=== PATIENT | male | born 1970 | race Caucasian/White ===

== ENCOUNTER → 2017-01-02 | Outpatient (CLI) | payer MEDICAID ==
[~2017-01-02] MED LIST: ALB0.5V INH; ALBU1.25 IH; ALBU2.5V4 IH; ALBU2.5V4 NEB; AMOX500C2 PO; ASPI-983 PO; AZIT250T5 PO; BENZ100C23 PO; BUDE10.2 IH; BUDE10.22 IH; CARV3.12 PO; CARV3.122 PO; CEPH500C PO; CLON0.5T3 PO; CLON1TAB3 PO; CODE118S2 PO; CPR500T PO; DICL75TA2 PO; ENAL2.5T PO; ESCI10TA PO; EXEN2PEN SQ; EXEN5PEN2 SQ; FLUT16SP22 NS; FLUT9.9S NSEACH; FURO20TA4 PO; FURO40TA4 PO; GABA-488 PO; GLYB2.5T4 PO; GLYB5TAB6 PO; HCPR10FM RC; IBP200T PO; IBUP-30 PO; INSU100V16 SQ; LEVO500T80 PO; LEVO750T6 PO; LINA145C PO; LISI10TA2 PO; MELO15TA39 PO; METF-380 PO; METF1000 PO; METO10TA3 PO; METO5TAB79 PO; MTP25TSR PO; MUPI22OI2 TOP; OMEP20CA12 PO; OMEP20TA7 PO; OXYB10TA PO; PNT40TEC PO; POTA10CA43 PO; POTA10TA6 PO; PRD20T PO; QUET100T PO; QUET100T69 PO; QUET300T44 PO; RANI150T90 PO; RT-ALBUINH IH; RT-ALBUINH INH; RT-COMBINH IH; SACU1TAB PO; SERT100T PO; SERT100T8 PO; SERT50TA9 PO; SPIR25TA3 PO; SULF-222 PO; TRAM50TA2 PO; TRAZ150T42 PO
--- NOTE | 2017-01-03 10:29 | ECHOCARDIOGRAPHY REPORT ---
PROCEDURE PHYSICIAN: LATOYA MURO DATE OF PROCEDURE: 01/02/2017 TWO DIMENSIONAL ECHOCARDIOGRAM REPORT PRIMARY PHYSICIAN: OTHER PHYSICIAN: REFERRING PHYSICIAN: Dr. Winn, [facility] ORDERING PHYSICIAN: INDICATION FOR THE PROCEDURE: Coronary artery disease, chest pain MEASUREMENTS DERIVED VALUES LV DIAMETER (LAX) NORMALS NORMALS Diastolic 6.2 (3.6-5.2) Eject. Fract. 30% (60%+/-6%) Systolic (2.3-3.9) Diastolic Vol. % Shortening (0.22-0.42) Systolic Vol. Aortic Root IVS THICKNESS Diastolic 1.1 (0.6-1.1) LVPW THICKNESS Diastolic 1.1 (0.6-1.1) LA DIAMETER Systolic 3.2 (2.1-3.7) FINDINGS: 1. Technically difficult study. 2. The left ventricle is dilated with diffuse left ventricular hypokinesia. Endocardium was not well visualized in all segments. Overall systolic function appeared to be reduced. Estimated ejection fraction 30%. There is questionable severe hypokinesia of the anterior wall, anteroapical segment. MUGA scan will be of better help in evaluating the left ventricular function. 3. The left atrium is dilated. No clot or thrombus were seen. 4. The right atrium and right ventricle were not well visualized. 5. Mitral valve was not well visualized. Mild mitral regurgitation noted by color Doppler flow. 6. Aortic valve leaflets were not visualized. There is no significant aortic valve stenosis or regurgitation noted. 7. Tricuspid valve and pulmonic valve were not well visualized. Insufficient Doppler signal to evaluate pulmonary artery pressure. CONCLUSION: 1. Technically difficult study. 2. Prominent left ventricle, endocardium was not well visualized in all segments. Systolic function is reduced. Questionable severe hypokinesia to akinesia of the anterior wall, anterior apex. Estimated ejection fraction 30%, I recommended evaluating a MUGA scan for better calculation of the ejection fraction. 3. Left atrial enlargement. 4. Mild mitral regurgitation Job ID: [id number] Dictated Date: 01/02/2017 19:21:55 Qualified Craft Worker Electrician Date: 01/03/2017 10:24:24 / moshe
== END ==
LOC: CARD 11:44
PROVIDERS: ATTEND Internal Medicine Cardiovascular Disease
DX: I25.10 Atherosclerotic heart disease of native coronary artery without angina pectoris (principal); I10 Essential (primary) hypertension; E78.2 Mixed hyperlipidemia; R07.9 Chest pain, unspecified
CPT/HCPCS: 93306

== ENCOUNTER → 2017-01-13 | Outpatient (CLI) | payer MEDICAID | LOC: RT 12:34 | PROVIDERS: ATTEND Internal Medicine Critical Care Medicine | DX: R06.00 Dyspnea, unspecified (principal); E11.9 Type 2 diabetes mellitus without complications ==

== ENCOUNTER → 2017-01-13 | Outpatient (CLI) | payer MEDICAID ==
[~2017-01-13] MED LIST changes: +CATHETER FLUSH 10 ML SYR IV PRN; +HEParin (CENTRAL IV FLUSH) 500 UNIT/5 ML SYR ONE
--- NOTE | 2017-01-14 14:12 | Diagnostic Imaging Report ---
PROCEDURE PHYSICIAN: LATOYA BLAIR SCAN REPORT DATE OF PROCEDURE: 01/13/2017 REFERRING PHYSICIAN: Dr. Shannon Winn, [facility] SUMMARY: The patient was injected with 32.5 mCi of technetium 99m tagged RBCs. Images were acquired and reviewed in the left anterior oblique, right anterior oblique, anterior and left lateral views. Review of the images showed dilated left ventricle with diffuse left ventricular hypokinesia. Calculated ejection fraction 26%. CONCLUSION: Dilated left ventricle with diffuse left ventricular hypokinesia. Calculated ejection fraction 26% Job ID: [id number] Dictated Date: 01/14/2017 12:46:24 Attending Urologist Date: 01/14/2017 14:09:36 / moshe
== END ==
LOC: CARD 12:31
PROVIDERS: ATTEND Internal Medicine Cardiovascular Disease
DX: R93.1 Abnormal findings on diagnostic imaging of heart and coronary circulation (principal)
CPT/HCPCS: 78472

== ENCOUNTER 2017-01-24 06:44 | Day surgery (SDC) | payer MEDICAID ==
[2017-01-24] VITALS (12 sets, daily range): BP systolic 133–156; BP diastolic 84–119
[~2017-01-24] VITALS: Ht 167.6 cm; Wt 160.1 kg
[~2017-01-24 06:44] MED LIST changes: -ASPI-983 PO; -CARV3.12 PO; -CARV3.122 PO; -CATHETER FLUSH 10 ML SYR IV PRN; -ESCI10TA PO; -FURO20TA4 PO; -FURO40TA4 PO; -HCPR10FM RC; -HEParin (CENTRAL IV FLUSH) 500 UNIT/5 ML SYR ONE; -INSU100V16 SQ; -POTA10CA43 PO; -POTA10TA6 PO; -QUET300T44 PO; -SACU1TAB PO; -SERT100T8 PO; -SPIR25TA3 PO
[2017-01-24] MEDS ORDERED: LIDOCAINE 1% INJ 20 ML (XYLOCAINE) VIAL ONE (07:05)
[2017-01-24] MEDS ORDERED: NS IV 1000 ML 1,000 ML ONE (07:06)
[2017-01-24] MEDS ORDERED: NS IV 1000 ML 1,000 ML IV SCH ×2 (07:11→09:45)
[2017-01-24 07:30] LABS: MEAN PLATELET VOLUME 11.8 FL (7.4-10.4); RED BLOOD COUNT 5.42 10^6/uL (4.35-5.85); RED CELL DISTRIBUTION WIDTH 12.6 % (10.0-14.5); WHITE BLOOD COUNT 7.7 10^3/uL (4.3-11.0)
[2017-01-24 07:32] LABS: BILIRUBIN,URINE NEGATIVE (NEGATIVE); KETONES,URINE NEGATIVE (NEGATIVE); LEUKOCYTE ESTERASE ,URINE NEGATIVE (NEGATIVE); NITRITE,URINE NEGATIVE (NEGATIVE); PH,URINE 6 (5-9); PROTEIN,URINE 2+ (NEGATIVE); UROBILINOGEN,URINE NORMAL (NORMAL)
--- NOTE | 2017-01-24 07:41 | Diagnostic Imaging Report ---
INDICATION: Coronary artery disease. Frontal chest obtained at 7:28 a.m. and compared with 10/05/16. FINDINGS: The heart is top limits normal in size. There is mild central vascular prominence. There is no acute consolidation or pneumothorax or pleural fluid. IMPRESSION: Borderline heart size with mild central vascular prominence. No acute consolidation or pleural fluid. Dictated by: Dictated on workstation # [id number]
[2017-01-24 07:42] LABS: SQUAMOUS EPITHELIAL CELL,UR RARE /HPF
[2017-01-24 07:44] LABS: INR 1.1 (0.8-1.4); PROTHROMBIN TIME PATIENT 13.4 SEC (12.2-14.7)
[2017-01-24] MEDS ORDERED: FLU TRIvalent (5 YOA+) 2016-17 (AFLURIA) 0.5 ML IM ONE (07:45)
--- NOTE | 2017-01-24 07:51 | Cardiac Procedure Note-CS/ASA ---
Pre-Procedure Note Pre-Op Procedure Note H&P Reviewed The H&P was reviewed, patient examined and no changes noted. Date H&P Reviewed: Jan 24, 2017 Time H&P Reviewed: 07:51 Conscious Sedation Pre-Proced Time Reviewed: 07:51 ASA Class: 3 Airway Mallampati Classification: ([place] appropriate class) I. II. III, IV Lungs Heart ASA score ASA 1: a normal healthy patient ASA 2: a patient with a mild systemic disease (mid diabetes, controlled hypertension, obesity x ASA 3: a patient with a severe systemic disease that limits activity (angina , COPD, prior Myocardial infarction) ASA 4: a patient with an incapacitating disease that is a constant threat to life (CHF, renal failure) ASA 5: a moribund patient not expected to survive 24 hrs. (ruptured aneurysm) ASA 6: a declared brain patient whose organs are being harvested. For emergent operations, add the letter E after the classification Grade 3 Sedation Plan: Analgesia, Amnesia, Plan communicated to team members, Discussed options with patient/fam, Discussed risks with patient/fam Note The patient is an appropriate candidate to undergo the planned procedure, sedation, and anesthesia. The patient immediately re-assessed prior to indication. LATOYA MURO MD Jan 24, 2017 07:51
[2017-01-24 07:54] LABS: ALANINE AMINOTRANSFERASE 66 U/L (0-55); ANION GAP 14 MMOL/L (5-14); ASPARTATE AMINO TRANSFERASE 52 U/L (5-34); BILIRUBIN,TOTAL 0.5 MG/DL (0.1-1.0); BLOOD UREA NITROGEN 9 MG/DL (7-18); BUN/CREATININE RATIO 8; CALCIUM 8.8 MG/DL (8.5-10.1); CARBON DIOXIDE 17 MMOL/L (21-32); CHLORIDE 102 MMOL/L (98-107); CHOLESTEROL 168 MG/DL (< 200); CREATININE SERUM 1.09 MG/DL (0.60-1.30); DIRECT LDL 116 MG/DL (1-129); GFR ESTIMATED > 60; POTASSIUM 4.3 MMOL/L (3.6-5.0); SODIUM 133 MMOL/L (135-145); TOTAL PROTEIN 7.3 G/DL (6.4-8.2); TRIGLYCERIDES 100 MG/DL (<150); VLDL CHOLESTEROL 20 MG/DL (5-40)
[2017-01-24 08:02] LABS: GLUCOSE 508 MG/DL (70-105)
[2017-01-24] MEDS ORDERED: inSUlin (REGULAR) HUMAN 1 UNIT/0.01 ML (CHARGE PER UNIT) ONE (08:06)
[2017-01-24] MEDS ORDERED: SPIR25TA3 PO (08:19)
[2017-01-24] MEDS ORDERED: ASPI-983 PO (08:19)
[2017-01-24] MEDS ORDERED: OMEP20CA12 PO (08:19)
[2017-01-24] MEDS ORDERED: DICL75TA2 PO (08:19)
[2017-01-24] MEDS ORDERED: CARV3.12 PO (08:19)
[2017-01-24] MEDS ORDERED: POTA10TA6 PO (08:19)
[2017-01-24] MEDS ORDERED: ESCI10TA PO (08:19)
[2017-01-24] MEDS ORDERED: QUET300T44 PO (08:19)
[2017-01-24] MEDS ORDERED: SACU1TAB PO (08:19)
[2017-01-24] MEDS ORDERED: inSUlin (REGULAR) HUMAN 1 UNIT/0.01 ML (CHARGE PER UNIT) SC NR (08:19)
[2017-01-24] MEDS ORDERED: FURO20TA4 PO (08:19)
[2017-01-24] MEDS ORDERED: SERT100T8 PO (08:19)
[2017-01-24] MEDS ORDERED: INSU100V16 SQ (08:19)
[2017-01-24] MEDS ORDERED: MIDAZOLAM 5 MG/5 ML (VERSED) VIAL ONE (09:06)
[2017-01-24] MEDS ORDERED: fentaNYL INJECTION 100 MCG/2 ML AMP ONE (09:06)
[2017-01-24] MEDS ORDERED: HEParin (CATH LAB) 1,000 ML IV ONE (09:31)
[2017-01-24] MEDS ORDERED: FURO40TA4 PO (09:43)
[2017-01-24] MEDS ORDERED: PATIENT MAY USE OWN MEDS, ALL PO SCH (09:45)
--- NOTE | 2017-01-24 09:48 | Discharge Inst-Post CATH ---
Discharge Inst-CATH Post Cardiac Cath D/C Inst Follow Up/Plan Hold Metformin for [address] Thompson's office in 2-4 weeks CARDIAC CATH DISCHARGE INSTRUCTIONS *Hold Metformin for 48 hours post heart cath. ACTIVITY * Go Home directly and rest. * Limit activity of the leg (or wrist if it was used) for 7 days including aerobics, swimming, jogging, bicycling, etc. * Restrict stair-climbing for 7 days if possible, if not, climb up with your non -cath leg, then bring together on the same step. * Avoid lifting, pushing, pulling or excessive movement of the affected extremity for 7 days. * Customary sexual activity may be resumed after 2 days-use caution not to use a position that strains or causes pain to the affected extremity. * No driving for 24 hours. * NO SMOKING. * Avoid straining for bowel movements for 7 days. * Gentle walking on level ground is allowed. * Returning to work will depend on the type of procedure and the results. Your doctor will discuss this with you. CALL YOUR DOCTOR FOR ANY OF THE FOLLOWING: *If bleeding from the puncture site occurs- Apply gentle pressure to site with clean cloth and call your doctor or EMS. * If a knot or lump forms under the skin, increases in size, or causes pain. * If bruising appears to be worsening or moving further down your leg instead of disappearing. * Temperature above 101 F. CARE OF YOUR GROIN INCISION; * Bruising or purple discoloration of the skin near the puncture site is common. * You may shower only, no bathtub bathing for 5 days. Be careful to avoid slipping as your leg may feel stiff. * If a closure device was used on your femoral artery, please see the attached guide regarding care of the device and your leg. * REMOVE the dressing from your groin the next day after your procedure in the shower. CARE OF YOUR WRIST INCISION; * Bruising or purple discoloration of the skin near the puncture site is common. * You may shower. * DO NOT submerge wrist. * Remove dressing in 24 hours. LATOYA THOMPSON MD Jan 24, 2017 09:48
--- NOTE | 2017-01-24 11:01 | DISCHARGE SUMMARY ---
PROCEDURE PHYSICIAN: LATOYA MURO DATE OF PROCEDURE: 01/24/2017 REFERRING PHYSICIAN: Dr. Shannon Winn. BRIEF HISTORY: Mr. Carlos is a 46-year-old gentleman with severe cardiomyopathy noted during stress test and MUGA scan scans. Questionable ischemic. He was scheduled for right and left heart catheterization. PROCEDURE NOTE: After explaining the procedure to the patient, all pros and cons were explained. All questions were answered. The patient signed a consent, then he was placed on the cardiac catheterization laboratory. The right groin was prepped in a sterile fashion. Local anesthesia applied. Right 6-Malagasy sheath was placed in the right femoral artery. 7-Malagasy sheath was placed in the left femoral vein. [place] catheter was advanced to the right atrium, right ventricle, main pulmonary artery in wedge position. Cardiac output and oxygen saturation were evaluated. Pressure was measured. Then the [place]Gy[place] was removed. Combination of right and left Veronica catheter were used to access the right and left coronary system. Multiple views were obtained. Pigtail catheter advanced to the left ventricular cavity. Left ventriculogram was done. Pullback LV to aorta was done. At the end of the procedure, sheath was removed. Mynx device deployed in the arterial site and manual pressure to the venous site. No complication noted. FINDINGS: HEMODYNAMICS: PA pressure 36/18, mean of 24. Pulmonary capillary wedge pressure of 20. RV pressure 41/9, aortic pressure 130/93, mean of 108, LV pressure 126/23, end-diastolic pressure of 23. Right atrial pressure of 6. Oxygen saturation FA 93.7, PA 66.7, RV 68, RA 68.8. Cardiac output by Avis equation is 5.56. Cardiac index by Avis equation is 2.18. Cardiac output by thermodilution 6.4. Cardiac index by thermodilution is 2.5. ANATOMY: 1. LEFT MAIN CORONARY ARTERY: The left main coronary artery is bifurcating to left anterior descending and left circumflex artery with no obstructive disease. 2. LEFT ANTERIOR DESCENDING ARTERY: The left anterior descending artery is moderate in size with mild disease, nonobstructive disease. 3. LEFT CIRCUMFLEX ARTERY: The left circumflex artery is moderate in size with no obstructive disease. 4. RIGHT CORONARY ARTERY: The right coronary artery is moderate in size with no obstructive disease. 5. LEFT VENTRICULOGRAM: Left ventriculogram was done in the right anterior oblique position. Left ventricle is prominent with diffuse left ventricular hypokinesia. Estimated ejection fraction 30 to 35%. CONCLUSION: 1. Nonischemic cardiomyopathy with ejection fraction 30 to 35%. 2. Normal coronaries. 3. Hemodynamics described above. DISCUSSION AND RECOMMENDATION: The patient will be treated with Maria Luisa Barrett. Continue maximizing medical therapy. Arrange for life vest and follow-up as an outpatient. FINAL DIAGNOSES: 1. Congestive heart failure, chronic compensated left ventricular systolic dysfunction, nonischemic cardiomyopathy. 2. Diabetes mellitus. 3. Hypertension. 4. Hyperlipidemia. Job ID: [id number] Dictated Date: 01/24/2017 09:55:48 Soda Maker Date: 01/24/2017 11:00:02/nicole
== END 2017-01-24 14:45 | disposition home or self-care (01) ==
LOC: CATH 06:44 → SURG 10:13 → CATH 14:45
PROVIDERS: ATTEND Internal Medicine Cardiovascular Disease
DX: I50.22 Chronic systolic (congestive) heart failure (principal); I42.9 Cardiomyopathy, unspecified; E11.9 Type 2 diabetes mellitus without complications; E78.5 Hyperlipidemia, unspecified; I10 Essential (primary) hypertension; I34.1 Nonrheumatic mitral (valve) prolapse; Z79.899 Other long term (current) drug therapy; Z79.4 Long term (current) use of insulin; Z72.0 Tobacco use; Z68.43 Body mass index [BMI] 50.0-59.9, adult
CPT/HCPCS: 36415; 71010; 80053; 80061; 81000; 82962; 85027; 85610; 85730; 87081; 93005; 93460

== ENCOUNTER 2017-02-20 16:21 | Observation (INO) | payer MEDICAID ==
[~2017-02-20] VITALS: Ht 168.9 cm; Wt 157.4 kg
[~2017-02-20 16:21] MED LIST changes: +ASPI-983 PO; +CARV3.12 PO; +ESCI10TA PO; +FURO20TA4 PO; +FURO40TA4 PO; +INSU100V16 SQ; +POTA10TA6 PO; +QUET300T44 PO; +SACU1TAB PO; +SERT100T8 PO; +SPIR25TA3 PO
[2017-02-20] MEDS ORDERED: RX-NITROGLYCERIN 0.4 MG TAB BTL 25'S SL ONE (16:30)
--- NOTE | 2017-02-20 16:44 | Diagnostic Imaging Report ---
INDICATION: Chest pain. EXAMINATION: Portable chest at 4:38 p.m. FINDINGS: Heart size and pulmonary vascularity are normal. Lungs are clear. There are no effusions or pneumothoraces. IMPRESSION: Negative chest. Dictated by: Dictated on workstation # [id number]
[2017-02-20 17:06] LABS: BASOPHILS % (AUTO) 0 % (0-10); EOSINOPHILS # (AUTO) 0.2 10^3/uL (0.0-0.3); EOSINOPHILS % (AUTO) 3 % (0-10); LYMPHOCYTES # (AUTO) 2.2 X 10^3 (1.0-4.0); LYMPHOCYTES % (AUTO) 28 % (12-44); MEAN CORPUSCULAR HEMOGLOBIN 32 PG (25-34); MEAN CORPUSCULAR HGB CONC 37 G/DL (32-36); MEAN CORPUSCULAR VOLUME 85 FL (80-99); MEAN PLATELET VOLUME 10.9 FL (7.4-10.4); MONOCYTES # (AUTO) 0.6 X 10^3 (0.0-1.0); MONOCYTES % (AUTO) 8 % (0-12); NEUTROPHILS % (AUTO) 62 % (42-75); PLATELET COUNT 158 10^3/uL (130-400); RED BLOOD COUNT 4.79 10^6/uL (4.35-5.85); RED CELL DISTRIBUTION WIDTH 12.3 % (10.0-14.5)
[2017-02-20 17:21] LABS: INR 1.1 (0.8-1.4); PROTHROMBIN TIME PATIENT 13.5 SEC (12.2-14.7)
[2017-02-20 17:35] LABS: ALANINE AMINOTRANSFERASE 34 U/L (0-55); ALBUMIN 3.6 G/DL (3.2-4.5); ANION GAP 8 MMOL/L (5-14); ASPARTATE AMINO TRANSFERASE 23 U/L (5-34); BILIRUBIN,TOTAL 0.4 MG/DL (0.1-1.0); BLOOD UREA NITROGEN 15 MG/DL (7-18); BUN/CREATININE RATIO 18; CALCIUM 8.5 MG/DL (8.5-10.1); CARBON DIOXIDE 22 MMOL/L (21-32); CHLORIDE 106 MMOL/L (98-107); CREATININE SERUM 0.85 MG/DL (0.60-1.30); GFR ESTIMATED > 60; GLUCOSE 240 MG/DL (70-105); MAGNESIUM 1.5 MG/DL (1.8-2.4); POTASSIUM 4.2 MMOL/L (3.6-5.0); SODIUM 136 MMOL/L (135-145); TOTAL PROTEIN 6.2 G/DL (6.4-8.2)
[2017-02-20 17:41] LABS: MYOGLOBIN SERUM 26.3 NG/ML (10.0-92.0)
--- NOTE | 2017-02-20 18:48 | ED Chest Pain ---
General Chief Complaint: Chest Pain Stated Complaint: CP, SOA Nursing Triage Note: PT ARRIVED PER EMS PT CO OF C/P THAT STARTED THIS AM WAS 7/10 THIS AM, NOW 3/10 AT THIS X. ASA 324MG GIVEN BY EMS. PT CO OF NAUSEA AND LIGHT HEADEDNESS WHEN STANDS Nursing Sepsis Screen: No Definite Risk Source: patient, old records Exam Limitations: no limitations History of Present Illness Time seen by provider: 16:26 Initial Comments This 46 rolled gentleman with nonischemic cardiomyopathy presents to emergency room with chest pain that started around 10:00 this morning. He describes it as a heaviness in the central chest like somebody sitting on his chest and radiating to the back. He denies any abdominal pain or tenderness. Pain was initially rated as 7/10 but is now fairly mild at 3 or 4/10. He had accompanied cold sweats and nausea. Patient had a cardiac catheterization on January 24 which showed no evidence of coronary artery disease. Ejection fraction was 30-35 percent at that time. Patient reports external defibrillator was recommended by Dr. Thompson but he cannot afford it at this time. He may have an external defibrillator placed at a later date. He does not know the cause of his cardiomyopathy but reports a tick panel was obtained by Dr. Thompson. He does not know the results. He no longer smokes as he quit about 2 years ago. Workup was initiated with orders by Dr. Raygoza at shift change and d-dimer was negative. Chest x-ray and EKG were also negative. Patient denies any exacerbating or alleviating factors that he has noticed. Allergies and Home Medications Allergies Coded Allergies: Penicillins (Verified Allergy, Unknown, 04/18/12) Sulfa (Sulfonamide Antibiotics) (Verified Allergy, Unknown, 02/20/17) liraglutide (Verified Allergy, Unknown, 02/20/17) Home Medications Albuterol Sulfate 2.5 Mg/3 Ml Vial.neb, 2.5 MG NEB EVERY 3 HOURS PRN for SHORTNESS OF BREATH, (Reported) Albuterol Sulfate 8.5 Gm Hfa.aer.ad, 2 PUFF INH QID PRN for SHORTNESS OF BREATH, (Reported) Aspirin 81 Mg Tablet.dr, 81 MG PO DAILY, (Reported) Budesonide/Formoterol Fumarate 10.2 Gm Hfa.aer.ad, 2 PUFF IH BID, (Reported) Carvedilol 3.125 Mg Tablet, 3.125 MG PO BID, (Reported) Diclofenac Sodium 75 Mg Tablet.dr, 75 MG PO BID PRN for PAIN, (Reported) Escitalopram Oxalate 10 Mg Tablet, 10 MG PO DAILY, (Reported) LAST FILLED 11-26-16 #30 Exenatide Microspheres 2 Mg/0.65 Ml Pen.injctr, 2 MG SC Th, (Reported) LAST FILLED 11-25-16 #4 Fluticasone Propionate 16 Gm Winigan.susp, 1 SPRAY NS BID PRN for ALLERGIES, ( Reported) Furosemide 40 Mg Tablet, 40 MG PO DAILY, (Reported) LAST FILLED 12-09-16 #30 Gabapentin 300 Mg Capsule, 1,200 MG PO HS, (Reported) Glyburide 5 Mg Tablet, 5 MG PO DAILY, (Reported) LAST FILLED 12-07-16 #30 Insulin Aspart 100 Unit/1 Ml Susp, 20 UNIT SQ AC, (Reported) Linaclotide 145 Mcg Capsule, 145 MCG PO DAILY PRN for CONSTIPATION, (Reported) Meloxicam 15 Mg Tablet, 15 MG PO DAILY PRN for HEADACHE, (Reported) Omeprazole 20 Mg Capsule.dr, 20 MG PO DAILY, (Reported) LAST FILLED #30 12-09-16 Oxybutynin Chloride 10 Mg Tab.er.24, 10 MG PO DAILY, (Reported) Potassium Chloride 10 Meq Tablet.er, 10 MEQ PO DAILY, (Reported) Quetiapine Fumarate 300 Mg Tablet, 300 MG PO HS, (Reported) Sacubitril/Valsartan 1 Each Tablet, 1 TAB PO BID, (Reported) Sertraline HCl 100 Mg Tablet, 100 MG PO DAILY, (Reported) Spironolactone 25 Mg Tablet, 25 MG PO BID, (Reported) Review of Systems Constitutional: see HPI EENTM: No Symptoms Reported Respiratory: No Symptoms Reported Cardiovascular: See HPI Gastrointestinal: See HPI Genitourinary: No Symptoms Reported Musculoskeletal: no symptoms reported Skin: no symptoms reported Psychiatric/Neurological: No Symptoms Reported Endocrine: No Symptoms Reported Past Mqyrtyi-Ixoidg-Pksjky Hx Patient Social History Alcohol Use: Denies Use Recreational Drug Use: No Type Used: Smokeless Tobacco Former Smoker/When Quit: Nov 28, 2014 Recent Foreign Travel: No Contact w/Someone Who Travel: No Recent Infectious Disease Expo: No Recent Hopitalizations: No Immunizations Up To Date Tetanus Booster (TDap): Less than 5yrs Date of Pneumonia Vaccine: Apr 25, 2012 Seasonal Allergies Seasonal Allergies: No Surgeries HX Surgeries: Yes (testicular torsion, RT KNEE reconstruction, right neck hematoma evacuation) Surgeries: Adenoidectomy, Cardiac, Orthopedic, Pacemaker, Testicular, Tonsillectomy Respiratory Hx Respiratory Disorders: Yes (breathing treatments ) Respiratory Disorders: Asthma, Pneumonia, Chronic Bronchitis, COPD Cardiovascular Hx Cardiac Disorders: Yes (nonischemic cardiomyopathy, chronic left bundle branch block) Cardiac Disorders: Cardiomyopathy, Irregular Heartbeat Neurological Hx Neurological Disorders: No Reproductive System Hx Reproductive Disorders: No Genitourinary Hx Genitourinary Disorders: Yes (History of testicular torsion, stress inc) Gastrointestinal Hx Gastrointestinal Disorders: Yes (slow digestion) Gastrointestinal Disorders: Gastroesophageal Reflux, Chronic Constipation Musculoskeletal Hx Musculoskeletal Disorders: Yes Musculoskeletal Disorders: Arthritis Endocrine Hx Endocrine Disorders: Yes Endocrine Disorders: Diabetes, Non-Insulin dep HEENT HX ENT Disorders: Yes (HEMATOMA TAKEN OUT OF THROAT) Loss of Vision: Denies Hearing Impairment: Hard of Hearing Cancer Hx Cancer: No Psychosocial Hx Psychiatric Problems: Yes Behavioral Health Disorders: Sleep Difficulties, Anxiety, PTSD, Bipolar, Depression Integumentary HX Skin/Integumentary Disorder: No Blood Transfusions Hx Blood Disorders: No Adverse Reaction to a Blood Tr: No Family Medical History Significant Family History: No Pertinent Family Hx, Heart Disease Family Medial History: Cardiovascular disease 19 FATHER 19 MOTHER Diabetes mellitus G8 SISTER FH: heart failure Physical Exam Vital Signs Vital Sign - Last 12Hours 02/20/17 02/20/17 16:25 16:41 Temp 97.9 Pulse 92 Resp 18 B/P (MAP) 105/70 Pulse Ox 97 O2 Delivery Room Air Capillary Refill : Less Than 3 Seconds General Appearance: No Apparent Distress, WD/WN, Obese HEENT: PERRL/EOMI, Normal ENT Inspection Neck: Normal Inspection Respiratory: Chest Non Tender, Lungs Clear, Normal Breath Sounds, No Accessory Muscle Use, No Respiratory Distress Cardiovascular: Regular Rate, Rhythm, No Edema, No Murmur Gastrointestinal: Normal Bowel Sounds, Non Tender, Soft Extremity: Normal Inspection, Non Tender, No Calf Tenderness, No Pedal Edema, Other (negative Robby) Neurologic/Psychiatric: Alert, Oriented x3, No Motor/Sensory Deficits, Normal Mood/Affect, private security 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 II-XII Norm as Tested Skin: Normal Color, Warm/Dry Progress/Results/Core Measures Results/Orders Lab Results Laboratory Tests Test 02/20/17 16:58 Range/Units White Blood Count 8.0 4.3-11.0 10^3/uL Red Blood Count 4.79 4.35-5.85 10^6/uL Hemoglobin 15.1 13.3-17.7 G/DL Hematocrit 41 40-54 % Mean Corpuscular Volume 85 80-99 FL Mean Corpuscular Hemoglobin 32 25-34 PG Mean Corpuscular Hemoglobin Concent 37 H 32-36 G/DL Red Cell Distribution Width 12.3 10.0-14.5 % Platelet Count 158 130-400 10^3/uL Mean Platelet Volume 10.9 H 7.4-10.4 FL Neutrophils (%) (Auto) 62 42-75 % Lymphocytes (%) (Auto) 28 12-44 % Monocytes (%) (Auto) 8 0-12 % Eosinophils (%) (Auto) 3 0-10 % Basophils (%) (Auto) 0 0-10 % Neutrophils # (Auto) 5.0 1.8-7.8 X 10^3 Lymphocytes # (Auto) 2.2 1.0-4.0 X 10^3 Monocytes # (Auto) 0.6 0.0-1.0 X 10^3 Eosinophils # (Auto) 0.2 0.0-0.3 10^3/uL Basophils # (Auto) 0.0 0.0-0.1 10^3/uL Prothrombin Time 13.5 12.2-14.7 SEC INR Comment 1.1 0.8-1.4 Activated Partial Thromboplast Time 25 24-35 SEC D-Dimer 0.29 0.00-0.49 UG/ML Sodium Level 136 135-145 MMOL/L Potassium Level 4.2 3.6-5.0 MMOL/L Chloride Level 106 98-107 MMOL/L Carbon Dioxide Level 22 21-32 MMOL/L Anion Gap 8 5-14 MMOL/L Blood Urea Nitrogen 15 7-18 MG/DL Creatinine 0.85 0.60-1.30 MG/DL Estimat Glomerular Filtration Rate > 60 BUN/Creatinine Ratio 18 Glucose Level 240 H 70-105 MG/DL Calcium Level 8.5 8.5-10.1 MG/DL Magnesium Level 1.5 L 1.8-2.4 MG/DL Total Bilirubin 0.4 0.1-1.0 MG/DL Aspartate Amino Transf (AST/SGOT) 23 5-34 U/L Alanine Aminotransferase (ALT/SGPT) 34 0-55 U/L Alkaline Phosphatase 58 40-136 U/L Myoglobin 26.3 10.0-92.0 NG/ML Troponin I < 0.30 <0.30 NG/ML Total Protein 6.2 L 6.4-8.2 G/DL Albumin 3.6 3.2-4.5 G/DL My Orders Orders - YANET MCADAMS MD Magnesium 1 Gm/100 Ml Ivpb (Magnesium Hassan (02/20/17 19:00) Ns Iv 500 Ml (Sodium Chloride 0.9%) (02/20/17 20:21) Medications Given in ED Current Medications Medications Dose Ordered Sig/Juancarlos Route Start Time Stop Time Status Last Admin Dose Admin Magnesium Sulfate/ Dextrose 100 ml @ 100 mls/hr ONCE ONCE IV 02/20/17 19:00 02/20/17 19:59 DC 02/20/17 19:11 100 MLS/HR Sodium Chloride 500 ml @ 0 mls/hr Q0M ONCE IV 02/20/17 20:21 02/20/17 20:22 DC 02/20/17 20:27 500 MLS/HR Vital Signs/I&O Vital Sign - Last 12Hours 02/20/17 02/20/17 16:25 16:41 Temp 97.9 Pulse 92 Resp 18 B/P (MAP) 105/70 Pulse Ox 97 O2 Delivery Room Air Blood Pressure Mean: 82 Progress Note : Time: 19:40 Progress Note Workup was unremarkable. Patient had some intermittent low blood pressures which were felt to be positional. They are normal when he sits up. 500 mL of normal saline was ordered as patient does take diuretics and may have become fluid depleted. 1 g of magnesium was also ordered by IV route for treatment of his hypomagnesemia. Case was reviewed with Dr. Strong. He recommends admission for observation since patient does not have a defibrillator. Patient could not afford the external defibrillator and is waiting a few months to determine if an internal defibrillator should be placed. Patient has had minimal chest discomfort while in the emergency room. Cardiac catheterization from earlier this month showed clean coronary arteries. Nitroglycerin was not administered due to absence of coronary artery disease and borderline blood pressures. ECG Initial ECG Impression Date: Feb 20, 2017 Initial ECG Impression Time: 16:33 Initial ECG Rate: 97 Initial ECG Rhythm: Normal Sinus Comment sinus rhythm with no ST elevation or depression. Chronic left bundle branch block with no other acute abnormalities appreciated. Diagnostic Imaging Diagonstic Imaging: Xray Plain Films/CT/US/NM/MRI: chest Comments chest x-ray report reviewed: NAME: [facility] REC#: [id number] PT STATUS: REG ER : 1970 PHYSICIAN: WOLF RAYGOZA MD ADMIT DATE: 02/20/17/ER Signed Date of Exam: 02/20/17 CHEST 1 VIEW, AP/PA ONLY INDICATION: Chest pain. EXAMINATION: Portable chest at 4:38 p.m. FINDINGS: Heart size and pulmonary vascularity are normal. Lungs are clear. There are no effusions or pneumothoraces. IMPRESSION: Negative chest. Dictated by: Dictated on workstation # [id number] Dict: 02/20/17 1641 Trans: 02/20/17 1656 [id number] Interpreted by: WOLF LUDWIG Electronically signed by:WOLF LUDWIG 02/20/17 1656 Departure Communication Time/Spoke to Admitting Phy: 20:[address] Carney was contacted and agrees with admission. She was notified of the magnesium replacement and borderline blood pressures which are felt to be positional. She was notified of the hourly vitals for the first 4 hours and the 500 mL normal saline bolus ordered. Time/Spoke to Consulting Physi: 19:36 Communication/Consulting Dr. Strong was consulted and recommended admission since patient does not have a defibrillator. There is no suspicion for coronary artery disease as patient had a clean cardiac catheter earlier this month. Impression Impression: Primary Impression: Chest pain Qualified Codes: R07.9 - Chest pain, unspecified Additional Impressions: Nonischemic cardiomyopathy Hypomagnesemia Disposition: ADMITTED INPATIENT Condition: Improved Decision to Admit Reason: Admit from ER (General) Decision to Admit/Date: Feb 20, 2017 Time/Decision to Admit Time: 19:36 Departure-Patient Inst. Referrals: ISMA ADAME DO (PCP) Primary Care Physician ROB ROMEO (Family) Primary Care Physician YANET MCADAMS MD Feb 20, 2017 18:48
[2017-02-20] MEDS ORDERED: MAGNESIUM 1 GM/100 ML IVPB 100 ML IV ONE (19:00)
[2017-02-20] MEDS ORDERED: NS IV 500 ML 500 ML IV ONE (20:21)
[2017-02-20] MEDS ORDERED: ACETAMINOPHEN 500 MG TAB (TYLENOL) PO PRN (22:15)
[2017-02-20] MEDS ORDERED: CATHETER FLUSH 10 ML SYR IV PRN (22:15)
[2017-02-20] MEDS ORDERED: fentaNYL INJECTION 100 MCG/2 ML AMP IV PRN (22:15)
[2017-02-20 22:30] VITALS: BP 132/80
[2017-02-20 22:45] VITALS: BP 135/92
[2017-02-20 23:00] VITALS: BP 130/74
[2017-02-20 23:15] VITALS: BP 140/82
[2017-02-20 23:30] VITALS: BP 143/92
[2017-02-21] VITALS (9 sets, daily range): BP systolic 102–136; BP diastolic 56–93
[2017-02-21] MEDS ORDERED: PATIENT MAY USE OWN MEDS, ALL MC SCH (00:45)
[2017-02-21] MEDS: PANTOPRAZOLE 40 MG (PROTONIX) TAB PO SCH ×2 (00:45→06:16)
[2017-02-21 04:02] LABS: BASOPHILS % (AUTO) 0 % (0-10); EOSINOPHILS # (AUTO) 0.3 10^3/uL (0.0-0.3); EOSINOPHILS % (AUTO) 3 % (0-10); LYMPHOCYTES # (AUTO) 2.8 X 10^3 (1.0-4.0); LYMPHOCYTES % (AUTO) 38 % (12-44); MEAN CORPUSCULAR HEMOGLOBIN 31 PG (25-34); MEAN CORPUSCULAR HGB CONC 36 G/DL (32-36); MEAN CORPUSCULAR VOLUME 85 FL (80-99); MEAN PLATELET VOLUME 11.2 FL (7.4-10.4); MONOCYTES # (AUTO) 0.6 X 10^3 (0.0-1.0); MONOCYTES % (AUTO) 8 % (0-12); NEUTROPHILS # (AUTO) 3.7 X 10^3 (1.8-7.8); NEUTROPHILS % (AUTO) 51 % (42-75); PLATELET COUNT 141 10^3/uL (130-400); RED BLOOD COUNT 4.59 10^6/uL (4.35-5.85); RED CELL DISTRIBUTION WIDTH 12.2 % (10.0-14.5); WHITE BLOOD COUNT 7.3 10^3/uL (4.3-11.0)
[2017-02-21 05:03] LABS: ANION GAP 10 MMOL/L (5-14); BLOOD UREA NITROGEN 17 MG/DL (7-18); BUN/CREATININE RATIO 22; CALCIUM 8.3 MG/DL (8.5-10.1); CARBON DIOXIDE 20 MMOL/L (21-32); CHLORIDE 106 MMOL/L (98-107); CHOLESTEROL 161 MG/DL (< 200); CREATININE SERUM 0.78 MG/DL (0.60-1.30); DIRECT LDL 106 MG/DL (1-129); GFR ESTIMATED > 60; GLUCOSE 164 MG/DL (70-105); MAGNESIUM 1.6 MG/DL (1.8-2.4); POTASSIUM 3.9 MMOL/L (3.6-5.0); SODIUM 136 MMOL/L (135-145); TRIGLYCERIDES 190 MG/DL (<150); VLDL CHOLESTEROL 38 MG/DL (5-40)
[2017-02-21] MEDS ORDERED: CATHETER FLUSH 10 ML SYR IV SCH (06:00)
[2017-02-21] MEDS: MAGNESIUM OXIDE (MAG-OX)400 MG TAB PO SCH ×2 (06:17→09:00)
[2017-02-21] MEDS ORDERED: FLU TRIvalent (5 YOA+) 2016-17 (AFLURIA) 0.5 ML IM ONE (08:15)
[2017-02-21] MEDS ORDERED: METF1000 PO (08:38)
[2017-02-21] MEDS ORDERED: CARV3.122 PO (08:46)
[2017-02-21] MEDS ORDERED: HCPR10FM RC (08:46)
[2017-02-21] MEDS ORDERED: POTA10CA43 PO (08:46)
[2017-02-21] MEDS ORDERED: ASPIRIN E.C. 325 MG (ECOTRIN) TABLET PO SCH (09:00)
--- NOTE | 2017-02-21 09:00 | Consultation-Cardiology ---
HPI-Cardiology Cardiology Consultation: Date of Consultation 02/21/17 Date of Admission 02-20-17 Attending Physician Radha Carney MD Admitting Physician Shannon Winn DO Consulting Physician Nevin Strong MD HPI: Chief Complaint: Chest pain Mr. Oh is a 46 year old male admitted to ICU from the ED. His primary quartz orientator is Dr. Thompson. He states he woke up yesterday with mid-sternal chest pressure "like someone was sitting on my chest". The discomfort was constant. He states he did feel short of breath with the discomfort. No c/o n/ v/d. No c/o syncope or near syncope. No c/o palpitations. He reports no further discomfort since he has been in ICU. No c/o LE edema. He states he has been compliant with his medications. He is following with Dr. Seay and is to have a sleep study next week. Review of Systems-Cardiology Review of Systems Constitutional: As described under HPI Eyes: No blurred vision, No drainage, No pain, No vision change Ears/Nose/Throat: No ear discharge, No ear pain, No nasal drainage, No ulcerations Respiratory: As described under HPI Cardiovascular: As described under HPI Gastrointestinal: No constipation, No diarrhea, No nausea, No vomiting, No stool coloration changes Genitourinary: No dysuria, No discharge, No frequency, No hematuria, No urgency Skin: No rash, No skin related problems, No ulcerations Psychiatric/Neurological: No anxiety, No depression, No focal weakness, No seizure, No syncope Hematologic: No bleeding abnormalities [id number]-[id number]-[id number] Hx Patient Social History Alcohol Use: Denies Use Recreational Drug Use: No Smoking Status: Former Smoker Former smoker/When Quit: Nov 28, 2014 Type Used: Smokeless Tobacco Recent Foreign Travel: No Recent Infectious Disease Expo: No Hospitalization with Isolation: Denies Physical Abuse Screen: No Sexual Abuse: No Immunizations Up To Date Tetanus Booster (TDap): Less than 5yrs Date of Pneumonia Vaccine: Apr 25, 2012 Past Medical History PMH As described under Assessment. Family Medical History Family History: 19 FATHER Cardiovascular disease FH: heart failure 19 MOTHER Cardiovascular disease FH: heart failure G8 SISTER Diabetes mellitus Allergies and Home Medications Allergies Coded Allergies: Penicillins (Verified Allergy, Unknown, 04/18/12) Sulfa (Sulfonamide Antibiotics) (Verified Allergy, Unknown, 02/20/17) liraglutide (Verified Allergy, Unknown, 02/20/17) Home Medications Albuterol Sulfate 2.5 Mg/3 Ml Vial.neb, 2.5 MG NEB EVERY 3 HOURS PRN for SHORTNESS OF BREATH, (Reported) Aspirin 81 Mg Tablet.dr, 81 MG PO DAILY, (Reported) Budesonide/Formoterol Fumarate 10.2 Gm Hfa.aer.ad, 2 PUFF IH BID, (Reported) Carvedilol 3.125 Mg Tablet, 3.125 MG PO BID, (Reported) Exenatide Microspheres 2 Mg/0.65 Ml Pen.injctr, 2 MG SQ Th, (Reported) Fluticasone Propionate 16 Gm [place].susp, 1 SPRAY NS BID PRN for ALLERGIES, ( Reported) Furosemide 40 Mg Tablet, 40 MG PO DAILY, (Reported) Gabapentin 300 Mg Capsule, 1,200 MG PO HS, (Reported) Glyburide 5 Mg Tablet, 5 MG PO DAILY, (Reported) Hydrocortisone/Pramoxine 10 Gm Foam, 1 APPLIC RC QID PRN for HEMORRHOIDS, #10 ( Reported) Insulin Aspart 100 Unit/1 Ml Susp, 15 UNIT SQ AC, (Reported) Linaclotide 145 Mcg Capsule, 145 MCG PO DAILY, (Reported) Meloxicam 15 Mg Tablet, 15 MG PO DAILY PRN for HEADACHE, (Reported) Metformin HCl 1,000 Mg Tablet, 1,000 MG PO BID WITH MEALS, (Reported) Omeprazole 20 Mg Capsule.dr, 20 MG PO DAILY, (Reported) Oxybutynin Chloride 10 Mg Tab.er.24, 10 MG PO DAILY, (Reported) Potassium Chloride 10 Meq Capsule.er, 10 MEQ PO DAILY, (Reported) LAST FILLED 01/02/17 #30 Quetiapine Fumarate 300 Mg Tablet, 300 MG PO HS, (Reported) Sacubitril/Valsartan 1 Each Tablet, 1 TAB PO BID, (Reported) Sertraline HCl 100 Mg Tablet, 100 MG PO DAILY, (Reported) Spironolactone 25 Mg Tablet, 25 MG PO BID, (Reported) Physical Exam-Cardiology Physical Exam Vital Signs/I&O Vital Sign - Last 12Hours 02/20/17 02/20/17 02/20/17 02/20/17 21:35 22:29 22:30 22:45 Temp 97.9 97.9 Pulse 94 91 90 90 Resp 18 19 14 B/P (MAP) 132/80 135/92 Pulse Ox 97 99 100 O2 Delivery Nasal Cannula Nasal Cannula O2 Flow Rate 2.00 2.00 02/20/17 02/20/17 02/20/17 02/21/17 23:00 23:15 23:30 00:00 Temp 97.9 97.9 97.9 Pulse 94 94 82 Resp 18 19 21 B/P (MAP) 130/74 140/82 143/92 Pulse Ox 99 99 97 100 O2 Delivery Nasal Cannula Nasal Cannula Nasal Cannula O2 Flow Rate 2.00 2.00 2.00 2.00 02/21/17 02/21/17 02/21/17 02/21/17 00:00 00:30 01:00 01:00 Temp 97.9 97.9 97.9 Pulse 85 92 87 80 Resp 17 B/P (MAP) 110/85 126/73 107/59 Pulse Ox 99 97 99 O2 Delivery Nasal Cannula Nasal Cannula Nasal Cannula O2 Flow Rate 2.00 2.00 2.00 02/21/17 02/21/17 02/21/17 02/21/17 02:00 03:00 04:00 04:00 Temp 97.9 97.9 97.6 Pulse 81 84 76 Resp 21 14 14 B/P (MAP) 129/91 102/56 107/69 Pulse Ox 96 97 100 97 O2 Delivery Nasal Cannula Nasal Cannula Nasal Cannula O2 Flow Rate 2.00 2.00 2.00 2.00 02/21/17 02/21/17 02/21/17 07:00 07:22 08:20 Temp 96.2 Pulse 74 76 Resp 14 B/P (MAP) 115/77 Pulse Ox 97 O2 Delivery Nasal Cannula O2 Flow Rate 2.00 2.00 Intake and Output 02/21/17 00:00 Intake Total 100 ml Balance 100 ml Capillary Refill : Less Than 3 Seconds Constitutional: appears stated age, No apparent distress, well-developed, well- nourished HEENT: PERRL, No discharge, hearing is well preserved, oral hygience is good, No ulceration, No xanthelasmas are seen Neck: No carotid bruit, carotid pulses are 2 + bilaterally Respiratory: No accessory muscle use, No respiratory distress, chest expansion is symmetric, chest is bilaterally symmetric, lungs clear to auscultation, other (good air entry) Cardiovascular: regular rate-rhythm, No JVD, S1 and S2 Gastrointestinal: No tender, soft, round, audible bowel sounds Rectal: deferred Extremities: No clubbing, No cyanosis, No significant edema Neurologic/Psychiatric: alert, oriented x 3, power is 5/5 both on sides Skin: No rash, No ulcerations Data Review Labs Laboratory Tests 02/20/17 16:58: White Blood Count 8.0, Red Blood Count 4.79, Hemoglobin 15.1, Hematocrit 41, Mean Corpuscular Volume 85, Mean Corpuscular Hemoglobin 32, Mean Corpuscular Hemoglobin Concent 37H, Red Cell Distribution Width 12.3, Platelet Count 158, Mean Platelet Volume 10.9H, Neutrophils (%) (Auto) 62, Lymphocytes (%) (Auto) 28 , Monocytes (%) (Auto) 8, Eosinophils (%) (Auto) 3, Basophils (%) (Auto) 0, Neutrophils # (Auto) 5.0, Lymphocytes # (Auto) 2.2, Monocytes # (Auto) 0.6, Eosinophils # (Auto) 0.2, Basophils # (Auto) 0.0, Prothrombin Time 13.5, INR Comment 1.1, Activated Partial Thromboplast Time 25, D-Dimer 0.29, Sodium Level 136, Potassium Level 4.2, Chloride Level 106, Carbon Dioxide Level 22, Anion Gap 8, Blood Urea Nitrogen 15, Creatinine 0.85, Estimat Glomerular Filtration Rate > 60, BUN/Creatinine Ratio 18, Glucose Level 240H, Calcium Level 8.5, Magnesium Level 1.5L, Total Bilirubin 0.4, Aspartate Amino Transf (AST/SGOT) 23 , Alanine Aminotransferase (ALT/SGPT) 34, Alkaline Phosphatase 58, Myoglobin 26.3, Troponin I < 0.30, Total Protein 6.2L, Albumin 3.6 02/20/17 22:57: Troponin I < 0.30 02/21/17 03:15: Sodium Level 136, Potassium Level 3.9, Chloride Level 106, Carbon Dioxide Level 20L, Anion Gap 10, Blood Urea Nitrogen 17, Creatinine 0.78, Estimat Glomerular Filtration Rate > 60, BUN/Creatinine Ratio 22, Glucose Level 164H, Calcium Level 8.3L, Magnesium Level 1.6L, Triglycerides Level 190H, Cholesterol Level 161, LDL Cholesterol Direct 106, VLDL Cholesterol 38, HDL Cholesterol 31L 02/21/17 03:45: White Blood Count 7.3, Red Blood Count 4.59, Hemoglobin 14.1, Hematocrit 39L, Mean Corpuscular Volume 85, Mean Corpuscular Hemoglobin 31, Mean Corpuscular Hemoglobin Concent 36, Red Cell Distribution Width 12.2, Platelet Count 141, Mean Platelet Volume 11.2H, Neutrophils (%) (Auto) 51, Lymphocytes (%) (Auto) 38 , Monocytes (%) (Auto) 8, Eosinophils (%) (Auto) 3, Basophils (%) (Auto) 0, Neutrophils # (Auto) 3.7, Lymphocytes # (Auto) 2.8, Monocytes # (Auto) 0.6, Eosinophils # (Auto) 0.3, Basophils # (Auto) 0.0 Radiology NAME: [facility] REC#: [id number] PT STATUS: REG ER : 1970 PHYSICIAN: WOLF RAYGOZA MD ADMIT DATE: 02/20/17/ER Signed Date of Exam: 02/20/17 CHEST 1 VIEW, AP/PA ONLY INDICATION: Chest pain. EXAMINATION: Portable chest at 4:38 p.m. FINDINGS: Heart size and pulmonary vascularity are normal. Lungs are clear. There are no effusions or pneumothoraces. IMPRESSION: Negative chest. Dictated by: Dictated on workstation # [id number] Dict: 02/20/17 1641 Trans: 02/20/17 165 [id number] Interpreted by: WOLF LUDWIG Electronically signed by:WOLF LUDWIG 02/20/17 1656 A/P-Cardiology Assessment/Admission Diagnosis Chest discomfort with no evidence of ACS Normal coronary arteries. Dilated nonischemic cardiomyopathy with ejection fraction 30 to 35%. Per cardiac cath by Dr. Thompson on 01-24-17. Pt refuses external defib vest d/t cost. Chronic systolic CHF, compensated left ventricular systolic dysfunction - clinically compensated Diabetes mellitus. Hypertension. Hyperlipidemia - statin tx Suspected sleep apnea - out patient sleep study with Dr. Seay in the next two weeks Morbid obesity - BMI 55.2 Hypomagnesium - Replace magnesium Discussion and Recomendations Cardiac status clinically stable. Chest discomfort with no evidence of ACS. Dilated cardiomyopathy for which external defib vest has been advised per Dr. Thompson and again by us. However he has refused in the past d/t cost and once again refuses. We will continue his current medication regimen. We advise compliance with his medications and f/u. We advise he follow through with already scheduled sleep study. We advise out patient f/u with Dr. Thompson regarding possible permanent defib placement. He verbalizes understanding of instructions, recommendations and the the implications of his decision. Replace magnesium. We would like to thank Dr. Carney for this consult. OK to discharge home today from cardiac stand point. This consult is being scribed by Kiarra Goodman APRN on behalf of Dr. Strong after discussion regarding plan of care. Clinical Quality Measures AMI/AHF: ASA po Prior to arrival: Yes (EMS) DVT/VTE Risk/Contraindication: Risk Factor Score Per Nursin RFS Level Per Nursing on Admit: 4+=Very High Physician Assessment Physician Assessment Lungs: good bilat air entry Cor: reg Tele: no significant arrhythmia since admission A&R * As documented in our note above * I spoke with him and answered questions * He refuses ext defib vest due to cost issues * Already has f/u apptt within a few day with Dr Thompson for consideration of perm defib when he meets perm defib guidelines * Due to body habitus, sleep apnea as the cause of his cardiomyopathy is a strong consideration. This was discussed. He states he already has a sleep study apptt with the next few days and that Dr Thompson and pt's pcp are working on this issue DARRYL GOODMAN Feb 21, 2017 09:00 NEVIN STRONG MD [facility] Feb 21, 2017 09:28
[2017-02-21] MEDS ORDERED: KCL 10 MEQ TAB (MICRO K) PO SCH (09:47)
[2017-02-21] MEDS: MAGNESIUM 1 GM/100 ML IVPB 100 ML IV SCH ×2 (09:54→11:05)
--- NOTE | 2017-02-21 11:31 | Short Stay Summary ---
HPI History of Present Illness: 46 yo M with non non ischemic cardiomyopathy that follows with Dr Thompson that presented to ER with chest pain at rest. Patient has been recommended to get defibrillator but has declined due to cost. States that he was sitting down when the chest pain started. Improved in the ER with fluids and pain medication. Denies any chest pain at this time. Patient is currently undergoing testing for KATY and has sleep study in 2 weeks. Denies shortness of breath or LE swelling during episode. Had recent Cath at the beginning of the month with Dr Thompson that showed EF 30%. Source: patient, family, RN/MD, old records Exam Limitations: no limitations Date seen by provider: Feb 21, 2017 Time seen by provider: 11:45 Attending Physician Radha Carney MD PCP Shannon Winn DO Consult Date of Admission Feb 20, 2017 at 20:49 Home Medications Home Medications Reviewed patient Home Medication Reconciliation Form Allergies Coded Allergies: Penicillins (Verified Allergy, Unknown, 04/18/12) Sulfa (Sulfonamide Antibiotics) (Verified Allergy, Unknown, 02/20/17) liraglutide (Verified Allergy, Unknown, 02/20/17) OFQ-Ssgewk-Ydnunb Hx Patient Social History Living Status: Lives with Alcohol Use: Denies Use Recreational Drug Use: No Smoking Status: Former Smoker Former smoker/When Quit: Nov 28, 2014 Type Used: Smokeless Tobacco Recent Foreign Travel: No Contact w/other who traveled: No Recent Hopitalizations: No (Dec 10) Recent Infectious Disease Expo: No Physical Abuse Screen: No Sexual Abuse: No Immunizations Up To Date Tetanus Booster (TDap): Less than 5yrs Date of Pneumonia Vaccine: Apr 25, 2012 Past Medical History 1. Chest Pain with minimal CAD per cath. - 2. COPD/Asthma 3. DM- on metformin 4. Chronic LBBB 5. Obesity 6. Tobaccoism PAST SURGICAL HISTORY 1. Rt. Knee repair surgery 1986 2. Tonsillectomy as a child 3. Testicular tortion surgery 4. Hematoma removal from neck 5. Cardiac Catheterization -- angiographically mild 30-40% RCA. Family Medical History Significant Family History: No Pertinent Family Hx, Heart Disease Family History: Cardiovascular disease 19 FATHER 19 MOTHER Diabetes mellitus G8 SISTER FH: heart failure 19 FATHER 19 MOTHER Review of Systems (CHC) Constitutional: no symptoms reported, No chills, No fever, No weakness EENTM: no symptoms reported Respiratory: no symptoms reported, No cough, No dyspnea on exertion, No short of breath Cardiovascular: chest pain, No edema, No palpitations Gastrointestinal: No abdominal pain, No constipation, No diarrhea, No melena, No nausea, No vomiting Genitourinary: no symptoms reported, No dysuria, No frequency, No hematuria Musculoskeletal: no symptoms reported, No back pain, No joint pain, No joint swelling Skin: no symptoms reported, No pruritus, No rash Psychiatric/Neurological: No Symptoms Reported, Denies Anxiety, Denies Depressed Reviewed Test Results Reviewed Test Results Lab Laboratory Tests Test 02/20/17 16:58 02/20/17 22:57 02/21/17 03:15 02/21/17 03:45 Range/Units White Blood Count 8.0 7.3 4.3-11.0 10^3/uL Red Blood Count 4.79 4.59 4.35-5.85 10^6/uL Hemoglobin 15.1 14.1 13.3-17.7 G/DL Hematocrit 41 39 L 40-54 % Mean Corpuscular Volume 85 85 80-99 FL Mean Corpuscular Hemoglobin 32 31 25-34 PG Mean Corpuscular Hemoglobin Concent 37 H 36 32-36 G/DL Red Cell Distribution Width 12.3 12.2 10.0-14.5 % Platelet Count 158 141 130-400 10^3/uL Mean Platelet Volume 10.9 H 11.2 H 7.4-10.4 FL Neutrophils (%) (Auto) 62 51 42-75 % Lymphocytes (%) (Auto) 28 38 12-44 % Monocytes (%) (Auto) 8 8 0-12 % Eosinophils (%) (Auto) 3 3 0-10 % Basophils (%) (Auto) 0 0 0-10 % Neutrophils # (Auto) 5.0 3.7 1.8-7.8 X 10^3 Lymphocytes # (Auto) 2.2 2.8 1.0-4.0 X 10^3 Monocytes # (Auto) 0.6 0.6 0.0-1.0 X 10^3 Eosinophils # (Auto) 0.2 0.3 0.0-0.3 10^3/uL Basophils # (Auto) 0.0 0.0 0.0-0.1 10^3/uL Prothrombin Time 13.5 12.2-14.7 SEC INR Comment 1.1 0.8-1.4 Activated Partial Thromboplast Time 25 24-35 SEC D-Dimer 0.29 0.00-0.49 UG/ML Sodium Level 136 136 135-145 MMOL/L Potassium Level 4.2 3.9 3.6-5.0 MMOL/L Chloride Level 106 106 98-107 MMOL/L Carbon Dioxide Level 22 20 L 21-32 MMOL/L Anion Gap 8 10 5-14 MMOL/L Blood Urea Nitrogen 15 17 7-18 MG/DL Creatinine 0.85 0.78 0.60-1.30 MG/DL Estimat Glomerular Filtration Rate > 60 > 60 BUN/Creatinine Ratio 18 22 Glucose Level 240 H 164 H 70-105 MG/DL Calcium Level 8.5 8.3 L 8.5-10.1 MG/DL Magnesium Level 1.5 L 1.6 L 1.8-2.4 MG/DL Total Bilirubin 0.4 0.1-1.0 MG/DL Aspartate Amino Transf (AST/SGOT) 23 5-34 U/L Alanine Aminotransferase (ALT/SGPT) 34 0-55 U/L Alkaline Phosphatase 58 40-136 U/L Myoglobin 26.3 10.0-92.0 NG/ML Troponin I < 0.30 < 0.30 <0.30 NG/ML Total Protein 6.2 L 6.4-8.2 G/DL Albumin 3.6 3.2-4.5 G/DL Triglycerides Level 190 H <150 MG/DL Cholesterol Level 161 < 200 MG/DL LDL Cholesterol Direct 106 1-129 MG/DL VLDL Cholesterol 38 5-40 MG/DL HDL Cholesterol 31 L 40-60 MG/DL Radiology NAME: [facility] REC#: [id number] PT STATUS: REG ER : 1970 PHYSICIAN: WOLF RAYGOZA MD ADMIT DATE: 02/20/17/ER Signed Date of Exam: 02/20/17 CHEST 1 VIEW, AP/PA ONLY INDICATION: Chest pain. EXAMINATION: Portable chest at 4:38 p.m. FINDINGS: Heart size and pulmonary vascularity are normal. Lungs are clear. There are no effusions or pneumothoraces. IMPRESSION: Negative chest. Dictated by: Dictated on workstation # [id number] Dict: 02/20/17 1641 Trans: 02/20/17 1656 [id number] Interpreted by: WOLF LUDWIG Electronically signed by:WOLF LUDWIG 02/20/176 Physical Exam-(CHC) Physical Exam Vital Signs VS - Last 72 Hours, by Label 02/20/17 02/20/17 02/20/17 02/20/17 16:25 16:41 21:35 22:29 Temp 97.9 Pulse 92 94 91 Resp 18 18 B/P (MAP) 105/70 Pulse Ox 97 97 O2 Delivery Room Air 02/20/17 02/20/17 02/20/17 02/20/17 22:30 22:45 23:00 23:15 Temp 97.9 97.9 97.9 97.9 Pulse 90 90 94 94 Resp 19 14 18 19 B/P (MAP) 132/80 135/92 130/74 140/82 Pulse Ox 99 100 99 99 O2 Delivery Nasal Cannula Nasal Cannula Nasal Cannula Nasal Cannula O2 Flow Rate 2.00 2.00 2.00 2.00 02/20/17 02/21/17 02/21/17 02/21/17 23:30 00:00 00:00 00:30 Temp 97.9 97.9 97.9 Pulse 82 85 92 Resp 21 16 14 B/P (MAP) 143/92 110/85 126/73 Pulse Ox 97 100 99 97 O2 Delivery Nasal Cannula Nasal Cannula Nasal Cannula O2 Flow Rate 2.00 2.00 2.00 2.00 02/21/17 02/21/17 02/21/17 02/21/17 01:00 01:00 02:00 03:00 Temp 97.9 97.9 97.9 Pulse 87 80 81 84 Resp 17 21 14 B/P (MAP) 107/59 129/91 102/56 Pulse Ox 99 96 97 O2 Delivery Nasal Cannula Nasal Cannula Nasal Cannula O2 Flow Rate 2.00 2.00 2.00 02/21/17 02/21/17 02/21/17 02/21/17 04:00 04:00 07:00 07:22 Temp 97.6 Pulse 76 74 Resp 14 B/P (MAP) 107/69 Pulse Ox 100 97 O2 Delivery Nasal Cannula O2 Flow Rate 2.00 2.00 2.00 02/21/17 02/21/17 02/21/17 02/21/17 08:20 08:20 08:20 11:06 Temp 96.2 96.2 Pulse 76 85 Resp 14 20 B/P (MAP) 115/77 136/93 Pulse Ox 97 98 O2 Delivery Nasal Cannula Nasal Cannula Room Air O2 Flow Rate 2.00 2.00 2.00 Capillary Refill : Less Than 3 Seconds General Appearance: WD/WN, no apparent distress HEENT: PERRL/EOMI, normal ENT inspection Neck: non-tender, full range of motion, supple, normal inspection, other ( thick neck) Respiratory: chest non-tender, lungs clear, normal breath sounds, no respiratory distress, no accessory muscle use Cardiovascular: normal peripheral pulses, regular rate, rhythm, no edema, no gallop, no JVD, no murmur Gastrointestinal: normal bowel sounds, non tender, soft, no organomegaly, no pulsatile mass Extremities: normal range of motion, non-tender, normal inspection, no pedal edema, no calf tenderness, normal capillary refill Neurologic/Psychiatric: psychosocial rehabilitation counselor II-XII nml as tested, no motor/sensory deficits, alert, normal mood/affect, oriented x 3 Skin: normal color, warm/dry Lymphatic: no adenopathy Short Stay Diagnosis Discharge Diagnosis-Short Stay Admission Diagnosis Atypical Chest pain Non Ischemic Cardiomyopathy EF 30% Hypomagnesium Non Insulin DM Obesity Final Discharge Diagnosis See Above Conclusion Plan 46 yo M that was admitted for Chest pain Plan Atypical Chest pain - Seen by Dr Strong for cardiology and they discussed the need for device further - Expressed the importance of getting sleep study done - Close follow up with Dr Thompson on 03/03 - CE and ECG normal Non Ischemic Cardiomyopathy - Managed by Cardiology Hypomagnesium - Replaced IV during admission Obesity - Discussed the importance of weight loss with patient Non Insulin Diabetes - Continue Metformin, no medication changes made Follow up: Ensure that patient completes sleep study as he likely has KATY which has played a role in his cardiomyopathy Clinical Quality Measures AMI/AHF: ASA po Prior to arrival: Yes (EMS) DVT/VTE Risk/Contraindication: Risk Factor Score Per Nursin RFS Level Per Nursing on Admit: 4+=Very High Copy Copies To 1: Alexander LOUIS HOLLY R MD Feb 21, 2017 11:31
--- NOTE | 2017-02-21 11:34 | Discharge Instructions ---
Discharge [facility] Discharge Medications New, Converted or Re-Newed RX: Other (No new scripts, patient does not need refills) Continued Medications: Albuterol Sulfate (Albuterol Sulfate) 2.5 Mg/3 Ml Vial.neb 2.5 MG NEB EVERY 3 HOURS PRN for SHORTNESS OF BREATH, EA Aspirin (Aspirin EC) 81 Mg Tablet.dr 81 MG PO DAILY, TAB Budesonide/Formoterol Fumarate (Symbicort 160-4.5 Mcg Inhaler) 10.2 Gm Hfa.aer.ad 2 PUFF IH BID, INHALER Carvedilol (Carvedilol) 3.125 Mg Tablet 3.125 MG PO BID Exenatide Microspheres (Bydureon Pen) 2 Mg/0.65 Ml Pen.injctr 2 MG SQ Th, EA Fluticasone Propionate (Fluticasone Propionate) 16 Gm [place].susp 1 SPRAY NS BID PRN for ALLERGIES, SPRAY Furosemide (Furosemide) 40 Mg Tablet 40 MG PO DAILY, TAB Gabapentin (Gabapentin) 300 Mg Capsule 1200 MG PO HS, CAP Glyburide (Glyburide) 5 Mg Tablet 5 MG PO DAILY, TAB Hydrocortisone/Pramoxine (Proctofoam-Hc 1%-1% Foam) 10 Gm Foam 1 APPLIC RC QID PRN for HEMORRHOIDS, #10 Insulin Aspart (Novolog) 100 Unit/1 Ml Susp 15 UNIT SQ AC, ML Linaclotide (Linzess) 145 Mcg Capsule 145 MCG PO DAILY, CAP Metformin HCl (Metformin HCl) 1,000 Mg Tablet 1000 MG PO BID WITH MEALS Omeprazole (Omeprazole) 20 Mg Capsule.dr 20 MG PO DAILY, CAP Oxybutynin Chloride (Oxybutynin Chloride ER) 10 Mg Tab.er.24 10 MG PO DAILY, TAB Potassium Chloride (Potassium Chloride) 10 Meq Capsule.er 10 MEQ PO DAILY LAST FILLED 01/02/17 #30 Quetiapine Fumarate (Quetiapine Fumarate) 300 Mg Tablet 300 MG PO HS, TAB Sacubitril/Valsartan (Entresto 24 mg-26 mg Tablet) 1 Each Tablet 1 TAB PO BID, TAB Sertraline HCl (Sertraline HCl) 100 Mg Tablet 100 MG PO DAILY, TAB Spironolactone (Spironolactone) 25 Mg Tablet 25 MG PO BID, TAB Discontinued Medications: Meloxicam (Meloxicam) 15 Mg Tablet 15 MG PO DAILY PRN for HEADACHE, TAB Patient Instructions Goal/Follow Up Appt: - Make sure to keep your appointment with Dr Thompson on 03/03/2017 - You have a sleep study on 03/05/17 - You have a f/u appt with Alexander on 03/04/17 @ 1120 AM, You will be picked up at 11AM, If you don't need transportation please call the clinic Patient Instructions: It is very important that you keep your follow up appointments Return to The Hospital For: Worsening chest pain Shortness of breath Unable to tolerate medications Activity & Diet Discharge Diet: ADA Diet, Cardiac Diet Activity as Tolerated: Yes Copy Copies To 1: Alexander LOUIS HOLLY R MD Feb 21, 2017 11:29
[2017-02-21] MEDS ORDERED: SPIRONOLACTONE 25 MG (ALDACTONE) TAB PO SCH (21:00)
[2017-02-21] MEDS ORDERED: QUETIAPINE 300 MG PO SCH (21:00)
[2017-02-21] MEDS ORDERED: CARVEDILOL 3.125 MG (COREG) TABLET PO SCH (21:00)
[2017-02-21] MEDS ORDERED: NON-FORMULARY MEDICATION 1 EA EA (Quetiapine Fumarate 300 MG) PO SCH (21:00)
[2017-02-21] MEDS ORDERED: SACUBITRIL/VALSARTAN 24/26 MG (ENTRESTO) TABLET PO SCH (21:00)
[2017-02-22] MEDS ORDERED: FUROSEMIDE 40 MG (LASIX) TAB PO SCH (09:00)
[2017-02-22] MEDS ORDERED: ASPIRIN E.C. 81 MG (ECOTRIN) TAB PO SCH (09:00)
--- OUTSIDE RECORDS SUMMARY | 2017-03-16 06:53 | XMS REPORT ---
Author Author HUY VU [employer] Address Unknown Phone Unavailable Care Team Providers Care Pocket Setter Lockstitch Name Role Phone HUY VU CP Unavailable Allergies, Adverse Reactions, Alerts Substance Reaction Event Type Penicillin V Potassium Info Not Available Drug Allergy Problems Problem Type Condition Code Onset Dates Condition Status Problem Chronic obstructive pulmonary disease, unspecified COPD type 496 Active Problem Constipation by delayed colonic transit K59.01 Active Problem SOB (shortness of breath) 786.05 Active Problem Diabetes E11.9 Active Problem Wheezing R06.2 Active Problem Chronic obstructive pulmonary disease, unspecified COPD type J44.9 Active Problem Diverticulosis of intestine without bleeding, unspecified intestinal tract location K57.90 Active Problem Cough R05 Active Problem SOB (shortness of breath) R06.02 Active Problem Morbid obesity due to excess calories E66.01 Active Assessment Constipation by delayed colonic transit K59.01 Active Assessment Cough R05 Active Assessment SOB (shortness of breath) R06.02 Active Assessment Wheezing R06.2 Active Assessment Diverticulosis of intestine without bleeding, unspecified intestinal tract location K57.90 Active Assessment Diabetes E11.9 Active Assessment Morbid obesity due to excess calories E66.01 Active Assessment Chronic obstructive pulmonary disease, unspecified COPD type J44.9 Active Medications Medication Code System Code Instructions Start Date End Date Status Dosage Sandro Ansari [facility] [address]-85 100 MG Orally 2 times a day Nov 23, 2015 Dec 03, 2015 1 capsule as needed Symbicort [facility] [address]-53 160-4.5 mcg/actuation Twice a day Sep 11, 2012 March 22, 2016 2 puffs by Inhalation route 2 times per day for 30 day( s) metformin [facility] [address]-67 1,000 mg orally 2 times a day with meals February 17, 2015 1 tablet by Oral route 2 times per day with meals Albuterol Sulfate [facility] [address]-29 (5 MG/ML) 0.5% Inhalation every 4 hours as needed Sep 11, 2012 1 Each by Inhalation route every 4 hours for cough and wheeze PRNfor wheezing or cough Linzess [facility] [address]-44 145 MCG Orally Once a day Nov 23, 2015 Dec 07, 2015 1 capsule Lancets [facility] 0 one touch ultra Nov 23, 2015 as directed Test strips [facility] 0 one touch ultra Nov 23, 2015 as directed ProAir HFA [facility] [address]-44 90 mcg/actuation Inhalation every 4 hrs March 19, 2012 2 puffs by Inhalation route 4 times per day for 30 day(s) Procedures Procedure Coding System Code Date Office Visit, Est Pt., Level 4 CPT-4 72794 Nov 23, 2015 NEB/MDI RX INITIAL CPT-4 33033 Nov 23, 2015 GLYCATED HEMOGLOBIN TEST CPT-4 18192 Nov 23, 2015 Vital Signs Date/Time: Nov 23, 2015 Temperature 97.1 F Weight 343.1 lbs Height 67 in BMI 53.73 Index Blood Pressure Diastolic 72 mmHg Blood Pressure Systolic 130 mmHg Cardiac Monitoring Heart Rate 122 bpm Results Name Result Date Reference Range Unit Abnormality Flag NEBULIZER TREATMENT Summary Purpose eClinicalWorks Submission
--- OUTSIDE RECORDS SUMMARY | 2017-03-16 06:53 | XMS REPORT ---
Author Author ROB ROMEO [facility] eClinicalWorks Address Unknown Phone Unavailable Care Team Providers Care Thread Weaver Name Role Phone ROB ROMEO CP Unavailable Allergies No Known Allergies Problems Problem Type Condition Code Onset Dates Condition Status Problem Constipation by delayed colonic transit K59.01 Active Problem Cough R05 Active Problem Morbid obesity due to excess calories E66.01 Active Problem Arthritis M19.90 Active Problem SOB (shortness of breath) R06.02 Active Problem Open wound of left great toe, sequela S91.102S Active Problem Wheezing R06.2 Active Problem Urge incontinence of urine N39.41 Active Problem Hammer toe of left foot M20.42 Active Problem 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 Active Problem Generalized edema R60.1 Active Problem Essential hypertension I10 Active Problem Neck pain on right side M54.2 Active Problem 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 Problem Pharyngitis, unspecified etiology J02.9 Active Problem Chronic obstructive pulmonary disease, unspecified COPD type J44.9 Active Problem Frequent falls R29.6 Active Problem Dizziness of unknown cause R42 Active Problem Major depressive disorder, recurrent episode, severe, with psychotic behavior F33.3 Active Problem Diabetes E11.9 Active Problem Headache R51 Active Problem Mass of right side of neck R22.1 Active Problem Gastroesophageal reflux disease, esophagitis presence not specified K21.9 Active Problem Osteoarthritis of right knee, unspecified osteoarthritis type M17.9 Active Problem Heart palpitations R00.2 Active Problem Posttraumatic stress disorder F43.10 Active Problem Diabetes mellitus type 2, uncontrolled E11.65 Active Problem URI (upper respiratory infection) J06.9 Active Medications No Known Medications Results No Known Results Summary Purpose eClinicalWorks Submission
--- OUTSIDE RECORDS SUMMARY | 2017-03-16 06:53 | XMS REPORT ---
Author Author PÉREZ GAMBOA Organization [employer] Address Unknown Phone Unavailable Care Team Providers Care Air Defence Officer Name Role Phone PÉREZ GAMBOA CP Unavailable Allergies No Known Allergies Problems Problem Type Condition Code Onset Dates Condition Status Problem Constipation by delayed colonic transit K59.01 Active Problem Depressive disorder, not elsewhere classified F32.9 Active Problem Cough R05 Active Problem URI (upper respiratory infection) J06.9 Active Problem Morbid obesity due to excess calories E66.01 Active Problem Heart palpitations R00.2 Active Problem Arthritis M19.90 Active Problem Posttraumatic stress disorder F43.10 Active Problem Frequent falls R29.6 Active Problem Dizziness of unknown cause R42 Active Problem Chronic obstructive pulmonary disease, unspecified COPD type J44.9 Active Problem Wheezing R06.2 Active Problem Diabetes E11.9 Active Problem SOB (shortness of breath) R06.02 Active Problem Urge incontinence of urine N39.41 Active Problem Open wound of left great toe, sequela S91.102S Active Problem Hammer toe of left foot M20.42 Active Problem 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 Active Problem Gastroesophageal reflux disease, esophagitis presence not specified K21.9 Active Problem Osteoarthritis of right knee, unspecified osteoarthritis type M17.9 Active Problem 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 Problem Neck pain on right side M54.2 Active Problem Diabetes mellitus type 2, uncontrolled E11.65 Active Problem Psychosis, unspecified psychosis type F29 Active Problem Headache R51 Active Problem Mass of right side of neck R22.1 Active Medications Medication Code System Code Instructions Start Date End Date Status Dosage Sertraline HCl [facility] [address]-14 100 MG Orally Once a day Sep 26, 2016 1 tablet Results No Known Results Summary Purpose eClinicalWorks Submission
--- OUTSIDE RECORDS SUMMARY | 2017-03-16 06:53 | XMS REPORT ---
Author Author ROB ROMEO [facility] eClinicalWorks Address Unknown Phone Unavailable Care Team Providers Care Fast Food Services Manager Name Role Phone ROB ROMEO CP Unavailable Allergies, Adverse Reactions, Alerts Substance Reaction Event Type Victoza Info Not Available Drug Allergy Penicillin V Potassium Info Not Available Drug Allergy Lisinopril Info Not Available Drug Allergy Problems Problem Type Condition Code Onset Dates Condition Status Assessment Constipation by delayed colonic transit K59.01 Active Assessment Osteoarthritis of right knee, unspecified osteoarthritis type M17.9 Active Assessment Chronic obstructive pulmonary disease, unspecified COPD type J44.9 Active Assessment Morbid obesity due to excess calories E66.01 Active Assessment Closed displaced fracture of proximal phalanx of right thumb with routine healing, subsequent encounter S62.511D Active Assessment Bronchitis J40 Active Problem Constipation by delayed colonic transit [...] behavior F33.3 Active Problem Diabetes E11.9 Active Assessment SOB (shortness of breath) R06.02 Active Problem Headache R51 Active Assessment Essential hypertension I10 Active Problem Mass of right side of neck R22.1 Active Problem Gastroesophageal reflux disease, esophagitis presence not specified K21.9 Active Assessment Generalized edema R60.1 Active Problem Osteoarthritis of right knee, unspecified osteoarthritis type M17.9 Active Problem Heart palpitations R00.2 Active Problem Posttraumatic stress disorder F43.10 Active Problem Diabetes mellitus type 2, uncontrolled E11.65 Active Problem URI (upper respiratory infection) J06.9 Active Medications Medication Code System Code Instructions Start Date End Date Status Dosage Potassium Chloride ER [facility] [address]-85 10 MEQ Orally Once a day Oct 08, 2016 Nov 07, 2016 1 capsule with food Test strips [place] 0 ... twice a day March 08, 2016 test blood sugar Test strips [facility] 0 one touch ultra Nov 23, 2015 as directed Hydrocodone-Acetaminophen [facility] [address]-15 7.5-325 MG Orally every 6 hrs Jul 03, 2016 1 tablet as needed Enalapril Maleate [facility] [address]-34 5 mg Orally Once a day March 12, 2016 1 tablet Keflex [facility] [address]-40 1 Orally 3 times a day 1 capsule Oxybutynin Chloride ER [facility] [address]-67 10 mg Orally Once a day Jul 23, 2016 Oct 21, 2016 1 tablet Lancets [facility] 0 one touch ultra Nov 23, 2015 as directed Promethazine VC [place] [facility] [address]-69 6.25-5 MG/5ML Orally every 6 hrs Oct 08, 2016 5 ml as needed Zofran ODT [facility] [address]-11 8 MG Orally 3 times a day Sep 24, 2016 as directed Omeprazole [facility] 02317399705 20 MG TAKE ONE CAPSULE BY MOUTH ONCE DAILY Tramadol HCl [facility] [address]-05 50 mg Orally every 6 hrs Sep 24, 2016 1 tablet as needed Linzess [facility] [address]-82 145 MCG Orally Once a day TAKE ONE CAPSULE BY MOUTH ONCE DAILY ProAir HFA [facility] [address]-79 90 mcg/actuation Inhalation 4 times a day PRN SHORTNESS OF BREATH INHALER March 19, 2012 2 puffs Meloxicam [facility] 82391901051 15 MG Orally Once a day 1 tablet Gabapentin [facility] [address]-50 300 MG Orally daily Jul 23, 2016 4 capsule at HS Contour Blood Glucose System [place] 0 March 08, 2016 not defined Fluticasone Propionate [facility] [address]-86 50 MCG/ACT Nasally twice a day 1 spray in each nostril Lasix [facility] [address]-21 40 mg Orally Once a day Oct 08, 2016 1 tablet Proctofoam HC [facility] [address]-83 1-1 % Rectal Four times a day March 08, 2016 1 application as needed Quetiapine Fumarate [facility] [address]-51 300 MG Orally Once a day 1 tablet at bedtime Albuterol Sulfate [facility] 85210788951 (2.5 MG/3ML) 0.083% Inhalation 4 times a day prn 3 ml Symbicort [facility] [address]-20 160-4.5 mcg/actuation Twice a day Sep 11, 2012 2 puffs by Inhalation route 2 times per day for 30 day(s) GlyBURIDE [facility] [address]-86 5 mg Orally Once a day TAKE ONE TABLET BY MOUTH ONCE DAILY Pen [place] 0 ... Once a day Dec 13, 2015 for use with pen injector Bydureon [facility] 94605874066 2 MG Subcutaneous once weekly 1 injection Meclizine HCl [facility] [address]-47 25 MG Orally 3 times a day Sep 06, 2016 1 tablet as needed Metformin HCl [facility] [address]-08 1000 MG Orally 2 times a day TAKE ONE TABLET BY MOUTH TWICE DAILY WITH MEALS Diclofenac Sodium [facility] 09705149959 75 MG TAKE ONE TABLET BY MOUTH TWICE DAILY AFTER FOOD Procedures Procedure Coding System Code Date Office Visit, Est Pt., Level 4 CPT-4 35492 Oct 08, 2016 LAB NOT BILLED BY [facility] CPT-4 NOBLL Oct 08, 2016 Vital Signs Date/Time: Oct 08, 2016 Cardiac Monitoring Heart Rate 101 bpm Weight 368.5 lbs Height 67 in BMI 57.71 Index Blood Pressure Diastolic 94 mmHg Blood Pressure Systolic 150 mmHg Results No Known Results Summary Purpose eClinicalWorks Submission
--- OUTSIDE RECORDS SUMMARY | 2017-03-16 06:54 | XMS REPORT ---
Author Author ROB ROMEO [facility] eClinicalWorks Address Unknown Phone Unavailable Care Team Providers Care Roulette Dealer Name Role Phone ROB ROMEO CP Unavailable [...] right side of neck R22.1 Active Medications No Known Medications Results No Known Results Summary Purpose eClinicalWorks Submission
--- OUTSIDE RECORDS SUMMARY | 2017-03-16 06:54 | XMS REPORT ---
Author Author ROB ROMEO [facility] eClinicalWorks Address Unknown Phone Unavailable Care Team Providers Care Gaming Floor Supervisor Name Role Phone ROB ROMEO Unavailable Allergies No Known Allergies Problems Problem Type Condition Code Onset Dates Condition Status Problem Gastroesophageal reflux disease, esophagitis presence not specified K21.9 Active Problem Headache R51 Active Problem Osteoarthritis of right knee, unspecified osteoarthritis type M17.9 Active Problem Heart palpitations R00.2 Active Problem URI (upper respiratory infection) J06.9 Active Problem Posttraumatic stress disorder F43.10 Active Problem Diabetes mellitus type 2, uncontrolled E11.65 Active Problem Mass of right side of neck R22.1 Active Problem Depressive disorder, not elsewhere classified F32.9 Active Problem Psychosis, unspecified psychosis type F29 Active Problem Constipation by delayed colonic transit K59.01 Active Problem Cough R05 Active Problem Wheezing R06.2 Active Problem Chronic obstructive pulmonary disease, unspecified COPD type J44.9 Active Problem Morbid obesity due to excess calories E66.01 Active Problem 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 Problem SOB (shortness of breath) R06.02 Active Problem Neck pain on right side M54.2 Active Medications Medication Code System Code Instructions Start Date End Date Status Dosage Lisinopril [facility] [address]-89 10 mg Orally Once a day March 08, 2016 1 [address] [facility] [address]-49 50 mg Orally Once a day Jan 18, 2016 1 tablet Results No Known Results Summary Purpose eClinicalWorks Submission
--- OUTSIDE RECORDS SUMMARY | 2017-03-16 06:54 | XMS REPORT ---
Author Author ROB ROMEO [facility] eClinicalWorks Address Unknown Phone Unavailable Care Team Providers Care Family Services Worker Name Role Phone ROB ROMEO CP Unavailable [...]
--- OUTSIDE RECORDS SUMMARY | 2017-03-16 06:54 | XMS REPORT ---
Author Author PÉREZ GAMBOA [facility] eClinicalWorks Address Unknown Phone Unavailable Care Team Providers Care Graining Machine Operator Name Role Phone PÉREZ GAMBOA CP Unavailable Allergies, Adverse Reactions, Alerts Substance Reaction Event Type Victoza Info Not Available Drug Allergy Penicillin V Potassium Info Not Available Drug Allergy Lisinopril Info Not Available Drug Allergy Problems Problem Type Condition Code Onset Dates Condition Status Problem Mass of right side of neck R22.1 Active Assessment Mood altered F39 Active Problem Diabetes mellitus type 2, uncontrolled E11.65 Active Assessment Posttraumatic stress disorder F43.10 Active Problem Psychosis, unspecified psychosis type F29 Active Problem URI (upper respiratory infection) J06.9 Active Problem Depressive disorder, not elsewhere classified F32.9 Active Problem 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 Active Problem Urge incontinence of urine N39.41 Active Problem Morbid obesity due to excess calories E66.01 Active Problem Cough R05 Active Problem Hammer toe of left foot M20.42 Active Problem Constipation by delayed colonic transit K59.01 Active Problem Posttraumatic stress disorder F43.10 Active Problem Heart palpitations R00.2 Active Problem Open wound of left great toe, sequela S91.102S Active Problem Arthritis M19.90 Active Problem Chronic obstructive pulmonary disease, unspecified COPD type J44.9 Active Problem 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 Problem SOB (shortness of breath) R06.02 Active Problem Wheezing R06.2 Active Problem Osteoarthritis of right knee, unspecified osteoarthritis type M17.9 Active Problem Headache R51 Active Problem Neck pain on right side M54.2 Active Problem Gastroesophageal reflux disease, esophagitis presence not specified K21.9 Active Medications Medication Code System Code Instructions Start Date End Date Status Dosage ProAir HFA [facility] [address]-79 90 mcg/actuation Inhalation 4 times a day PRN SHORTNESS OF BREATH INHALER March 19, 2012 2 puffs Quetiapine Fumarate [facility] [address]-65 300 MG Orally Once a day 1 tablet at bedtime Test strips [place] 0 ... twice a day March 08, 2016 test blood sugar Proctofoam HC [facility] [address]-26 1-1 % Rectal Four times a day March 08, 2016 1 application as needed Pen [place] 0 ... Once a day Dec 13, 2015 for use with pen injector Albuterol Sulfate [facility] [address]-44 (2.5 MG/3ML) 0.083% Inhalation 4 times a day prn March 08, 2016 3 ml Test strips [facility] 0 one touch ultra Nov 23, 2015 as directed Meloxicam [facility] 64271194824 15 MG Orally Once a day 1 tablet Omeprazole [facility] [address]-68 20 MG TAKE ONE CAPSULE BY MOUTH ONCE DAILY Contour Blood Glucose System [facility] 0 March 08, 2016 not defined Oxybutynin Chloride ER [facility] [address]-40 10 mg Orally Once a day Jul 23, 2016 Oct 21, 2016 1 tablet GlyBURIDE [facility] 38463783335 5 MG TAKE ONE TABLET BY MOUTH ONCE DAILY Symbicort [facility] [address]-12 160-4.5 mcg/actuation Twice a day Sep 11, 2012 2 puffs by Inhalation route 2 times per day for 30 day(s) Linzess [facility] [address]-19 145 MCG TAKE ONE CAPSULE BY MOUTH ONCE DAILY Lisinopril [facility] [address]-65 10 mg Orally Once a day March 08, 2016 1 tablet Fluticasone Propionate [facility] [address]-26 50 MCG/ACT Nasally twice a day 1 spray in each nostril Gabapentin [facility] [address]-26 300 MG Orally daily Jul 23, 2016 4 capsule at HS Lancets [facility] 0 one touch ultra Nov 23, 2015 as directed Bydureon [facility] 42309874582 2 MG Subcutaneous once weekly 1 injection Metformin HCl [facility] 84471035669 1000 MG TAKE ONE TABLET BY MOUTH TWICE DAILY WITH MEALS Procedures Procedure Coding System Code Date Office Visit, Est Pt., Level 3 CPT-4 87467 Sep 05, 2016 Vital Signs Date/Time: Sep 05, 2016 Cardiac Monitoring Heart Rate 96 bpm Weight 354.5 lbs Height 67 in BMI 55.52 Index Blood Pressure Diastolic 78 mmHg Blood Pressure Systolic 130 mmHg Results No Known Results Summary Purpose eClinicalWorks Submission
--- OUTSIDE RECORDS SUMMARY | 2017-03-16 06:55 | XMS REPORT ---
Author ROB Tsai [facility] eClinicalWorks Address Unknown Phone Unavailable Care Team Providers Care Power Barker Name Role Phone ROB ROMEO CP Unavailable Allergies, Adverse Reactions, Alerts Substance Reaction Event Type Victoza Info Not Available Drug Allergy Penicillin V Potassium Info Not Available Drug Allergy Lisinopril Info Not Available Drug Allergy Problems Problem Type Condition Code Onset Dates Condition Status Assessment Urge incontinence of urine N39.41 Active Assessment Open wound of left great toe, sequela S91.102S Active Assessment Depressive disorder, not elsewhere classified F32.9 Active Assessment Osteoarthritis of right knee, unspecified osteoarthritis type M17.9 Active Assessment 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 Problem Osteoarthritis of right knee, unspecified osteoarthritis type M17.9 Active Assessment Gastroesophageal reflux disease, esophagitis presence not specified K21.9 Active Problem Headache R51 Active Assessment Constipation by delayed colonic transit K59.01 Active Problem Mass of right side of neck R22.1 Active Problem Psychosis, unspecified psychosis type F29 Active Problem Diabetes mellitus type 2, uncontrolled E11.65 Active Problem Open wound of left great toe, sequela S91.102S Active Problem Arthritis M19.90 Active Problem Constipation by delayed colonic transit K59.01 Active Assessment Morbid obesity due to excess calories E66.01 Active Problem Urge incontinence of urine N39.41 Active Assessment Chronic obstructive pulmonary disease, unspecified COPD type J44.9 Active Problem URI (upper respiratory infection) J06.9 Active Problem Depressive disorder, not elsewhere classified F32.9 Active Problem Posttraumatic stress disorder F43.10 Active Problem Heart palpitations R00.2 Active Problem SOB (shortness of breath) R06.02 Active Problem Wheezing R06.2 Active Problem Cough R05 Active Problem Morbid obesity due to excess calories E66.01 Active Problem Neck pain on right side M54.2 Active Problem Gastroesophageal reflux disease, esophagitis presence not specified K21.9 Active Problem Chronic obstructive pulmonary disease, unspecified COPD type J44.9 Active Problem 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 Medications Medication Code System Code Instructions Start Date End Date Status Dosage Zoloft [facility] [address]-77 100 MG Orally Once every am Jan 18, 2016 1.5 tablet Mupirocin [facility] [address]-27 2 % Externally Three times a day 1 application to affected area Proctofoam HC [facility] [address]-93 1-1 % Rectal Four times a day March 08, 2016 1 application as needed Gabapentin [facility] [address]-38 300 MG Orally daily Jul 23, 2016 1 capsule at HS X 5 days then 2 caps at HS X 5 days then 1 cap in am and 2 caps HS Sertraline HCl [facility] [address]-81 100 MG Orally Once a day TAKE 1.5 tab Test strips [facility] 0 Blood Glucose March 08, 2016 test 3 times per day Albuterol Sulfate [facility] [address]-16 (2.5 MG/3ML) 0.083% Inhalation 4 times a day prn March 08, 2016 3 ml Bydureon [facility] 80430158241 2 MG Subcutaneous once weekly 1 injection Hydrocodone-Acetaminophen [facility] [address]-46 7.5-325 MG Orally every 6 hrs Jul 03, 2016 1 tablet as needed Quetiapine Fumarate [facility] [address]-95 200 MG Orally Once a day 1 tablet at bedtime GlyBURIDE [facility] 57028432145 5 MG TAKE ONE TABLET BY MOUTH ONCE DAILY Omeprazole [facility] [address]-26 20 MG TAKE ONE CAPSULE BY MOUTH ONCE DAILY Symbicort [facility] [address]-16 160-4.5 mcg/actuation Twice a day Sep 11, 2012 2 puffs by Inhalation route 2 times per day for 30 day(s) Metformin HCl [facility] 44807015963 1000 MG TAKE ONE TABLET BY MOUTH TWICE DAILY WITH MEALS Pen [place] 0 ... Once a day Dec 13, 2015 for use with pen injector Fluticasone Propionate [facility] [address]-61 50 MCG/ACT Nasally twice a day 1 spray in each nostril Linzess [facility] [address]-06 145 MCG TAKE ONE CAPSULE BY MOUTH ONCE DAILY Lisinopril [facility] [address]-63 10 mg Orally Once a day March 08, 2016 1 tablet Lancets [place] 0 one touch ultra Nov 23, 2015 as directed Tramadol HCl [facility] [address]-73 50 mg Orally every 4 hrs PRN SEVERE PAIN (#15 ) Jun 28, 2016 1 tablet as needed Oxybutynin Chloride ER [facility] [address]-95 10 mg Orally Once a day Jul 23, 2016 Oct 21, 2016 1 tablet Contour Blood Glucose System [facility] 0 March 08, 2016 not defined Test strips [facility] 0 one touch ultra Nov 23, 2015 as directed Procedures Procedure Coding System Code Date Office Visit, Est Pt., Level 4 CPT-4 22690 Jul 23, 2016 [facility] CPT-4 NOBLL Jul 23, 2016 URINALYSIS, AUTO, W/O SCOPE CPT-4 12164 Jul 23, 2016 VENIPUNCT, ROUTINE* CPT-4 31032 Jul 23, 2016 Vital Signs Date/Time: Jul 23, 2016 Cardiac Monitoring Heart Rate 98 bpm Weight 351.5 lbs Height 67 in BMI 55.05 Index Blood Pressure Diastolic 86 mmHg Blood Pressure Systolic 142 mmHg Results No Known Results Summary Purpose eClinicalWorks Submission
--- OUTSIDE RECORDS SUMMARY | 2017-03-16 06:55 | XMS REPORT ---
Author Author ROB ROMEO [facility] eClinicalWorks Address Unknown Phone Unavailable Care Team Providers Care Model Builder Name Role Phone ROB ROMEO Unavailable Allergies [...] pain on right side M54.2 Active Medications No Known Medications Results No Known Results Summary Purpose eClinicalWorks Submission
--- OUTSIDE RECORDS SUMMARY | 2017-03-16 06:56 | XMS REPORT | Continuity of Care Document ---
Author Author [facility] Address Unknown Phone Unavailable Allergies Active Description Code Type Severity Reaction Onset Reported/Identified Relationship to Patient Clinical Status Yes penicillamine Drug Allergy 10/08/2011 Yes penicillamine Drug Allergy N/A N/A 10/08/2011 Yes Penicillins [id number] Drug Allergy Unknown N/A 04/18/2012 Yes liraglutide [id number] Drug Allergy Unknown N/A 02/20/2017 Yes Sulfa (Sulfonamide Antibiotics) [id number] Drug Allergy Unknown N/A 02/20/2017 Medications Problems Date Dx Coded Attending Type Code Diagnosis Diagnosed By 10/23/1599 MILA CREWS MD Ot E11.621 TYPE 2 DIABETES MELLITUS WITH FOOT ULCER 10/23/1599 MILA CREWS MD, Ot E66.01 MORBID (SEVERE) OBESITY DUE TO EXCESS CA 10/23/1599 MILA CREWS MD, Ot I89.0 LYMPHEDEMA, NOT ELSEWHERE CLASSIFIED 10/23/1599 MILA CREWS MD, Ot L02.416 CUTANEOUS ABSCESS OF LEFT LOWER LIMB 10/23/1599 MILA CREWS MD, Ot L97.522 NON-PRS CHRONIC ULCER OTH PRT LEFT FOOT 10/23/1599 MILA CREWS MD, Ot Z68.43 BODY MASS INDEX (BMI) 50-59.9 , ADULT 10/08/2011 250.00 DIABETES MELLITUS TYPE 2 10/08/2011 455.0 HEMORRHOIDS INTERNAL 10/08/2011 530.81 ESOPHAGEAL REFLUX 10/08/2011 564.00 CONSTIPATION 10/08/2011 JH CHICAS MD 250.00 DIABETES MELLITUS TYPE 2 10/08/2011 JH CHICAS MD 455.0 HEMORRHOIDS INTERNAL 10/08/2011 JH CHICAS MD 530.81 ESOPHAGEAL REFLUX 10/08/2011 JH CHICAS MD 564.00 CONSTIPATION 10/08/2011 ISMA ADAME DO 250.00 DIABETES MELLITUS TYPE 2 10/08/2011 ADAME DO, ISMA K 455.0 HEMORRHOIDS INTERNAL 10/08/2011 ADAME DO, ISMA K 530.81 ESOPHAGEAL REFLUX 10/08/2011 ADAME DO, ISMA K 564.00 CONSTIPATION 10/08/2011 ADAME DO, ISMA K 250.00 DIABETES MELLITUS TYPE 2 10/08/2011 ADAME DO, ISMA K 455.0 HEMORRHOIDS INTERNAL 10/08/2011 ADAME DO, ISMA K 530.81 ESOPHAGEAL REFLUX 10/08/2011 ADAME DO, ISMA K 564.00 CONSTIPATION 03/19/2012 786.05 Shortness Of Breath 03/19/2012 JH CHICAS MD 786.05 Shortness Of Breath 03/19/2012 ADAME DO, ISMA K 786.05 Shortness Of Breath 03/19/2012 ADAME DO, ISMA K 786.05 Shortness Of Breath 04/27/2012 401.1 HYPERTENSION, BENIGN ESSENTIAL 04/27/2012 786.50 Unspecified Chest Pain 04/27/2012 790.95 ELEVATED C-REACTIVE PROTEIN (CRP) 04/27/2012 JH CHICAS MD 401.1 HYPERTENSION, BENIGN ESSENTIAL 04/27/2012 JH CHICAS MD 786.50 Unspecified Chest Pain 04/27/2012 JUAN FRANCISCO HARRIS, JH Marley 790.95 ELEVATED C-REACTIVE PROTEIN (CRP) 04/27/2012 ADAME DO, ISMA K 401.1 HYPERTENSION, BENIGN ESSENTIAL 04/27/2012 ADAME DO, ISMA K 786.50 Unspecified Chest Pain 04/27/2012 ADAME DO, ISMA K 790.95 ELEVATED C-REACTIVE PROTEIN (CRP) 04/27/2012 ADAME DO, ISMA K 401.1 HYPERTENSION, BENIGN ESSENTIAL 04/27/2012 ADAME DO, ISMA K 786.50 Unspecified Chest Pain 04/27/2012 ADAME DO, ISMA K 790.95 ELEVATED C-REACTIVE PROTEIN (CRP) 06/16/2012 682.9 Cellulitis And Abscess Of Unspecified Sites 06/16/2012 JH CHICAS MD 682.9 Cellulitis And Abscess Of Unspecified Sites 06/16/2012 ADAME DO, ISMA K 682.9 Cellulitis And Abscess Of Unspecified Sites 06/16/2012 ADAME DO, ISMA K 682.9 Cellulitis And Abscess Of Unspecified Sites 07/16/2012 781.0 ABNORMAL INVOLUNTARY MOVEMENTS 07/16/2012 JH CHICAS MD 781.0 ABNORMAL INVOLUNTARY MOVEMENTS 07/16/2012 ISMA ADAME DO K 781.0 ABNORMAL INVOLUNTARY MOVEMENTS 07/16/2012 ISMA ADAME DO K 781.0 ABNORMAL INVOLUNTARY MOVEMENTS 09/11/2012 302.72 PSYCHOSEXUAL DYSFUNCTION WITH INHIBITED SEXUAL EXCITEMENT 09/11/2012 491.21 OBSTRUCTIVE CHRONIC BRONCHITIS WITH (ACUTE) EXACERBATION 09/11/2012 496 CHRONIC AIRWAY OBSTRUCTION NOT ELSEWHERE CLASSIFIED 09/11/2012 535.50 UNSPECIFIED GASTRITIS AND GASTRODUODENITIS (WITHOUT HEMORRHAGE) 09/11/2012 789.00 Abdominal Pain Unspecified Site 09/11/2012 V65.42 COUNSELING - SMOKING CESSATION 09/11/2012 JH CHICAS MD 302.72 PSYCHOSEXUAL DYSFUNCTION WITH INHIBITED SEXUAL EXCITEMENT 09/11/2012 JH CHICAS MD 491.21 OBSTRUCTIVE CHRONIC BRONCHITIS WITH ( ACUTE) EXACERBATION 09/11/2012 JH CHICAS MD 496 CHRONIC AIRWAY OBSTRUCTION NOT ELSEWHERE CLASSIFIED 09/11/2012 JH CHICAS MD 535.50 UNSPECIFIED GASTRITIS AND GASTRODUODENITIS (WITHOUT HEMORRHAGE) 09/11/2012 JH CHICAS MD 789.00 Abdominal Pain Unspecified Site 09/11/2012 JH CHICAS MD V65.42 COUNSELING - SMOKING CESSATION 09/11/2012 ISMA ADAME DO 302.72 PSYCHOSEXUAL DYSFUNCTION WITH INHIBITED SEXUAL EXCITEMENT 09/11/2012 ISMA ADAME DO 491.21 OBSTRUCTIVE CHRONIC BRONCHITIS WITH (ACUTE) EXACERBATION 09/11/2012 ISMA ADAME DO 496 CHRONIC AIRWAY OBSTRUCTION NOT ELSEWHERE CLASSIFIED 09/11/2012 ISMA ADAME DO 535.50 UNSPECIFIED GASTRITIS AND GASTRODUODENITIS ( WITHOUT HEMORRHAGE) 09/11/2012 ISMA ADAME DO 789.00 Abdominal Pain Unspecified Site 09/11/2012 ISMA ADAME DO V65.42 COUNSELING - SMOKING CESSATION 09/11/2012 ISMA ADAME DO 302.72 PSYCHOSEXUAL DYSFUNCTION WITH INHIBITED SEXUAL EXCITEMENT 09/11/2012 ISMA ADAME DO K 491.21 OBSTRUCTIVE CHRONIC BRONCHITIS WITH (ACUTE) EXACERBATION 09/11/2012 ISMA ADAME DO K 496 CHRONIC AIRWAY OBSTRUCTION NOT ELSEWHERE CLASSIFIED 09/11/2012 ISMA ADAME DO 535.50 UNSPECIFIED GASTRITIS AND GASTRODUODENITIS ( WITHOUT HEMORRHAGE) 09/11/2012 ISMA ADAME DO K 789.00 Abdominal Pain Unspecified Site 09/11/2012 ISMA ADAME DO V65.42 COUNSELING - SMOKING CESSATION 10/09/2012 780.79 OTHER MALAISE AND FATIGUE 10/09/2012 JUAN FRANCISCO HARRIS, JH Marley 780.79 OTHER MALAISE AND FATIGUE 10/09/2012 ISMA ADAME DO 780.79 OTHER MALAISE AND FATIGUE 10/09/2012 ISMA ADAME DO 780.79 OTHER MALAISE AND FATIGUE 11/02/2012 578.1 HEMATOCHEZIA 11/02/2012 JUAN FRANCISCO HARRIS, JH Marley 578.1 HEMATOCHEZIA 11/02/2012 ISMA ADAME DO 578.1 HEMATOCHEZIA 11/25/2012 Ot 455.0 02/01/2015 Ot 786.09 02/01/2015 Ot 786.52 05/06/2015 ABBE HARRIS, YANET Stokes Ot 305.1 05/06/2015 ABBE HARRIS, YANET Stokes Ot 491.21 05/06/2015 ABBE HARRIS, YANET Stokes Ot 786.05 05/06/2015 ABBE HARRIS, YANET Stokes Ot 789.09 09/08/2015 Ot J06.9 09/08/2015 Ot R05 12/03/2015 Ot V72.84 12/03/2015 Ot V72.84 12/04/2015 Ot V72.84 12/04/2015 AURELIANO CHAN MD Ot E11.9 12/04/2015 AURELIANO CHAN MD Ot E66.01 12/04/2015 AURELIANO CHAN MD Ot F17.210 12/04/2015 AURELIANO CHAN MD Ot I25.10 12/04/2015 AURELIANO CHAN MD Ot R06.00 12/04/2015 AURELIANO CHAN MD Ot R07.9 12/04/2015 AURELIANO CHAN MD Ot Z68.43 01/09/2016 Ot V72.84 01/11/2016 HUY VU APRN Ot R22.1 02/12/2016 HUY VU APRN Ot R22.1 02/12/2016 Ot V72.84 02/12/2016 HORACE, HUY Rivera APRN Ot R22.1 02/13/2016 Ot V72.84 02/13/2016 HORACE, HUY Rivera APRN Ot R22.1 02/14/2016 Ot V72.84 02/14/2016 HORACE, HUY Rivera APRN Ot R22.1 02/15/2016 HORACE, HUY Rivera APRN Ot J44.9 02/19/2016 [place] GURVINDER SANCHEZ Ot R22.1 02/29/2016 HORACE, HUY Rivera APRN Ot J44.9 02/29/2016 [place] GURVINDER SANCHEZ Ot R22.1 03/25/2016 HORACE, HUY Rivera CELSA Ot J44.9 CHRONIC OBSTRUCTIVE PULMONARY DISEASE, U 03/25/2016 [place] GURVINDER SANCHEZ Ot R22.1 LOCALIZED SWELLING, MASS AND LUMP, NECK 03/25/2016 ABBE HARRIS, YANET Stokes Ot F17.210 NICOTINE DEPENDENCE, CIGARETTES, UNCOMPL 03/25/2016 YANET MCADAMS MD Ot H10.33 UNSPECIFIED ACUTE CONJUNCTIVITIS, BILATE 03/25/2016 YANET MCADAMS MD Ot H11.33 CONJUNCTIVAL HEMORRHAGE, BILATERAL 04/24/2016 ABBE HARRIS, YANET Stokes Ot F17.210 NICOTINE DEPENDENCE, CIGARETTES, UNCOMPL 04/24/2016 YANET MCADAMS MD Ot H10.33 UNSPECIFIED ACUTE CONJUNCTIVITIS, BILATE 04/24/2016 YANET MCADAMS MD Ot H11.33 CONJUNCTIVAL HEMORRHAGE, BILATERAL 05/10/2016 MT GASTON MD ([facility]) Ot Z02.71 ENCOUNTER FOR DISABILITY DETERMINATION 05/10/2016 MT GASTON MD ([facility]) Ot Z02.71 ENCOUNTER FOR DISABILITY DETERMINATION 05/24/2016 MT GASTON MD ([facility]) Ot Z02.71 ENCOUNTER FOR DISABILITY DETERMINATION 06/24/2016 YANET MCADAMS MD Ot F17.210 NICOTINE DEPENDENCE, CIGARETTES, UNCOMPL 06/24/2016 YANET MCADAMS MD Ot H10.33 UNSPECIFIED ACUTE CONJUNCTIVITIS, BILATE 06/24/2016 YANET MCADAMS MD Ot H11.33 CONJUNCTIVAL HEMORRHAGE, BILATERAL 06/26/2016 HUY VU CELSA Ot J44.9 CHRONIC OBSTRUCTIVE PULMONARY DISEASE, U 06/26/2016 JOSE C SANCHEZGURVINDER Ranjan Ot R22.1 LOCALIZED SWELLING, MASS AND LUMP, NECK 06/26/2016 MT GASTON MD ([facility]) Ot Z02.71 ENCOUNTER FOR DISABILITY DETERMINATION 06/27/2016 LUIS ENRIQUE DO MD Ot A41.9 SEPSIS, UNSPECIFIED ORGANISM 06/27/2016 LUIS ENRIQUE DO MD Ot E11.9 TYPE 2 DIABETES MELLITUS WITHOUT COMPLIC 06/27/2016 LUIS ENRIQUE DO MD Ot I25.10 ATHSCL HEART DISEASE OF [place] CORONARY 06/27/2016 LUIS ENRIQUE DO MD, Ot J44.9 CHRONIC OBSTRUCTIVE PULMONARY DISEASE, U 06/27/2016 LUIS ENRIQUE DO MD, Ot K21.9 GASTRO-ESOPHAGEAL REFLUX DISEASE WITHOUT 06/27/2016 LUIS ENRIQUE DO MD Ot L03.031 CELLULITIS OF RIGHT TOE 06/27/2016 LUIS ENRIQUE DO MD Ot L03.115 CELLULITIS OF RIGHT LOWER LIMB 06/28/2016 LUIS ENRIQUE DO MD, Ot A41.9 SEPSIS, UNSPECIFIED ORGANISM 06/28/2016 LUIS ENRIQUE DO MD Ot E11.9 TYPE 2 DIABETES MELLITUS WITHOUT COMPLIC 06/28/2016 LUIS ENRIQUE DO MD Ot I25.10 ATHSCL HEART DISEASE OF [place] CORONARY 06/28/2016 LUIS ENRIQUE DO MD, Ot J44.9 CHRONIC OBSTRUCTIVE PULMONARY DISEASE, U 06/28/2016 LUIS ENRIQUE DO MD, Ot K21.9 GASTRO-ESOPHAGEAL REFLUX DISEASE WITHOUT 06/28/2016 LUIS ENRIQUE DO MD Ot L03.032 CELLULITIS OF LEFT TOE 06/28/2016 LUIS ENRIQUE DO MD Ot L03.116 CELLULITIS OF LEFT LOWER LIMB 06/28/2016 LUIS ENRIQUE DO MD, Ot S91.141A PNCTR W FB OF RIGHT GREAT TOE W/O DAMAGE 06/28/2016 LUIS ENRIQUE DO MD, Ot W45.8XXA OTH FOREIGN BODY OR OBJECT ENTERING THRO 06/28/2016 LUIS ENRIQUE DO MD Ot A41.9 SEPSIS, UNSPECIFIED ORGANISM 06/28/2016 HILUIS ENRIQUE PEREZ MD, Ot E11.9 TYPE 2 DIABETES MELLITUS WITHOUT COMPLIC 06/28/2016 LUIS ENRIQUE DO MD, Ot I25.10 ATHSCL HEART DISEASE OF [place] CORONARY 06/28/2016 LUIS ENRIQUE DO MD, Ot J44.9 CHRONIC OBSTRUCTIVE PULMONARY DISEASE, U 06/28/2016 LUIS ENRIQUE DO MD, Ot K21.9 GASTRO-ESOPHAGEAL REFLUX DISEASE WITHOUT 06/28/2016 LUIS ENRIQUE DO MD Ot L03.031 CELLULITIS OF RIGHT TOE 06/28/2016 LUIS ENRIQUE DO MD Ot L03.032 CELLULITIS OF LEFT TOE 06/28/2016 LUIS ENRIQUE DO MD, Ot L03.115 CELLULITIS OF RIGHT LOWER LIMB 06/28/2016 LUIS ENRIQUE DO MD, Ot L03.116 CELLULITIS OF LEFT LOWER LIMB 06/28/2016 LUIS ENRIQUE DO MD, Ot S91.141A PNCTR W FB OF RIGHT GREAT TOE W/O DAMAGE 06/28/2016 LUIS ENRIQUE DO MD, Ot W45.8XXA OTH FOREIGN BODY OR OBJECT ENTERING THRO 07/03/2016 HUY VU APRN Ot J44.9 CHRONIC OBSTRUCTIVE PULMONARY DISEASE, U 07/03/2016 GURVINDER WOODALL DO Ot R22.1 LOCALIZED SWELLING, MASS AND LUMP, NECK 07/03/2016 MT GASTON MD ([facility]) Ot Z02.71 ENCOUNTER FOR DISABILITY DETERMINATION 07/03/2016 HUY VU APRN, Ot J44.9 CHRONIC OBSTRUCTIVE PULMONARY DISEASE, U 07/03/2016 GURVINDER WOODALL DO Ot R22.1 LOCALIZED SWELLING, MASS AND LUMP, NECK 07/03/2016 MT GASTON MD ([facility]) Ot Z02.71 ENCOUNTER FOR DISABILITY DETERMINATION 07/05/2016 LUIS ENRIQUE DO MD Ot A41.9 SEPSIS, UNSPECIFIED ORGANISM 07/05/2016 LUIS ENRIQUE DO MD Ot E11.9 TYPE 2 DIABETES MELLITUS WITHOUT COMPLIC 07/05/2016 LUIS ENRIQUE DO MD Ot I25.10 ATHSCL HEART DISEASE OF [place] CORONARY 07/05/2016 LUIS ENRIQUE DO MD, Ot J44.9 CHRONIC OBSTRUCTIVE PULMONARY DISEASE, U 07/05/2016 LUIS ENRIQUE DO MD Ot K21.9 GASTRO-ESOPHAGEAL REFLUX DISEASE WITHOUT 07/05/2016 LUIS ENRIQUE DO MD Ot L03.032 CELLULITIS OF LEFT TOE 07/05/2016 LUIS ENRIQUE DO MD Ot L03.116 CELLULITIS OF LEFT LOWER LIMB 07/05/2016 LUIS ENRIQUE DO MD, Ot S91.141A PNCTR W FB OF RIGHT GREAT TOE W/O DAMAGE 07/05/2016 LUIS ENRIQUE DO MD, Ot W45.8XXA OTH FOREIGN BODY OR OBJECT ENTERING THRO 07/09/2016 Ot E11.621 TYPE 2 DIABETES MELLITUS WITH FOOT ULCER 07/09/2016 Ot E66.01 MORBID (SEVERE) OBESITY DUE TO EXCESS CA 07/09/2016 Ot I89.0 LYMPHEDEMA, NOT ELSEWHERE CLASSIFIED 07/09/2016 Ot L02.416 CUTANEOUS ABSCESS OF LEFT LOWER LIMB 07/09/2016 Ot L97.522 NON-PRS CHRONIC ULCER OTH PRT LEFT FOOT 07/15/2016 MILA CREWS MD Ot E11.621 TYPE 2 DIABETES MELLITUS WITH FOOT ULCER 07/15/2016 MILA CREWS MD Ot E66.01 MORBID (SEVERE) OBESITY DUE TO EXCESS CA 07/15/2016 MILA CREWS MD Ot I89.0 LYMPHEDEMA, NOT ELSEWHERE CLASSIFIED 07/15/2016 MILA CREWS MD Ot L02.416 CUTANEOUS ABSCESS OF LEFT LOWER LIMB 07/15/2016 MILA CREWS MD Ot L97.522 NON-PRS CHRONIC ULCER OTH PRT LEFT FOOT 07/15/2016 MILA CREWS MD Ot Z68.43 BODY MASS INDEX (BMI) 50-59.9 , ADULT 07/31/2016 Ot E11.621 TYPE 2 DIABETES MELLITUS WITH FOOT ULCER 07/31/2016 Ot E66.01 MORBID (SEVERE) OBESITY DUE TO EXCESS CA 07/31/2016 Ot I89.0 LYMPHEDEMA, NOT ELSEWHERE CLASSIFIED 07/31/2016 Ot L02.416 CUTANEOUS ABSCESS OF LEFT LOWER LIMB 07/31/2016 Ot L97.522 NON-PRS CHRONIC ULCER OTH PRT LEFT FOOT 10/05/2016 HUY VU APRN Ot J44.9 CHRONIC OBSTRUCTIVE PULMONARY DISEASE, U 10/05/2016 GURVINDER WOODALL DO Ot R22.1 LOCALIZED SWELLING, MASS AND LUMP, NECK 10/05/2016 MT GASTON MD ([facility]) Ot Z02.71 ENCOUNTER FOR DISABILITY DETERMINATION 10/05/2016 Ot E11.621 TYPE 2 DIABETES MELLITUS WITH FOOT ULCER 10/05/2016 Ot E66.01 MORBID (SEVERE) OBESITY DUE TO EXCESS CA 10/05/2016 Ot I89.0 LYMPHEDEMA, NOT ELSEWHERE CLASSIFIED 10/05/2016 Ot L02.416 CUTANEOUS ABSCESS OF LEFT LOWER LIMB 10/05/2016 Ot L97.522 NON-PRS CHRONIC ULCER OTH PRT LEFT FOOT 10/05/2016 MAMADOU LOVE Ot E11.9 TYPE 2 DIABETES MELLITUS WITHOUT COMPLIC 10/05/2016 MAMADOU LOVE Ot I10 ESSENTIAL (PRIMARY) HYPERTENSION 10/05/2016 MAMADOU LOVE Ot J20.9 ACUTE BRONCHITIS, UNSPECIFIED 10/05/2016 MAMADOU LOVE Ot S63.501A UNSPECIFIED SPRAIN OF RIGHT WRIST, INITI 10/05/2016 MAMADOU LOVE Ot S69.91XA UNSP INJURY OF RIGHT WRIST, HAND AND FIN 10/05/2016 MAMADOU LOVE Ot W01.0XXA FALL SAME LEV FROM SLIP/TRIP W/O STRIKE 10/05/2016 MAMADOU LOVE Ot Y92.[address] IN UNSP NON-INSTITUT ( PRIVATE 10/05/2016 MAMADOU LOVE Ot Y93.89 ACTIVITY, OTHER SPECIFIED 10/05/2016 MAMADOU LOVE Ot Y99.8 OTHER EXTERNAL CAUSE STATUS 10/05/2016 MAMADOU LOVE Ot Z79.84 DETECTIVE YOUTH BUREAU (CURRENT) USE OF ORAL HYPOGLYC 10/05/2016 MAMADOU LOVE Ot Z79.899 OTHER JAIL (CURRENT) DRUG THERAPY 10/05/2016 MAMADOU LOVE Ot Z95.0 PRESENCE OF CARDIAC PACEMAKER 10/07/2016 MAMADOU LOVE Ot E11.9 TYPE 2 DIABETES MELLITUS WITHOUT COMPLIC 10/07/2016 MAMADOU LOVE Ot I10 ESSENTIAL (PRIMARY) HYPERTENSION 10/07/2016 MAMADOU LOVE Ot J20.9 ACUTE BRONCHITIS, UNSPECIFIED 10/07/2016 MAMADOU LOVE Ot S63.501A UNSPECIFIED SPRAIN OF RIGHT WRIST, INITI 10/07/2016 MAMADOU LOVE Ot S69.91XA UNSP INJURY OF RIGHT WRIST, HAND AND FIN 10/07/2016 MAMADOU LOVE Ot W01.0XXA FALL SAME LEV FROM SLIP/TRIP W/O STRIKE 10/07/2016 MAMADOU LOVE Ot Y92.[address] IN UNSP NON-INSTITUT ( PRIVATE 10/07/2016 MAMADOU LOVE Ot Y93.89 ACTIVITY, OTHER SPECIFIED 10/07/2016 MAMADOU LOVE Ot Y99.8 OTHER EXTERNAL CAUSE STATUS 10/07/2016 MAMADOU LOVE Ot Z79.84 JAIL (CURRENT) USE OF ORAL HYPOGLYC 10/07/2016 MAMADOU LOVE Ot Z79.899 OTHER JAIL (CURRENT) DRUG THERAPY 10/07/2016 MAMADOU LOVE Ot Z95.0 PRESENCE OF CARDIAC PACEMAKER 10/09/2016 HUY VU APRN Ot J44.9 CHRONIC OBSTRUCTIVE PULMONARY DISEASE, U 10/09/2016 GURVINDER WOODALL DO Ot R22.1 LOCALIZED SWELLING, MASS AND LUMP, NECK 10/09/2016 MT GASTON MD ([facility]) Ot Z02.71 ENCOUNTER FOR DISABILITY DETERMINATION 10/09/2016 Ot E11.621 TYPE 2 DIABETES MELLITUS WITH FOOT ULCER 10/09/2016 Ot E66.01 MORBID (SEVERE) OBESITY DUE TO EXCESS CA 10/09/2016 Ot I89.0 LYMPHEDEMA, NOT ELSEWHERE CLASSIFIED 10/09/2016 Ot L02.416 CUTANEOUS ABSCESS OF LEFT LOWER LIMB 10/09/2016 Ot L97.522 NON-PRS CHRONIC ULCER OTH PRT LEFT FOOT 12/31/2016 HUY VU APRN Ot J44.9 CHRONIC OBSTRUCTIVE PULMONARY DISEASE, U 12/31/2016 GURVINDER WOODALL DO Ot R22.1 LOCALIZED SWELLING, MASS AND LUMP, NECK 12/31/2016 MT GASTON MD ([facility]) Ot Z02.71 ENCOUNTER FOR DISABILITY DETERMINATION 12/31/2016 Ot E11.621 TYPE 2 DIABETES MELLITUS WITH FOOT ULCER 12/31/2016 Ot E66.01 MORBID (SEVERE) OBESITY DUE TO EXCESS CA 12/31/2016 Ot I89.0 LYMPHEDEMA, NOT ELSEWHERE CLASSIFIED 12/31/2016 Ot L02.416 CUTANEOUS ABSCESS OF LEFT LOWER LIMB 12/31/2016 Ot L97.522 NON-PRS CHRONIC ULCER OTH PRT LEFT FOOT 12/31/2016 HUY VU Miguel DISTRIBUTION OPERATION SUPERVISOR Ot J44.9 CHRONIC OBSTRUCTIVE PULMONARY DISEASE, U 12/31/2016 GURVINDER WOODALL DO Ot R22.1 LOCALIZED SWELLING, MASS AND LUMP, NECK 12/31/2016 ALEK HARRIS, MT Galaviz ([facility]) Ot Z02.71 ENCOUNTER FOR DISABILITY DETERMINATION 12/31/2016 Ot E11.621 TYPE 2 DIABETES MELLITUS WITH FOOT ULCER 12/31/2016 Ot E66.01 MORBID (SEVERE) OBESITY DUE TO EXCESS CA 12/31/2016 Ot I89.0 LYMPHEDEMA, NOT ELSEWHERE CLASSIFIED 12/31/2016 Ot L02.416 CUTANEOUS ABSCESS OF LEFT LOWER LIMB 12/31/2016 Ot L97.522 NON-PRS CHRONIC ULCER OTH PRT LEFT FOOT 01/03/2017 LATOYA MURO MD Ot E78.2 MIXED HYPERLIPIDEMIA 01/03/2017 LATOYA MURO MD Ot I10 ESSENTIAL (PRIMARY) HYPERTENSION 01/03/2017 LATOYA MURO MD Ot I25.10 ATHSCL HEART DISEASE OF [place] CORONARY 01/03/2017 LATOYA MURO MD Ot R07.9 CHEST PAIN, UNSPECIFIED 01/04/2017 LATOYA MURO MD Ot E78.2 MIXED HYPERLIPIDEMIA 01/04/2017 LATOYA MURO MD Ot I10 ESSENTIAL (PRIMARY) HYPERTENSION 01/04/2017 LATOYA MURO MD Ot I25.10 ATHSCL HEART DISEASE OF [place] CORONARY 01/04/2017 LATOYA MURO MD Ot R07.9 CHEST PAIN, UNSPECIFIED 01/15/2017 PITER VAZQUEZ DO Ot E11.9 TYPE 2 DIABETES MELLITUS WITHOUT COMPLIC 01/15/2017 PITER VAZQUEZ DO Ot R06.00 DYSPNEA, UNSPECIFIED 01/16/2017 LATOYA MURO MD Ot E78.2 MIXED HYPERLIPIDEMIA 01/16/2017 LATOYA MURO MD Ot I10 ESSENTIAL (PRIMARY) HYPERTENSION 01/16/2017 LATOYA MURO MD Ot I25.10 ATHSCL HEART DISEASE OF [place] CORONARY 01/16/2017 LATOYA MURO MD Ot R07.9 CHEST PAIN, UNSPECIFIED 01/24/2017 LATOYA MURO MD Ot E11.9 TYPE 2 DIABETES MELLITUS WITHOUT COMPLIC 01/24/2017 LATOYA MURO MD Ot E78.5 HYPERLIPIDEMIA, UNSPECIFIED 01/24/2017 LATOYA MURO MD Ot I10 ESSENTIAL (PRIMARY) HYPERTENSION 01/24/2017 LATOYA MURO MD Ot I34.1 NONRHEUMATIC MITRAL (VALVE) PROLAPSE 01/24/2017 LATOYA MURO MD Ot I42.9 CARDIOMYOPATHY, UNSPECIFIED 01/24/2017 LATOYA MURO MD Ot I50.22 CHRONIC SYSTOLIC (CONGESTIVE) HEART FAIL 01/24/2017 LATOYA MURO MD Ot Z68.43 BODY MASS INDEX (BMI) 50-59.9 , ADULT 01/24/2017 LATOYA MURO MD Ot Z72.0 TOBACCO USE 01/24/2017 LATOYA MURO MD Ot Z79.4 DETECTIVE YOUTH BUREAU (CURRENT) USE OF INSULIN 01/24/2017 LATOYA MURO MD Ot Z79.899 OTHER DETECTIVE YOUTH BUREAU (CURRENT) DRUG THERAPY 02/14/2017 LATOYA MURO MD Ot E11.9 TYPE 2 DIABETES MELLITUS WITHOUT COMPLIC 02/14/2017 LATOYA MURO MD Ot E78.5 HYPERLIPIDEMIA, UNSPECIFIED 02/14/2017 LATOYA MURO MD Ot I10 ESSENTIAL (PRIMARY) HYPERTENSION 02/14/2017 LATOYA MURO MD Ot I34.1 NONRHEUMATIC MITRAL (VALVE) PROLAPSE 02/14/2017 LATOYA MURO MD Ot I42.9 CARDIOMYOPATHY, UNSPECIFIED 02/14/2017 LATOYA MURO MD Ot I50.22 CHRONIC SYSTOLIC (CONGESTIVE) HEART FAIL 02/14/2017 LATOYA MURO MD Ot Z68.43 BODY MASS INDEX (BMI) 50-59.9 , ADULT 02/14/2017 LATOYA MURO MD Ot Z72.0 TOBACCO USE 02/14/2017 LATOYA MURO MD Ot Z79.4 JAIL (CURRENT) USE OF INSULIN 02/14/2017 LATOYA MURO MD Ot Z79.899 OTHER JAIL (CURRENT) DRUG THERAPY 02/17/2017 LATOYA MURO MD Ot R93.1 ABNORMAL FINDINGS ON DX IMAGING OF HEART 02/20/2017 HUY VU APRN Ot J44.9 CHRONIC OBSTRUCTIVE PULMONARY DISEASE, U 02/20/2017 GURVINDER WOODALL DO Ot R22.1 LOCALIZED SWELLING, MASS AND LUMP, NECK 02/20/2017 ALEK HARRIS, [place] Galaviz ([facility]) Ot Z02.71 ENCOUNTER FOR DISABILITY DETERMINATION 02/20/2017 Ot E11.621 TYPE 2 DIABETES MELLITUS WITH FOOT ULCER 02/20/2017 Ot E66.01 MORBID (SEVERE) OBESITY DUE TO EXCESS CA 02/20/2017 Ot I89.0 LYMPHEDEMA, NOT ELSEWHERE CLASSIFIED 02/20/2017 Ot L02.416 CUTANEOUS ABSCESS OF LEFT LOWER LIMB 02/20/2017 Ot L97.522 NON-PRS CHRONIC ULCER OTH PRT LEFT FOOT 02/20/2017 LATOYA MURO MD Ot E78.2 MIXED HYPERLIPIDEMIA 02/20/2017 LATOYA MURO MD, Ot I10 ESSENTIAL (PRIMARY) HYPERTENSION 02/20/2017 LATOYA MURO MD Ot I25.10 ATHSCL HEART DISEASE OF [place] CORONARY 02/20/2017 LATOYA MURO MD Ot R07.9 CHEST PAIN, UNSPECIFIED 02/20/2017 PITER VAZQUEZ DO Ot E11.9 TYPE 2 DIABETES MELLITUS WITHOUT COMPLIC 02/20/2017 PITER VAZQUEZ DO Ot R06.00 DYSPNEA, UNSPECIFIED 02/20/2017 LATOYA MURO MD Ot R93.1 ABNORMAL FINDINGS ON DX IMAGING OF HEART 02/21/2017 DANIEL HARPER MD Ot E11.9 TYPE 2 DIABETES MELLITUS WITHOUT COMPLIC 02/21/2017 DANIEL HARPER MD Ot E66.01 MORBID (SEVERE) OBESITY DUE TO EXCESS CA 02/21/2017 DANIEL HARPER MD Ot E78.5 HYPERLIPIDEMIA, UNSPECIFIED 02/21/2017 DANIEL HARPER MD, Ot E83.42 HYPOMAGNESEMIA 02/21/2017 DANIEL HARPER MD, Ot I10 ESSENTIAL (PRIMARY) HYPERTENSION 02/21/2017 DANIEL HARPER MD, Ot I42.9 CARDIOMYOPATHY, UNSPECIFIED 02/21/2017 DANIEL HARPER MD, Ot I50.22 CHRONIC SYSTOLIC (CONGESTIVE) HEART FAIL 02/21/2017 DANIEL HARPER MD, Ot J44.9 CHRONIC OBSTRUCTIVE PULMONARY DISEASE, U 02/21/2017 DANIEL HARPER MD Ot K21.9 GASTRO-ESOPHAGEAL REFLUX DISEASE WITHOUT 02/21/2017 DANIEL HARPER MD, Ot R07.89 OTHER CHEST PAIN 02/21/2017 DANIEL HARPER MD, Ot Z23 ENCOUNTER FOR IMMUNIZATION 02/21/2017 DANIEL HARPER MD, Ot Z68.43 BODY MASS INDEX (BMI) 50-59.9 , ADULT Procedures Code Description [place] [address] ROUTINE VENIPUNCTURE 10/09/2012 95728 CBC 10/09/2012 11417 TSH 10/10/2012 48082 CRP 10/10/2012 JH ESCOBAR 10/11/2012 [id number] DRAINAGE OF L FOOT SUBCU/FASCIA, OPEN AP 06/28/2016 Results Test Result Range Complete blood count (CBC) with automated white blood cell (WBC) differential - 06/26/16 18:25 Blood leukocytes automated count (number/volume) 8.9 10*3/ uL 4.3-11.0 Blood erythrocytes automated count (number/volume) 4.49 10*6 /uL 4.35-5.85 Venous blood hemoglobin measurement (mass/volume) 14.1 g/dL 13.3-17.7 Blood hematocrit (volume fraction) 39 % 40-54 Automated erythrocyte mean corpuscular volume 87 [foz_us] 80-99 Automated erythrocyte mean corpuscular hemoglobin (mass per erythrocyte) 31 pg 25-34 Automated erythrocyte mean corpuscular hemoglobin concentration measurement ( mass/volume) 36 g/dL 32-36 Automated erythrocyte distribution width ratio 12.4 % 10.0-14.5 Automated blood platelet count (count/volume) 181 10*3/uL 130-400 Automated blood platelet mean volume measurement 11.3 [foz_ us] 7.4-10.4 Automated blood neutrophils/100 leukocytes 69 % 42-75 Automated blood lymphocytes/100 leukocytes 18 % 12-44 Blood monocytes/100 leukocytes 10 % 0-12 Automated blood eosinophils/100 leukocytes 3 % 0-10 Automated blood basophils/100 leukocytes 0 % 0-10 Blood neutrophils automated count (number/volume) 6.2 10*3 1.8-7.8 Blood lymphocytes automated count (number/volume) 1.6 10*3 1.0-4.0 Blood monocytes automated count (number/volume) 0.9 10*3 0.0-1.0 Automated eosinophil count 0.2 10*3/uL 0.0-0.3 Automated blood basophil count (count/volume) 0.0 10*3/uL 0.0-0.1 Comprehensive metabolic panel - 06/26/16 18:25 Serum or plasma sodium measurement (moles/volume) 137 mmol/ L 135-145 Serum or plasma potassium measurement (moles/volume) 4.2 mmol/L 3.6-5.0 Serum or plasma chloride measurement (moles/volume) 108 mmol /L 98-107 Carbon dioxide 21 mmol/L 21-32 Serum or plasma anion gap determination (moles/volume) 8 mmol/L 5-14 Serum or plasma urea nitrogen measurement (mass/volume) 13 mg/dL 7-18 Serum or plasma creatinine measurement (mass/volume) 0.89 mg /dL 0.60-1.30 Serum or plasma urea nitrogen/creatinine mass ratio 15 NRG Serum or plasma creatinine measurement with calculation of estimated glomerular filtration rate > NRG Serum or plasma glucose measurement (mass/volume) 194 mg/dL 70-105 Serum or plasma calcium measurement (mass/volume) 8.7 mg/dL 8.5-10.1 Serum or plasma total bilirubin measurement (mass/volume) 0.3 mg/dL 0.1-1.0 Serum or plasma alkaline phosphatase measurement (enzymatic activity/volume) 60 U/L 40-136 Serum or plasma aspartate aminotransferase measurement (enzymatic activity/ volume) 30 U/L 5-34 Serum or plasma alanine aminotransferase measurement (enzymatic activity/volume ) 31 U/L 0-55 Serum or plasma protein measurement (mass/volume) 6.6 g/dL 6.4-8.2 Serum or plasma albumin measurement (mass/volume) 3.9 g/dL 3.2-4.5 Serum or plasma C reactive protein measurement (mass/volume) - 06/26/16 18:25 Serum or plasma C reactive protein measurement (mass/volume) 1.53 mg/dL 0.00-0.50 Erythrocyte sedimentation rate by westergren method - 06/26/16 18:25 Erythrocyte sedimentation rate by westergren method 25 mm 0-15 Complete urinalysis with reflex to culture - 06/26/16 18:55 Urine color determination YELLOW NRG Urine clarity determination CLEAR NRG Urine pH measurement by test strip 6 5- 9 Specific gravity of urine by test strip 1.015 1.016-1.022 Urine protein assay by test strip, semi-quantitative 1+ NEGATIVE Urine glucose detection by automated test strip 3+ NEGATIVE Erythrocytes detection in urine sediment by light microscopy NEGATIVE NEGATIVE Urine ketones detection by automated test strip NEGATIVE NEGATIVE Urine nitrite detection by test strip NEGATIVE NEGATIVE Urine total bilirubin detection by test strip NEGATIVE NEGATIVE Urine urobilinogen measurement by automated test strip (mass/volume) 1 mg/dL NORMAL Urine leukocyte esterase detection by dipstick NEGATIVE NEGATIVE Automated urine sediment erythrocyte count by microscopy (number/high power field) RARE NRG Automated urine sediment leukocyte count by microscopy (number/high power field ) NONE NRG Bacteria detection in urine sediment by light microscopy NONE NRG Squamous epithelial cells detection in urine sediment by light microscopy RARE NRG Crystals detection in urine sediment by light microscopy NONE NRG Casts detection in urine sediment by light microscopy NONE NRG Mucus detection in urine sediment by light microscopy NEGATIVE NRG Complete urinalysis with reflex to culture NO NRG Bacterial blood culture - 06/26/16 19:19 Bacterial blood culture NG NRG Blood lactic acid measurement (moles/volume) - 06/26/16 19:48 Blood lactic acid measurement (moles/volume) 2.1 mmol/L 0.5-2.0 Bacterial blood culture - 06/26/16 19:49 Bacterial blood culture NG NRG Serum or plasma lactate measurement (moles/volume) - 06/26/16 22:00 Serum or plasma lactate measurement (moles/volume) 1.2 mmol/ L 0.5-2.0 Complete blood count (CBC) with automated white blood cell (WBC) differential - 06/27/16 05:44 Blood leukocytes automated count (number/volume) 7.3 10*3/ uL 4.3-11.0 Blood erythrocytes automated count (number/volume) 4.27 10*6 /uL 4.35-5.85 Venous blood hemoglobin measurement (mass/volume) 13.4 g/dL 13.3-17.7 Blood hematocrit (volume fraction) 38 % 40-54 Automated erythrocyte mean corpuscular volume 88 [foz_us] 80-99 Automated erythrocyte mean corpuscular hemoglobin (mass per erythrocyte) 31 pg 25-34 Automated erythrocyte mean corpuscular hemoglobin concentration measurement ( mass/volume) 36 g/dL 32-36 Automated erythrocyte distribution width ratio 12.3 % 10.0-14.5 Automated blood platelet count (count/volume) 160 10*3/uL 130-400 Automated blood platelet mean volume measurement 11.0 [foz_ us] 7.4-10.4 Automated blood neutrophils/100 leukocytes 60 % 42-75 Automated blood lymphocytes/100 leukocytes 28 % 12-44 Blood monocytes/100 leukocytes 8 % 0-12 Automated blood eosinophils/100 leukocytes 4 % 0-10 Automated blood basophils/100 leukocytes 0 % 0-10 Blood neutrophils automated count (number/volume) 4.4 10*3 1.8-7.8 Blood lymphocytes automated count (number/volume) 2.0 10*3 1.0-4.0 Blood monocytes automated count (number/volume) 0.6 10*3 0.0-1.0 Automated eosinophil count 0.3 10*3/uL 0.0-0.3 Automated blood basophil count (count/volume) 0.0 10*3/uL 0.0-0.1 Comprehensive metabolic panel - 06/27/16 05:44 Serum or plasma sodium measurement (moles/volume) 138 mmol/ L 135-145 Serum or plasma potassium measurement (moles/volume) 4.1 mmol/L 3.6-5.0 Serum or plasma chloride measurement (moles/volume) 109 mmol /L 98-107 Carbon dioxide 22 mmol/L 21-32 Serum or plasma anion gap determination (moles/volume) 7 mmol/L 5-14 Serum or plasma urea nitrogen measurement (mass/volume) 12 mg/dL 7-18 Serum or plasma creatinine measurement (mass/volume) 0.82 mg /dL 0.60-1.30 Serum or plasma urea nitrogen/creatinine mass ratio 15 NRG Serum or plasma creatinine measurement with calculation of estimated glomerular filtration rate > NRG Serum or plasma glucose measurement (mass/volume) 140 mg/dL 70-105 Serum or plasma calcium measurement (mass/volume) 8.1 mg/dL 8.5-10.1 Serum or plasma total bilirubin measurement (mass/volume) 0.5 mg/dL 0.1-1.0 Serum or plasma alkaline phosphatase measurement (enzymatic activity/volume) 57 U/L 40-136 Serum or plasma aspartate aminotransferase measurement (enzymatic activity/ volume) 22 U/L 5-34 Serum or plasma alanine aminotransferase measurement (enzymatic activity/volume ) 27 U/L 0-55 Serum or plasma protein measurement (mass/volume) 5.7 g/dL 6.4-8.2 Serum or plasma albumin measurement (mass/volume) 3.4 g/dL 3.2-4.5 Capillary blood glucose measurement by glucometer (mass/volume) - 06/27/16 05: 53 Capillary blood glucose measurement by glucometer (mass/volume) 135 mg/dL 70-110 Capillary blood glucose measurement by glucometer (mass/volume) - 06/27/16 11: 02 Capillary blood glucose measurement by glucometer (mass/volume) 157 mg/dL 70-110 Capillary blood glucose measurement by glucometer (mass/volume) - 06/27/16 15: 56 Capillary blood glucose measurement by glucometer (mass/volume) 214 mg/dL 70-110 Capillary blood glucose measurement by glucometer (mass/volume) - 06/27/16 21: 51 Capillary blood glucose measurement by glucometer (mass/volume) 163 mg/dL 70-110 Capillary blood glucose measurement by glucometer (mass/volume) - 06/28/16 05: 30 Capillary blood glucose measurement by glucometer (mass/volume) 169 mg/dL 70-110 Automated blood complete blood count (hemogram) panel - 06/28/16 05:52 Blood leukocytes automated count (number/volume) 5.9 10*3/ uL 4.3-11.0 Blood erythrocytes automated count (number/volume) 4.03 10*6 /uL 4.35-5.85 Venous blood hemoglobin measurement (mass/volume) 12.6 g/dL 13.3-17.7 Blood hematocrit (volume fraction) 36 % 40-54 Automated erythrocyte mean corpuscular volume 89 [foz_us] 80-99 Automated erythrocyte mean corpuscular hemoglobin (mass per erythrocyte) 31 pg 25-34 Automated erythrocyte mean corpuscular hemoglobin concentration measurement ( mass/volume) 35 g/dL 32-36 Automated erythrocyte distribution width ratio 12.4 % 10.0-14.5 Automated blood platelet count (count/volume) 127 10*3/uL 130-400 Automated blood platelet mean volume measurement 11.2 [foz_ us] 7.4-10.4 Vancomycin trough - 06/28/16 05:52 Vancomycin trough 12.4 ug/mL 10.0-20.0 Gram stain microscopy - 06/28/16 09:40 GRAM STAIN RESULT MODERATE # GRAM POSITIVE COCCI RESEMBLING STAPH NRG Bacteria identification in wound by culture - 06/28/16 09:40 Bacteria identification in wound by culture [id number] NRG FREE TEXT EXTERNAL SENSITIVITY REPORTED 06/30/16 12:00 NRG QUANTITY OF GROWTH Abundant Growth NRG MRSA AGAR MRSA isolated (Screening test for MRSA is positive) NRG CALL POSITIVES (F1 HELP) CALLED TO MEHDI/OFFICE NURSE AT [id number],[id number]/KD NRG Bacterial susceptibility panel - 06/28/16 09:40 Oxacillin susceptibility test by minimum inhibitory concentration >= NRG Gentamicin susceptibility test by minimum inhibitory concentration <= NRG Clindamycin susceptibility test by minimum inhibitory concentration <= NRG Erythromycin susceptibility test by minimum inhibitory concentration >= NRG Trimethoprim/sulfamethoxazole susceptibility test by minimum inhibitoryconcentration <= NRG Vancomycin susceptibility test by minimum inhibitory concentration <= NRG Levofloxacin susceptibility test by minimum inhibitory concentration 4 NRG Rifampin susceptibility test by minimum inhibitory concentration <= NRG Tetracycline susceptibility test by minimum inhibitory concentration <= NRG Ciprofloxacin susceptibility test by minimum inhibitory concentration R NRG Bacteria identification in isolate by anaerobe culture - 06/28/16 09:40 Bacteria identification in isolate by anaerobe culture [facility] NRG Capillary blood glucose measurement by glucometer (mass/volume) - 06/28/16 11: 05 Capillary blood glucose measurement by glucometer (mass/volume) 105 mg/dL 70-110 Gram stain microscopy - 07/03/16 13:30 GRAM STAIN RESULT FEW GRAM POSITIVE COCCI RESEMBLING STAPH NRG Bacteria identification in wound by culture - 07/03/16 13:30 Bacteria identification in wound by culture [id number] NRG FREE TEXT EXTERNAL SENSITIVITY REPORTED 07/04 16:00 NRG QUANTITY OF GROWTH Abundant Growth NRG MRSA AGAR MRSA isolated (Screening test for MRSA is positive) NRG CALL POSITIVES (F1 HELP) CALLED TO [facility]O IN WOUND CARE 07/04 11 :25 NRG Bacterial susceptibility panel - 07/03/16 13:30 Oxacillin susceptibility test by minimum inhibitory concentration >= NRG Gentamicin susceptibility test by minimum inhibitory concentration <= NRG Clindamycin susceptibility test by minimum inhibitory concentration <= NRG Erythromycin susceptibility test by minimum inhibitory concentration >= NRG Trimethoprim/sulfamethoxazole susceptibility test by minimum inhibitoryconcentration <= NRG Vancomycin susceptibility test by minimum inhibitory concentration 1 NRG Levofloxacin susceptibility test by minimum inhibitory concentration 4 NRG Rifampin susceptibility test by minimum inhibitory concentration <= NRG Tetracycline susceptibility test by minimum inhibitory concentration <= NRG Ciprofloxacin susceptibility test by minimum inhibitory concentration R [facility] Bacteria identification in isolate by anaerobe culture - 07/03/16 13:30 Bacteria identification in isolate by anaerobe culture [facility] Comprehensive metabolic panel - 07/08/16 13:50 Serum or plasma sodium measurement (moles/volume) 136 mmol/ L 135-145 Serum or plasma potassium measurement (moles/volume) 4.2 mmol/L 3.6-5.0 Serum or plasma chloride measurement (moles/volume) 106 mmol /L 98-107 Carbon dioxide 22 mmol/L 21-32 Serum or plasma anion gap determination (moles/volume) 8 mmol/L 5-14 Serum or plasma urea nitrogen measurement (mass/volume) 10 mg/dL 7-18 Serum or plasma creatinine measurement (mass/volume) 0.80 mg /dL 0.60-1.30 Serum or plasma urea nitrogen/creatinine mass ratio 13 NRG Serum or plasma creatinine measurement with calculation of estimated glomerular filtration rate > NR Serum or plasma glucose measurement (mass/volume) 175 mg/dL 70-105 Serum or plasma calcium measurement (mass/volume) 9.0 mg/dL 8.5-10.1 Serum or plasma total bilirubin measurement (mass/volume) 0.3 mg/dL 0.1-1.0 Serum or plasma alkaline phosphatase measurement (enzymatic activity/volume) 61 U/L 40-136 Serum or plasma aspartate aminotransferase measurement (enzymatic activity/ volume) 27 U/L 5-34 Serum or plasma alanine aminotransferase measurement (enzymatic activity/volume ) 31 U/L 0-55 Serum or plasma protein measurement (mass/volume) 6.7 g/dL 6.4-8.2 Serum or plasma albumin measurement (mass/volume) 3.9 g/dL 3.2-4.5 Complete urinalysis with reflex to culture - 01/24/17 07:14 Urine color determination YELLOW NRG Urine clarity determination CLEAR NRG Urine pH measurement by test strip 6 5- 9 Specific gravity of urine by test strip 1.010 1.016-1.022 Urine protein assay by test strip, semi-quantitative 2+ NEGATIVE Urine glucose detection by automated test strip 4+ NEGATIVE Erythrocytes detection in urine sediment by light microscopy 1+ NEGATIVE Urine ketones detection by automated test strip NEGATIVE NEGATIVE Urine nitrite detection by test strip NEGATIVE NEGATIVE Urine total bilirubin detection by test strip NEGATIVE NEGATIVE Urine urobilinogen measurement by automated test strip (mass/volume) NORMAL NORMAL Urine leukocyte esterase detection by dipstick NEGATIVE NEGATIVE Automated urine sediment erythrocyte count by microscopy (number/high power field) RARE NRG Automated urine sediment leukocyte count by microscopy (number/high power field ) NONE NRG Bacteria detection in urine sediment by light microscopy NEGATIVE NRG Squamous epithelial cells detection in urine sediment by light microscopy RARE NRG Crystals detection in urine sediment by light microscopy NONE NRG Casts detection in urine sediment by light microscopy NONE NRG Mucus detection in urine sediment by light microscopy NEGATIVE NRG Complete urinalysis with reflex to culture NO NRG Automated blood complete blood count (hemogram) panel - 01/24/17 07:22 Blood leukocytes automated count (number/volume) 7.7 10*3/ uL 4.3-11.0 Blood erythrocytes automated count (number/volume) 5.42 10*6 /uL 4.35-5.85 Venous blood hemoglobin measurement (mass/volume) 16.6 g/dL 13.3-17.7 Blood hematocrit (volume fraction) 46 % 40-54 Automated erythrocyte mean corpuscular volume 84 [foz_us] 80-99 Automated erythrocyte mean corpuscular hemoglobin (mass per erythrocyte) 31 pg 25-34 Automated erythrocyte mean corpuscular hemoglobin concentration measurement ( mass/volume) 36 g/dL 32-36 Automated erythrocyte distribution width ratio 12.6 % 10.0-14.5 Automated blood platelet count (count/volume) 211 10*3/uL 130-400 Automated blood platelet mean volume measurement 11.8 [foz_ us] 7.4-10.4 PT panel in platelet poor plasma by coagulation assay - 01/24/17 07:22 Prothrombin time (PT) in platelet poor plasma by coagulation assay 13.4 s 12.2-14.7 INR in platelet poor plasma or blood by coagulation assay 1.1 0.8-1.4 Activated partial thromboplastin time (aPTT) in platelet poor plasma bycoagulation assay - 01/24/17 07:22 Activated partial thromboplastin time (aPTT) in platelet poor plasma bycoagulation assay 24 s 24-35 Comprehensive metabolic panel - 01/24/17 07:22 Serum or plasma sodium measurement (moles/volume) 133 mmol/ L 135-145 Serum or plasma potassium measurement (moles/volume) 4.3 mmol/L 3.6-5.0 Serum or plasma chloride measurement (moles/volume) 102 mmol /L 98-107 Carbon dioxide 17 mmol/L 21-32 Serum or plasma anion gap determination (moles/volume) 14 mmol/L 5-14 Serum or plasma urea nitrogen measurement (mass/volume) 9 mg /dL 7-18 Serum or plasma creatinine measurement (mass/volume) 1.09 mg /dL 0.60-1.30 Serum or plasma urea nitrogen/creatinine mass ratio 8 NRG Serum or plasma creatinine measurement with calculation of estimated glomerular filtration rate > NRG Serum or plasma glucose measurement (mass/volume) 508 mg/dL 70-105 Serum or plasma calcium measurement (mass/volume) 8.8 mg/dL 8.5-10.1 Serum or plasma total bilirubin measurement (mass/volume) 0.5 mg/dL 0.1-1.0 Serum or plasma alkaline phosphatase measurement (enzymatic activity/volume) 77 U/L 40-136 Serum or plasma aspartate aminotransferase measurement (enzymatic activity/ volume) 52 U/L 5-34 Serum or plasma alanine aminotransferase measurement (enzymatic activity/volume ) 66 U/L 0-55 Serum or plasma protein measurement (mass/volume) 7.3 g/dL 6.4-8.2 Serum or plasma albumin measurement (mass/volume) 4.0 g/dL 3.2-4.5 Lipid 1996 panel - 01/24/17 07:22 Serum or plasma triglyceride measurement (mass/volume) 100 mg/dL <150 Serum or plasma cholesterol measurement (mass/volume) 168 mg /dL < 200 Serum or plasma cholesterol in HDL measurement (mass/volume) 38 mg/dL 40-60 Cholesterol in LDL [mass/volume] in serum or plasma by direct assay 116 mg/dL 1-129 Serum or plasma cholesterol in VLDL measurement (mass/volume) 20 mg/dL 5-40 Methicillin resistant Staphylococcus aureus (MRSA) screening culture - 07:22 Methicillin resistant Staphylococcus aureus (MRSA) screening culture NEG NRG Capillary blood glucose measurement by glucometer (mass/volume) - 01/24/17 10: 13 Capillary blood glucose measurement by glucometer (mass/volume) 321 mg/dL 70-110 Complete blood count (CBC) with automated white blood cell (WBC) differential - 02/20/17 16:58 Blood leukocytes automated count (number/volume) 8.0 10*3/ uL 4.3-11.0 Blood erythrocytes automated count (number/volume) 4.79 10*6 /uL 4.35-5.85 Venous blood hemoglobin measurement (mass/volume) 15.1 g/dL 13.3-17.7 Blood hematocrit (volume fraction) 41 % 40-54 Automated erythrocyte mean corpuscular volume 85 [foz_us] 80-99 Automated erythrocyte mean corpuscular hemoglobin (mass per erythrocyte) 32 pg 25-34 Automated erythrocyte mean corpuscular hemoglobin concentration measurement ( mass/volume) 37 g/dL 32-36 Automated erythrocyte distribution width ratio 12.3 % 10.0-14.5 Automated blood platelet count (count/volume) 158 10*3/uL 130-400 Automated blood platelet mean volume measurement 10.9 [foz_ us] 7.4-10.4 Automated blood neutrophils/100 leukocytes 62 % 42-75 Automated blood lymphocytes/100 leukocytes 28 % 12-44 Blood monocytes/100 leukocytes 8 % 0-12 Automated blood eosinophils/100 leukocytes 3 % 0-10 Automated blood basophils/100 leukocytes 0 % 0-10 Blood neutrophils automated count (number/volume) 5.0 10*3 1.8-7.8 Blood lymphocytes automated count (number/volume) 2.2 10*3 1.0-4.0 Blood monocytes automated count (number/volume) 0.6 10*3 0.0-1.0 Automated eosinophil count 0.2 10*3/uL 0.0-0.3 Automated blood basophil count (count/volume) 0.0 10*3/uL 0.0-0.1 PT panel in platelet poor plasma by coagulation assay - 02/20/17 16:58 Prothrombin time (PT) in platelet poor plasma by coagulation assay 13.5 s 12.2-14.7 INR in platelet poor plasma or blood by coagulation assay 1.1 0.8-1.4 Activated partial thromboplastin time (aPTT) in platelet poor plasma bycoagulation assay - 02/20/17 16:58 Activated partial thromboplastin time (aPTT) in platelet poor plasma bycoagulation assay 25 s 24-35 Fibrin D-dimer FEU measurement in platelet poor plasma (mass/volume) - 16:58 Fibrin D-dimer FEU measurement in platelet poor plasma (mass/volume) 0.29 ug/mL 0.00-0.49 Comprehensive metabolic panel - 02/20/17 16:58 Serum or plasma sodium measurement (moles/volume) 136 mmol/ L 135-145 Serum or plasma potassium measurement (moles/volume) 4.2 mmol/L 3.6-5.0 Serum or plasma chloride measurement (moles/volume) 106 mmol /L 98-107 Carbon dioxide 22 mmol/L 21-32 Serum or plasma anion gap determination (moles/volume) 8 mmol/L 5-14 Serum or plasma urea nitrogen measurement (mass/volume) 15 mg/dL 7-18 Serum or plasma creatinine measurement (mass/volume) 0.85 mg /dL 0.60-1.30 Serum or plasma urea nitrogen/creatinine mass ratio 18 NRG Serum or plasma creatinine measurement with calculation of estimated glomerular filtration rate > NRG Serum or plasma glucose measurement (mass/volume) 240 mg/dL 70-105 Serum or plasma calcium measurement (mass/volume) 8.5 mg/dL 8.5-10.1 Serum or plasma total bilirubin measurement (mass/volume) 0.4 mg/dL 0.1-1.0 Serum or plasma alkaline phosphatase measurement (enzymatic activity/volume) 58 U/L 40-136 Serum or plasma aspartate aminotransferase measurement (enzymatic activity/ volume) 23 U/L 5-34 Serum or plasma alanine aminotransferase measurement (enzymatic activity/volume ) 34 U/L 0-55 Serum or plasma protein measurement (mass/volume) 6.2 g/dL 6.4-8.2 Serum or plasma albumin measurement (mass/volume) 3.6 g/dL 3.2-4.5 Magnesium - 02/20/17 16:58 Magnesium 1.5 mg/dL 1.8-2.4 Serum or plasma troponin i.cardiac measurement (mass/volume) - 02/20/17 16:58 Serum or plasma troponin i.cardiac measurement (mass/volume) < ng/mL <0.30 Myoglobin, serum - 02/20/17 16:58 Myoglobin, serum 26.3 ng/mL 10.0-92.0 Serum or plasma troponin i.cardiac measurement (mass/volume) - 02/20/17 22:57 Serum or plasma troponin i.cardiac measurement (mass/volume) < ng/mL <0.30 Whole blood basic metabolic panel - 02/21/17 03:15 Serum or plasma sodium measurement (moles/volume) 136 mmol/ L 135-145 Serum or plasma potassium measurement (moles/volume) 3.9 mmol/L 3.6-5.0 Serum or plasma chloride measurement (moles/volume) 106 mmol /L 98-107 Carbon dioxide 20 mmol/L 21-32 Serum or plasma anion gap determination (moles/volume) 10 mmol/L 5-14 Serum or plasma urea nitrogen measurement (mass/volume) 17 mg/dL 7-18 Serum or plasma creatinine measurement (mass/volume) 0.78 mg /dL 0.60-1.30 Serum or plasma urea nitrogen/creatinine mass ratio 22 NRG Serum or plasma creatinine measurement with calculation of estimated glomerular filtration rate > NRG Serum or plasma glucose measurement (mass/volume) 164 mg/dL 70-105 Serum or plasma calcium measurement (mass/volume) 8.3 mg/dL 8.5-10.1 Magnesium - 02/21/17 03:15 Magnesium 1.6 mg/dL 1.8-2.4 Lipid 1996 panel - 02/21/17 03:15 Serum or plasma triglyceride measurement (mass/volume) 190 mg/dL <150 Serum or plasma cholesterol measurement (mass/volume) 161 mg /dL < 200 Serum or plasma cholesterol in HDL measurement (mass/volume) 31 mg/dL 40-60 Cholesterol in LDL [mass/volume] in serum or plasma by direct assay 106 mg/dL 1-129 Serum or plasma cholesterol in VLDL measurement (mass/volume) 38 mg/dL 5-40 Complete blood count (CBC) with automated white blood cell (WBC) differential - 02/21/17 03:45 Blood leukocytes automated count (number/volume) 7.3 10*3/ uL 4.3-11.0 Blood erythrocytes automated count (number/volume) 4.59 10*6 /uL 4.35-5.85 Venous blood hemoglobin measurement (mass/volume) 14.1 g/dL 13.3-17.7 Blood hematocrit (volume fraction) 39 % 40-54 Automated erythrocyte mean corpuscular volume 85 [foz_us] 80-99 Automated erythrocyte mean corpuscular hemoglobin (mass per erythrocyte) 31 pg 25-34 Automated erythrocyte mean corpuscular hemoglobin concentration measurement ( mass/volume) 36 g/dL 32-36 Automated erythrocyte distribution width ratio 12.2 % 10.0-14.5 Automated blood platelet count (count/volume) 141 10*3/uL 130-400 Automated blood platelet mean volume measurement 11.2 [foz_ us] 7.4-10.4 Automated blood neutrophils/100 leukocytes 51 % 42-75 Automated blood lymphocytes/100 leukocytes 38 % 12-44 Blood monocytes/100 leukocytes 8 % 0-12 Automated blood eosinophils/100 leukocytes 3 % 0-10 Automated blood basophils/100 leukocytes 0 % 0-10 Blood neutrophils automated count (number/volume) 3.7 10*3 1.8-7.8 Blood lymphocytes automated count (number/volume) 2.8 10*3 1.0-4.0 Blood monocytes automated count (number/volume) 0.6 10*3 0.0-1.0 Automated eosinophil count 0.3 10*3/uL 0.0-0.3 Automated blood basophil count (count/volume) 0.0 10*3/uL 0.0-0.1 Encounters ACCT No. Visit Date/Time Discharge Status Pt. Type Provider Facility Loc./Unit Complaint [id number] 02/17/2015 15:20:00 02/17/2015 23: 59:59 CLS Outpatient ISMA ADAME DO [id number] 12/07/2012 10:24:00 12/07/2012 23: 59:59 CLS Outpatient JH CHICAS MD [id number] 11/02/2012 09:54:00 11/02/2012 23: 59:59 CLS Outpatient [id number] 09/11/2012 00:00:00 09/11/2012 23: 59:59 CLS Outpatient ISMA ADAME DO
--- OUTSIDE RECORDS SUMMARY | 2017-03-16 06:56 | XMS REPORT ---
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 Name Role Phone ROB ROMEO CP Unavailable Allergies No Known Allergies Problems Problem Type Condition Code Onset Dates Condition Status Problem Osteoarthritis of right knee, unspecified osteoarthritis type M17.9 Active Problem Mass of right side of neck R22.1 Active Problem Headache R51 Active Problem Posttraumatic stress disorder F43.10 Active Problem Heart palpitations R00.2 Active Problem Arthritis M19.90 Active Problem Psychosis, unspecified psychosis type F29 Active Problem Diabetes mellitus type 2, uncontrolled E11.65 Active Problem URI (upper respiratory infection) J06.9 Active Problem Depressive disorder, not elsewhere classified F32.9 Active Problem Cough R05 Active Problem Morbid obesity due to excess calories E66.01 Active Problem Constipation by delayed colonic transit K59.01 Active Problem Chronic obstructive pulmonary disease, unspecified COPD type J44.9 Active Problem 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 Problem SOB (shortness of breath) R06.02 Active Problem Neck pain on right side M54.2 Active Problem Wheezing R06.2 Active Problem Gastroesophageal reflux disease, esophagitis presence not specified K21.9 Active Medications No Known Medications Results No Known Results Summary Purpose eClinicalWorks Submission
--- OUTSIDE RECORDS SUMMARY | 2017-03-16 06:56 | XMS REPORT ---
Author Author ROB ROMEO [facility] eClinicalWorks Address Unknown Phone Unavailable Care Team Providers Care Electrical Assembly Technician Name Role Phone ROB ROMEO Unavailable Allergies [...]
--- OUTSIDE RECORDS SUMMARY | 2017-03-16 06:56 | XMS REPORT ---
Author Author HUY VU eClinicalWorks Address Unknown Phone Unavailable Care Team Providers Care Ballpoint Pen Cartridge Tester Name Role Phone HUY VU CP Unavailable Allergies No Known Allergies Problems Problem Type Condition Code Onset Dates Condition Status Problem Chronic obstructive pulmonary disease, unspecified COPD type 496 Active Problem Constipation by delayed colonic transit K59.01 Active Problem SOB (shortness of breath) 786.05 Active Assessment Constipation by delayed colonic transit K59.01 Active Problem Diabetes E11.9 Active Problem Wheezing R06.2 Active Problem Chronic obstructive pulmonary disease, unspecified COPD type J44.9 Active Problem Diverticulosis of intestine without bleeding, unspecified intestinal tract location K57.90 Active Problem Cough R05 Active Problem SOB (shortness of breath) R06.02 Active Problem Morbid obesity due to excess calories E66.01 Active Medications Medication Code System Code Instructions Start Date End Date Status Dosage Linzess [facility] [address]-69 145 MCG Orally Once a day Nov 29, 2015 Nov 23, 2016 1 capsule Results No Known Results Summary Purpose eClinicalWorks Submission
--- OUTSIDE RECORDS SUMMARY | 2017-03-16 06:56 | XMS REPORT ---
Author Author ROB ROMEO [facility] eClinicalWorks Address Unknown Phone Unavailable Care Team Providers Care Studio Operation Engineer Name Role Phone ROB ROMEO CP Unavailable [...] Instructions Start Date End Date Status Dosage Bactrim DS [facility] [address]-29 800-160 MG Orally Twice a day Jul 01, 2016 Jul 11, 2016 1 tablet Results No Known Results Summary Purpose eClinicalWorks Submission
--- OUTSIDE RECORDS SUMMARY | 2017-03-16 06:56 | XMS REPORT ---
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 Problem Gastroesophageal reflux disease, esophagitis presence not specified K21.9 Active Problem SOB (shortness of breath) R06.02 Active Problem Morbid obesity due to excess calories E66.01 Active Problem Chronic obstructive pulmonary disease, unspecified COPD type J44.9 Active Problem Wheezing R06.2 Active Assessment Neck pain on right side M54.2 Active Assessment Gastroesophageal reflux disease, esophagitis presence not specified K21.9 Active Assessment SOB (shortness of breath) R06.02 Active Assessment Diabetes E11.9 Active Assessment Constipation by delayed colonic transit K59.01 Active Assessment Chronic obstructive pulmonary disease, unspecified COPD type J44.9 Active Assessment Morbid obesity due to excess calories E66.01 Active Problem Chronic obstructive pulmonary disease, unspecified COPD type 496 Active Medications Medication Code System Code Instructions Start Date End Date Status Dosage Omeprazole [facility] [address]-50 20 MG Orally Once a day Dec 12, 2015 1 capsule Test strips [facility] 0 one touch ultra Nov 23, 2015 as directed ProAir HFA [facility] [address]-17 90 mcg/actuation Inhalation every 4 hrs March 19, 2012 2 puffs by Inhalation route 4 times per day for 30 day(s) Linzess [facility] [address]-81 145 MCG Orally Once a day Nov 29, 2015 Nov 23, 2016 1 capsule GlyBURIDE [facility] [address]-23 5 MG Orally Once a day Dec 12, 2015 1 tablet Symbicort [facility] [address]-37 160-4.5 mcg/actuation Twice a day Sep 11, 2012 March 22, 2016 2 puffs by Inhalation route 2 times per day for 30 day( s) Albuterol Sulfate [facility] [address]-41 (5 MG/ML) 0.5% Inhalation every 4 hours as needed Sep 11, 2012 1 Each by Inhalation route every 4 hours for cough and wheeze PRNfor wheezing or cough Lancets [facility] 0 one touch ultra Nov 23, 2015 as directed metformin [facility] [address]-23 1,000 mg orally 2 times a day with meals February 17, 2015 1 tablet by Oral route 2 times per day with meals Procedures Procedure Coding System Code Date Office Visit, Est Pt., Level 3 CPT-4 92715 Dec 12, 2015 Vital Signs Date/Time: Dec 12, 2015 Temperature 98.3 F Weight 342.9 lbs Height 67 in BMI 53.70 Index Blood Pressure Diastolic 98 mmHg Blood Pressure Systolic 140 mmHg Cardiac Monitoring Heart Rate 108 bpm Results No Known Results Summary Purpose eClinicalWorks Submission
--- OUTSIDE RECORDS SUMMARY | 2017-03-16 06:56 | XMS REPORT ---
Author Author JEANNE FERNANDEZ Organization eClinicalWorks Address Unknown Phone Unavailable Care Team Providers Care Book Cutter Name Role Phone JEANNE FERNANDEZ CP Unavailable Allergies, Adverse Reactions, Alerts Substance [...] due to excess calories E66.01 Active Assessment Pain of left great toe M79.675 Active Problem Constipation by delayed colonic transit [...] Instructions Start Date End Date Status Dosage Bactroban [facility] [address]-98 2 % Externally Three times a day Jun 25, 2016 Jul 05, 2016 1 application to affected area Omeprazole [facility] [address]-11 20 MG Orally Once a day Dec 12, 2015 1 capsule Contour Blood Glucose System [place] 0 March 08, 2016 not defined Symbicort [facility] [address]-69 160-4.5 mcg/actuation Twice a day Sep 11, 2012 2 puffs by Inhalation route 2 times per day for 30 day(s) Test strips [place] 0 one touch ultra Nov 23, 2015 as directed Albuterol Sulfate [facility] [address]-52 (2.5 MG/3ML) 0.083% Inhalation 4 times a day prn March 08, 2016 3 ml Enalapril Maleate [facility] [address]-21 5 MG Orally Once a day March 12, 2016 1 tablet Promethazine-Codeine [facility] [address]-41 6.25-10 MG/5ML Orally every 4 hrs, prn cough June 17, 2016 10 ml Metformin HCl [facility] 69224390842 1000 MG TAKE ONE TABLET BY MOUTH TWICE DAILY WITH MEALS Proctofoam HC [facility] [address]-87 1-1 % Rectal Four times a day March 08, 2016 1 application as needed Test strips [facility] 0 Blood Glucose March 08, 2016 test 3 times per day Bydureon [facility] 13153749621 2 MG Subcutaneous once weekly 1 injection Lisinopril [facility] [address]-83 10 mg Orally Once a day March 08, 2016 1 tablet Bactrim DS [facility] [address]-61 800-160 MG Orally Twice a day Jun 24, 2016 Jul 04, 2016 1 tablet Diclofenac [facility] [address]-35 75 mg Orally bid pc June 17, 2016 1 capsule GlyBURIDE [facility] 39634509308 5 MG TAKE ONE TABLET BY MOUTH ONCE DAILY Zolpidem Tartrate [facility] [address]-85 10 MG Orally Once a day April 09, 2016 1/2 tab - 1 tablet at bedtime as needed Pen [place] 0 ... Once a day Dec 13, 2015 for use with pen injector Lancets [place] 0 one touch ultra Nov 23, 2015 as directed Zoloft [facility] [address]-51 100 MG Orally Once every am Jan 18, 2016 1 tablet ProAir HFA [facility] [address]-99 90 mcg/actuation Inhalation every 4 hrs March 19, 2012 2 puffs by Inhalation route 4 times per day for 30 day(s) Linzess [facility] [address]-75 145 MCG Orally Once a day Nov 29, 2015 1 capsule PredniSONE [facility] [address]-10 20 mg Orally Once a day pc April 05, 2016 3 qd 3days, 2 qd 3days, 1 qd 3 days Losartan Potassium [facility] 78234579826 25 MG Orally Once a day 1 tablet Procedures Procedure Coding System Code Date X-RAY EXAM OF TOE(S) CPT-4 27479 Jun 25, 2016 Office Visit, Est Pt., Level 3 CPT-4 10704 Jun 25, 2016 Vital Signs Date/Time: Jun 25, 2016 Cardiac Monitoring Heart Rate 112 bpm Weight 349.8 lbs Height 67 in BMI 54.78 Index Blood Pressure Diastolic 84 mmHg Blood Pressure Systolic 140 mmHg Results No Known Results Summary Purpose eClinicalWorks Submission
--- OUTSIDE RECORDS SUMMARY | 2017-03-16 06:56 | XMS REPORT ---
Author Author AUREA GAMBOA Organization eClinicalWorks Address Unknown Phone Unavailable Care Team Providers Care Chemical Maker Name Role Phone AUREA GAMBOA CP Unavailable Allergies No Known Allergies Problems Problem Type Condition Code Onset Dates Condition Status Problem Gastroesophageal reflux disease, esophagitis presence not specified K21.9 Active Problem Headache R51 Active Problem Osteoarthritis of right knee, unspecified osteoarthritis type M17.9 Active Problem Heart palpitations R00.2 Active Assessment Psychosis, unspecified psychosis type F29 Active Problem URI (upper respiratory infection) J06.9 Active Problem Posttraumatic stress disorder F43.10 Active Problem Diabetes mellitus type 2, uncontrolled E11.65 Active Problem Mass of right side of neck R22.1 Active Problem Depressive disorder, not elsewhere classified F32.9 Active Problem Psychosis, unspecified psychosis type F29 Active Problem Constipation by delayed colonic transit K59.01 Active Problem Cough R05 Active Assessment Depressive disorder, not elsewhere classified F32.9 Active Assessment Posttraumatic stress disorder F43.10 Active Problem Wheezing R06.2 Active Problem Chronic obstructive pulmonary disease, unspecified COPD type J44.9 Active Problem Morbid obesity due to excess calories E66.01 Active Problem 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 Problem SOB (shortness of breath) R06.02 Active Problem Neck pain on right side M54.2 Active Medications No Known Medications Procedures Procedure Coding System Code Date Psychotherapy, patient &/family, 30 minutes, established patient CPT-4 39342 April 18, 2016 Results No Known Results Summary Purpose eClinicalWorks Submission
--- OUTSIDE RECORDS SUMMARY | 2017-03-16 06:56 | XMS REPORT ---
Author Author AUREA GAMBOA Organization eClinicalWorks Address Unknown Phone Unavailable Care Team Providers Care Food Service Worker Name Role Phone AUERA GAMBOA CP Unavailable Allergies No Known Allergies Problems Problem Type Condition Code Onset Dates Condition Status Assessment Psychosis, unspecified psychosis type F29 Active Assessment Posttraumatic stress disorder F43.10 Active Assessment Depressive disorder, not elsewhere classified F32.9 Active Problem Constipation by delayed colonic transit [...] neck R22.1 Active Medications No Known Medications Procedures Procedure Coding System Code Date Psychotherapy, patient &/family, 30 minutes, established patient CPT-4 71197 Sep 10, 2016 Results No Known Results Summary Purpose eClinicalWorks Submission
--- OUTSIDE RECORDS SUMMARY | 2017-03-16 06:57 | XMS REPORT ---
Author Author ROB ROMEO [facility] eClinicalWorks Address Unknown Phone Unavailable Care Team Providers Care Manager Market Research Name Role Phone ROB ROMEO CP Unavailable [...]
--- OUTSIDE RECORDS SUMMARY | 2017-03-16 06:57 | XMS REPORT ---
Author Author HUY VU eClinicalWorks Address Unknown Phone Unavailable Care Team Providers Care Family Court Registrar Name Role Phone HUY VU CP Unavailable [...] due to excess calories E66.01 Active Medications No Known Medications Results No Known Results Summary Purpose eClinicalWorks Submission
--- OUTSIDE RECORDS SUMMARY | 2017-03-16 06:57 | XMS REPORT ---
Author Author AUREA GAMBOA Organization eClinicalWorks Address Unknown Phone Unavailable Care Team Providers Care Site Coordinator Name Role Phone AUREA GAMBOA CP Unavailable Allergies No Known Allergies Problems Problem Type Condition Code Onset Dates Condition Status Assessment Posttraumatic stress disorder F43.10 Active Assessment Major depressive disorder, recurrent episode, severe, with psychotic behavior F33.3 Active Problem Constipation by delayed colonic transit K59.01 Active Problem Heart palpitations R00.2 Active Problem Cough R05 Active Problem Posttraumatic stress disorder F43.10 Active Problem Morbid obesity due to excess calories E66.01 Active Problem Arthritis M19.90 Active Problem Urge incontinence of urine N39.41 Active Problem Open wound of left great toe, sequela S91.102S Active Problem Major depressive disorder, recurrent episode, severe, with psychotic behavior F33.3 Active Problem Diabetes E11.9 Active Problem Chronic obstructive pulmonary disease, unspecified COPD type J44.9 Active Problem Wheezing R06.2 Active Problem Pharyngitis, unspecified etiology J02.9 Active Problem SOB (shortness of breath) R06.02 Active Problem Hammer toe of left foot M20.42 Active Problem 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 Active Problem Frequent falls R29.6 Active Problem Dizziness of unknown cause R42 Active Problem Gastroesophageal reflux disease, esophagitis presence not specified K21.9 Active Problem Osteoarthritis of right knee, unspecified osteoarthritis type M17.9 Active Problem 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
--- OUTSIDE RECORDS SUMMARY | 2017-03-16 06:57 | XMS REPORT ---
Author Author ROB ROMEO [facility] eClinicalWorks Address Unknown Phone Unavailable Care Team Providers Care Logistics Research Engineer Name Role Phone ROB ROMEO Unavailable Allergies [...]
--- OUTSIDE RECORDS SUMMARY | 2017-03-16 06:57 | XMS REPORT ---
Author Author JAK SALAMANCA [facility] eClinicalWorks Address Unknown Phone Unavailable Care Team Providers Care Adjudication Specialist Name Role Phone JAK SALAMANCA CP Unavailable Allergies, Adverse Reactions, Alerts Substance Reaction Event Type Victoza Info Not Available Drug Allergy Penicillin V Potassium Info Not Available Drug Allergy Lisinopril Info Not Available Drug Allergy Problems Problem Type Condition Code Onset Dates Condition Status Assessment Constipation by delayed colonic transit K59.01 Active Assessment Pharyngitis, unspecified etiology J02.9 Active Problem Constipation by delayed colonic transit [...] Instructions Start Date End Date Status Dosage Gabapentin [facility] [address]-45 300 MG Orally daily Jul 23, 2016 4 capsule at HS Quetiapine Fumarate [facility] [address]-17 300 MG Orally Once a day 1 tablet at bedtime Test strips [facility] 0 one touch ultra Nov 23, 2015 as directed Symbicort [facility] [address]-23 160-4.5 mcg/actuation Twice a day Sep 11, 2012 2 puffs by Inhalation route 2 times per day for 30 day(s) ProAir HFA [facility] [address]-43 90 mcg/actuation Inhalation 4 times a day PRN SHORTNESS OF BREATH INHALER March 19, 2012 2 puffs Lisinopril [facility] [address]-59 10 mg Orally Once a day March 08, 2016 1 tablet Test strips [place] 0 ... twice a day March 08, 2016 test blood sugar Metformin HCl [facility] [address]-79 1000 MG Orally 2 times a day TAKE ONE TABLET BY MOUTH TWICE DAILY WITH MEALS Albuterol Sulfate [facility] 64392095322 (2.5 MG/3ML) 0.083% Inhalation 4 times a day prn 3 ml Diclofenac Sodium [facility] 63306028924 75 MG TAKE ONE TABLET BY MOUTH TWICE DAILY AFTER FOOD Contour Blood Glucose System [facility] 0 March 08, 2016 not defined Meclizine HCl [facility] [address]-40 25 MG Orally 3 times a day Sep 06, 2016 1 tablet as needed Azithromycin [facility] [address]-12 250 MG Orally Once a day Oct 01, 2016 Oct 06, 2016 2 tablets on the first day, then 1 tablet daily for 4 days Lancets [facility] 0 one touch ultra Nov 23, 2015 as directed Linzess [facility] [address]-62 145 MCG Orally Once a day TAKE ONE CAPSULE BY MOUTH ONCE DAILY Meloxicam [facility] 14224025967 15 MG Orally Once a day 1 tablet Oxybutynin Chloride ER [facility] [address]-59 10 mg Orally Once a day Jul 23, 2016 Oct 21, 2016 1 tablet Omeprazole [facility] 50625409277 20 MG TAKE ONE CAPSULE BY MOUTH ONCE DAILY Fluticasone Propionate [facility] [address]-51 50 MCG/ACT Nasally twice a day 1 spray in each nostril Bydureon [facility] 02166902651 2 MG Subcutaneous once weekly 1 injection Proctofoam HC [facility] [address]-37 1-1 % Rectal Four times a day March 08, 2016 1 application as needed Pen [place] 0 ... Once a day Dec 13, 2015 for use with pen injector Tramadol HCl [facility] [address]-11 50 mg Orally every 6 hrs Sep 24, 2016 1 tablet as needed Enalapril Maleate [facility] [address]-88 5 mg Orally Once a day March 12, 2016 1 tablet GlyBURIDE [facility] [address]-48 5 mg Orally Once a day TAKE ONE TABLET BY MOUTH ONCE DAILY Zofran ODT [facility] [address]-42 8 MG Orally 3 times a day Sep 24, 2016 as directed Procedures Procedure Coding System Code Date Office Visit, Est Pt., Level 3 CPT-4 94066 Oct 01, 2016 Vital Signs Date/Time: Oct 01, 2016 Cardiac Monitoring Heart Rate 96 bpm Weight 362.8 lbs Height 67 in BMI 56.82 Index Blood Pressure Diastolic 84 mmHg Blood Pressure Systolic 146 mmHg Results No Known Results Summary Purpose eClinicalWorks Submission
--- OUTSIDE RECORDS SUMMARY | 2017-03-16 06:57 | XMS REPORT ---
Author Author ROB ROMEO [facility] eClinicalWorks Address Unknown Phone Unavailable Care Team Providers Care Heat Treat Puller Name Role Phone ROB ROMEO CP Unavailable Allergies, Adverse Reactions, Alerts Substance Reaction Event Type Victoza Info Not Available Drug Allergy Penicillin V Potassium Info Not Available Drug Allergy Lisinopril Info Not Available Drug Allergy Problems Problem Type Condition Code Onset Dates Condition Status Assessment Osteoarthritis of right knee, unspecified osteoarthritis type M17.9 Active Assessment Depressive disorder, not elsewhere classified F32.9 Active Assessment Essential hypertension I10 Active Assessment Open wound of left great toe, sequela S91.102S Active Problem Gastroesophageal reflux disease, esophagitis presence not specified K21.9 Active Assessment Constipation by delayed colonic transit K59.01 Active Problem Osteoarthritis of right knee, unspecified osteoarthritis type M17.9 Active Assessment Gastroesophageal reflux disease, esophagitis presence not specified K21.9 Active Problem Headache R51 Active Problem Diabetes mellitus type 2, uncontrolled E11.65 Active Problem Mass of right side of neck R22.1 Active Problem Arthritis M19.90 Active Problem Posttraumatic stress disorder F43.10 Active Assessment 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 Assessment Chronic obstructive pulmonary disease, unspecified COPD type J44.9 Active Problem Open wound of left great toe, sequela S91.102S Active Assessment Morbid obesity due to excess calories E66.01 Active Problem Depressive disorder, not elsewhere classified F32.9 Active Problem Psychosis, unspecified psychosis type F29 Active Problem Heart palpitations R00.2 Active Problem URI (upper respiratory infection) J06.9 Active Problem Morbid obesity due to excess calories E66.01 Active Problem SOB (shortness of breath) R06.02 Active Problem Constipation by delayed colonic transit K59.01 Active Problem Cough R05 Active Problem 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 Problem Neck pain on right side M54.2 Active Problem Wheezing R06.2 Active Problem Chronic obstructive pulmonary disease, unspecified COPD type J44.9 Active Medications Medication Code System Code Instructions Start Date End Date Status Dosage Meloxicam [facility] [address]-27 15 MG Orally Once a day 1 tablet Bydureon [facility] 35114229458 2 MG Subcutaneous once weekly 1 injection Mupirocin [facility] [address]-25 2 % Externally Three times a day 1 application to affected area Omeprazole [facility] [address]-41 20 MG Orally Once a day Dec 12, 2015 1 capsule Linzess [facility] [address]-31 145 MCG Orally Once a day [place] [facility] Nov 29, 2015 1 capsule Lisinopril [facility] [address]-69 10 mg Orally Once a day March 08, 2016 1 tablet Pen [place] [facility] 0 ... Once a day Dec 13, 2015 for use with pen injector Zoloft [facility] [address]-04 100 MG Orally Once every am Jan 18, 2016 1 tablet Fluticasone Propionate [facility] [address]-68 50 MCG/ACT Nasally twice a day 1 spray in each nostril Symbicort [facility] [address]-48 160-4.5 mcg/actuation Twice a day Sep 11, 2012 2 puffs by Inhalation route 2 times per day for 30 day(s) Hydrocodone-Acetaminophen [facility] [address]-35 7.5-325 MG Orally every 6 hrs Jul 03, 2016 1 tablet as needed Albuterol Sulfate [facility] [address]-59 (2.5 MG/3ML) 0.083% Inhalation 4 times a day prn March 08, 2016 3 ml Metformin HCl [facility] 78999277172 1000 MG TAKE ONE TABLET BY MOUTH TWICE DAILY WITH MEALS Test strips [facility] 0 one touch ultra Nov 23, 2015 as directed Contour Blood Glucose System [facility] 0 March 08, 2016 not defined GlyBURIDE [facility] 18840418062 5 MG TAKE ONE TABLET BY MOUTH ONCE DAILY Bactrim DS [facility] [address]-92 800-160 MG Orally Twice a day Jul 01, 2016 Jul 11, 2016 1 tablet Proctofoam HC [facility] [address]-69 1-1 % Rectal Four times a day March 08, 2016 1 application as needed Lancets [facility] 0 one touch ultra Nov 23, 2015 as directed ProAir HFA [facility] [address]-27 90 mcg/actuation Inhalation 4 times a day PRN SHORTNESS OF BREATH INHALER March 19, 2012 2 puffs Test strips [facility] 0 Blood Glucose March 08, 2016 test 3 times per day Procedures Procedure Coding System Code Date GLYCATED HEMOGLOBIN TEST CPT-4 15891 Jul 03, 2016 Office Visit, Est Pt., Level 5 CPT-4 34549 Jul 03, 2016 Vital Signs Date/Time: Jul 03, 2016 Cardiac Monitoring Heart Rate 116 bpm Weight 349.1 lbs Height 67 in BMI 54.67 Index Blood Pressure Diastolic 82 mmHg Blood Pressure Systolic 136 mmHg Results No Known Results Summary Purpose eClinicalWorks Submission
--- OUTSIDE RECORDS SUMMARY | 2017-03-16 06:57 | XMS REPORT ---
Author Author ROB ROMEO [facility] eClinicalWorks Address Unknown Phone Unavailable Care Team Providers Care Forensic Technician Name Role Phone ROB ROMEO Unavailable [...]
--- OUTSIDE RECORDS SUMMARY | 2017-03-16 06:58 | XMS REPORT ---
Author Author ROB ROMEO [facility] eClinicalWorks Address Unknown Phone Unavailable Care Team Providers Care Construction Flagger Name Role Phone ROB ROMEO Unavailable Allergies [...] K59.01 Active Problem Cough R05 Active Assessment Diabetes E11.9 Active Problem Wheezing R06.2 Active [...] Instructions Start Date End Date Status Dosage Bydureon [facility] [address]-93 2 MG Subcutaneous once weekly March 26, 2016 1 injection Lisinopril [facility] [address]-56 10 mg Orally Once a day March 08, 2016 1 tablet Results No Known Results Summary Purpose eClinicalWorks Submission
--- OUTSIDE RECORDS SUMMARY | 2017-03-16 06:58 | XMS REPORT ---
Author Author ROB ROMEO Organization [facility] Address [address] [place] [address] Care Team Providers Care Interactive Designer Name Role Phone TYLOR ROMEOE Unavailable PROBLEMS Type Condition ICD9-CM Code NMP37-RC Code Onset Dates Condition Status SNOMED Code Problem Diabetes mellitus type 2, uncontrolled E11.65 Active 792421302 Problem Heart palpitations R00.2 Active 95348356 Problem URI (upper respiratory infection) J06.9 Active 67623812 Problem Hammer toe of left foot M20.42 Active 175174288 Problem Cough R05 Active 34657373 Problem 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 Active 98728300 Problem Constipation by delayed colonic transit K59.01 Active 72962270 Problem Arthritis M19.90 Active 0827693 Problem Posttraumatic stress disorder F43.10 Active 27401308 Problem Urge incontinence of urine N39.41 Active 42519224 Problem Open wound of left great toe, sequela S91.102S Active 363627747 Problem Wheezing R06.2 Active 60924958 Problem Chronic obstructive pulmonary disease, unspecified COPD type J44.9 Active 88617009 Problem Morbid obesity due to excess calories E66.01 Active 807921645 Problem SOB (shortness of breath) R06.02 Active 718811773 Problem Gastroesophageal reflux disease, esophagitis presence not specified K21.9 Active 222681359 Problem Osteoarthritis of right knee, unspecified osteoarthritis type M17.9 Active 100799188 Problem 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 844388786 Problem Headache R51 Active 01022345 Problem Neck pain on right side M54.2 Active 23978171 Problem Mass of right side of neck R22.1 Active 775353698 ALLERGIES Unknown Allergies SOCIAL HISTORY No smoking Hx information available PLAN OF CARE VITAL SIGNS MEDICATIONS Unknown Medications RESULTS No Results PROCEDURES No Known procedures IMMUNIZATIONS No Known Immunizations
--- OUTSIDE RECORDS SUMMARY | 2017-03-16 06:58 | XMS REPORT ---
Author Author PÉREZ GAMBOA [facility] eClinicalWorks Address Unknown Phone Unavailable Care Team Providers Care Shipping Point Inspector Name Role Phone PÉREZ GAMBOA CP Unavailable Allergies No Known Allergies Problems Problem Type Condition Code Onset Dates Condition Status Problem Mass of right side of neck R22.1 Active Problem Psychosis, unspecified psychosis type F29 Active Problem Diabetes mellitus type 2, uncontrolled E11.65 Active Problem Open wound of left great toe, sequela S91.102S Active Problem Constipation by delayed colonic transit K59.01 Active Problem Arthritis M19.90 Active Assessment PTSD (post-traumatic stress disorder) F43.10 Active Assessment Other half-way (current) drug therapy Z79.899 Active Problem Urge incontinence of urine N39.41 Active Problem URI (upper respiratory infection) J06.9 [...] disease, unspecified COPD type J44.9 Active Problem Osteoarthritis of right knee, unspecified osteoarthritis type M17.9 Active Problem 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 Problem Headache R51 Active Medications Medication Code System Code Instructions Start Date End Date Status Dosage Zoloft [facility] [address]-53 100 MG Orally Once every am Jan 18, 2016 1.[address] [facility] [address]-33 10 mg Orally Once a day March 08, 2016 1 tablet Fluticasone Propionate [facility] [address]-17 50 MCG/ACT Nasally twice a day 1 spray in each nostril Test strips NDC 0 one touch ultra Nov 23, 2015 as directed Lancets ND 0 one touch ultra Nov 23, 2015 as directed GlyBURIDE [facility] 67928311657 5 MG TAKE ONE TABLET BY MOUTH ONCE DAILY Mupirocin [facility] [address]-04 2 % Externally Three times a day 1 application to affected area Sertraline HCl [facility] [address]-26 100 MG Orally Once a day TAKE 1.5 tab Contour Blood Glucose System NDC 0 March 08, 2016 not defined Omeprazole [facility] [address]-59 20 MG TAKE ONE CAPSULE BY MOUTH ONCE DAILY Test strips [facility] 0 Blood Glucose March 08, 2016 test 3 times per day Bydureon [facility] 66403738045 2 MG Subcutaneous once weekly 1 injection Metformin HCl [facility] 40061372209 1000 MG TAKE ONE TABLET BY MOUTH TWICE DAILY WITH MEALS Albuterol Sulfate [facility] [address]-49 (2.5 MG/3ML) 0.083% Inhalation 4 times a day prn March 08, [address] [facility] [address]-06 300 MG Orally daily Jul 23, 2016 1 capsule at HS X 5 days then 2 caps at HS X 5 days then 1 cap in am and 2 caps HS Proctofoam HC [facility] [address]-25 1-1 % Rectal Four times a day March 08, 2016 1 application as needed Linzess [facility] [address]-11 145 MCG TAKE ONE CAPSULE BY MOUTH ONCE DAILY Symbicort [facility] [address]-14 160-4.5 mcg/actuation Twice a day Sep 11, 2012 2 puffs by Inhalation route 2 times per day for 30 day(s) Quetiapine Fumarate [facility] [address]-47 200 MG Orally Once a day 1 tablet at bedtime Pen [place] 0 ... Once a day Dec 13, 2015 for use with pen injector Hydrocodone-Acetaminophen [facility] [address]-10 7.5-325 MG Orally every 6 hrs Jul 03, 2016 1 tablet as needed Procedures Procedure Coding System Code Date Office Visit, Est Pt., Level 4 CPT-4 23502 Jul 23, 2016 Vital Signs Date/Time: Jul 23, 2016 Cardiac Monitoring Heart Rate 98 bpm Weight 351.5 lbs Height 67 in BMI 55.05 Index Blood Pressure Diastolic 86 mmHg Blood Pressure Systolic 142 mmHg Results No Known Results Summary Purpose eClinicalWorks Submission
--- OUTSIDE RECORDS SUMMARY | 2017-03-16 06:58 | XMS REPORT ---
Author Author ROB ROMEO [facility] eClinicalWorks Address Unknown Phone Unavailable Care Team Providers Care Studio Set Up Worker Name Role Phone ROB ROMEO Unavailable Allergies [...]
--- OUTSIDE RECORDS SUMMARY | 2017-03-16 06:58 | XMS REPORT ---
Author Author AUREA GAMBOA Organization eClinicalWorks Address Unknown Phone Unavailable Care Team Providers Care Beam Doffer Name Role Phone AUREA GAMBOA CP Unavailable Allergies No Known Allergies Problems Problem Type Condition Code Onset Dates Condition Status Problem Gastroesophageal reflux disease, esophagitis presence not specified K21.9 Active Problem Headache R51 Active Problem Osteoarthritis of right knee, unspecified osteoarthritis type M17.9 Active Problem Heart palpitations R00.2 Active Assessment Posttraumatic stress disorder F43.10 Active Problem URI (upper respiratory infection) J06.9 Active Assessment Depressive disorder, not elsewhere classified F32.9 Active Assessment Psychosis, unspecified psychosis type F29 Active Problem Posttraumatic stress disorder F43.10 Active Problem Diabetes mellitus type 2, uncontrolled E11.65 Active Problem Mass of right side of neck R22.1 Active Problem Depressive disorder, not elsewhere classified F32.9 Active Problem Psychosis, unspecified psychosis type F29 Active Problem Constipation by delayed colonic transit K59.01 Active Problem Cough R05 Active Problem Chronic obstructive pulmonary disease, unspecified COPD type 496 Active Problem SOB (shortness of breath) 786.05 Active Problem Wheezing R06.2 Active Problem Chronic [...] patient &/family, 30 minutes, established patient CPT-4 37570 March 05, 2016 Results No Known Results Summary Purpose eClinicalWorks Submission
--- OUTSIDE RECORDS SUMMARY | 2017-03-16 06:58 | XMS REPORT ---
Author Author ROB ROMEO [facility] eClinicalWorks Address Unknown Phone Unavailable Care Team Providers Care Pc Tech Name Role Phone ROB ROMEO Unavailable Allergies [...] Instructions Start Date End Date Status Dosage GlyBURIDE [facility] [address]-27 5 mg Orally Once a day TAKE ONE TABLET BY MOUTH ONCE DAILY Metformin HCl [facility] [address]-10 1000 MG Orally 2 times a day TAKE ONE TABLET BY MOUTH TWICE DAILY WITH MEALS Bydureon [facility] 43980097235 2 MG Subcutaneous once weekly 1 injection Enalapril Maleate [facility] [address]-14 5 mg Orally Once a day March 12, 2016 1 tablet Lisinopril [facility] [address]-40 10 mg Orally Once a day March 08, 2016 1 tablet Results No Known Results Summary Purpose eClinicalWorks Submission
--- OUTSIDE RECORDS SUMMARY | 2017-03-16 06:58 | XMS REPORT ---
Author Author ROB ROMEO [facility] eClinicalWorks Address Unknown Phone Unavailable Care Team Providers Care Importer Exporter Name Role Phone ROB ROMEO CP Unavailable [...]
--- OUTSIDE RECORDS SUMMARY | 2017-03-16 06:58 | XMS REPORT ---
Author Author HUY VU Organization eClinicalWorks Address Unknown Phone Unavailable Care Team Providers Care Cdl Driver Name Role Phone HUY VU CP Unavailable Allergies No Known Allergies Problems Problem Type Condition Code Onset Dates Condition Status Problem SOB (shortness of breath) 786.05 Active Problem Cough R05 Active Problem Constipation by delayed colonic transit K59.01 Active Assessment 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 Problem Chronic obstructive pulmonary disease, unspecified COPD type 496 Active Problem Neck pain on right side M54.2 Active Problem 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 Problem Gastroesophageal reflux disease, esophagitis presence not specified K21.9 Active Problem SOB (shortness of breath) R06.02 Active Problem Morbid obesity due to excess calories E66.01 Active Problem Chronic obstructive pulmonary disease, unspecified COPD type J44.9 Active Problem Wheezing R06.2 Active Medications Medication Code System Code Instructions Start Date End Date Status Dosage Pen [place] NDC 0 ... Once a day Dec 13, 2015 for use with pen injector Victoza NDC [address]-58 18 MG/3ML Subcutaneous Once a day Dec 13, 2015 0.6mg daily x 1 week, then increase to 1.2mg daily x 1 week, then 1.8 mg Results No Known Results Summary Purpose eClinicalWorks Submission
--- OUTSIDE RECORDS SUMMARY | 2017-03-16 06:59 | XMS REPORT ---
Author Author KEYANA HANSEN [facility] eClinicalWorks Address Unknown Phone Unavailable Care Team Providers Care Instructor Weaving Name Role Phone KEYANA HANSEN CP Unavailable Allergies, Adverse Reactions, Alerts Substance [...] Problem Posttraumatic stress disorder F43.10 Active Assessment Arthritis M19.90 Active Problem Heart palpitations R00.2 Active Problem Arthritis M19.90 Active Problem Psychosis, unspecified psychosis type F29 Active Problem Diabetes mellitus type 2, uncontrolled E11.65 Active Problem URI (upper respiratory infection) J06.9 Active Problem Depressive disorder, not elsewhere classified F32.9 Active Problem Cough R05 Active Problem Morbid obesity due to excess calories E66.01 Active Assessment Bronchitis J40 Active Problem Constipation [...] Instructions Start Date End Date Status Dosage Losartan Potassium [facility] 72320488380 25 MG Orally Once a day 1 tablet Zoloft [facility] [address]-42 100 MG Orally Once every am Jan 18, 2016 1 tablet Promethazine-Codeine [facility] [address]-59 6.25-10 MG/5ML Orally every 4 hrs, prn cough June 17, 2016 10 ml Bydureon [facility] 46366460168 2 MG Subcutaneous once weekly 1 injection Proctofoam HC [facility] [address]-33 1-1 % Rectal Four times a day March 08, 2016 1 application as needed Enalapril Maleate [facility] [address]-64 5 MG Orally Once a day March 12, 2016 1 tablet Lancets [place] 0 one touch ultra Nov 23, 2015 as directed PredniSONE [facility] [address]-88 20 mg Orally Once a day April 05, 2016 3 qd 3days, 2 qd 3days, 1 qd 3 days Albuterol Sulfate [facility] [address]-63 (2.5 MG/3ML) 0.083% Inhalation 4 times a day prn March 08, 2016 3 ml Diclofenac [facility] [address]-21 75 mg Orally bid pc June 17, 2016 1 capsule ProAir HFA [facility] [address]-69 90 mcg/actuation Inhalation every 4 hrs March 19, 2012 2 puffs by Inhalation route 4 times per day for 30 day(s) Symbicort [facility] [address]-11 160-4.5 mcg/actuation Twice a day Sep 11, 2012 2 puffs by Inhalation route 2 times per day for 30 day(s) Test strips ND 0 Blood Glucose March 08, 2016 test 3 times per day Contour Blood Glucose System [place] 0 March 08, 2016 not defined Zolpidem Tartrate [facility] [address]-36 10 MG Orally Once a day April 09, 2016 1/2 tab - 1 tablet at bedtime as needed GlyBURIDE [facility] 34856996017 5 MG TAKE ONE TABLET BY MOUTH ONCE DAILY Pen [place] ND 0 ... Once a day Dec 13, 2015 for use with pen injector Lisinopril [facility] [address]-82 10 mg Orally Once a day March 08, 2016 1 tablet Omeprazole [facility] [address]-89 20 MG Orally Once a day Dec 12, 2015 1 capsule Metformin HCl [facility] 54428026369 1000 MG TAKE ONE TABLET BY MOUTH TWICE DAILY WITH MEALS Linzess [facility] [address]-15 145 MCG Orally Once a day Nov 29, 2015 1 capsule Test strips [facility] 0 one touch ultra Nov 23, 2015 as directed Procedures Procedure Coding System Code Date Office Visit, Est Pt., Level 2 CPT-4 44507 June 17, 2016 Vital Signs Date/Time: June 17, 2016 Cardiac Monitoring Heart Rate 102 bpm Weight 352.0 lbs Height 67 in BMI 55.12 Index Blood Pressure Diastolic 92 mmHg Blood Pressure Systolic 154 mmHg Results No Known Results Summary Purpose eClinicalWorks Submission
--- OUTSIDE RECORDS SUMMARY | 2017-03-16 06:59 | XMS REPORT ---
Author Author ROB ROMEO [facility] eClinicalWorks Address Unknown Phone Unavailable Care Team Providers Care Loader Engineer Name Role Phone ROB ROMEO CP [...] Instructions Start Date End Date Status Dosage Enalapril Maleate [facility] [address]-96 5 MG Orally Once a day March 12, 2016 1 tablet Results No Known Results Summary Purpose eClinicalWorks Submission
--- OUTSIDE RECORDS SUMMARY | 2017-03-16 06:59 | XMS REPORT ---
Author Author ROB ROMEO [facility] eClinicalWorks Address Unknown Phone Unavailable Care Team Providers Care Bleach Tester Name Role Phone ROB ROMEO CP Unavailable Allergies, Adverse Reactions, Alerts Substance Reaction Event Type Victoza Info Not Available Drug Allergy Penicillin V Potassium Info Not Available Drug Allergy Lisinopril Info Not Available Drug Allergy Problems Problem Type Condition Code Onset Dates Condition Status Assessment Gastroesophageal reflux disease, esophagitis presence not specified K21.9 Active Assessment Osteoarthritis of right knee, unspecified osteoarthritis type M17.9 Active Assessment Morbid obesity due to excess calories E66.01 Active Assessment Constipation by delayed colonic transit K59.01 Active Assessment Chronic obstructive pulmonary disease, unspecified COPD type J44.9 Active Assessment Frequent falls R29.6 Active Assessment Dizziness of unknown cause R42 Active Assessment Diabetes E11.9 Active Problem Constipation by delayed colonic transit [...] 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 Active Assessment Urge incontinence of urine N39.41 Active Problem Gastroesophageal reflux disease, esophagitis presence not specified K21.9 Active Assessment Depressive disorder, not elsewhere classified F32.9 Active Problem Osteoarthritis of right knee, unspecified [...] Start Date End Date Status Dosage Lisinopril [facility] [address]-31 10 mg Orally Once a day March 08, 2016 1 tablet Fluticasone Propionate [facility] [address]-06 50 MCG/ACT Nasally twice a day 1 spray in each nostril GlyBURIDE [facility] 42485020692 5 MG TAKE ONE TABLET BY MOUTH ONCE DAILY Metformin HCl [facility] 77246049742 1000 MG TAKE ONE TABLET BY MOUTH TWICE DAILY WITH MEALS Test strips [facility] 0 ... twice a day March 08, 2016 test blood sugar Oxybutynin Chloride ER [facility] [address]-35 10 mg Orally Once a day Jul 23, 2016 Oct 21, 2016 1 tablet Pen [place] [facility] 0 ... Once a day Dec 13, 2015 for use with pen injector ProAir HFA [facility] [address]-64 90 mcg/actuation Inhalation 4 times a day PRN SHORTNESS OF BREATH INHALER March 19, 2012 2 puffs Test strips [facility] 0 one touch ultra Nov 23, 2015 as directed Quetiapine Fumarate [facility] [address]-95 300 MG Orally Once a day 1 tablet at bedtime Meloxicam [facility] 51165741694 15 MG Orally Once a day 1 tablet Linzess [facility] [address]-34 145 MCG TAKE ONE CAPSULE BY MOUTH ONCE DAILY Omeprazole [facility] [address]-65 20 MG TAKE ONE CAPSULE BY MOUTH ONCE DAILY Contour Blood Glucose System [place] 0 March 08, 2016 not defined Proctofoam HC [facility] [address]-12 1-1 % Rectal Four times a day March 08, 2016 1 application as needed Bydureon [facility] 83415834928 2 MG Subcutaneous once weekly 1 injection Gabapentin [facility] [address]-30 300 MG Orally daily Jul 23, 2016 4 capsule at HS Symbicort [facility] [address]-91 160-4.5 mcg/actuation Twice a day Sep 11, 2012 2 puffs by Inhalation route 2 times per day for 30 day(s) Meclizine HCl [facility] [address]-00 25 MG Orally 3 times a day Sep 06, 2016 1 tablet as needed Lancets [facility] 0 one touch ultra Nov 23, 2015 as directed Albuterol Sulfate [facility] [address]-74 (2.5 MG/3ML) 0.083% Inhalation 4 times a day prn March 08, 2016 3 ml Procedures Procedure Coding System Code Date [facility] CPT-4 NOBLL Sep 06, 2016 VENIPUNCT, ROUTINE* CPT-4 72742 Sep 06, 2016 GLYCATED HEMOGLOBIN TEST CPT-4 80607 Sep 06, 2016 Office Visit, Est Pt., Level 4 CPT-4 67489 Sep 06, 2016 Vital Signs Date/Time: Sep 06, 2016 Cardiac Monitoring Heart Rate 94 bpm Weight 355 lbs Height 67 in BMI 55.59 Index Blood Pressure Diastolic 76 mmHg Blood Pressure Systolic 117 mmHg Results Name Result Date Reference Range Unit Abnormality Flag A1C (IN HOUSE) ----Previous A1c 6.8 [id number] ----Lot [id number] ----Exp date [id number] ROUTINE VENIPUNCTURE Summary Purpose eClinicalWorks Submission
--- OUTSIDE RECORDS SUMMARY | 2017-03-16 06:59 | XMS REPORT ---
Author Author ROB ROMEO [facility] eClinicalWorks Address Unknown Phone Unavailable Care Team Providers Care Louver Mortiser Operator Name Role Phone ROB ROMEO Unavailable Allergies [...] Instructions Start Date End Date Status Dosage Lizzie [facility]UN[facility]EN [facility] [address]-01 145 MCG Orally Once a day TAKE ONE CAPSULE BY MOUTH ONCE DAILY Results No Known Results Summary Purpose eClinicalWorks Submission
--- OUTSIDE RECORDS SUMMARY | 2017-03-16 06:59 | XMS REPORT ---
Author Author ROB ROMEO [facility] eClinicalWorks Address Unknown Phone Unavailable Care Team Providers Care Washing Machine Assembler Name Role Phone ROB ROMEO Unavailable Allergies, Adverse Reactions, Alerts Substance Reaction Event Type Penicillin V Potassium Info Not Available Drug Allergy Problems Problem Type Condition Code Onset Dates Condition Status Assessment Hemorrhoids K64.9 Active Assessment Posttraumatic stress disorder F43.10 Active Assessment Psychosis, unspecified psychosis type F29 Active Assessment Depressive disorder, not elsewhere classified F32.9 Active Problem 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 Assessment Osteoarthritis of right knee, unspecified osteoarthritis type M17.9 Active Problem Neck pain on right side M54.2 Active Assessment Headache R51 Active Problem Gastroesophageal reflux disease, esophagitis presence not specified K21.9 Active Problem Headache R51 Active Problem Osteoarthritis of right knee, unspecified osteoarthritis type M17.9 Active Problem Heart palpitations R00.2 Active Problem URI (upper respiratory infection) J06.9 Active Assessment Morbid obesity due to excess calories E66.01 Active Assessment Constipation by delayed colonic transit K59.01 Active Problem Posttraumatic stress disorder F43.10 Active Assessment Gastroesophageal reflux disease, esophagitis presence not specified K21.9 Active Problem Diabetes mellitus type 2, uncontrolled E11.65 Active Problem Mass of right side of neck R22.1 Active Problem Depressive disorder, not elsewhere classified F32.9 Active Problem Psychosis, unspecified psychosis type F29 Active Problem Constipation by delayed colonic transit K59.01 Active Problem Cough R05 Active Assessment Chronic obstructive pulmonary disease, unspecified COPD type J44.9 Active Assessment 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 Problem Wheezing R06.2 Active Problem Chronic obstructive pulmonary disease, unspecified COPD type J44.9 Active Problem Morbid obesity due to excess calories E66.01 Active Problem SOB (shortness of breath) R06.02 Active Medications Medication Code System Code Instructions Start Date End Date Status Dosage Lisinopril [facility] [address]-60 10 mg Orally Once a day March 08, 2016 1 tablet Victoza NDC [address]-92 18 MG/3ML Subcutaneous Once a day Dec 13, 2015 1.8mg Meloxicam [facility] [address]-23 15 MG Orally Once a day 1 tablet Lancets ND 0 one touch ultra Nov 23, 2015 as directed Contour Blood Glucose System NDC 0 March 08, 2016 not defined Linzess [facility] [address]-45 145 MCG Orally Once a day Nov 29, 2015 1 capsule Pen [place] [facility] 0 ... Once a day Dec 13, 2015 for use with pen injector GlyBURIDE [facility] [address]-33 5 MG Orally Once a day Dec 12, 2015 1 tablet Albuterol Sulfate [facility] [address]-43 (2.5 MG/3ML) 0.083% Inhalation 4 times a day prn March 08, 2016 3 ml ProAir HFA [facility] [address]-22 90 mcg/actuation Inhalation every 4 hrs March 19, 2012 2 puffs by Inhalation route 4 times per day for 30 day(s) Symbicort [facility] [address]-24 160-4.5 mcg/actuation Twice a day Sep 11, 2012 2 puffs by Inhalation route 2 times per day for 30 day(s) Test strips [facility] 0 Blood Glucose March 08, 2016 test 3 times per day Omeprazole [facility] [address]-65 20 MG Orally Once a day Dec 12, 2015 1 capsule Zoloft [facility] [address]-97 50 mg Orally Once a day Jan 18, 2016 1 tablet Test strips ND 0 one touch ultra Nov 23, 2015 as directed Metformin HCl [facility] [address]-81 1000 MG Orally Twice a day February 12, 2016 1 tablet with meals Proctofoam HC [facility] [address]-02 1-1 % Rectal Four times a day March 08, 2016 1 application as needed Seroquel [facility] [address]-29 100 MG Orally hs 1-2 Procedures Procedure Coding System Code Date MICROALBUMIN, SEMIQUANT CPT-4 13087 March 08, [address] [facility] NOBLL March 08, 2016 GLYCATED HEMOGLOBIN TEST CPT-4 00225 March 08, 2016 Office Visit, Est Pt., Level 4 CPT-4 27662 March 08, 2016 Vital Signs Date/Time: March 08, 2016 Temperature 96.0 F Weight 350.9 lbs Height 67 in BMI 54.95 Index Blood Pressure Diastolic 70 mmHg Blood Pressure Systolic 122 mmHg Cardiac Monitoring Heart Rate 84 bpm Results Name Result Date Reference Range Unit Abnormality Flag MICROALBUMIN/CREATININE RATIO, URINE ----Microalb/Creat Ratio 6.8 20160308 0.0-30.0 mg/g creat ----Creatinine, Urine 343.3 20160308 22.0-328.0 mg/dL H ----Microalbumin, Urine 23.5 [id number] 0.0-17.0 ug/mL H A1C (IN HOUSE) ----A1C IN HOUSE 6.4 20160308 4.3 - 5.6 % ----Previous A1c 7.8 [id number] ----Lot [id number] ----Exp date [id number] MICROALBUMIN, URINE (IN HOUSE) ----CRE 300 [id number] ----ALB 150 [id number] ----Control normal 20160308 ----A:C (IN HOUSE) 30-300 [id number] ----Clarity yellow 20160308 ----Color cloudy 20160308 ----Lot # [id number] ----Exp date 20160308 ----MICROALBUMIN abnormal [id number] Summary Purpose eClinicalWorks Submission
--- OUTSIDE RECORDS SUMMARY | 2017-03-16 06:59 | XMS REPORT ---
Author Author ROB ROMEO Organization eClinicalWorks Address Unknown Phone Unavailable Care Team Providers Care Clinical Research Manager Name Role Phone ROB ROMEO CP [...] Date End Date Status Dosage ProAir HFA [facility] [address]-52 90 mcg/actuation Inhalation 4 times a day PRN SHORTNESS OF BREATH INHALER March 19, 2012 2 puffs Linzess [facility] [address]-63 145 MCG Orally Once a day TAKE ONE CAPSULE BY MOUTH ONCE DAILY Results No Known Results Summary Purpose eClinicalWorks Submission
--- OUTSIDE RECORDS SUMMARY | 2017-03-16 07:00 | XMS REPORT ---
Author Author AUREA GAMBOA Organization eClinicalWorks Address Unknown Phone Unavailable Care Team Providers Care Billing Control Clerk Name Role Phone AUREA GAMBOA CP Unavailable [...] patient &/family, 30 minutes, established patient CPT-4 08852 March 15, 2016 Results No Known Results Summary Purpose eClinicalWorks Submission
--- OUTSIDE RECORDS SUMMARY | 2017-03-16 07:00 | XMS REPORT ---
Author Author ROB ROMEO [facility] eClinicalWorks Address Unknown Phone Unavailable Care Team Providers Care Framing Inspector Name Role Phone ROB ROMEO CP Unavailable [...]
--- OUTSIDE RECORDS SUMMARY | 2017-03-16 07:00 | XMS REPORT ---
Author Author ROB ROMEO [facility] eClinicalWorks Address Unknown Phone Unavailable Care Team Providers Care Hardware Test Engineer Name Role Phone ROB ROMEO CP [...] K59.01 Active Problem Cough R05 Active Assessment Heart palpitations R00.2 Active Problem Wheezing R06.2 Active Problem Chronic [...] Date End Date Status Dosage Losartan Potassium [facility] [address]-79 25 MG Orally Once a day March 15, 2016 1 tablet Results No Known Results Summary Purpose eClinicalWorks Submission
--- OUTSIDE RECORDS SUMMARY | 2017-03-16 07:00 | XMS REPORT ---
Author Author ROB ROMEO Organization [facility] Address [address] [place] [address] Care Team Providers Care Boarder Machine Name Role Phone DIOGENES ROMEONETTE Unavailable PROBLEMS Type Condition ICD9-CM Code [id number] Code Onset Dates Condition Status SNOMED Code Problem Constipation by delayed colonic transit K59.01 Active 90195748 Problem Cough R05 Active 69913654 Problem Morbid obesity due to excess calories E66.01 Active 593370330 Problem SOB (shortness of breath) R06.02 Active 706963025 Problem Open wound of left great toe, sequela S91.102S Active 491924662 Problem Wheezing R06.2 Active 81334825 Problem Urge incontinence of urine N39.41 Active 81716991 Problem Chronic obstructive pulmonary disease, unspecified COPD type J44.9 Active 69688129 Problem 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 Active 91244694 Problem Dizziness of unknown cause R42 Active 368862100 Problem Hammer toe of left foot M20.42 Active 157928985 Problem Pharyngitis, unspecified etiology J02.9 Active 512455448 Problem Generalized edema R60.1 Active 654123909 Problem Gastroesophageal reflux disease, esophagitis presence not specified K21.9 Active 929151962 Problem Neck pain on right side M54.2 Active 78561374 Problem 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 312168905 Problem Diabetes E11.9 Active 586576470 Problem Frequent falls R29.6 Active 940131393 Problem Essential hypertension I10 Active 45641589 Problem Major depressive disorder, recurrent episode, severe, with psychotic behavior F33.3 Active 37206189 Problem Mass of right side of neck R22.1 Active 025335653 Problem Diabetes mellitus type 2, uncontrolled E11.65 Active 748569465 Problem Osteoarthritis of right knee, unspecified osteoarthritis type M17.9 Active 077374194 Problem Headache R51 Active 29327239 Problem Posttraumatic stress disorder F43.10 Active 05813862 Problem Arthritis M19.90 Active 6147915 Problem URI (upper respiratory infection) J06.9 Active 17835262 Problem Heart palpitations R00.2 Active 66557232 ALLERGIES Unknown Allergies SOCIAL HISTORY No smoking Hx information available PLAN OF CARE VITAL SIGNS MEDICATIONS Unknown Medications RESULTS No Results PROCEDURES No Known procedures IMMUNIZATIONS No Known Immunizations
--- OUTSIDE RECORDS SUMMARY | 2017-03-16 07:00 | XMS REPORT ---
Author Author PÉREZ GAMBOA Organization eClinicalWorks Address Unknown Phone Unavailable Care Team Providers Care Spinning Lathe Operator Name Role Phone PÉREZ GAMBOA CP [...]
--- OUTSIDE RECORDS SUMMARY | 2017-03-16 07:00 | XMS REPORT ---
Author Author ROB ROMEO Organization eClinicalWorks Address Unknown Phone Unavailable Care Team Providers Care Enroute Controller Name Role Phone ROB ROMEO CP Unavailable [...] Date End Date Status Dosage ProAir HFA [facility] [address]-37 90 mcg/actuation Inhalation 4 times a day PRN SHORTNESS OF BREATH INHALER March 19, 2012 2 puffs Results No Known Results Summary Purpose eClinicalWorks Submission
--- OUTSIDE RECORDS SUMMARY | 2017-03-16 07:00 | XMS REPORT ---
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 Active Problem Mass of right side of neck R22.1 Active Assessment Hammer toe of left foot M20.42 Active Problem Diabetes mellitus type 2, uncontrolled E11.65 Active Assessment Onychomycosis B35.1 Active Problem Psychosis, unspecified psychosis type F29 [...] specified K21.9 Active Medications No Known Medications Procedures Procedure Coding System Code Date Office Visit, Est Pt., Level 3 CPT-4 22131 Aug 30, 2016 DEBRIDE NAIL, 1-5 CPT-4 29517 Aug 30, 2016 Vital Signs Date/Time: Aug 30, 2016 Blood Pressure Diastolic 88 mmHg Blood Pressure Systolic 138 mmHg Height 67 in Results No Known Results Summary Purpose eClinicalWorks Submission
--- OUTSIDE RECORDS SUMMARY | 2017-03-16 07:01 | XMS REPORT ---
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 Active 79974909 Problem Constipation by delayed colonic transit K59.01 Active 88398660 Problem Arthritis M19.90 Active 9068150 Problem Posttraumatic stress disorder F43.10 Active 02828480 Problem Urge incontinence of urine N39.41 Active 11664362 Problem Open wound of left great toe, sequela S91.102S Active 771163907 Problem Wheezing R06.2 Active 60222796 Problem Chronic obstructive pulmonary disease, unspecified COPD type J44.9 Active 45533821 Problem Morbid obesity due to excess calories E66.01 Active 435455043 Problem SOB (shortness of breath) R06.02 Active 481927000 Problem Gastroesophageal reflux disease, esophagitis presence not specified K21.9 Active 340950624 Problem Osteoarthritis of right knee, unspecified osteoarthritis type M17.9 Active 394679206 Problem 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 986381917 Problem Headache R51 Active 60184703 Problem Neck pain on right side M54.2 Active 12935439 Problem Mass of right side of neck R22.1 Active 703188775 ALLERGIES Unknown Allergies SOCIAL HISTORY No smoking Hx information available PLAN OF CARE VITAL SIGNS MEDICATIONS Medication Instructions Dosage Frequency Start Date End Date Duration Status Bydureon 2 MG Subcutaneous once weekly 1 injection Active RESULTS No Results PROCEDURES No Known procedures IMMUNIZATIONS No Known Immunizations
--- OUTSIDE RECORDS SUMMARY | 2017-03-16 07:15 | XMS REPORT | Continuity of Care Document ---
Author Author [facility] Address Unknown Phone Unavailable Allergies Active Description Code Type Severity Reaction Onset Reported/Identified Relationship to Patient Clinical Status Yes penicillamine Drug Allergy 10/08/2011 Yes penicillamine Drug Allergy N/A N/A 10/08/2011 Yes Penicillins [id number] Drug Allergy Unknown N/A 04/18/2012 Yes liraglutide [id number] Drug Allergy Unknown N/A 02/20/2017 Yes Sulfa (Sulfonamide Antibiotics) [id number] Drug Allergy Unknown N/A 02/20/2017 Medications Problems [...] HORACE, HUY Rivera APRN Ot J44.9 02/19/2016 DESTREHAN GURVINDER SANCHEZ Ot R22.1 02/29/2016 HORACE, HUY Rivera APRN Ot J44.9 02/29/2016 DESTREHAN GURVINDER SANCHEZ Ot R22.1 03/25/2016 HORACE, HUY Rivera CELSA Ot J44.9 CHRONIC OBSTRUCTIVE PULMONARY DISEASE, U 03/25/2016 DESTREHAN GURVINDER SANCHEZ Ot R22.1 LOCALIZED SWELLING, MASS [...] AND LUMP, NECK 06/26/2016 MT GASTON MD ([facility]) Ot Z02.71 ENCOUNTER FOR DISABILITY DETERMINATION 06/27/2016 LUIS ENRIQUE DO MD Ot A41.9 SEPSIS, UNSPECIFIED ORGANISM 06/27/2016 LUIS ENRIQUE DO MD Ot E11.9 TYPE 2 DIABETES MELLITUS WITHOUT COMPLIC 06/27/2016 LUIS ENRIQUE DO MD Ot I25.10 ATHSCL HEART DISEASE OF [place] CORONARY 06/27/2016 LUIS ENRIQUE DO MD, Ot [...] MD Ot I25.10 ATHSCL HEART DISEASE OF [place] CORONARY 06/28/2016 LUIS ENRIQUE DO MD, Ot [...] MD, Ot I25.10 ATHSCL HEART DISEASE OF [place] CORONARY 06/28/2016 LUIS ENRIQUE DO MD, Ot [...] MD Ot I25.10 ATHSCL HEART DISEASE OF [place] CORONARY 07/05/2016 LUIS ENRIQUE DO MD, Ot [...] AND LUMP, NECK 10/05/2016 MT GASTON MD ([facility]) Ot Z02.71 ENCOUNTER FOR DISABILITY DETERMINATION [...] CAUSE STATUS 10/05/2016 MAMADOU LOVE Ot Z79.84 DIGITAL PRINT OPERATOR (CURRENT) USE OF ORAL HYPOGLYC 10/05/2016 MAMADOU LOVE Ot Z79.899 OTHER [facility] (CURRENT) DRUG THERAPY 10/05/2016 MAMADOU LOVE Ot [...] Y99.8 OTHER EXTERNAL CAUSE STATUS 10/07/2016 MAMADOU OLVE Ot Z79.84 [facility] (CURRENT) USE OF ORAL HYPOGLYC 10/07/2016 MAMADOU LOVE Ot Z79.899 OTHER [facility] (CURRENT) DRUG THERAPY 10/07/2016 MAMADOU LOVE Ot [...] PRT LEFT FOOT 12/31/2016 HUY VU Miguel KING MAKER Ot J44.9 CHRONIC OBSTRUCTIVE PULMONARY DISEASE, U 12/31/2016 GURVINDER WOODALL DO Ot R22.1 LOCALIZED SWELLING, MASS AND LUMP, NECK 12/31/2016 ALEK HARRIS, MT Galaviz ([facility]) Ot Z02.71 ENCOUNTER FOR DISABILITY DETERMINATION [...] MD Ot I25.10 ATHSCL HEART DISEASE OF [place] CORONARY 01/03/2017 LATOYA MURO MD Ot R07.9 CHEST PAIN, UNSPECIFIED 01/04/2017 LATOYA MURO MD Ot E78.2 MIXED HYPERLIPIDEMIA 01/04/2017 LATOYA MURO MD Ot I10 ESSENTIAL (PRIMARY) HYPERTENSION 01/04/2017 LATOYA MURO MD Ot I25.10 ATHSCL HEART DISEASE OF [place] CORONARY 01/04/2017 LATOYA MURO MD Ot R07.9 CHEST PAIN, UNSPECIFIED 01/15/2017 PITER VAZQUEZ DO Ot E11.9 TYPE 2 DIABETES MELLITUS WITHOUT COMPLIC 01/15/2017 PITER VAZQUEZ DO Ot R06.00 DYSPNEA, UNSPECIFIED 01/16/2017 LATOYA MURO MD Ot E78.2 MIXED HYPERLIPIDEMIA 01/16/2017 LATOYA MURO MD Ot I10 ESSENTIAL (PRIMARY) HYPERTENSION 01/16/2017 LATOYA MURO MD Ot I25.10 ATHSCL HEART DISEASE OF [place] CORONARY 01/16/2017 LATOYA MURO MD Ot R07.9 [...] USE 01/24/2017 LATOYA MURO MD Ot Z79.4 DIGITAL PRINT OPERATOR (CURRENT) USE OF INSULIN 01/24/2017 LATOYA MURO MD Ot Z79.899 OTHER DIGITAL PRINT OPERATOR (CURRENT) DRUG THERAPY 02/14/2017 LATOYA MURO MD [...] USE 02/14/2017 LATOYA MURO MD Ot Z79.4 [facility] (CURRENT) USE OF INSULIN 02/14/2017 LATOYA MURO MD Ot Z79.899 OTHER [facility] (CURRENT) DRUG THERAPY 02/17/2017 LATOYA MURO MD Ot R93.1 ABNORMAL FINDINGS ON DX IMAGING OF HEART 02/20/2017 HUY VU APRN Ot J44.9 CHRONIC OBSTRUCTIVE PULMONARY DISEASE, U 02/20/2017 GURVINDER WOODALL DO Ot R22.1 LOCALIZED SWELLING, MASS AND LUMP, NECK 02/20/2017 ALEK HARRIS, [place] Galaviz ([facility]) Ot Z02.71 ENCOUNTER FOR DISABILITY DETERMINATION [...] MD Ot I25.10 ATHSCL HEART DISEASE OF [place] CORONARY 02/20/2017 LATOYA MURO MD Ot R07.9 [...] Procedures Code [place] [address] ROUTINE VENIPUNCTURE 10/09/2012 16545 CBC 10/09/2012 07568 TSH 10/10/2012 56834 CRP 10/10/2012 JH ESCOBAR 10/11/2012 [id number] DRAINAGE OF L FOOT SUBCU/FASCIA, OPEN AP [...] 09:40 Bacteria identification in wound by culture [id number] NRG FREE TEXT EXTERNAL SENSITIVITY REPORTED 06/30/16 [...] Bacteria identification in isolate by anaerobe culture [facility] NRG Capillary blood glucose measurement by glucometer (mass/volume) - 06/28/16 11: 05 Capillary blood glucose measurement by glucometer (mass/volume) 105 mg/dL 70-110 Gram stain microscopy - 07/03/16 13:30 GRAM STAIN RESULT FEW GRAM POSITIVE COCCI RESEMBLING STAPH NRG Bacteria identification in wound by culture - 07/03/16 13:30 Bacteria identification in wound by culture [id number] NRG FREE TEXT EXTERNAL SENSITIVITY REPORTED 07/04 [...] susceptibility test by minimum inhibitory concentration R [facility] Bacteria identification in isolate by anaerobe culture - 07/03/16 13:30 Bacteria identification in isolate by anaerobe culture [facility] Comprehensive metabolic panel - 07/08/16 13:50 Serum [...] Status Pt. Type Provider Facility Loc./Unit Complaint [id number] 02/17/2015 15:20:00 02/17/2015 23: 59:59 CLS Outpatient ISMA ADAME DO [id number] 12/07/2012 10:24:00 12/07/2012 23: 59:59 CLS Outpatient JH CHICAS MD [id number] 11/02/2012 09:54:00 11/02/2012 23: 59:59 CLS Outpatient [id number] 09/11/2012 00:00:00 09/11/2012 23: 59:59 CLS Outpatient ISMA ADAME DO
== END 2017-02-21 11:14 | disposition home or self-care (01) ==
LOC: DELPENDDIS → EDUNIT# 16:21 → ER 16:24 → ICU 20:49
PROVIDERS: ADMIT Family Medicine; ATTEND Family Medicine
DX: R07.89 Other chest pain (principal); I42.9 Cardiomyopathy, unspecified; E83.42 Hypomagnesemia; E66.01 Morbid (severe) obesity due to excess calories; E11.9 Type 2 diabetes mellitus without complications; Z68.43 Body mass index [BMI] 50.0-59.9, adult; J44.9 Chronic obstructive pulmonary disease, unspecified; I50.22 Chronic systolic (congestive) heart failure; I10 Essential (primary) hypertension; K21.9 Gastro-esophageal reflux disease without esophagitis; E78.5 Hyperlipidemia, unspecified; Z23 Encounter for immunization
CPT/HCPCS: 36415; 71010; 80048; 80053; 80061; 83735; 83874; 84484; 85025; 85379; 85610; 85730; 93005; 93041; 96361; 96365; G0378

== ENCOUNTER 2017-03-05 19:45 | Outpatient (CLI) | payer MEDICAID ==
[~2017-03-05 19:45] MED LIST changes: +CARV3.122 PO; +HCPR10FM RC; +POTA10CA43 PO
== END 2017-03-06 06:50 | disposition home or self-care (01) ==
LOC: SLEEP 19:45
PROVIDERS: ATTEND Internal Medicine Critical Care Medicine
DX: R06.00 Dyspnea, unspecified (principal); E11.9 Type 2 diabetes mellitus without complications
CPT/HCPCS: 95810

== ENCOUNTER → 2017-04-29 | Outpatient (CLI) | payer MEDICAID ==
--- NOTE | 2017-05-01 10:13 | ECHOCARDIOGRAPHY REPORT ---
DATE OF SERVICE: 04/29/2017 TWO DIMENSIONAL ECHOCARDIOGRAM REFERRING PHYSICIAN: Shannon Winn DO FINDINGS: 1. Technically difficulty study. 2. The left ventricle is dilated, endocardium was not well visualized. Definity was used for better visualization of the endocardium. There is diffuse left ventricular hypokinesia with estimated ejection fraction of 20% to 25%, akinesia of the anterior septum, anterior wall, anterolateral wall. 3. The left atrium, right atrium and right ventricle were not well visualized. 4. Mitral valve appeared to be normal in morphology and no color Doppler flow as done. Aortic valve, tricuspid valve and pulmonic valve were not well visualized. 5. No pericardial effusion was noted. CONCLUSION: 1. Technically difficulty study, Definity was used for better visualization of the endocardium. 2. Dilated left ventricle with severe diffuse left ventricle hypokinesia, akinesia of the anterior wall, anterior septum, true septum and anterolateral wall with estimated ejection fraction 20% to 25%. 3. No other visualization of the heart chambers was made. Job ID: [id number] DocumentID: [id number] Dictated Date: 04/30/2017 16:10:04 Tentering Machine Off Bearer Date: 04/30/2017 19:40:33 Dictated By: LATOYA MURO MD
== END ==
LOC: CARD 12:38
PROVIDERS: ATTEND Physician Assistant
DX: I11.0 Hypertensive heart disease with heart failure (principal); I50.9 Heart failure, unspecified; R06.00 Dyspnea, unspecified; E78.2 Mixed hyperlipidemia

== ENCOUNTER 2017-05-12 10:49 | Day surgery (SDC) | payer MEDICAID ==
[2017-05-12] MEDS ORDERED: NS IV 1000 ML 1,000 ML ONE (10:54)
[2017-05-12] MEDS ORDERED: HEParin (CATH LAB) 1,000 ML IV ONE (10:55)
[2017-05-12] MEDS ORDERED: SACU1TAB7 PO ×2 (12:00)
[2017-05-12] MEDS ORDERED: FURO20TA4 PO (12:00)
[2017-05-12] MEDS ORDERED: LINA145C PO ×2 (12:00)
[2017-05-12] MEDS ORDERED: MONT10TA21 PO ×2 (12:00)
[2017-05-12] MEDS ORDERED: TIOT4MIS2 IH ×2 (12:00)
[2017-05-12] MEDS ORDERED: DICL75TA2 PO ×2 (12:00)
[2017-05-12] MEDS ORDERED: VANCOMYCIN 1000 MG/VIAL ONE (12:04)
[2017-05-12] MEDS ORDERED: NS (IVPB) 250 ML ONE (12:04)
[2017-05-12] MEDS ORDERED: NS IV 1000 ML 1,000 ML IV SCH ×2 (12:15→17:08)
[2017-05-12] MEDS ORDERED: BACITRACIN INJECTION 50,000 UNIT, SODIUM CHLORIDE 0.9% IRRIGATIO 500 ML IR STA ×2 (12:20)
[2017-05-12] MEDS ORDERED: MIDAZOLAM 5 MG/5 ML (VERSED) VIAL ONE ×2 (12:22→13:55)
[2017-05-12] MEDS ORDERED: fentaNYL INJECTION 100 MCG/2 ML AMP ONE ×2 (12:23→13:55)
[2017-05-12] MEDS ORDERED: diphenhydrAMINE 50 MG/ML INJ (BENADRYL) ONE (12:23)
[2017-05-12] MEDS ORDERED: VANCOMYCIN INJECTION 1,000 MG in NS (IVPB) 250 ML IV ONE (12:30)
[2017-05-12] MEDS ORDERED: ESCI10TA55 PO ×2 (12:48)
[2017-05-12] MEDS ORDERED: RT-ALBUINH IH ×2 (12:48)
[2017-05-12] MEDS ORDERED: FURO40TA4 PO ×2 (12:48)
[2017-05-12] MEDS ORDERED: NEO/POLY/BAC (NEOSPORIN) OINT 15 GM TUBE ONE (16:30)
[2017-05-12] MEDS ORDERED: PATIENT MAY USE OWN MEDS, ALL PO SCH (17:15)
[2017-05-12] MEDS: VANCOMYCIN 2000 MG/NS 500 ML IVPB IV SCH ×2 (21:58)
[2017-05-13] MEDS ORDERED: VANCOMYCIN INJECTION 1,000 MG in NS (IVPB) 250 ML IV SCH (09:00)
[2017-05-13] MEDS: VANCOMYCIN 2000 MG/NS 500 ML IVPB IV SCH ×2 (09:25)
[2017-05-13] MEDS ORDERED: CLIN300C11 PO ×2 (12:43)
[2017-05-14] MEDS ORDERED: TROUGH ORDER-PHARMACY XX NR (07:00)
== END 2017-05-13 13:40 | disposition home or self-care (01) ==
DX: I42.9 Cardiomyopathy, unspecified (principal); I50.9 Heart failure, unspecified; I44.7 Left bundle-branch block, unspecified; E11.9 Type 2 diabetes mellitus without complications; Z79.899 Other long term (current) drug therapy; Z79.4 Long term (current) use of insulin; Z72.0 Tobacco use

== ENCOUNTER 2017-05-14 22:12 | Observation (INO) | payer MEDICAID ==
[~2017-05-14 22:12] MED LIST changes: +CLIN300C11 PO; +ESCI10TA55 PO; +MONT10TA21 PO; +SACU1TAB7 PO; +TIOT4MIS2 IH
[2017-05-14] MEDS: RX-NITROGLYCERIN 0.4 MG TAB BTL 25'S SL PRN ×3 (22:27→23:07)
[2017-05-14] MEDS ORDERED: ASPIRIN 81 MG CHEW (CHILDREN'S ASA) PO ONE (22:30)
[2017-05-14] MEDS ORDERED: NS 100 ML (IVPB) BAG IV ONE (22:45)
[2017-05-14] MEDS ORDERED: IOHEXOL 350 MG/ML 150 ML (OMNIPAQUE 350) VIAL IV ONE (22:45)
[2017-05-14] MEDS ORDERED: morphine INJ 10 MG/ML 1ML (SYR OR VIAL) IVP ONE ×2 (22:45→23:00)
[2017-05-14] MEDS ORDERED: NITROGLYCERIN 2% OINT 1 GM UNIT DOSE PACKET TOP ONE (23:15)
[2017-05-15] MEDS ORDERED: morphine INJ 10 MG/ML 1ML (SYR OR VIAL) ONE (02:25)
[2017-05-15] MEDS ORDERED: morphine INJ 10 MG/ML 1ML (SYR OR VIAL) IVP ONE (02:30)
[2017-05-15] MEDS ORDERED: HYDROcodone/APAP 5 MG/325 MG (LORTAB) TAB PO PRN (03:15)
[2017-05-15] MEDS: morphine INJ 10 MG/ML 1ML (SYR OR VIAL) IVP PRN ×3 (04:16→16:00)
[2017-05-15] MEDS: NITROGLYCERIN 2% OINT 1 GM UNIT DOSE PACKET TOP SCH ×2 (07:25→14:08)
[2017-05-15] MEDS ORDERED: ASPIRIN E.C. 325 MG (ECOTRIN) TABLET PO SCH (09:00)
[2017-05-15] MEDS ORDERED: CLIN300C11 PO ×2 (09:22→09:23)
[2017-05-15] MEDS ORDERED: PATIENT MAY USE OWN MED,SINGLE MED PO SCH (09:30)
[2017-05-15] MEDS ORDERED: VANCOMYCIN INJECTION 1,000 MG in NS (IVPB) 250 ML IV NR (09:30)
[2017-05-15] MEDS: CLINDAMYCIN HCL 300 MG PO SCH ×2 (09:53→14:04)
[2017-05-15] MEDS ORDERED: meTOprolol 5 MG/5 ML (LOPRESSOR) VIAL IV NR (12:15)
[2017-05-15] MEDS ORDERED: meTOprolol 5 MG/5 ML (LOPRESSOR) VIAL IV ONE ×2 (13:00→13:45)
== END 2017-05-15 16:00 | disposition designated cancer center or children's hospital (05) ==
DX: R07.9 Chest pain, unspecified (principal); I16.0 Hypertensive urgency; E11.9 Type 2 diabetes mellitus without complications; I42.9 Cardiomyopathy, unspecified; Z79.82 Long term (current) use of aspirin; Z79.84 Long term (current) use of oral hypoglycemic drugs; Z79.899 Other long term (current) drug therapy; Z95.810 Presence of automatic (implantable) cardiac defibrillator; Z87.891 Personal history of nicotine dependence

== ENCOUNTER 2017-05-29 01:51 | Emergency (ER) | payer MEDICAID ==
[~2017-05-29] VITALS: Ht 167.6 cm; Wt 155.6 kg
--- OUTSIDE RECORDS SUMMARY | 2017-05-29 02:01 | XMS REPORT | Continuity of Care Document ---
Author Author [facility] Organization [facility] Address Unknown Phone Unavailable Care Team Providers Care Insurance Loss Control Surveyor Name Role Phone Stephani Munoz PCP [phone] Source Comments Some departments are not documenting in the electronic medical record. If you do not see the information that you expected, contact Release of Information in the Health Information Management department at [phone] for further assistance in locating additional records.[facility] Active Allergies and Adverse Reactions Allergen Noted Date Severity Reactions Comments Penicillins 05/15/2017 High ANGIOEDEMA Sulfa (Sulfonamide 05/15/2017 Medium HIVES Antibiotics) Victoza 05/15/2017 Low VOMITING Current Medications Prescription Sig. Disp. Refills Start End Date Status Date albuterol (PROAIR HFA) 90 Inhale 2 Puffs by mouth Active mcg/actuation inhaler into the lungs every 6 hours as needed for Wheezing or Shortness of Breath. Shake well before use. albuterol 0.083% Inhale 1 Vial solution by Active (PROVENTIL; VENTOLIN) 2.5 nebulizer as directed mg /3 mL (0.083 %) four times daily as nebulizer solution needed for Wheezing or Shortness of Breath. aspirin EC 81 mg tablet Take 81 mg by mouth every Active morning. Take with food. budesonide/formoterol Inhale 2 Puffs by mouth Active (SYMBICORT HFA) 160/4.5 into the lungs twice mcg inhalation daily. carvedilol (COREG) 3.125 Take 3.125 mg by mouth Active mg tablet twice daily. Take with food. sertraline (ZOLOFT) 100 Take 100 mg by mouth Active mg tablet daily. fluticasone (FLONASE) 50 Apply 2 Sprays to each Active mcg/actuation nasal spray nostril as directed daily. Shake bottle gently before using. furosemide (LASIX) 40 mg Take 40 mg by mouth every Active tablet morning. glyBURIDE (DIABETA) 5 mg Take 5 mg by mouth every Active tablet morning. Take with food. INSULIN ASPART (NOVOLOG Inject 20 Units under the Active SC) skin three times daily with meals. linaclotide(+) (LINZESS) Take 145 mcg by mouth Active 145 mcg cap capsule daily 30 minutes before breakfast. metFORMIN (GLUCOPHAGE) Take 1,000 mg by mouth Active 1,000 mg tablet twice daily. montelukast (SINGULAIR) Take 10 mg by mouth at Active 10 mg tablet bedtime daily. omeprazole DR(+) Take 20 mg by mouth daily Active (PRILOSEC) 20 mg capsule before breakfast. oxybutynin XL (DITROPAN Take 10 mg by mouth Active XL) 10 mg tablet daily. potassium chloride(+) Take 10 mEq by mouth Active (MICRO-K) 10 mEq capsule daily. Take with a meal and a full glass of water. QUEtiapine (SEROQUEL) 300 Take 300 mg by mouth at Active mg tablet bedtime daily. sacubitril/valsartan Take 1 Tab by mouth twice Active (ENTRESTO) 49/51 mg daily. tablet TIOTROPIUM BROMIDE Inhale 2 Puffs by mouth Active (SPIRIVA RESPIMAT IN) into the lungs daily. spironolactone Take 2 Tabs by mouth 90 Tab 0 05/22/20 Active (ALDACTONE) 25 mg tablet daily. Take with food. 17 escitalopram oxalate Take 10 mg by mouth 05/19/20 Discontin (LEXAPRO) 10 mg tablet daily. 17 ued gabapentin (NEURONTIN) Take 1,200 mg by mouth at 05/19/20 Discontin 300 mg capsule bedtime daily. 17 ued spironolactone Take 25 mg by mouth twice 05/22/20 Discontin (ALDACTONE) 25 mg tablet daily. Take with food. 17 ued Active Problems Problem Noted Date Acute on chronic systolic heart failure ([facility]) 05/20/2017 Septic shock ([facility]) 05/17/2017 TERESSA (acute kidney injury) ([facility]) 05/17/2017 Acute respiratory failure with hypoxia ([facility]) 05/17/2017 Complication associated with cardiac pacemaker lead 05/15/2017 Morbid obesity due to excess calories ([facility]) 05/15/2017 COPD (chronic obstructive pulmonary disease) (HCC) 05/15/2017 Type 2 diabetes mellitus without complication (HCC) 05/15/2017 Depression 05/15/2017 Insomnia 05/15/2017 NICM (nonischemic cardiomyopathy) (HCC) 05/15/2017 Chronic systolic heart failure (HCC) 05/15/2017 Biventricular ICD (implantable cardioverter-defibrillator) in place 2016 Overview: Iperia 7 HF-T [employer], reference #[id number], serial #[id number] Most Recent Encounters Date Type Specialty Providers Description 05/27/2017 Telephone Cardiology Francisca Puga RN Patient Questions 05/16/2017 Anesthesia Garrison Best, [employer] Event 05/16/2017 Surgery Courtney Rivera MD Reposition PM Lead (RA or RV) 05/15/2017 Hospital Cardiology Conrad Corrales MD Complication associated - Encounter Jorge Ramires MBBS with cardiac pacemaker 05/22/2017 Pro James MD lead Social History Tobacco Use Types Packs/Day Years Used Date Former Smoker Cigarettes 1 25 Quit: 11/24/2014 Smokeless Tobacco: Never Used Alcohol Use Drinks/Week oz/Week Comments No 0 Standard 0.0 drinks or equivalent Last Filed Vital Signs Vital Sign Reading Time Taken Blood Pressure 128/71 05/22/2017 8:00 AM CDT Pulse 96 05/22/2017 8:39 AM CDT Temperature 36.8 C (98.2 F) 05/22/2017 8:00 AM CDT Respiratory Rate - - Height 1.676 m (5' 6") 05/19/2017 12:00 PM CDT Weight 157.398 kg (347 lb) 05/22/2017 5:00 AM CDT Body Mass Index 56.03 05/22/2017 5:00 AM CDT Oxygen Saturation 95% 05/22/2017 8:39 AM CDT Plan of Care Health Maintenance Due Date Last Done Comments Physical (Comprehensive) 1977 Exam Pertussis Vaccine 1981 Tetanus Vaccine 1987 Influenza Vaccine 07/25/2017 Procedures from Last 3 Months Procedure Name Priority Date/Time Associated Diagnosis Comments TELEMETRY STRIPS-SCAN 05/26/2017 Results for this 5:27 PM CDT procedure are in the results section. ECG-SCAN 05/23/2017 Results for this 9:41 AM CDT procedure are in the results section. ECG-SCAN 05/23/2017 Results for this 9:41 AM CDT procedure are in the results section. ECG-SCAN 05/23/2017 Results for this 9:41 AM CDT procedure are in the results section. ECG-SCAN 05/22/2017 Results for this 10:21 AM CDT procedure are in the results section. CONSULT IV THERAPY TEAM STAT 05/17/2017 Results for this 11:52 AM CDT procedure are in the results section. ANESTHESIA ARTERIAL LINE Routine 05/16/2017 Results for this INSERTION 11:15 AM CDT procedure are in the results section. CONSULT IV THERAPY TEAM Routine 05/16/2017 9:28 AM CDT CONSULT IV THERAPY TEAM Routine 05/15/2017 11:01 PM CDT Results from Last 3 Months * TELEMETRY STRIPS-SCAN (05/26/2017 5:27 PM) Narrative Ordered by an unspecified provider. * ECG-SCAN (05/23/2017 9:41 AM) Narrative Ordered by an unspecified provider. * ECG-SCAN (05/23/2017 9:41 AM) Narrative Ordered by an unspecified provider. * ECG-SCAN (05/23/2017 9:41 AM) Narrative Ordered by an unspecified provider. * POC GLUCOSE (05/22/2017 11:24 AM) Only the most recent of 38 results within the time period is included. Component Value Range Glucose, POC 185 (H) 70-100 MG/DL * ECG-SCAN (05/22/2017 10:21 AM) Narrative Ordered by an unspecified provider. * BASIC METABOLIC PANEL (05/22/2017 5:00 AM) Only the most recent of 5 results within the time period is included. Component Value Range Sodium 134 (L) 137-147 MMOL/L Potassium 4.0 3.5-5.1 MMOL/L Chloride 101 98-110 MMOL/L CO2 26 21-30 MMOL/L Anion Gap 7 3-12 Glucose 147 (H) 70-100 MG/DL Blood Urea Nitrogen 21 7-25 MG/DL Creatinine 0.77 0.4-1.24 MG/DL Calcium 9.2 8.5-10.6 MG/DL eGFR Non >60Comment: >60 mL/min The eGFR is not validated for use in drug dosing adjustments. Continue to use estimated creatinine clearance per dosing reference text. Please contact the Clinical Pharmacist for questions. eGFR >60Comment: >60 mL/min The eGFR is not validated for use in drug dosing adjustments. Continue to use estimated creatinine clearance per dosing reference text. Please contact the Clinical Pharmacist for questions. Specimen Blood * MAGNESIUM (05/22/2017 5:00 AM) Only the most recent of 8 results within the time period is included. Component Value Range Magnesium 1.9 1.6-2.6 mg/dL Specimen Blood * CBC (05/22/2017 5:00 AM) Only the most recent of 9 results within the time period is included. Component Value Range White Blood Cells 10.0 4.5-11.0 K/UL RBC 3.79 (L) 4.4-5.5 M/UL Hemoglobin 11.9 (L) 13.5-16.5 GM/DL Hematocrit 34.5 (L) 40-50 % MCV 91.2 80-100 FL MCH 31.5 26-34 PG MCHC 34.5 32.0-36.0 G/DL RDW 13.0 11-15 % Platelet Count 222 150-400 K/UL MPV 8.8 7-11 FL Specimen Blood * COMPREHENSIVE METABOLIC PANEL (05/20/2017 4:10 AM) Only the most recent of 6 results within the time period is included. Component Value Range Sodium 137 137-147 MMOL/L Potassium 3.8 3.5-5.1 MMOL/L Chloride 103 98-110 MMOL/L Glucose 188 (H) 70-100 MG/DL Blood Urea Nitrogen 24 7-25 MG/DL Creatinine 0.85 0.4-1.24 MG/DL Calcium 9.1 8.5-10.6 MG/DL Total Protein 6.6 6.0-8.0 G/DL Total Bilirubin 0.6 0.3-1.2 MG/DL Albumin 3.1 (L) 3.5-5.0 G/DL Alk Phosphatase 54 25-110 U/L AST (SGOT) 17 7-40 U/L CO2 25 21-30 MMOL/L ALT (SGPT) 12 7-56 U/L Anion Gap 9 3-12 eGFR Non >60Comment: >60 mL/min The eGFR is not validated for use in drug dosing adjustments. Continue to use estimated creatinine clearance per dosing reference text. Please contact the Clinical Pharmacist for questions. eGFR >60Comment: >60 mL/min The eGFR is not validated for use in drug dosing adjustments. Continue to use estimated creatinine clearance per dosing reference text. Please contact the Clinical Pharmacist for questions. Specimen Blood * 2-D + DOPPLER ECHOCARDIOGRAM (05/19/2017 12:00 PM) Only the most recent of 2 results within the time period is included. Component Value Range BSA 2.73 m2 ECHO EF 30 % CV ECHO PV FRAME NAILER JOJO Leroy LVIDD 5.7 4.2-5.9 cm LVIDS 4.5 cm IVS 1.0 0.6-1.0 cm PW 1.1 0.6-1.0 cm FS 21.05 28-44 % EF 35.79 % LA size 4.3 3.0-4.0 cm Sinus 3.3 2.1-3.5 cm AV peak velocity 1.5 m/s TV rest pulmonary artery n/a mmHg pressure E/A ratio 0.91 TDI e' 0.090 m/s E/E' ratio 11.11 MV Peak E Carlos Alberto PW 1.000 m/s MV Peak A Carlos Alberto 1.100 m/s Narrative Limited endocardial definition, but based on echo contrast-aided views, there appears to be Moderate LV Systolic Dysfunction with LVEF ~=30% The septal, inferior, and apical segments are severely hypokinetic, with the lateral and anterior rossi appearing less hypokinetic Although the RV is not ideally visualized, there is probably normal RV size but reduced systolic function Trivial posterior pericardial effusion The valves are not well seen Prior studies dated 05.16 and 17 reviewed for comparison. * DEVICE EVALUATION - ICD (05/19/2017 9:19 AM) Only the most recent of 2 results within the time period is included. Component Value Range Generator Model # IPERIA 7 HF-T Generator Serial # [id number] Generator Implnat Date 05/12/2017 Generator Facialist [employer] Generator Investigational No Wireless Generator Yes Device Type RN FORENSIC-D Device [place] None Transmitter Compatible Atrial Lead Model # SOLIA S 53 Atrial Lead Serial # [id number] Atrial Lead Implant Date 05/12/2017 Atrial Lead Diaph. 10 Stimulation Atrial Lead Facialist [employer] Atrial Lead No Investigational Atrial Lead Fixation active fixation Atrial Lead Location right atrial appendage Atrial Lead Pin Connector IS1 Atrial Lead Polarity Bipolar RV Lead Model # PROTEGO S 65 RV Lead Serial # [id number] RV Lead Implant Date 05/12/2017 RV Lead Diaph. 10 Stimulation RV Lead Facialist [employer] RV Lead Investigational No RV Lead Fixation active fixation RV Lead Location RV mid septum RV Lead Coil Single LV Lead Model # COROX OTW BP LV Lead Serial # [id number] LV Lead Implant Date 05/12/2017 LV Lead Configuration LV Tip to LV Ring Other LV Lead Facialist [employer] LV Lead Investigational No LV Lead Fixation passive fixation LV Lead Polarity Bipolar Device Mode DDD/CLS Lower Rate Limit 60 Upper Rate Limit 130 Sensor Rate Limit 120 Pace AV Delay 140 Sense AV Delay 120 VT Monitor N/A VT Detect Rate (bpm) 188 VT Detect Rate Tx SHOCK VF Detect Rate (bpm) 214 VF Detect Rate Tx SHOCK Mode Switch (bpm) 160 High A Rate Detect 160 High V Rate Detect 188 Mode Switch Status On Device Implanted By / Leads revisied by Courtney Rivera MD 05/16/17 Pacemaker Dependant No Narrative [facility] post lead revision, device evaluation by [employer] rep See attached data file for > details. Stable lead trends. Reposition RV ICD and RA leads Device implanted 05-12-17 at outside facility, pt lives in [facility]. Underlying rhythm is sinus tach. Routed to Dr Hendrix for co sign, review. * VANCOMYCIN TROUGH (05/19/2017 7:20 AM) Component Value Range Vancomycin Trough 12.7 10.0-20.0 MCG/ML Specimen Blood, venous - Blood * BLOOD GASES, ARTERIAL (05/19/2017 4:20 AM) Only the most recent of 6 results within the time period is included. Component Value Range pH-Arterial 7.40 7.35-7.45 pCO2-Arterial 42 35-45 MMHG pO2-Arterial 192 (H) 80-100 MMHG Base Excess-Arterial 0.5 MMOL/L O2 Sat-Arterial 99.8 (H) 95-99 % Cetnnolcknz-PRG-Dha 24.9 21-28 MMOL/L Specimen Blood, arterial - Blood * CT CHEST WO CONTRAST (05/18/2017 2:50 PM) Impressions 1. Mild cardiomegaly with development of a small to moderate sized pericardial effusion. 2. Bibasilar atelectasis with a more focal area of consolidation left lung base , correlation for signs of pneumonia needed. 3. Development of small to moderate dependent left pleural effusion. 4. Small focal areas of groundglass opacities in the inferior right middle lobe which may represent additional areas of atelectasis versus pneumonitis. By my electronic signature, I attest that I have personally reviewed the images for this examination and formulated the interpretations and opinions expressed in this report Finalized by Rigo Can M.D. on 05/18/2017 3:55 PM. Dictated by Brian Graves M.D. on 05/18/2017 2:[address] CHEST Clinical Indication:Male, 47 years old. Concern for pneumonia Technique: Multiple contiguous axial CT images were obtained through the chest without IV contrast. Post-processing coronal and sagittal reconstruction images were made from the axial images. IV contrast: None. Comparison: CT chest May 14, 2017 FINDINGS: Evaluation of the mediastinum and sharon, including the vasculature and for lymphadenopathy, is limited without the use of IV contrast. Lower Neck: Unremarkable Axilla, Mediastinum and Sharon: No axillary or obvious mediastinal/hilar lymphadenopathy. No mediastinal hematoma or mass. Heart and Great Vessels: The heart is mildly enlarged. Partial visualization of a left chest wall cardiac connection device. There has been development of a the ascending thoracic aorta is normal in caliber. There is mild dilation of the main pulmonary artery measuring up to 3.7 cm in diameter. Interval development of small to moderate pericardial effusion. Airway, Lungs and Pleura: Development of trace dependent right pleural effusion , small moderate dependent left pleural effusion. Bibasilar atelectasis with a more focal area of consolidation in the inferior right middle lobe containing air bronchograms. There focal areas of groundglass opacities in the lower right upper lobe (series 2 images 29 and 34). Upper Abdomen: Unremarkable. Chest Wall and Osseous Structures: No aggressive osseous lesions. Procedure Note Interface, Radiant Results - Sun May 18, 2017 3:[address] CHEST Clinical Indication: Male, 47 years old. Concern for pneumonia Technique: Multiple contiguous axial CT images were obtained through the chest without IV contrast. Post-processing coronal and sagittal reconstruction images were made from the axial images. IV contrast: None. Comparison: CT chest May 14, 2017 FINDINGS: Evaluation of the mediastinum and sharon, including the vasculature and for lymphadenopathy, is limited without the use of IV contrast. Lower Neck: Unremarkable Axilla, Mediastinum and Sharon: No axillary or obvious mediastinal/hilar lymphadenopathy. No mediastinal hematoma or mass. Heart and Great Vessels: The heart is mildly enlarged. Partial visualization of a left chest wall cardiac connection device. There has been development of a the ascending thoracic aorta is normal in caliber. There is mild dilation of the main pulmonary artery measuring up to 3.7 cm in diameter. Interval development of small to moderate pericardial effusion. Airway, Lungs and Pleura: Development of trace dependent right pleural effusion , small moderate dependent left pleural effusion. Bibasilar atelectasis with a more focal area of consolidation in the inferior right middle lobe containing air bronchograms. There focal areas of groundglass opacities in the lower right upper lobe (series 2 images 29 and 34). Upper Abdomen: Unremarkable. Chest Wall and Osseous Structures: No aggressive osseous lesions. IMPRESSION 1. Mild cardiomegaly with development of a small to moderate sized pericardial effusion. 2. Bibasilar atelectasis with a more focal area of consolidation left lung base , correlation for signs of pneumonia needed. 3. Development of small to moderate dependent left pleural effusion. 4. Small focal areas of groundglass opacities in the inferior right middle lobe which may represent additional areas of atelectasis versus pneumonitis. By my electronic signature, I attest that I have personally reviewed the images for this examination and formulated the interpretations and opinions expressed in this report Finalized by Rigo Can M.D. on 05/18/2017 3:55 PM. Dictated by Brian Graves M.D. on 05/18/2017 2:59 PM. * VANCOMYCIN RANDOM (05/18/2017 3:05 AM) Component Value Range Vancomycin Random 7.0 MCG/ML Specimen Blood * LINE PLCMT 1V CXR (05/17/2017 6:17 PM) Impressions 1. Right IJ central venous catheter placement as above. 2. Unchanged left lung base opacities which may represent increasing atelectasis or consolidation. Approved by Brian Graves M.D. on 05/18/2017 9:23 AM By my electronic signature, I attest that I have personally reviewed the images for this examination and formulated the interpretations and opinions expressed in this report Finalized by Alex Arora M.D. on 05/18/2017 10:56 AM. Dictated by Brian Graves M.D. on 05/18/2017 8:03 AM. Narrative LINE PLCMT 1V CXR Clinical history: Central line placement Comparison: Chest x-ray May 17, 2017 Findings: A left chest wall cardiac conduction device remains in place. Interval placement of a right IJ central venous catheter with tip overlying the low SVC. The cardiac silhouette is unchanged in size and shape. Pulmonary vasculature is within normal limits. Unchanged left lung base opacification. Procedure Note Interface, Radiant Results - Sun May 18, 2017 10:59 AM CDT LINE PLCMT 1V CXR Clinical history: Central line placement Comparison: Chest x-ray May 17, 2017 Findings: A left chest wall cardiac conduction device remains in place. Interval placement of a right IJ central venous catheter with tip overlying the low SVC. The cardiac silhouette is unchanged in size and shape. Pulmonary vasculature is within normal limits. Unchanged left lung base opacification. IMPRESSION 1. Right IJ central venous catheter placement as above. 2. Unchanged left lung base opacities which may represent increasing atelectasis or consolidation. Approved by Brian Graves M.D. on 05/18/2017 9:23 AM By my electronic signature, I attest that I have personally reviewed the images for this examination and formulated the interpretations and opinions expressed in this report Finalized by Alex Arora M.D. on 05/18/2017 10:56 AM. Dictated by Brian Graves M.D. on 05/18/2017 8:03 AM. * GRAM STAIN (05/17/2017 2:30 PM) Component Value Range Battery Name GRAM STAIN Specimen Description SPUTUM Special Requests NONE Gram Stain SPECIMEN CONTAINS >25 SQUAMOUS EPITHELIAL CELLS INDICATING CONTAMINATION WITH SALIVA. GROWTH WILL REPRESENT NORMAL MOUTH MARIAMA. SPECIMEN DOES NOT MEET CRITERIA FOR CULTURE. Notified [email or web address]/[id number] Report Status FINAL 05/17/2017 Specimen Sputum * CONSULT IV THERAPY TEAM (05/17/2017 11:52 AM) Asif Franco RN 05/17/2017 11:52 AM PICC Line Insertion: Under sterile conditions the skin at the insertion site was prepped with chlorhexadine and covered with a sterile drape. Local anesthesia was applied to the skin and subcutaneous tissues.A 4 FR PICC was inserted in the Right Cephalic vein per hospital protocol.Catheter was advanced to 30 cm, with 14 cm exposed.Catheter was removed and procedure was abandoned. R Brachial vein size 7mm, depth 3.5cm. R Basilic vein size 4mm. Patient has left pacemaker, with lead replacement performed on 05/16/2017. * LEGIONELLA ANTIGEN URINE,RAN (05/17/2017 10:00 AM) Component Value Range Battery Name LEGIONELLA URINE ANTIGEN Specimen Description URINE Special Requests NONE Antigen NEGATIVE Report Status FINAL 05/17/2017 Specimen Urine * STREPTOCOCCUS PNEUMO AG, URINE (05/17/2017 10:00 AM) Component Value Range Battery Name STREP PNEUMO AG, UR Specimen Description URINE Special Requests NONE Antigen NEGATIVE Report Status FINAL 05/17/2017 Specimen Urine * CULTURE-URINE W/SENSITIVITY (05/17/2017 10:00 AM) Only the most recent of 2 results within the time period is included. Component Value Range Battery Name URINE CULTURE Specimen Description URINE,INDWELLING CATH Special Requests NONE Culture NO GROWTH Report Status FINAL 05/19/2017 Specimen Urine - Leiva Catheter * LIMITED ECHOCARDIOGRAM (05/17/2017 9:27 AM) Component Value Range BSA 2.74 m2 Narrative Technically limited abbreviated portable study. LV function is not well-visualized and cannot be assessed . There may be a device lead in the right ventricle. Aortic valve is not well visualized but may be sclerotic with adequate leaflet excursion in systole Mitral valve is seen in limited fashion.There may be calcified mitral chordae and papillary muscle heads that was present on the prior study on May 16, 2017 at 16:32. A small anterior echo-free space is seen that was also present on the prior study on May 16, 2017. There may be a trivial posterior echo-free space present. The inferior vena cava is not well-visualized but seems to have normal diameter and respiratory variation. There is approximately 50% variation in mitral diastolic flow that was also present on the prior study. The absence of a major pericardial effusion this may be due to respiratory fluctuations * PROCALCITONIN (05/17/2017 9:15 AM) Component Value Range Procalcitonin 7.00 (H) <0.10 NG/ML Specimen Blood * TROPONIN-I (05/17/2017 5:45 AM) Only the most recent of 5 results within the time period is included. Component Value Range Troponin-I 11.65 (H) 0.0-0.05 NG/ML Specimen Blood * CHEST SINGLE VIEW (05/17/2017 4:35 AM) Only the most recent of 3 results within the time period is included. Impressions Poor depth of inspiration with bibasilar atelectasis and small left pleural effusion. Approved by Keshav Scott M.D. on 05/17/2017 9:35 AM By my electronic signature, I attest that I have personally reviewed the images for this examination and formulated the interpretations and opinions expressed in this report Finalized by Alex Arora M.D. on 05/17/2017 1:01 PM. Dictated by Keshav Scott M.D. on 05/17/2017 8:15 AM. Narrative CHEST SINGLE VIEW Clinical Indication: Male, 47 years old. Pacemaker placement check. Comparison: Chest x-ray from prior day Findings: Cardiac conduction device remains in stable position with battery pack overlying the left chest wall. Right atrial, right ventricular and coronary sinus leads appear to be in stable position. The patient has been extubated. Central venous catheter has been removed. Persistent low lung volumes with bibasilar atelectasis and small left pleural effusion. The cardiac silhouette is within normal limits of size. There is no pulmonary vascular congestion. No pneumothorax. Procedure Note Interface, Radiant Results - Sat May 17, 2017 1:04 PM CDT CHEST SINGLE VIEW Clinical Indication: Male, 47 years old. Pacemaker placement check. Comparison: Chest x-ray from prior day Findings: Cardiac conduction device remains in stable position with battery pack overlying the left chest wall. Right atrial, right ventricular and coronary sinus leads appear to be in stable position. The patient has been extubated. Central venous catheter has been removed. Persistent low lung volumes with bibasilar atelectasis and small left pleural effusion. The cardiac silhouette is within normal limits of size. There is no pulmonary vascular congestion. No pneumothorax. IMPRESSION Poor depth of inspiration with bibasilar atelectasis and small left pleural effusion. Approved by Keshav Scott M.D. on 05/17/2017 9:35 AM By my electronic signature, I attest that I have personally reviewed the images for this examination and formulated the interpretations and opinions expressed in this report Finalized by Alex Arora M.D. on 05/17/2017 1:01 PM. Dictated by Keshav Scott M.D. on 05/17/2017 8:15 AM. * CULTURE-BLOOD W/SENSITIVITY (05/17/2017 2:30 AM) Only the most recent of 3 results within the time period is included. Component Value Range Battery Name BLOOD CULTURE Specimen Description BLOOD R HAND Special Requests NONE Culture NO GROWTH 5 DAYS Report Status FINAL 05/23/2017 Specimen Blood * URINALYSIS, MICROSCOPIC (05/16/2017 11:30 PM) Component Value Range WBCs,UA 20-50 0-2 /HPF RBCs,UA 2-10 0-3 /HPF MucousUA 4+ Bacteria,UA PACKED (A) NEG-NEG WBC Clumps PRESENT Squamous Epithelial Cells 2-5 0-5 Cellullar Cast 0-2 Hyaline Cast PACKED Granular Casr 0-2 Specimen Urine * URINALYSIS DIPSTICK (05/16/2017 11:30 PM) Component Value Range Color,UA ROD Turbidity,UA 2+ (A) CLEAR-CLEAR Specific [place]-Urine 1.024 1.003-1.035 pH,UA 5.0 5.0-8.0 Protein,UA NEG NEG-NEG Glucose,UA 1+ (A) NEG-NEG Ketones,UA NEG NEG-NEG Bilirubin,UA NEG NEG-NEG Blood,UA 1+ (A) NEG-NEG Urobilinogen,UA NORMAL NORM-NORMAL Nitrite,UA NEG NEG-NEG Leukocytes,UA 1+ (A) NEG-NEG Urine Ascorbic Acid, UA NEG NEG-NEG Specimen Urine * RVP VIRAL PANEL PCR (05/16/2017 11:30 PM) Component Value Range Specimen Source NASOPHARYNGEAL SWAB Adenovirus NOT DETECTED Coronavirus 229E NOT DETECTED Coronavirus HKU1 NOT DETECTED Coronavirus NL63 NOT DETECTED Coronavirus OC43 NOT DETECTED Human Metapneumovirus NOT DETECTED Human NOT DETECTED Rhinovirus/ENTEROVIRUS Influenza A H1N1 2009 NOT DETECTED Influenza A H1 NOT DETECTED Influenza A H3 NOT DETECTED Influenza B NOT DETECTED Parainfluenza 1 NOT DETECTED Parainfluenza 2 NOT DETECTED Parainfluenza 3 NOT DETECTED Parainfluenza 4 NOT DETECTED RSV NOT DETECTED Bordetella Pertussis NOT DETECTED Chlamydophila Pneumoniae NOT DETECTED Mycoplasma Pneumoniae NOT DETECTED Specimen Nasopharyngeal Swab * CREATINE KINASE-CPK (05/16/2017 9:50 PM) Component Value Range Creatine Kinase 500 (H) 35-232 U/L * POC BLOOD GAS ARTERIAL (05/16/2017 3:01 PM) Only the most recent of 4 results within the time period is included. Component Value Range PH-ART-POC 7.28 (L) 7.35-7.45 QNW2-CYD-TZT 47 (H) 35-45 MMHG PO2-ART-POC 74 (L) 80-100 MMHG Base Def-ART-POC 4.0 MMOL/L O2 Sat-ART-POC 93.0 (L) 95-99 % Qhpyimmekwg-AQW-TMU 22.3 21-28 MMOL/L * POC ACTIVATED CLOTTING TIME (05/16/2017 1:40 PM) Component Value Range Activated Clotting Time 129 s * LACTIC ACID (BG - RAPID LACTATE) (05/16/2017 1:15 PM) Component Value Range Lactic Acid,BG 1.6 0.5-2.0 MMOL/L Specimen Blood * EP DEVICE (05/16/2017 12:23 PM) Component Value Range Generator Model # IPERIA 7 HF-T Generator Serial # [id number] Generator Implnat Date 05/12/2017 Generator Facialist DestinationRX Generator Location Left Device Type RN FORENSIC-D Atrial Lead Model # SOLIA S 53 Atrial Lead Serial # [id number] Atrial Lead Implant Date 05/12/2017 A Sense mv 3 A Capture V 0.6 A Capture ms 0.4 Atrial Lead Current 0.12 mA A Lead ohms 462 Ao Voltage 2.5 AO Pulse Width 0.4 Atrial Lead Diaph. 10 Stimulation Atrial Lead Facialist [employer] Atrial Lead Fixation active fixation Atrial Lead Location right atrial appendage Atrial Lead Pin Connector IS1 Atrial Lead Polarity Bipolar RV Lead Model # PROTEGO S 65 RV Lead Serial # [id number] RV Lead Implant Date 05/12/2017 RV Sense mv 12.8 RV Capture V 0.4 RV Capture ms 0.4 RV Lead Current 0.66 mA RV Lead ohms 606 RV Voltage 2.5 RV Pulse Width 0.4 RV Lead Diaph. 10 Stimulation RV Lead Facialist Mendel Biotechnologyronik RV Lead Fixation active fixation RV Lead Location RV mid septum RV Lead Pin Connector PPM DF4 RV Lead Coil Single LV Lead Model # COROX OTW BP LV Lead Serial # [id number] LV Lead Implant Date 05/12/2017 LV Lead Configuration LV Tip to LV Ring Other LV Sense mv 3.8 EP LV Capture V 0.9 LV Capture ms 0.4 LV Lead Current 0.20 mA LV Lead ohms 433 LV Voltage 3.5 LV Pulse Width 0.4 LV Lead Diaph. 10 Stimulation LV Lead Facialist [employer] LV Lead Fixation passive fixation LV Lead Polarity Bipolar Device Mode DDD/CLS Lower Rate Limit 60 Upper Rate Limit 130 Sensor Rate Limit 120 Pace AV Delay 140 Sense AV Delay 120 VT Monitor N/A VT Detect Rate (bpm) 188 VT Detect Rate Tx SHOCK VF Detect Rate (bpm) 214 VF Detect Rate Tx SHOCK Mode Switch (bpm) 160 High A Rate Detect 160 High V Rate Detect 188 Mode Switch Status On Rate Response On Impressions : 1. Successful repositioning of the RV ICD and RA pacing leads. 2. Difficult/complex PLAN: The patient will remain intubated overnight. Further plans per primary team ICD REGISTRY Primary or Secondary Indication for ICD Primary Patient has been on maximum dose guideline directed medical therapy for at least 3 months. If not, document reason why. Yes History of Cardiac arrest no Coronary angiogram performed post cardiac arrest No NYHA Functional Class III Family history of Non-Ischemic Cardiomyopathy no Family history of SCD no History of Ventricular Tachycardia no Type of VT NA VT occurred post cardiac surgery w/in 48 hours Not applicable Bradycardia dependent Not applicable Reversible cause Not applicable Hemodynamically unstable during VT Not applicable Indication for Pacingsinus node dysfunction If yes to the question above, anticipate need for >40% RV pacing? Yes Principal indication for atrial lead Conduction system abnormalities Narrative PROCEDURE: 1. Reposition RV ICD and RA leads 2. Temporary pacemaker placement and removal. 3. General anesthesia. INDICATIONS:47 year old morbidly obese male with a past medical history of nonischemic cardiomyopathy and systolic heart failure presents to hospital on transfer after recent Biventricular ICD implantation.Post procedure, he returned to the hospital with severe chest pain and was noted to have malfunctioning atrial and ventricular leads.There was concern for lead perforation so the patient was transferred to [facility] for further management. CONSENT: Upon meeting patient to obtain consent, he was found to be in respiratory distress.He was tachypneic and somnolent with a blood pressure of 80/40 mm Hg.He was unable to consent for his procedure.As it was felt to be urgent given the patient's respiratory status, I obtained consent over the phone through his Ida.The risks and benefits of the procedure were discussed with Ida. She was given ample opportunity to ask questions. All questions were answered to her satisfaction. She verbalized understanding of the risks, benefits and alternatives to the procedure and she agreed to procedure. SEDATION: The patient had procedure under general anesthesia which was induced and monitored throughout the procedure by anesthesia team.An arterial line was placed by anesthesia services via the right radial artery. ACCESS: The patient was brought to the hybrid room in a sedated state. Sedation was obtained. Both groins were prepped and draped in a sterile fashion. Local anesthesia was obtained on the right groin. Access to the right femoral vein was obtained using modified Seldinger technique and fluoroscopic guidance with placement of sheaths as below. 1. A quadripolar catheter was advanced via a 6-Norwegian sheath in the right femoral vein and was placed inside the right ventricle. The temporary pacemaker had a pacing threshold of 0.5 mA. It was set at an output of 10 mA with a rate of 40 beats per minute. 2. A 6-Norwegian sheath was placed in the right femoral vein in case of need for extraction from below. REPOSITION OF RV ICD AND RA LEADS: After placement of the sheaths and temporary pacemaker, all operators rescrubbed. A DAVY was done which showed no pericardial effusion present.LV EF was moderately decreased at 35%. The RV size and function were normal. The whole chest was prepped and draped in sterile fashion. Local anesthesia was obtained in the left upper chest, and an incision was made over the previous incision. The incision dissected down to the old pocket. The device was freed from the pocket easily. The RV ICD lead and RA leads were freed from fibrous tissue of the pocket, and the suture on the sleeves of the ICD lead and RA lead were removed. The existing LV lead was left in place.Leads were from the generator and generator was removed from the pocket. A stylet was placed in the LV for support.Then a stylet was advanced to the RV ICD lead and RA pacing lead after the leads were detached from the generator. The screws from both leads were retracted easily. A gentle tug on the RV ICD lead resulted in freeing of the lead from the myocardium.It was repositioned in the low septum.Sensing and pacing at this site was excellent.There was no diaphragmatic stimulation at 10 volts.We turned our attention to the atrial and again were able to reposition the lead to a more septal location.Sensing and pacing thresholds were good.No diaphragmatic stimulation was noted at 10 volts. The patient s blood pressure was monitored throughout the procedure and remained stable.Repeat DAVY showed no pericardial effusion.RV function remained normal.There was no change in his TR. Hemostasis was obtained using manual pressure. Then the pocket irrigated with antibiotic solution.All 3 leads were reconnected to the chronic generator and the generator placed in the pocket with excess leads coiled beneath.A tyrex pouch was used around the generator.The incision was closed in 3 layers using 2-0 and 4-0 vicryl.The patient tolerated the procedure well.The temporary pacing catheter was removed under fluoroscopy. * POC IONIZED CALCIUM (05/16/2017 12:19 PM) Only the most recent of 3 results within the time period is included. Component Value Range Ionized Calcium-POC 1.14 1.0-1.3 MMOL/L * POC SODIUM (05/16/2017 12:19 PM) Only the most recent of 3 results within the time period is included. Component Value Range Sodium-POC 135 (L) 137-147 MMOL/L * POC POTASSIUM (05/16/2017 12:19 PM) Only the most recent of 3 results within the time period is included. Component Value Range Potassium-POC 4.2 3.5-5.1 MMOL/L * POC HEMATOCRIT (05/16/2017 12:19 PM) Only the most recent of 3 results within the time period is included. Component Value Range Hemoglobin POC 11.9 (L) 13.5-16.5 GM/DL Hematocrit POC 35.0 (L) 40-50 % * ANESTHESIA ARTERIAL LINE INSERTION (05/16/2017 11:15 AM) Asif Best CRNA 05/16/2017 11:15 AM Anesthesia Procedure: Arterial Line Placement A-LINE INSERTION Date/Time: 05/16/2017 10:20 AM Patient location: OR Indications: frequent labs and hemodynamic monitoring Staff Anesthesiologist: ALEX WHITEHEAD Performed by: Anesthesia Faculty Preprocedure checklist performed: 2 patient identifiers, risks & benefits discussed, patient evaluated, timeout performed, consent obtained, patient being monitored and sterile drape Sterile technique: - Proper hand washing - Cap, mask - Sterile gloves - Skin prep for antisepsis Arterial Line Procedure Sedation type: general; Artery prepped with chlorhexidine; skin prep agent completely dried prior to procedure. Location: radial artery Laterality: right Technique: palpation Needle gauge: 20 G Number of attempts: 1 Procedure Outcome Catheter secured with adhesive dressing applied Events: no complications noted during insertion Observation: pt tolerated well * BLOOD BANK SAMPLE HOLD (05/16/2017 10:42 AM) Component Value Range BB Sample hold IN LAB * BNP (B-TYPE NATRIURETIC PEPTI) (05/16/2017 4:57 AM) Component Value Range B Type Natriuretic 92.0 0-100 PG/ML Peptide Specimen Blood * PTT (APTT) (05/16/2017 12:45 AM) Component Value Range APTT 27.3 24.0-40.0 SEC Specimen Blood * PROTIME INR (PT) (05/16/2017 12:45 AM) Component Value Range INR 1.2 0.8-1.2 Specimen Blood * CBC AND DIFF (05/15/2017 9:16 PM) Component Value Range White Blood Cells 11.5 (H) 4.5-11.0 K/UL RBC 4.20 (L) 4.4-5.5 M/UL Hemoglobin 12.9 (L) 13.5-16.5 GM/DL Hematocrit 38.3 (L) 40-50 % MCV 91.1 80-100 FL MCH 30.8 26-34 PG MCHC 33.8 32.0-36.0 G/DL RDW 13.2 11-15 % Platelet Count 157 150-400 K/UL MPV 9.5 7-11 FL Neutrophils 79 (H) 41-77 % Lymphocytes 13 (L) 24-44 % Monocytes 7 4-12 % Eosinophils 1 0-5 % Basophils 0 0-2 % Absolute Neutrophil Count 9.00 (H) 1.8-7.0 K/UL Absolute Lymph Count 1.50 1.0-4.8 K/UL Absolute Monocyte Count 0.80 0-0.80 K/UL Absolute Eosinophil Count 0.10 0-0.45 K/UL Absolute Basophil Count 0.00 0-0.20 K/UL * TYPE & CROSSMATCH (05/15/2017 7:52 PM) Component Value Range Units Ordered 2 Crossmatch Expires 05/18/2017 Record Check 2ND TYPE REQUIRED ABO/RH(D) A NEG Antibody Screen NEG Electronic Crossmatch YES Unit Number [id number] Blood Component Type RBC,ADSOL,LEUKO REDUCED Unit Division 0 Status OF Unit REL FROM ALLOC Transfusion Status OK TO TRANSFUSE Crossmatch Result COMPATIBLE,ELECTRONIC Unit Number [id number] Blood Component Type RBC,ADSOL,LEUKO REDUCED Unit Division 0 Status OF Unit REL FROM ALLOC Transfusion Status OK TO TRANSFUSE Crossmatch Result COMPATIBLE,ELECTRONIC Specimen Blood * CHEST 2 VIEWS (05/15/2017 7:03 PM) Impressions No acute cardiopulmonary abnormality. Approved by Brandin Garcia M.D. on 05/16/2017 8:34 AM By my electronic signature, I attest that I have personally reviewed the images for this examination and formulated the interpretations and opinions expressed in this report Finalized by GRICEL CHOUDHARY M.D. on 05/16/2017 4:50 PM. Dictated by Brandin Garcia M.D. on 05/16/2017 7:31 AM. Narrative CHEST 2 VIEWS Indication: Pre-device Implantation. Chronic systolic heart failure Comparison: None. Findings: 3-lead left subclavian pacemaker/defibrillator is in place with appropriate position of right atrial, right ventricular, and coronary sinus leads. The cardiac silhouette and pulmonary vasculature are within normal limits. The lungs are clear. No pleural effusion or pneumothorax. Lateral radiograph is limited by overlying soft tissue and arm position. Procedure Note Interface, Radiant Results - FriMay 16, 2017 4:53 PM CDT CHEST 2 VIEWS Indication: Pre-device Implantation. Chronic systolic heart failure Comparison: None. Findings: 3-lead left subclavian pacemaker/defibrillator is in place with appropriate position of right atrial, right ventricular, and coronary sinus leads. The cardiac silhouette and pulmonary vasculature are within normal limits. The lungs are clear. No pleural effusion or pneumothorax. Lateral radiograph is limited by overlying soft tissue and arm position. IMPRESSION No acute cardiopulmonary abnormality. Approved by Brandin Garcia M.D. on 05/16/2017 8:34 AM By my electronic signature, I attest that I have personally reviewed the images for this examination and formulated the interpretations and opinions expressed in this report Finalized by GRICEL CHOUDHARY M.D. on 05/16/2017 4:50 PM. Dictated by Brandin Garcia M.D. on 05/16/2017 7:31 AM. * BLOOD TYPE CONFIRMATION - ORDER ONLY IF REQUESTED BY LAB (05/15/2017 12:46 AM) Component Value Range ABO/RH(D) A NEG Specimen Blood * CT CHEST EXTERNAL IMAGING (05/14/2017) Narrative This order has been auto finalized and does not contain a result. * GENERAL RAD CHEST EXTERNAL IMAGING (05/12/2017) Narrative This order has been auto finalized and does not contain a result.
--- OUTSIDE RECORDS SUMMARY | 2017-05-29 02:11 | XMS REPORT | Continuity of Care Document ---
Author Author [facility] Address Unknown Phone Unavailable Allergies Active Description Code Type Severity Reaction Onset Reported/Identified Relationship to Patient Clinical Status Yes penicillamine Drug Allergy 10/08/2011 Yes penicillamine Drug Allergy N/A N/A 10/08/2011 Yes Penicillins [id number] Drug Allergy Unknown N/A 04/18/2012 Yes liraglutide [id number] Drug Allergy Unknown N/A 02/20/2017 Yes Sulfa (Sulfonamide Antibiotics) [id number] Drug Allergy Unknown N/A 02/20/2017 Medications Problems [...] 789.00 Abdominal Pain Unspecified Site 09/11/2012 ISMA ADMAE DO V65.42 COUNSELING - SMOKING CESSATION 10/09/2012 [...] HORACE, HUY Rivera APRN Ot J44.9 02/19/2016 MARLIN GURVINDER SANCHEZ Ot R22.1 02/29/2016 HORACE, HUY Rivera APRN Ot J44.9 02/29/2016 MARLIN GURVINDER SANCHEZ Ot R22.1 03/25/2016 HORACE, HUY Rivera CELSA Ot J44.9 CHRONIC OBSTRUCTIVE PULMONARY DISEASE, U 03/25/2016 MARLIN GURVINDER SANCHEZ Ot R22.1 LOCALIZED SWELLING, MASS AND LUMP, NECK 03/25/2016 ABBE HARRIS, YANET Stokes Ot F17.210 NICOTINE DEPENDENCE, CIGARETTES, UNCOMPL 03/25/2016 YANET MCADAMS MD Ot H10.33 UNSPECIFIED ACUTE CONJUNCTIVITIS, BILATE 03/25/2016 YANET MCADAMS MD Ot H11.33 CONJUNCTIVAL HEMORRHAGE, BILATERAL 04/24/2016 BABE HARRIS, YANET Stokes Ot F17.210 NICOTINE DEPENDENCE, CIGARETTES, UNCOMPL 04/24/2016 YANET MCADAMS MD Ot H10.33 UNSPECIFIED ACUTE CONJUNCTIVITIS, BILATE 04/24/2016 YANET MCADASM MD Ot H11.33 CONJUNCTIVAL HEMORRHAGE, BILATERAL 05/10/2016 [...] AND LUMP, NECK 06/26/2016 MT GASTON MD ([facility]) Ot Z02.71 ENCOUNTER FOR DISABILITY DETERMINATION 06/27/2016 LUIS ENRIQUE DO MD Ot A41.9 SEPSIS, UNSPECIFIED ORGANISM 06/27/2016 LUIS ENRIQUE DO MD Ot E11.9 TYPE 2 DIABETES MELLITUS WITHOUT COMPLIC 06/27/2016 LUIS ENRIQUE DO MD Ot I25.10 ATHSCL HEART DISEASE OF [place] CORONARY 06/27/2016 LUIS ENRIQUE DO MD, Ot [...] MD Ot I25.10 ATHSCL HEART DISEASE OF [place] CORONARY 06/28/2016 LUIS ENRIQUE DO MD, Ot [...] MD, Ot I25.10 ATHSCL HEART DISEASE [place] CORONARY 06/28/2016 LUIS ENRIQUE DO MD, Ot [...] OF LEFT LOWER LIMB 06/28/2016 LUIS ENRIQUE OD MD, Ot S91.141A PNCTR W FB OF [...] MD Ot I25.10 ATHSCL HEART DISEASE OF [place] CORONARY 07/05/2016 LUIS ENRIQUE DO MD, Ot [...] AND LUMP, NECK 10/05/2016 MT GASTON MD ([facility]) Ot Z02.71 ENCOUNTER FOR DISABILITY DETERMINATION 10/05/2016 [...] CAUSE STATUS 10/05/2016 MAMADOU LOVE Ot Z79.84 FACILITIES ADMINISTRATOR (CURRENT) USE OF ORAL HYPOGLYC 10/05/2016 MAMADOU LOVE Ot Z79.899 OTHER PRISON (CURRENT) DRUG THERAPY 10/05/2016 MAMADOU LOVE Ot [...] CAUSE STATUS 10/07/2016 MAMADOU LOVE Ot Z79.84 PRISON (CURRENT) USE OF ORAL HYPOGLYC 10/07/2016 MAMADOU LOVE Ot Z79.899 OTHER PRISON (CURRENT) DRUG THERAPY 10/07/2016 MAMADOU LOVE Ot [...] PRT LEFT FOOT 12/31/2016 HUY VU Miguel ROBOT OPERATOR Ot J44.9 CHRONIC OBSTRUCTIVE PULMONARY DISEASE, U 12/31/2016 GURVINDER WOODALL DO Ot R22.1 LOCALIZED SWELLING, MASS AND LUMP, NECK 12/31/2016 ALEK HARRIS, MT Galaviz ([facility]) Ot Z02.71 ENCOUNTER FOR DISABILITY DETERMINATION 12/31/2016 [...] MD Ot I25.10 ATHSCL HEART DISEASE OF [place] CORONARY 01/03/2017 LATOYA MURO MD Ot R07.9 CHEST PAIN, UNSPECIFIED 01/04/2017 LATOYA MURO MD Ot E78.2 MIXED HYPERLIPIDEMIA 01/04/2017 LATOYA MURO MD Ot I10 ESSENTIAL (PRIMARY) HYPERTENSION 01/04/2017 LATOYA MURO MD Ot I25.10 ATHSCL HEART DISEASE OF [place] CORONARY 01/04/2017 LATOYA MURO MD Ot R07.9 CHEST PAIN, UNSPECIFIED 01/15/2017 PITER VAZQUEZ DO Ot E11.9 TYPE 2 DIABETES MELLITUS WITHOUT COMPLIC 01/15/2017 PITER VAZQUEZ DO Ot R06.00 DYSPNEA, UNSPECIFIED 01/16/2017 LATOYA MURO MD Ot E78.2 MIXED HYPERLIPIDEMIA 01/16/2017 LATOYA MURO MD Ot I10 ESSENTIAL (PRIMARY) HYPERTENSION 01/16/2017 LATOYA MURO MD Ot I25.10 ATHSCL HEART DISEASE OF [place] CORONARY 01/16/2017 LATOYA MURO MD Ot R07.9 [...] USE 01/24/2017 LATOYA MURO MD Ot Z79.4 FACILITIES ADMINISTRATOR (CURRENT) USE OF INSULIN 01/24/2017 LATOYA MURO MD Ot Z79.899 OTHER FACILITIES ADMINISTRATOR (CURRENT) DRUG THERAPY 02/14/2017 LATOYA MURO MD [...] MD Ot Z72.0 TOBACCO USE 02/14/2017 LATOYA MUOR MD Ot Z79.4 PRISON (CURRENT) USE OF INSULIN 02/14/2017 LATOYA MURO MD Ot Z79.899 OTHER PRISON (CURRENT) DRUG THERAPY 02/17/2017 LATOYA MURO MD Ot R93.1 ABNORMAL FINDINGS ON DX IMAGING OF HEART 02/20/2017 HUY VU APRN Ot J44.9 CHRONIC OBSTRUCTIVE PULMONARY DISEASE, U 02/20/2017 GURVINDER WOODALL DO Ot R22.1 LOCALIZED SWELLING, MASS AND LUMP, NECK 02/20/2017 ALEK HARRIS, MT Galaviz ([facility]) Ot Z02.71 ENCOUNTER FOR DISABILITY DETERMINATION 02/20/2017 [...] MD Ot I25.10 ATHSCL HEART DISEASE OF [place] CORONARY 02/20/2017 LATOYA MURO MD Ot R07.9 [...] GASTRO-ESOPHAGEAL REFLUX DISEASE WITHOUT 02/21/2017 DANIEL HARPER MD Ot R07.89 OTHER CHEST PAIN 02/21/2017 DANIEL HARPER MD Ot Z23 ENCOUNTER FOR IMMUNIZATION 02/21/2017 DANIEL HARPER MD Ot Z68.43 BODY MASS INDEX (BMI) 50-59.9 , ADULT 03/06/2017 PITER VAZQUEZ DO Ot E11.9 TYPE 2 DIABETES MELLITUS WITHOUT COMPLIC 03/06/2017 PITER VAZQUEZ DO Ot R06.00 DYSPNEA, UNSPECIFIED 03/07/2017 PITER VAZQUEZ DO Ot E11.9 TYPE 2 DIABETES MELLITUS WITHOUT COMPLIC 03/07/2017 PITER VAZQUEZ DO Ot R06.00 DYSPNEA, UNSPECIFIED 04/29/2017 HUY VU APRN Ot J44.9 CHRONIC OBSTRUCTIVE PULMONARY DISEASE, U 04/29/2017 GURVINDER WOODALL DO Ot R22.1 LOCALIZED SWELLING, MASS AND LUMP, NECK 04/29/2017 ALEK HARRIS, MT Galaviz ([facility]) Ot Z02.71 ENCOUNTER FOR DISABILITY DETERMINATION 04/29/2017 Ot E11.621 TYPE 2 DIABETES MELLITUS WITH FOOT ULCER 04/29/2017 Ot E66.01 MORBID (SEVERE) OBESITY DUE TO EXCESS CA 04/29/2017 Ot I89.0 LYMPHEDEMA, NOT ELSEWHERE CLASSIFIED 04/29/2017 Ot L02.416 CUTANEOUS ABSCESS OF LEFT LOWER LIMB 04/29/2017 Ot L97.522 NON-PRS CHRONIC ULCER OTH PRT LEFT FOOT 04/29/2017 LATOYA MURO MD Ot E78.2 MIXED HYPERLIPIDEMIA 04/29/2017 LATOYA MURO MD Ot I10 ESSENTIAL (PRIMARY) HYPERTENSION 04/29/2017 LATOYA MURO MD Ot I25.10 ATHSCL HEART DISEASE OF [place] CORONARY 04/29/2017 LATOYA MURO MD Ot R07.9 CHEST PAIN, UNSPECIFIED 04/29/2017 PITER VAZQUEZ DO Ot E11.9 TYPE 2 DIABETES MELLITUS WITHOUT COMPLIC 04/29/2017 PITER VAZQUEZ DO Ot R06.00 DYSPNEA, UNSPECIFIED 04/29/2017 LATOYA MURO MD Ot R93.1 ABNORMAL FINDINGS ON DX IMAGING OF HEART 05/12/2017 HUY VU APRN Ot J44.9 CHRONIC OBSTRUCTIVE PULMONARY DISEASE, U 05/12/2017 GURVINDER WOODALL DO Ot R22.1 LOCALIZED SWELLING, MASS AND LUMP, NECK 05/12/2017 ALEK HARRIS, MT Galaviz ([facility]) Ot Z02.71 ENCOUNTER FOR DISABILITY DETERMINATION 05/12/2017 Ot E11.621 TYPE 2 DIABETES MELLITUS WITH FOOT ULCER 05/12/2017 Ot E66.01 MORBID (SEVERE) OBESITY DUE TO EXCESS CA 05/12/2017 Ot I89.0 LYMPHEDEMA, NOT ELSEWHERE CLASSIFIED 05/12/2017 Ot L02.416 CUTANEOUS ABSCESS OF LEFT LOWER LIMB 05/12/2017 Ot L97.522 NON-PRS CHRONIC ULCER OTH PRT LEFT FOOT 05/12/2017 LATOYA MURO MD Ot E78.2 MIXED HYPERLIPIDEMIA 05/12/2017 LATOYA MURO MD Ot I10 ESSENTIAL (PRIMARY) HYPERTENSION 05/12/2017 LATOYA MURO MD Ot I25.10 ATHSCL HEART DISEASE OF [place] CORONARY 05/12/2017 LATOYA MURO MD Ot R07.9 CHEST PAIN, UNSPECIFIED 05/12/2017 PITER VAZQUEZ DO Ot E11.9 TYPE 2 DIABETES MELLITUS WITHOUT COMPLIC 05/12/2017 PITER VAZQUEZ DO Ot R06.00 DYSPNEA, UNSPECIFIED 05/12/2017 LATOYA MURO MD Ot R93.1 ABNORMAL FINDINGS ON DX IMAGING OF HEART 05/12/2017 TUSHAR MONK Ot E78.2 MIXED HYPERLIPIDEMIA 05/12/2017 TUSHAR MONK Ot I11.0 HYPERTENSIVE HEART DISEASE WITH HEART FA 05/12/2017 TUSHAR MONK Ot I50.9 HEART FAILURE, UNSPECIFIED 05/12/2017 TUSHAR MONK Ot R06.00 DYSPNEA, UNSPECIFIED 05/13/2017 Donell FUNEZ MD Ot E11.9 TYPE 2 DIABETES MELLITUS WITHOUT COMPLIC 05/13/2017 Donell FUNEZ MD Ot I42.9 CARDIOMYOPATHY, UNSPECIFIED 05/13/2017 Donell FUNEZ MD Ot I44.7 LEFT BUNDLE-BRANCH BLOCK, UNSPECIFIED 05/13/2017 Donell FUNEZ MD Ot I50.9 HEART FAILURE, UNSPECIFIED 05/13/2017 Donell FUNEZ MD Ot Z72.0 TOBACCO USE 05/13/2017 Donell FUNEZ MD Ot Z79.4 FACILITIES ADMINISTRATOR (CURRENT) USE OF INSULIN 05/13/2017 Donell FUNEZ MD Ot Z79.899 OTHER FACILITIES ADMINISTRATOR (CURRENT) DRUG THERAPY 05/15/2017 DANIEL HARPER MD Ot E11.9 TYPE 2 DIABETES MELLITUS WITHOUT COMPLIC 05/15/2017 DANIEL HARPER MD R Ot I16.0 HYPERTENSIVE URGENCY 05/15/2017 DANIEL HARPER MD R Ot I42.9 CARDIOMYOPATHY, UNSPECIFIED 05/15/2017 DANIEL HARPER MD R Ot R07.9 CHEST PAIN, UNSPECIFIED 05/15/2017 DANIEL HARPER MD R Ot Z79.82 FACILITIES ADMINISTRATOR (CURRENT) USE OF ASPIRIN 05/15/2017 DANIEL HARPER MD R Ot Z79.84 PRISON (CURRENT) USE OF ORAL HYPOGLYC 05/15/2017 DANIEL HARPER MD R Ot Z79.899 OTHER PRISON (CURRENT) DRUG THERAPY 05/15/2017 DANIEL HARPER MD R Ot Z87.891 PERSONAL HISTORY OF NICOTINE DEPENDENCE 05/15/2017 DANIEL HARPER MD R Ot Z95.810 PRESENCE OF AUTOMATIC (IMPLANTABLE) CARD 05/15/2017 DANIEL HARPER MD Ot E11.9 TYPE 2 DIABETES MELLITUS WITHOUT COMPLIC 05/15/2017 DANIEL HARPER MD R Ot I16.0 HYPERTENSIVE URGENCY 05/15/2017 DANIEL HARPER MD R Ot I42.9 CARDIOMYOPATHY, UNSPECIFIED 05/15/2017 DANIEL HARPER MD R Ot R07.9 CHEST PAIN, UNSPECIFIED 05/15/2017 DANIEL HARPER MD R Ot Z79.82 PRISON (CURRENT) USE OF ASPIRIN 05/15/2017 DANIEL HARPER MD R Ot Z79.84 FACILITIES ADMINISTRATOR (CURRENT) USE OF ORAL HYPOGLYC 05/15/2017 DANIEL HARPER MD R Ot Z79.899 OTHER PRISON (CURRENT) DRUG THERAPY 05/15/2017 DANIEL HARPER MD R Ot Z87.891 PERSONAL HISTORY OF NICOTINE DEPENDENCE 05/15/2017 DANIEL HARPER MD R Ot Z95.810 PRESENCE OF AUTOMATIC (IMPLANTABLE) CARD 05/21/2017 TUSHAR MONK Ot E78.2 MIXED HYPERLIPIDEMIA 05/21/2017 TUSHAR MONK Ot I11.0 HYPERTENSIVE HEART DISEASE WITH HEART FA 05/21/2017 TUSHAR MONK Ot I50.9 HEART FAILURE, UNSPECIFIED 05/21/2017 TUSHAR MONK Ot R06.00 DYSPNEA, UNSPECIFIED Procedures Code Description [place] [id number] ROUTINE VENIPUNCTURE 10/09/2012 81302 CBC 10/09/2012 16483 TSH 10/10/2012 34638 CRP 10/10/2012 JH ESCOBAR 10/11/2012 [id number] DRAINAGE OF L FOOT SUBCU/FASCIA, OPEN AP [...] 09:40 Bacteria identification in wound by culture [id number] NRG FREE TEXT EXTERNAL SENSITIVITY REPORTED 06/30/16 12:00 NRG QUANTITY OF GROWTH Abundant Growth NRG MRSA AGAR MRSA isolated (Screening test for MRSA is positive) NRG CALL POSITIVES (F1 HELP) CALLED TO MEHDI/OFFICE NURSE AT [phone],[id number] NRG Bacterial susceptibility panel - 06/28/16 09:40 [...] identification in isolate by anaerobe culture NOANA NRG Capillary blood glucose measurement by glucometer (mass/volume) - 06/28/16 11: 05 Capillary blood glucose measurement by glucometer (mass/volume) 105 mg/dL 70-110 Gram stain microscopy - 07/03/16 13:30 GRAM STAIN RESULT FEW GRAM POSITIVE COCCI RESEMBLING STAPH NRG Bacteria identification in wound by culture - 07/03/16 13:30 Bacteria identification in wound by culture [id number] NRG FREE TEXT EXTERNAL SENSITIVITY REPORTED 07/04 [...] susceptibility test by minimum inhibitory concentration R NR Bacteria identification in isolate by anaerobe culture - 07/03/16 13:30 Bacteria identification in isolate by anaerobe culture NOANA [facility] Comprehensive metabolic panel - 07/08/16 13:50 Serum [...] NRG Serum or plasma glucose measurement (mass/volume) 175 [...] blood basophil count (count/volume) 0.0 10*3/uL 0.0-0.1 Automated blood complete blood count (hemogram) panel - 05/12/17 11:20 Blood leukocytes automated count (number/volume) 10.7 10*3/ uL 4.3-11.0 Blood erythrocytes automated count (number/volume) 5.07 10*6 /uL 4.35-5.85 Venous blood hemoglobin measurement (mass/volume) 15.8 g/dL 13.3-17.7 Blood hematocrit (volume fraction) 44 % 40-54 Automated erythrocyte mean corpuscular volume 86 [foz_us] 80-99 Automated erythrocyte mean corpuscular hemoglobin (mass per erythrocyte) 31 pg 25-34 Automated erythrocyte mean corpuscular hemoglobin concentration measurement ( mass/volume) 36 g/dL 32-36 Automated erythrocyte distribution width ratio 13.2 % 10.0-14.5 Automated blood platelet count (count/volume) 250 10*3/uL 130-400 Automated blood platelet mean volume measurement 11.0 [foz_ us] 7.4-10.4 PT panel in platelet poor plasma by coagulation assay - 05/12/17 11:20 Prothrombin time (PT) in platelet poor plasma by coagulation assay 13.0 s 12.2-14.7 INR in platelet poor plasma or blood by coagulation assay 1.0 0.8-1.4 Activated partial thromboplastin time (aPTT) in platelet poor plasma bycoagulation assay - 05/12/17 11:20 Activated partial thromboplastin time (aPTT) in platelet poor plasma bycoagulation assay 28 s 24-35 Comprehensive metabolic panel - 05/12/17 11:20 Serum or plasma sodium measurement (moles/volume) 136 mmol/ L 135-145 Serum or plasma potassium measurement (moles/volume) 4.1 mmol/L 3.6-5.0 Serum or plasma chloride measurement (moles/volume) 104 mmol /L 98-107 Carbon dioxide 21 mmol/L 21-32 Serum or plasma anion gap determination (moles/volume) 11 mmol/L 5-14 Serum or plasma urea nitrogen measurement (mass/volume) 16 mg/dL 7-18 Serum or plasma creatinine measurement (mass/volume) 0.90 mg /dL 0.60-1.30 Serum or plasma urea nitrogen/creatinine mass ratio 18 0-20 Serum or plasma creatinine measurement with calculation of estimated glomerular filtration rate > NRG Serum or plasma glucose measurement (mass/volume) 124 mg/dL 70-105 Serum or plasma calcium measurement (mass/volume) 9.1 mg/dL 8.5-10.1 Serum or plasma total bilirubin measurement (mass/volume) 0.8 mg/dL 0.1-1.0 Serum or plasma alkaline phosphatase measurement (enzymatic activity/volume) 72 U/L 40-136 Serum or plasma aspartate aminotransferase measurement (enzymatic activity/ volume) 19 U/L 5-34 Serum or plasma alanine aminotransferase measurement (enzymatic activity/volume ) 24 U/L 0-55 Serum or plasma protein measurement (mass/volume) 7.5 g/dL 6.4-8.2 Serum or plasma albumin measurement (mass/volume) 4.3 g/dL 3.2-4.5 Methicillin resistant Staphylococcus aureus (MRSA) screening culture - 11:20 Methicillin resistant Staphylococcus aureus (MRSA) screening culture NEG NRG Complete blood count (CBC) with automated white blood cell (WBC) differential - 05/14/17 22:20 Blood leukocytes automated count (number/volume) 12.1 10*3/ uL 4.3-11.0 Blood erythrocytes automated count (number/volume) 4.65 10*6 /uL 4.35-5.85 Venous blood hemoglobin measurement (mass/volume) 14.3 g/dL 13.3-17.7 Blood hematocrit (volume fraction) 41 % 40-54 Automated erythrocyte mean corpuscular volume 88 [foz_us] 80-99 Automated erythrocyte mean corpuscular hemoglobin (mass per erythrocyte) 31 pg 25-34 Automated erythrocyte mean corpuscular hemoglobin concentration measurement ( mass/volume) 35 g/dL 32-36 Automated erythrocyte distribution width ratio 13.0 % 10.0-14.5 Automated blood platelet count (count/volume) 189 10*3/uL 130-400 Automated blood platelet mean volume measurement 11.1 [foz_ us] 7.4-10.4 Automated blood neutrophils/100 leukocytes 62 % 42-75 Automated blood lymphocytes/100 leukocytes 25 % 12-44 Blood monocytes/100 leukocytes 11 % 0-12 Automated blood eosinophils/100 leukocytes 2 % 0-10 Automated blood basophils/100 leukocytes 0 % 0-10 Blood neutrophils automated count (number/volume) 7.5 10*3 1.8-7.8 Blood lymphocytes automated count (number/volume) 3.0 10*3 1.0-4.0 Blood monocytes automated count (number/volume) 1.3 10*3 0.0-1.0 Automated eosinophil count 0.2 10*3/uL 0.0-0.3 Automated blood basophil count (count/volume) 0.0 10*3/uL 0.0-0.1 PT panel in platelet poor plasma by coagulation assay - 05/14/17 22:20 Prothrombin time (PT) in platelet poor plasma by coagulation assay 12.9 s 12.2-14.7 INR in platelet poor plasma or blood by coagulation assay 1.0 0.8-1.4 Activated partial thromboplastin time (aPTT) in platelet poor plasma bycoagulation assay - 05/14/17 22:20 Activated partial thromboplastin time (aPTT) in platelet poor plasma bycoagulation assay 28 s 24-35 Comprehensive metabolic panel - 05/14/17 22:20 Serum or plasma sodium measurement (moles/volume) 137 mmol/ L 135-145 Serum or plasma potassium measurement (moles/volume) 4.2 mmol/L 3.6-5.0 Serum or plasma chloride measurement (moles/volume) 105 mmol /L 98-107 Carbon dioxide 21 mmol/L 21-32 Serum or plasma anion gap determination (moles/volume) 11 mmol/L 5-14 Serum or plasma urea nitrogen measurement (mass/volume) 13 mg/dL 7-18 Serum or plasma creatinine measurement (mass/volume) 0.84 mg /dL 0.60-1.30 Serum or plasma urea nitrogen/creatinine mass ratio 15 0-20 Serum or plasma creatinine measurement with calculation of estimated glomerular filtration rate > NRG Serum or plasma glucose measurement (mass/volume) 176 mg/dL 70-105 Serum or plasma calcium measurement (mass/volume) 9.5 mg/dL 8.5-10.1 Serum or plasma total bilirubin measurement (mass/volume) 0.5 mg/dL 0.1-1.0 Serum or plasma alkaline phosphatase measurement (enzymatic activity/volume) 71 U/L 40-136 Serum or plasma aspartate aminotransferase measurement (enzymatic activity/ volume) 19 U/L 5-34 Serum or plasma alanine aminotransferase measurement (enzymatic activity/volume ) 19 U/L 0-55 Serum or plasma protein measurement (mass/volume) 7.8 g/dL 6.4-8.2 Serum or plasma albumin measurement (mass/volume) 4.1 g/dL 3.2-4.5 Magnesium - 05/14/17 22:20 Magnesium 2.0 mg/dL 1.8-2.4 Serum or plasma troponin i.cardiac measurement (mass/volume) - 05/14/17 22:20 Serum or plasma troponin i.cardiac measurement (mass/volume) < ng/mL <0.30 Myoglobin, serum - 05/14/17 22:20 Myoglobin, serum 34.9 ng/mL 10.0-92.0 Complete blood count (CBC) with automated white blood cell (WBC) differential - 05/15/17 03:45 Blood leukocytes automated count (number/volume) 9.7 10*3/ uL 4.3-11.0 Blood erythrocytes automated count (number/volume) 4.02 10*6 /uL 4.35-5.85 Venous blood hemoglobin measurement (mass/volume) 12.5 g/dL 13.3-17.7 Blood hematocrit (volume fraction) 36 % 40-54 Automated erythrocyte mean corpuscular volume 89 [foz_us] 80-99 Automated erythrocyte mean corpuscular hemoglobin (mass per erythrocyte) 31 pg 25-34 Automated erythrocyte mean corpuscular hemoglobin concentration measurement ( mass/volume) 35 g/dL 32-36 Automated erythrocyte distribution width ratio 12.9 % 10.0-14.5 Automated blood platelet count (count/volume) 157 10*3/uL 130-400 Automated blood platelet mean volume measurement 11.2 [foz_ us] 7.4-10.4 Automated blood neutrophils/100 leukocytes 64 % 42-75 Automated blood lymphocytes/100 leukocytes 24 % 12-44 Blood monocytes/100 leukocytes 10 % 0-12 Automated blood eosinophils/100 leukocytes 2 % 0-10 Automated blood basophils/100 leukocytes 0 % 0-10 Blood neutrophils automated count (number/volume) 6.2 10*3 1.8-7.8 Blood lymphocytes automated count (number/volume) 2.3 10*3 1.0-4.0 Blood monocytes automated count (number/volume) 1.0 10*3 0.0-1.0 Automated eosinophil count 0.2 10*3/uL 0.0-0.3 Automated blood basophil count (count/volume) 0.0 10*3/uL 0.0-0.1 Whole blood basic metabolic panel - 05/15/17 03:45 Serum or plasma sodium measurement (moles/volume) 137 mmol/ L 135-145 Serum or plasma potassium measurement (moles/volume) 4.1 mmol/L 3.6-5.0 Serum or plasma chloride measurement (moles/volume) 105 mmol /L 98-107 Carbon dioxide 22 mmol/L 21-32 Serum or plasma anion gap determination (moles/volume) 10 mmol/L 5-14 Serum or plasma urea nitrogen measurement (mass/volume) 14 mg/dL 7-18 Serum or plasma creatinine measurement (mass/volume) 0.79 mg /dL 0.60-1.30 Serum or plasma urea nitrogen/creatinine mass ratio 18 0-20 Serum or plasma creatinine measurement with calculation of estimated glomerular filtration rate > NRG Serum or plasma glucose measurement (mass/volume) 198 mg/dL 70-105 Serum or plasma calcium measurement (mass/volume) 8.7 mg/dL 8.5-10.1 Serum or plasma creatine kinase measurement (enzymatic activity/volume) - 05/15 03:45 Serum or plasma creatine kinase measurement (enzymatic activity/volume) 135 U/L 30-200 Lipid 1996 panel - 05/15/17 03:45 Serum or plasma triglyceride measurement (mass/volume) 72 mg /dL <150 Serum or plasma cholesterol measurement (mass/volume) 139 mg /dL < 200 Serum or plasma cholesterol in HDL measurement (mass/volume) 36 mg/dL 40-60 Cholesterol in LDL [mass/volume] in serum or plasma by direct assay 91 mg/dL 1-129 Serum or plasma cholesterol in VLDL measurement (mass/volume) 14 mg/dL 5-40 Serum or plasma troponin i.cardiac measurement (mass/volume) - 05/15/17 03:45 Serum or plasma troponin i.cardiac measurement (mass/volume) < ng/mL <0.30 Serum or plasma creatine kinase MB measurement (enzymatic activity/volume) - 03:45 Serum or plasma creatine kinase MB measurement (enzymatic activity/volume) 1.4 ng/mL <6.6 Capillary blood glucose measurement by glucometer (mass/volume) - 05/15/17 10: 51 Capillary blood glucose measurement by glucometer (mass/volume) 202 mg/dL 70-110 Complete urinalysis with reflex to culture - 05/15/17 13:55 Urine color determination YELLOW NRG Urine clarity determination CLEAR NRG Urine pH measurement by test strip 6 5- 9 Specific gravity of urine by test strip 1.025 1.016-1.022 Urine protein assay by test strip, semi-quantitative 2+ NEGATIVE Urine glucose detection by automated test strip 3+ NEGATIVE Erythrocytes detection in urine sediment by light microscopy NEGATIVE NEGATIVE Urine ketones detection by automated test strip NEGATIVE NEGATIVE Urine nitrite detection by test strip NEGATIVE NEGATIVE Urine total bilirubin detection by test strip NEGATIVE NEGATIVE Urine urobilinogen measurement by automated test strip (mass/volume) 4 mg/dL NORMAL Urine leukocyte esterase detection by dipstick NEGATIVE NEGATIVE Automated urine sediment erythrocyte count by microscopy (number/high power field) NONE NRG Automated urine sediment leukocyte count by microscopy (number/high power field ) NONE NRG Bacteria detection in urine sediment by light microscopy NEGATIVE NRG Crystals detection in urine sediment by light microscopy NONE NRG Casts detection in urine sediment by light microscopy NONE NRG Mucus detection in urine sediment by light microscopy SMALL NRG Complete urinalysis with reflex to culture NO NRG Encounters ACCT No. Visit Date/Time Discharge Status Pt. Type Provider Facility Loc./Unit Complaint [id number] 02/17/2015 15:20:00 02/17/2015 23: 59:59 CLS Outpatient ADAME DO, ISMA K [id number] 12/07/2012 10:24:00 12/07/2012 23: 59:59 CLS Outpatient JUAN FRACNISCO HARRIS, [facility] [id number] 11/02/2012 09:54:00 11/02/2012 23: 59:59 CLS Outpatient [id number] 09/11/2012 00:00:00 09/11/2012 23: 59:59 CLS Outpatient ISMA ADAME DO
--- NOTE | 2017-05-29 02:28 | ED Dyspnea ---
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 This electrical feeling is constant and is unaccompanied by shortness of breath and not getting better. He does not wear oxygen at home. He has a pacemaker because he has EF of 25-30%. He had a pacemaker placed initially and came in a few weeks back and was found to be in poor position so he was sent back to to have it replaced. While he was up there he had a pneumonia and ended up intubated in the ICU and just got back home on 22 May. Since that time has been doing well. No fevers, cough, rash, nausea, vomiting, diaphoresis, constipation, diarrhea. Patient states he does daily weights and his weight has been stable for the past week. He also has been taking his water pills as prescribed. Allergies and Home Medications Allergies Coded Allergies: Penicillins (Verified Allergy, Unknown, 04/18/12) Sulfa (Sulfonamide Antibiotics) (Verified Allergy, Unknown, 02/20/17) liraglutide (Verified Allergy, Unknown, 02/20/17) Home Medications Albuterol Sulfate 2.5 Mg/3 Ml Vial.neb, 2.5 MG NEB QID PRN for SHORTNESS OF BREATH, (Reported) Albuterol Sulfate 1 Puff Puff, 2 PUFF IH QID PRN for SHORTNESS OF BREATH, ( Reported) 1 PUFF = 90 MCG Aspirin 81 Mg Tablet.dr, 81 MG PO DAILY, (Reported) Budesonide/Formoterol Fumarate 10.2 Gm Hfa.aer.ad, 2 PUFF IH BID, (Reported) Carvedilol 3.125 Mg Tablet, 3.125 MG PO BID, (Reported) Fluticasone Propionate 16 Gm [place].susp, 1 SPRAY NS BID PRN for ALLERGIES, ( Reported) Furosemide 40 Mg Tablet, 40 MG PO DAILY, (Reported) Glyburide 5 Mg Tablet, 5 MG PO DAILY, (Reported) Insulin Aspart 100 Unit/1 Ml Susp, 20 UNIT SQ AC, (Reported) Linaclotide 145 Mcg Capsule, 145 MCG PO DAILY, (Reported) HOLD FOR LOOSE STOOLS Metformin HCl 1,000 Mg Tablet, 1,000 MG PO BID WITH MEALS, (Reported) Montelukast Sodium 10 Mg Tablet, 10 MG PO DAILY, (Reported) Omeprazole 20 Mg Capsule.dr, 20 MG PO DAILY, (Reported) Oxybutynin Chloride 10 Mg Tab.er.24, 10 MG PO DAILY, (Reported) Potassium Chloride 10 Meq Capsule.er, 10 MEQ PO DAILY, (Reported) Quetiapine Fumarate 300 Mg Tablet, 300 MG PO HS, (Reported) Sacubitril/Valsartan 1 Each Tablet, 1 TAB PO BID, (Reported) Sertraline HCl 100 Mg Tablet, 100 MG PO DAILY, (Reported) Spironolactone 25 Mg Tablet, 50 MG PO BID, (Reported) Tiotropium [place] 4 Gm Mist.inhal, 2 PUFF IH DAILY, (Reported) Constitutional: No chills, No diaphoresis, No fever, No malaise EENTM: no symptoms reported Respiratory: No cough, No short of breath, No wheezing Cardiovascular: No chest pain, No edema, Hx of Intervention, No syncope, vascular heart diseas Gastrointestinal: No abdominal pain, No constipation, No diarrhea, No nausea Genitourinary: No dysuria, No pain Musculoskeletal: see HPI, back pain, No joint swelling Skin: No pruritus, No rash Past Iaxdxvg-Vpbiry-Xnirkv Hx Patient Social History Alcohol Use: Denies Use Recreational Drug Use: No Type Used: Cigars Former Smoker/When Quit: Nov 28, 2014 Recent Foreign Travel: No Contact w/Someone Who Travel: No Recent Hopitalizations: Yes (PACEMAKER/DEFIB PLACEMENT 05/12/17) Immunizations Up To Date Tetanus Booster (TDap): Less than 5yrs PED Vaccines UTD: No Date of Pneumonia Vaccine: Apr 25, 2012 Seasonal Allergies Seasonal Allergies: Yes (Hayfever) Surgeries HX Surgeries: Yes (testicular torsion, RT KNEE reconstruction, right neck hematoma evacuation) Surgeries: Adenoidectomy, Cardiac, Orthopedic, Pacemaker, Testicular, Tonsillectomy Respiratory Hx Respiratory Disorders: Yes (breathing treatments ) Respiratory Disorders: Asthma, Pneumonia, Chronic Bronchitis, COPD Cardiovascular Hx Cardiac Disorders: Yes (nonischemic cardiomyopathy, chronic left bundle branch block) Cardiac Disorders: Cardiomyopathy, Irregular Heartbeat Neurological Hx Neurological Disorders: No Reproductive System Hx Reproductive Disorders: No Sexually Transmitted Disease: No HIV/AIDS: No Genitourinary Hx Genitourinary Disorders: Yes (History of testicular torsion, stress inc) Gastrointestinal Hx Gastrointestinal Disorders: Yes (slow digestion) Gastrointestinal Disorders: Gastroesophageal Reflux, Chronic Constipation Musculoskeletal Hx Musculoskeletal Disorders: Yes Musculoskeletal Disorders: Arthritis Endocrine Hx Endocrine Disorders: Yes Endocrine Disorders: Diabetes, Non-Insulin dep HEENT HX ENT Disorders: Yes (HEMATOMA TAKEN OUT OF THROAT) Loss of Vision: Denies Hearing Impairment: Hard of Hearing Cancer Hx Cancer: No Psychosocial Hx Psychiatric Problems: Yes Behavioral Health Disorders: Sleep Difficulties, Anxiety, PTSD, Bipolar, Depression Integumentary HX Skin/Integumentary Disorder: No Blood Transfusions Hx Blood Disorders: No Adverse Reaction to a Blood Tr: No Family Medical History Significant Family History: No Pertinent Family Hx, Heart Disease Family Medial History: Cardiovascular disease 19 FATHER 19 MOTHER Diabetes mellitus G8 SISTER FH: heart failure 19 FATHER 19 MOTHER Physical Exam Vital Signs Vital Sign - Last 12Hours 05/29/17 05/29/17 02:10 02:20 Temp 98.2 Pulse 106 Resp 18 B/P (MAP) 142/98 O2 Delivery Nasal Cannula O2 Flow Rate 2.00 Capillary Refill : General Appearance: WD/WN, Mild Distress, Obese HEENT: PERRL/EOMI, Pharynx Normal Neck: Full Range of Motion, Normal Inspection Respiratory: Chest Non Tender, Lungs Clear, Normal Breath Sounds, No Accessory Muscle Use, No Respiratory Distress Cardiovascular: Regular Rate, Rhythm, No Edema Peripheral Pulses: 3+ Radial Pulses (R), 3+ Radial Pulses (L) Gastrointestinal: Normal Bowel Sounds, No Organomegaly Extremity: Normal Capillary Refill, No Calf Tenderness, No Pedal Edema Neurologic/Psychiatric: Alert, Oriented x3 Skin: Normal Color, Warm/Dry, Other (Steri-Strips over a well approximated wound on the left upper chest) Progress/Results/Core Measures Results/Orders Lab Results Laboratory Tests Test 05/29/17 02:25 Range/Units White Blood Count 14.1 H 4.3-11.0 10^3/uL Red Blood Count 3.53 L 4.35-5.85 10^6/uL Hemoglobin 10.9 L 13.3-17.7 G/DL Hematocrit 31 L 40-54 % Mean Corpuscular Volume 89 80-99 FL Mean Corpuscular Hemoglobin 31 25-34 PG Mean Corpuscular Hemoglobin Concent 35 32-36 G/DL Red Cell Distribution Width 12.1 10.0-14.5 % Platelet Count 422 H 130-400 10^3/uL Mean Platelet Volume 10.1 7.4-10.4 FL Neutrophils (%) (Auto) 77 H 42-75 % Lymphocytes (%) (Auto) 13 12-44 % Monocytes (%) (Auto) 9 0-12 % Eosinophils (%) (Auto) 1 0-10 % Basophils (%) (Auto) 0 0-10 % Neutrophils # (Auto) 10.9 H 1.8-7.8 X 10^3 Lymphocytes # (Auto) 1.9 1.0-4.0 X 10^3 Monocytes # (Auto) 1.2 H 0.0-1.0 X 10^3 Eosinophils # (Auto) 0.1 0.0-0.3 10^3/uL Basophils # (Auto) 0.0 0.0-0.1 10^3/uL Neutrophils % (Manual) 82 % Lymphocytes % (Manual) 10 % Monocytes % (Manual) 8 % Band Neutrophils 0 % Blood Morphology Comment NORMAL Sodium Level 138 135-145 MMOL/L Potassium Level 3.8 3.6-5.0 MMOL/L Chloride Level 105 98-107 MMOL/L Carbon Dioxide Level 23 21-32 MMOL/L Anion Gap 10 5-14 MMOL/L Blood Urea Nitrogen 15 7-18 MG/DL Creatinine 0.92 0.60-1.30 MG/DL Estimat Glomerular Filtration Rate > 60 BUN/Creatinine Ratio 16 Glucose Level 259 H 70-105 MG/DL Calcium Level 9.0 8.5-10.1 MG/DL Magnesium Level 1.6 L 1.8-2.4 MG/DL Total Bilirubin 0.4 0.1-1.0 MG/DL Aspartate Amino Transf (AST/SGOT) 13 5-34 U/L Alanine Aminotransferase (ALT/SGPT) 17 0-55 U/L Alkaline Phosphatase 77 40-136 U/L Troponin I < 0.30 <0.30 NG/ML C-Reactive Protein High Sensitivity 9.60 H 0.00-0.50 MG/DL B-Type Natriuretic Peptide 155.6 H <100.0 PG/ML Total Protein 7.0 6.4-8.2 GM/DL Albumin 3.3 3.2-4.5 GM/DL My Orders Orders - JERMAINE CASTLE Cbc With Automated Diff (05/29/17 02:28) Comprehensive Metabolic Panel (05/29/17 02:28) BNP (05/29/17 02:28) Hs C Reactive Protein (05/29/17 02:28) Magnesium (05/29/17 02:28) Chest Pa/Lat (2 View) (05/29/17 02:28) Ekg Tracing (05/29/17 02:28) O2 (05/29/17 02:28) Saline Lock/Iv-Start (05/29/17 02:28) Monitor-Rhythm Ecg Trace Only (05/29/17 02:28) Troponin I (05/29/17 02:28) Manual Differential (05/29/17 02:25) Fentanyl Injection (Sublimaze Injection (05/29/17 02:39) Vital Signs/I&O Vital Sign - Last 12Hours 05/29/17 05/29/17 02:10 02:20 Temp 98.2 Pulse 106 Resp 18 B/P (MAP) 142/98 O2 Delivery Nasal Cannula O2 Flow Rate 2.00 Progress Note : Time: 04:12 Progress Note Patient's back pain and radiculopathic symptoms do not appear to be cardiac in origin. They did come on right after a physical strain of catching his daughter. These are probably an exacerbation of his nerve roots from his already known osteoarthritis. Will start with conservative therapy and have him follow-up with his primary care physician for further management and workup. ECG Initial ECG Impression Date: May 29, 2017 Initial ECG Impression Time: 02:13 Initial ECG Rate: 107 Initial ECG Intervals: Normal Initial ECG Impression: Atrial Fibrillation Initial ECG Comparisson: Unchanged Comment Ventricularly paced rhythm Diagnostic Imaging Diagonstic Imaging: Xray Plain Films/CT/US/NM/MRI: chest Comments No acute cardiopulmonary processes noted. May be some new wedging of thoracic vertebra as compared to April chest x-ray imaging. Reviewed: Reviewed by Me Departure Impression Impression: Primary Impression: Thoracic back pain Qualified Codes: M54.6 - Pain in thoracic spine Additional Impression: Thoracic radiculopathy Disposition: HOME, SELF-CARE Condition: Improved Departure-Patient Inst. Decision time for Depature: 04:21 Referrals: ISMA ADAME DO (PCP/Family) Primary Care Physician Patient Instructions: Radiculopathy (DC) Add. Discharge Instructions: Your back pain does not seem to be associated with your heart. It does seem to be a radiculopathy which is a pain from the nerves being compressed in your back. This was causing an electrical sensation. I would recommend wearing a back brace and taking 2 Naprosyn twice a day for the next 2 weeks and follow up with your PCP. You can also use Tylenol for breakthrough pain as needed 1000 mg every 8 hours. You should also use heat on your back or you may use creams such as icy hot or capcasin oil. If you're having new symptoms such as worsening pain despite therapy or nausea or sweats or chest pain then you should return to the ER immediately. Scripts Cyclobenzaprine HCl (Cyclobenzaprine HCl) 10 Mg Tablet 10 MG PO Q8H Y for MUSCLE SPASMS, #20 TAB 0 Refills Prov: JERMAINE CASTLE 05/29/17 Copy Copies To 1: ISMA ADAME TITUS J May 29, 2017 02:28
[2017-05-29 02:34] LABS: BASOPHILS % (AUTO) 0 % (0-10); EOSINOPHILS # (AUTO) 0.1 10^3/uL (0.0-0.3); EOSINOPHILS % (AUTO) 1 % (0-10); LYMPHOCYTES # (AUTO) 1.9 X 10^3 (1.0-4.0); LYMPHOCYTES % (AUTO) 13 % (12-44); MEAN CORPUSCULAR HEMOGLOBIN 31 PG (25-34); MEAN CORPUSCULAR HGB CONC 35 G/DL (32-36); MEAN CORPUSCULAR VOLUME 89 FL (80-99); MEAN PLATELET VOLUME 10.1 FL (7.4-10.4); MONOCYTES # (AUTO) 1.2 X 10^3 (0.0-1.0); MONOCYTES % (AUTO) 9 % (0-12); NEUTROPHILS # (AUTO) 10.9 X 10^3 (1.8-7.8); NEUTROPHILS % (AUTO) 77 % (42-75); PLATELET COUNT 422 10^3/uL (130-400); RED BLOOD COUNT 3.53 10^6/uL (4.35-5.85); RED CELL DISTRIBUTION WIDTH 12.1 % (10.0-14.5); WHITE BLOOD COUNT 14.1 10^3/uL (4.3-11.0)
[2017-05-29] MEDS ORDERED: fentaNYL INJECTION 100 MCG/2 ML AMP IVP STA (02:39)
[2017-05-29 02:53] LABS: ALANINE AMINOTRANSFERASE 17 U/L (0-55); ALBUMIN 3.3 GM/DL (3.2-4.5); ANION GAP 10 MMOL/L (5-14); ASPARTATE AMINO TRANSFERASE 13 U/L (5-34); BILIRUBIN,TOTAL 0.4 MG/DL (0.1-1.0); BLOOD UREA NITROGEN 15 MG/DL (7-18); BUN/CREATININE RATIO 16; CARBON DIOXIDE 23 MMOL/L (21-32); CHLORIDE 105 MMOL/L (98-107); CREATININE SERUM 0.92 MG/DL (0.60-1.30); GFR ESTIMATED > 60; GLUCOSE 259 MG/DL (70-105); MAGNESIUM 1.6 MG/DL (1.8-2.4); POTASSIUM 3.8 MMOL/L (3.6-5.0); SODIUM 138 MMOL/L (135-145)
[2017-05-29 02:54] LABS: BAND NEUTROPHILS 0 %; LYMPHOCYTES % (MANUAL) 10 %; NEUTROPHILS % (MANUAL) 82 %
[2017-05-29] MEDS ORDERED: CYCL10TA9 PO (04:26)
[2017-05-29 04:40] VITALS: BP 119/87
--- NOTE | 2017-05-29 06:53 | Diagnostic Imaging Report ---
INDICATION: Chest pain and shortness of breath PA and lateral chest Patient has a dual-chamber pacemaker. Heart size is normal. Pulmonary vascularity is normal. Lungs are clear. IMPRESSION: No acute abnormalities in the chest. Dictated by: Dictated on workstation # [id number]
== END 2017-05-29 04:40 | disposition home or self-care (01) ==
LOC: EDUNIT# 01:51 → ER 01:53
DX: M54.14 Radiculopathy, thoracic region (principal); I42.9 Cardiomyopathy, unspecified; I44.7 Left bundle-branch block, unspecified; K21.9 Gastro-esophageal reflux disease without esophagitis; M19.90 Unspecified osteoarthritis, unspecified site; E11.9 Type 2 diabetes mellitus without complications; F41.9 Anxiety disorder, unspecified; F43.10 Post-traumatic stress disorder, unspecified; F31.9 Bipolar disorder, unspecified; J44.9 Chronic obstructive pulmonary disease, unspecified; F17.290 Nicotine dependence, other tobacco product, uncomplicated; Z82.49 Family history of ischemic heart disease and other diseases of the circulatory system; Z95.810 Presence of automatic (implantable) cardiac defibrillator; Z87.01 Personal history of pneumonia (recurrent); Z79.82 Long term (current) use of aspirin; Z79.4 Long term (current) use of insulin; Z79.84 Long term (current) use of oral hypoglycemic drugs
CPT/HCPCS: 36415; 71020; 80053; 83735; 83880; 84484; 85007; 85027; 86141; 93005; 93041; 96374

== ENCOUNTER 2017-06-30 20:46 | Observation (INO) | payer MEDICAID, OTHER ==
[~2017-06-30] VITALS: Ht 168.9 cm; Wt 157.5 kg
[~2017-06-30 20:46] MED LIST changes: +CYCL10TA9 PO
[2017-06-30] MEDS ORDERED: RX-NITROGLYCERIN 0.4 MG TAB BTL 25'S SL PRN (21:00)
[2017-06-30] MEDS ORDERED: ASPIRIN 81 MG CHEW (CHILDREN'S ASA) PO ONE (21:00)
--- NOTE | 2017-06-30 21:02 | ED Chest Pain ---
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 MURO, PACER/DEFIBRILLATOR PLACED BY DR. FUNEZ Allergies and Home Medications Allergies Coded Allergies: Penicillins (Verified Allergy, Unknown, 04/18/12) Sulfa (Sulfonamide Antibiotics) (Verified Allergy, Unknown, 02/20/17) liraglutide (Verified Allergy, Unknown, 02/20/17) Home Medications Albuterol Sulfate 2.5 Mg/3 Ml Vial.neb, 2.5 MG NEB QID PRN for SHORTNESS OF BREATH, (Reported) Albuterol Sulfate 1 Puff Puff, 2 PUFF IH QID PRN for SHORTNESS OF BREATH, ( Reported) 1 PUFF = 90 MCG Aspirin 81 Mg Tablet.dr, 81 MG PO DAILY, (Reported) Budesonide/Formoterol Fumarate 10.2 Gm Hfa.aer.ad, 2 PUFF IH BID, (Reported) Carvedilol 3.125 Mg Tablet, 3.125 MG PO BID, (Reported) Cyclobenzaprine HCl 10 Mg Tablet, 10 MG PO Q8H PRN for MUSCLE SPASMS, #20 Ref 0 Prescribed by: JERMAINE CASTLE on 05/29/17 0426 Fluticasone Propionate 16 Gm [place].susp, 1 SPRAY NS BID PRN for ALLERGIES, ( Reported) Furosemide 40 Mg Tablet, 40 MG PO DAILY, (Reported) Glyburide 5 Mg Tablet, 5 MG PO DAILY, (Reported) Insulin Aspart 100 Unit/1 Ml Susp, 20 UNIT SQ AC, (Reported) Linaclotide 145 Mcg Capsule, 145 MCG PO DAILY, (Reported) HOLD FOR LOOSE STOOLS Metformin HCl 1,000 Mg Tablet, 1,000 MG PO BID WITH MEALS, (Reported) Montelukast Sodium 10 Mg Tablet, 10 MG PO DAILY, (Reported) Omeprazole 20 Mg Capsule.dr, 20 MG PO DAILY, (Reported) Oxybutynin Chloride 10 Mg Tab.er.24, 10 MG PO DAILY, (Reported) Potassium Chloride 10 Meq Capsule.er, 10 MEQ PO DAILY, (Reported) Quetiapine Fumarate 300 Mg Tablet, 300 MG PO HS, (Reported) Sacubitril/Valsartan 1 Each Tablet, 1 TAB PO BID, (Reported) Sertraline HCl 100 Mg Tablet, 100 MG PO DAILY, (Reported) Spironolactone 25 Mg Tablet, 50 MG PO BID, (Reported) Tiotropium [place] 4 Gm Mist.inhal, 2 PUFF IH DAILY, (Reported) Review of Systems Constitutional: see HPI, diaphoresis Respiratory: See HPI, Orthopnea, Shortness of Air, SOA With Exertion Cardiovascular: See HPI, Chest Pain, Denies Edema, Denies Lightheadedness, Denies Palpitations, Denies Syncope Gastrointestinal: See HPI, Denies Abdominal Pain, Nausea, Denies Vomiting Genitourinary: No Symptoms Reported Musculoskeletal: see HPI, back pain Skin: no symptoms reported Psychiatric/Neurological: No Symptoms Reported Endocrine: No Symptoms Reported Hematologic/Lymphatic: No Symptoms Reported Past Hgacvel-Anpqua-Hcukkv Hx Patient Social History Alcohol Use: Denies Use Recreational Drug Use: No Smoking Status: Former Smoker (1 PPD) Type Used: Cigars, Cigarettes Former Smoker/When Quit: Nov 28, 2014 Recent Foreign Travel: No Contact w/Someone Who Travel: No Recent Hopitalizations: Yes (PACEMAKER/DEFIB PLACEMENT 05/12/17) Immunizations Up To Date Tetanus Booster (TDap): Less than 5yrs PED Vaccines UTD: No Date of Pneumonia Vaccine: Apr 25, 2012 Seasonal Allergies Seasonal Allergies: Yes (Hayfever) Surgeries HX Surgeries: Yes (testicular torsion, RT KNEE reconstruction, right neck hematoma evacuation; COLONOSCOPY; PACER/DEFIBRILLATOR 05/12/17; CARDIAC CATHS- MOST RECENTLY 01/2017, NO INTERVENTION-) Surgeries: Adenoidectomy, Cardiac, Defibrillator, Orthopedic, Pacemaker, Testicular, Tonsillectomy Respiratory Hx Respiratory Disorders: Yes (breathing treatments ) Respiratory Disorders: Asthma, Pneumonia, Chronic Bronchitis, COPD Cardiovascular Hx Cardiac Disorders: Yes (nonischemic cardiomyopathy, chronic left bundle branch block; PACER/DEFIBRILLATOR 05/12/17) Cardiac Disorders: Cardiomyopathy, Chronic Edema/Swelling, Hypertension, Irregular Heartbeat Neurological Hx Neurological Disorders: No Reproductive System Hx Reproductive Disorders: No Sexually Transmitted Disease: No HIV/AIDS: No Genitourinary Hx Genitourinary Disorders: Yes (History of testicular torsion, stress inc) Gastrointestinal Hx Gastrointestinal Disorders: Yes (slow digestion) Gastrointestinal Disorders: Gastroesophageal Reflux, Chronic Constipation Musculoskeletal Hx Musculoskeletal Disorders: Yes Musculoskeletal Disorders: Arthritis Endocrine Hx Endocrine Disorders: Yes (MORBID OBESITY; TAKES INSULIN + PILLS) Endocrine Disorders: Diabetes, Insulin dep, Diabetes, Non-Insulin dep HEENT HX ENT Disorders: Yes (HEMATOMA TAKEN OUT OF THROAT) Loss of Vision: Denies Hearing Impairment: Hard of Hearing Cancer Hx Cancer: No Psychosocial Hx Psychiatric Problems: Yes Behavioral Health Disorders: Sleep Difficulties, Anxiety, PTSD, Bipolar, Depression Integumentary HX Skin/Integumentary Disorder: No Blood Transfusions Hx Blood Disorders: No Adverse Reaction to a Blood Tr: No Family Medical History Significant Family History: Heart Disease Family Medial History: Cardiovascular disease 19 FATHER 19 MOTHER Diabetes mellitus G8 SISTER FH: heart failure 19 FATHER 19 MOTHER Physical Exam Vital Signs Vital Sign - Last 12Hours 06/30/17 20:52 Temp 97.6 Pulse 113 Resp 29 B/P (MAP) 127/94 Pulse Ox 100 O2 Delivery Nasal Cannula O2 Flow Rate 2.0 Capillary Refill : Less Than 3 Seconds General Appearance: Anxious, Mild Distress (DYSPNEIC, ANXIOUS), Obese HEENT: PERRL/EOMI Neck: Full Range of Motion, Normal Inspection, Non Tender, Supple, No Carotid Bruit, No JVD Respiratory: Normal Breath Sounds, Accessory Muscle Use (MILDLY DYSPNEIC ON ARRIVAL) Cardiovascular: Regular Rate, Rhythm, No Edema, No JVD, No Murmur, Normal Peripheral Pulses Gastrointestinal: Non Tender, Soft Extremity: Normal Capillary Refill, Normal Inspection, Normal Range of Motion, Non Tender, No Calf Tenderness, No Pedal Edema Neurologic/Psychiatric: Alert, Oriented x3, No Motor/Sensory Deficits, 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 as Tested, Other (ANXIOUS) Skin: Normal Color, Warm/Dry Progress/Results/Core Measures Results/Orders Lab Results Laboratory Tests Test 06/30/17 20:57 Range/Units White Blood Count 14.3 H 4.3-11.0 10^3/uL Red Blood Count 4.36 4.35-5.85 10^6/uL Hemoglobin 13.1 L 13.3-17.7 G/DL Hematocrit 38 L 40-54 % Mean Corpuscular Volume 86 80-99 FL Mean Corpuscular Hemoglobin 30 25-34 PG Mean Corpuscular Hemoglobin Concent 35 32-36 G/DL Red Cell Distribution Width 13.9 10.0-14.5 % Platelet Count 218 130-400 10^3/uL Mean Platelet Volume 10.9 H 7.4-10.4 FL Neutrophils (%) (Auto) 80 H 42-75 % Lymphocytes (%) (Auto) 12 12-44 % Monocytes (%) (Auto) 6 0-12 % Eosinophils (%) (Auto) 2 0-10 % Basophils (%) (Auto) 0 0-10 % Neutrophils # (Auto) 11.5 H 1.8-7.8 X 10^3 Lymphocytes # (Auto) 1.7 1.0-4.0 X 10^3 Monocytes # (Auto) 0.9 0.0-1.0 X 10^3 Eosinophils # (Auto) 0.2 0.0-0.3 10^3/uL Basophils # (Auto) 0.0 0.0-0.1 10^3/uL Neutrophils % (Manual) 84 % Lymphocytes % (Manual) 9 % Monocytes % (Manual) 1 % Eosinophils % (Manual) 2 % Basophils % (Manual) 1 % Band Neutrophils 3 % Blood Morphology Comment NORMAL Prothrombin Time 13.0 12.2-14.7 SEC INR Comment 1.0 0.8-1.4 Activated Partial Thromboplast Time 26 24-35 SEC Sodium Level 136 135-145 MMOL/L Potassium Level 4.1 3.6-5.0 MMOL/L Chloride Level 103 98-107 MMOL/L Carbon Dioxide Level 22 21-32 MMOL/L Anion Gap 11 5-14 MMOL/L Blood Urea Nitrogen 15 7-18 MG/DL Creatinine 1.01 0.60-1.30 MG/DL Estimat Glomerular Filtration Rate > 60 BUN/Creatinine Ratio 15 Glucose Level 216 H 70-105 MG/DL Calcium Level 9.1 8.5-10.1 MG/DL Magnesium Level 1.4 L 1.8-2.4 MG/DL Total Bilirubin 0.4 0.1-1.0 MG/DL Aspartate Amino Transf (AST/SGOT) 18 5-34 U/L Alanine Aminotransferase (ALT/SGPT) 21 0-55 U/L Alkaline Phosphatase 64 40-136 U/L Total Creatine Kinase 54 30-200 U/L Creatine Kinase MB 1.2 <6.6 NG/ML Troponin I < 0.30 <0.30 NG/ML B-Type Natriuretic Peptide 41.6 <100.0 PG/ML Total Protein 7.2 6.4-8.2 GM/DL Albumin 3.9 3.2-4.5 GM/DL Amylase Level 61 25-125 U/L Lipase 66 8-78 U/L My Orders Orders - ИВАН KAM DO Amylase (06/30/17 20:53) Cbc With Automated Diff (06/30/17 20:53) Comprehensive Metabolic Panel (06/30/17 20:53) Creatine Kinase (06/30/17 20:53) Creatine Kinase Mb (06/30/17 20:53) Lipase (06/30/17 20:53) Partial Thromboplastin Time (06/30/17 20:53) Protime With Inr (06/30/17 20:53) Troponin I (06/30/17 20:53) Chest 1 View, Ap/Pa Only (06/30/17 20:53) O2 (06/30/17 20:53) Ekg Tracing (06/30/17 20:53) Aspirin Chewable Tablet (Baby Aspirin Ch (06/30/17 21:00) Rx-Nitroglycerin Sl Tabs (Rx-Nitrostat S (06/30/17 21:00) BNP (06/30/17 20:53) Monitor-Rhythm Ecg Trace Only (06/30/17 20:53) Magnesium (06/30/17 20:53) Manual Differential (06/30/17 20:57) Saline Lock/Iv-Start (06/30/17 21:13) Ns Iv 1000 Ml (Sodium Chloride 0.9%) (06/30/17 21:13) Morphine Injection (Morphine Injection (06/30/17 21:55) Medications Given in ED Current Medications Medications Dose Ordered Sig/Juancarlos Route Start Time Stop Time Status Last Admin Dose Admin Aspirin 324 mg ONCE ONCE PO 06/30/17 21:00 06/30/17 21:01 DC 06/30/17 20:59 324 MG Nitroglycerin 0.4 mg UD PRN SL 06/30/17 21:00 06/30/17 22:42 DC 06/30/17 20:59 0.4 MG Sodium Chloride 1,000 ml @ 0 mls/hr Q0M ONCE IV 06/30/17 21:13 06/30/17 21:14 DC 06/30/17 21:18 0 MLS/HR Vital Signs/I&O Vital Sign - Last 12Hours 06/30/17 06/30/17 06/30/17 06/30/17 20:52 20:52 20:52 20:59 Temp 97.6 97.6 Pulse 113 Resp 29 B/P (MAP) 127/94 Pulse Ox 100 100 O2 Delivery Nasal Cannula Nasal Cannula Nasal Cannula O2 Flow Rate 2.0 2.00 2.0 Intake and Output 07/01/17 00:00 Intake Total 1000 ml Balance 1000 ml Progress Note : Progress Note PAIN DOWN TO A 5/10 AFTER 2ND NTG, BUT BP DROPPED INTO 80'S, FLUID BOLUS GIVEN AND BP UP GIVEN MORPHINE X 1 DOSE AND PAIN RESOLVED ECG Initial ECG Impression Time: 20:50 Initial ECG Rate: 111 Initial ECG Rhythm: S.Tach (LBBB) Initial ECG Comparisson: Unchanged Diagnostic Imaging Comments CXR--NO ACUTE PROCESS, PER RADIOLOGIST REPORT @ 2119 Reviewed: Reviewed by Me Departure Communication Progress Notes SPOKE WITH DR. MORGAN, ACCEPTS PT FOR ADMIT SPOKE WITH DR. FUNEZ FOR CARDIOLOGY CONSULT. Impression Impression: Primary Impression: Chest pain Disposition: ADMITTED INPATIENT Condition: Improved Decision to Admit Reason: Admit from ER (General) Decision to Admit/Date: Jun 30, 2017 Departure-Patient Inst. Referrals: ISMA ADAME DO (PCP/Family) Primary Care Physician ИВАН KAM DO Jun 30, 2017 21:02
[2017-06-30 21:09] LABS: BASOPHILS % (AUTO) 0 % (0-10); EOSINOPHILS # (AUTO) 0.2 10^3/uL (0.0-0.3); EOSINOPHILS % (AUTO) 2 % (0-10); LYMPHOCYTES # (AUTO) 1.7 X 10^3 (1.0-4.0); LYMPHOCYTES % (AUTO) 12 % (12-44); MEAN CORPUSCULAR HEMOGLOBIN 30 PG (25-34); MEAN CORPUSCULAR HGB CONC 35 G/DL (32-36); MEAN CORPUSCULAR VOLUME 86 FL (80-99); MEAN PLATELET VOLUME 10.9 FL (7.4-10.4); MONOCYTES # (AUTO) 0.9 X 10^3 (0.0-1.0); MONOCYTES % (AUTO) 6 % (0-12); NEUTROPHILS # (AUTO) 11.5 X 10^3 (1.8-7.8); NEUTROPHILS % (AUTO) 80 % (42-75); PLATELET COUNT 218 10^3/uL (130-400); RED BLOOD COUNT 4.36 10^6/uL (4.35-5.85); RED CELL DISTRIBUTION WIDTH 13.9 % (10.0-14.5); WHITE BLOOD COUNT 14.3 10^3/uL (4.3-11.0)
--- NOTE | 2017-06-30 21:11 | Diagnostic Imaging Report ---
INDICATION: Chest pain Portable chest shows normal heart size and vascularity. The lungs are clear. There is no effusion or pneumothorax. A pacemaker is present. IMPRESSION: No acute abnormality is seen. The chest is similar to a prior exam from 05/29/17. Dictated by: Dictated on workstation # [id number]
[2017-06-30] MEDS ORDERED: NS IV 1000 ML 1,000 ML IV ONE (21:13)
[2017-06-30 21:24] LABS: BAND NEUTROPHILS 3 %; BASOPHILS % (MANUAL) 1 %; EOSINOPHILS % (MANUAL) 2 %; LYMPHOCYTES % (MANUAL) 9 %; NEUTROPHILS % (MANUAL) 84 %
[2017-06-30 21:50] LABS: ALANINE AMINOTRANSFERASE 21 U/L (0-55); ALBUMIN 3.9 GM/DL (3.2-4.5); AMYLASE 61 U/L (25-125); ANION GAP 11 MMOL/L (5-14); ASPARTATE AMINO TRANSFERASE 18 U/L (5-34); BILIRUBIN,TOTAL 0.4 MG/DL (0.1-1.0); BLOOD UREA NITROGEN 15 MG/DL (7-18); BUN/CREATININE RATIO 15; CALCIUM 9.1 MG/DL (8.5-10.1); CARBON DIOXIDE 22 MMOL/L (21-32); CHLORIDE 103 MMOL/L (98-107); CREATINE KINASE 54 U/L (30-200); CREATININE SERUM 1.01 MG/DL (0.60-1.30); GFR ESTIMATED > 60; GLUCOSE 216 MG/DL (70-105); LIPASE 66 U/L (8-78); MAGNESIUM 1.4 MG/DL (1.8-2.4); POTASSIUM 4.1 MMOL/L (3.6-5.0); SODIUM 136 MMOL/L (135-145); TOTAL PROTEIN 7.2 GM/DL (6.4-8.2); TROPONIN I < 0.30 NG/ML (<0.30)
[2017-06-30] MEDS ORDERED: morphine INJ 10 MG/ML 1ML (SYR OR VIAL) IVP STA (21:55)
[2017-06-30] MEDS ORDERED: ENOXAPARIN 80 MG/0.8 ML (LOVENOX) SYR ONE (22:22)
[2017-06-30 22:30] VITALS: BP 108/70
[2017-06-30] MEDS ORDERED: ENOXAPARIN 80 MG/0.8 ML (LOVENOX) SYR SC ONE ×2 (22:30)
[2017-06-30 22:45] VITALS: BP 109/63
[2017-06-30] MEDS ORDERED: morphine INJ 10 MG/ML 1ML (SYR OR VIAL) IVP PRN (22:45)
[2017-06-30] MEDS ORDERED: NITROGLYCERIN SUBLINGUAL 0.4 MG TAB (NITROSTAT) SL PRN ×2 (22:45)
[2017-06-30] MEDS ORDERED: ONDANSETRON 4 MG/2 ML (SDV) Z0FRAN IV PRN (22:45)
[2017-06-30] MEDS ORDERED: PATIENT MAY USE OWN MEDS, ALL PO SCH (22:45)
[2017-06-30] MEDS ORDERED: CATHETER FLUSH 10 ML SYR IV PRN (22:45)
[2017-06-30] MEDS ORDERED: NS IV 1000 ML 1,000 ML IV SCH (22:45)
[2017-06-30 23:00] VITALS: BP 116/58
[2017-06-30 23:15] VITALS: BP 105/74
[2017-06-30 23:30] VITALS: BP 107/66
[2017-07-01] VITALS (11 sets, daily range): BP systolic 85–121; BP diastolic 35–66
[2017-07-01] MEDS: inSUlin (REGULAR) HUMAN 1 UNIT/0.01 ML (CHARGE PER UNIT) SC SCH ×3 (00:14→15:06)
[2017-07-01] MEDS: morphine INJ 10 MG/ML 1ML (SYR OR VIAL) IV PRN ×2 (00:18→10:42)
[2017-07-01 04:04] LABS: BASOPHILS % (AUTO) 0 % (0-10); EOSINOPHILS # (AUTO) 0.2 10^3/uL (0.0-0.3); EOSINOPHILS % (AUTO) 2 % (0-10); LYMPHOCYTES # (AUTO) 2.7 X 10^3 (1.0-4.0); LYMPHOCYTES % (AUTO) 27 % (12-44); MEAN CORPUSCULAR HEMOGLOBIN 30 PG (25-34); MEAN CORPUSCULAR HGB CONC 35 G/DL (32-36); MEAN CORPUSCULAR VOLUME 87 FL (80-99); MEAN PLATELET VOLUME 10.9 FL (7.4-10.4); MONOCYTES # (AUTO) 0.8 X 10^3 (0.0-1.0); MONOCYTES % (AUTO) 8 % (0-12); NEUTROPHILS # (AUTO) 6.3 X 10^3 (1.8-7.8); NEUTROPHILS % (AUTO) 63 % (42-75); PLATELET COUNT 171 10^3/uL (130-400); RED BLOOD COUNT 3.96 10^6/uL (4.35-5.85); RED CELL DISTRIBUTION WIDTH 13.7 % (10.0-14.5); WHITE BLOOD COUNT 10.1 10^3/uL (4.3-11.0)
[2017-07-01 04:26] LABS: INR 1.1 (0.8-1.4); PROTHROMBIN TIME PATIENT 13.9 SEC (12.2-14.7)
[2017-07-01 04:39] LABS: CHOLESTEROL 156 MG/DL (< 200); DIRECT LDL 101 MG/DL (1-129); TRIGLYCERIDES 162 MG/DL (<150); VLDL CHOLESTEROL 32 MG/DL (5-40)
[2017-07-01 05:26] LABS: ALANINE AMINOTRANSFERASE 19 U/L (0-55); ALBUMIN 3.4 GM/DL (3.2-4.5); ANION GAP 13 MMOL/L (5-14); ASPARTATE AMINO TRANSFERASE 20 U/L (5-34); BILIRUBIN,TOTAL 0.6 MG/DL (0.1-1.0); BLOOD UREA NITROGEN 16 MG/DL (7-18); BUN/CREATININE RATIO 20; CALCIUM 8.4 MG/DL (8.5-10.1); CARBON DIOXIDE 20 MMOL/L (21-32); CHLORIDE 104 MMOL/L (98-107); CREATININE SERUM 0.81 MG/DL (0.60-1.30); GFR ESTIMATED > 60; GLUCOSE 118 MG/DL (70-105); POTASSIUM 4.2 MMOL/L (3.6-5.0); SODIUM 137 MMOL/L (135-145); TOTAL PROTEIN 6.1 GM/DL (6.4-8.2)
[2017-07-01] MEDS: CATHETER FLUSH 10 ML SYR IV SCH ×2 (06:07→15:07)
[2017-07-01] MEDS ORDERED: SACU1TAB PO (07:53)
[2017-07-01] MEDS ORDERED: potassium (07:53)
[2017-07-01] MEDS ORDERED: ENOXAPARIN 80 MG/0.8 ML (LOVENOX) SYR SC SCH (09:00)
[2017-07-01] MEDS ORDERED: ASPIRIN E.C. 325 MG (ECOTRIN) TABLET PO SCH ×2 (09:00)
[2017-07-01] MEDS ORDERED: MAGN400T39 PO (09:26)
--- NOTE | 2017-07-01 12:03 | Short Stay Summary ---
HPI History of Present Illness: 47YO male presented to ER last night with complaints of chest pain for the past week. Patient states it has been hurting in his epigastric area and radiating to his back. He has been taking meds as prescribed. States it has been mostly in the past week, not related to activity. COmes and goes spontaneously. NO SOB. Complaints of lower back pain as well causing numbness in his legs. Had an ICD w pacer put in about a month ago, hasn't felt any shocks. Source: patient, family Exam Limitations: no limitations Date seen by provider: Jul 01, 2017 Time Seen by Provider: 09:00 Attending Physician Candice Mercedes MD PCP Shannon Winn DO Consult Dilan Pierre MD - Cardiology Date of Admission Jun 30, 2017 at 10:00 pm Home Medications Home Medications Reviewed patient Home Medication Reconciliation Form Allergies Coded Allergies: Penicillins (Verified Allergy, Unknown, 04/18/12) Sulfa (Sulfonamide Antibiotics) (Verified Allergy, Unknown, 02/20/17) liraglutide (Verified Allergy, Unknown, 02/20/17) JET-Jobzzo-[place] Hx Patient Social History Alcohol Use: Denies Use Recreational Drug Use: No Smoking Status: Former Smoker Former smoker/When Quit: Nov 28, 2014 Type Used: Cigars, Cigarettes, Smokeless Tobacco 2nd Hand Smoke Exposure: No Recent Foreign Travel: No Contact w/other who traveled: No Recent Hopitalizations: Yes (PACEMAKER/DEFIB PLACEMENT 05/12/17) Recent Infectious Disease Expo: No Physical Abuse Screen: No Sexual Abuse: No Immunizations Up To Date Tetanus Booster (TDap): Less than 5yrs Date of Pneumonia Vaccine: Apr 25, 2012 Past Medical History 1. Chest Pain with minimal CAD per cath. - 2. COPD/Asthma 3. DM- on metformin 4. Chronic LBBB 5. Obesity 6. Tobaccoism PAST SURGICAL HISTORY 1. Rt. Knee repair surgery 1986 2. Tonsillectomy as a child 3. Testicular tortion surgery 4. Hematoma removal from neck 5. Cardiac Catheterization -- angiographically mild 30-40% RCA. Family Medical History Significant Family History: Heart Disease Family History: Cardiovascular disease 19 FATHER 19 MOTHER Diabetes mellitus G8 SISTER FH: heart failure 19 FATHER 19 MOTHER Review of Systems (CHC) Constitutional: no symptoms reported All Other Systems Reviewed Negative Unless Noted: Yes (Negative excepted noted.) Reviewed Test Results Reviewed Test Results Lab Laboratory Tests Test 06/30/17 20:57 06/30/17 23:19 07/01/17 03:45 Range/Units White Blood Count 14.3 H 10.1 4.3-11.0 10^3/uL Red Blood Count 4.36 3.96 L 4.35-5.85 10^6/uL Hemoglobin 13.1 L 11.9 L 13.3-17.7 G/DL Hematocrit 38 L 34 L 40-54 % Mean Corpuscular Volume 86 87 80-99 FL Mean Corpuscular Hemoglobin 30 30 25-34 PG Mean Corpuscular Hemoglobin Concent 35 35 32-36 G/DL Red Cell Distribution Width 13.9 13.7 10.0-14.5 % Platelet Count 218 171 130-400 10^3/uL Mean Platelet Volume 10.9 H 10.9 H 7.4-10.4 FL Neutrophils (%) (Auto) 80 H 63 42-75 % Lymphocytes (%) (Auto) 12 27 12-44 % Monocytes (%) (Auto) 6 8 0-12 % Eosinophils (%) (Auto) 2 2 0-10 % Basophils (%) (Auto) 0 0 0-10 % Neutrophils # (Auto) 11.5 H 6.3 1.8-7.8 X 10^3 Lymphocytes # (Auto) 1.7 2.7 1.0-4.0 X 10^3 Monocytes # (Auto) 0.9 0.8 0.0-1.0 X 10^3 Eosinophils # (Auto) 0.2 0.2 0.0-0.3 10^3/uL Basophils # (Auto) 0.0 0.0 0.0-0.1 10^3/uL Neutrophils % (Manual) 84 % Lymphocytes % (Manual) 9 % Monocytes % (Manual) 1 % Eosinophils % (Manual) 2 % Basophils % (Manual) 1 % Band Neutrophils 3 % Blood Morphology Comment NORMAL Prothrombin Time 13.0 13.9 12.2-14.7 SEC INR Comment 1.0 1.1 0.8-1.4 Activated Partial Thromboplast Time 26 39 H 24-35 SEC Sodium Level 136 137 135-145 MMOL/L Potassium Level 4.1 4.2 3.6-5.0 MMOL/L Chloride Level 103 104 98-107 MMOL/L Carbon Dioxide Level 22 20 L 21-32 MMOL/L Anion Gap 11 13 5-14 MMOL/L Blood Urea Nitrogen 15 16 7-18 MG/DL Creatinine 1.01 0.81 0.60-1.30 MG/DL Estimat Glomerular Filtration Rate > 60 > 60 BUN/Creatinine Ratio 15 20 Glucose Level 216 H 118 H 70-105 MG/DL Calcium Level 9.1 8.4 L 8.5-10.1 MG/DL Magnesium Level 1.4 L 1.8-2.4 MG/DL Total Bilirubin 0.4 0.6 0.1-1.0 MG/DL Aspartate Amino Transf (AST/SGOT) 18 20 5-34 U/L Alanine Aminotransferase (ALT/SGPT) 21 19 0-55 U/L Alkaline Phosphatase 64 55 40-136 U/L Total Creatine Kinase 54 30-200 U/L Creatine Kinase MB 1.2 <6.6 NG/ML Troponin I < 0.30 < 0.30 <0.30 NG/ML B-Type Natriuretic Peptide 41.6 <100.0 PG/ML Total Protein 7.2 6.1 L 6.4-8.2 GM/DL Albumin 3.9 3.4 3.2-4.5 GM/DL Amylase Level 61 25-125 U/L Lipase 66 8-78 U/L Glucometer 114 H 70-110 MG/DL Triglycerides Level 162 H <150 MG/DL Cholesterol Level 156 < 200 MG/DL LDL Cholesterol Direct 101 1-129 MG/DL VLDL Cholesterol 32 5-40 MG/DL HDL Cholesterol 35 L 40-60 MG/DL Radiology Date of Exam:07/01/17 CT ANGIO CHEST W PROCEDURE: CT angiography of the chest with contrast. TECHNIQUE: Multiple contiguous axial images were obtained through the chest after uneventful bolus administration of intravenous contrast. Reconstructed CTA MIP acquisitions were also performed. INDICATION: Chest pain. 140 mL of Omnipaque 350 was administered intravenously. FINDINGS: The thoracic aorta is normal in caliber. There is no dissection. The pulmonary artery is well opacified in the central arteries and lobar branches. The most segmental branches are also well opacified with no filling defects. The segmental and subsegmental branches in the lower lobes are not well evaluated however. There is an apparent filling defect in a subsegmental branch to the lateral basal aspect of the left lower lobe. There is however motion artifact at this level, and this is not a reliable evaluation of this branch. No proximal or large burden of pulmonary embolism. The heart size is normal. The lungs demonstrate minimal atelectasis in the anterior left lung base and around the left major fissure. No significant consolidation, mass, or suspicious nodule is seen. There is a pacemaker with multiple leads seen. There is a small/ moderate pericardial effusion. There is no pleural effusion. The liver demonstrates diffuse prominent degree of fatty infiltration. The osseous structures appear grossly unremarkable. IMPRESSION: 1. No aortic dissection. 2. There is no central pulmonary embolism. There is a subsegmental branch to the lateral left lower lobe with a filling defect seen. This is however in an area involved with breathing motion artifact, and its evaluation is not reliable. A followup study could be helpful if indicated. 3. Hepatic steatosis. Physical Exam-(CHC) Physical Exam Vital Signs VS - Last 72 Hours, by Label 06/30/17 06/30/17 06/30/17 06/30/17 20:52 20:52 20:52 20:59 Temp 97.6 97.6 Pulse 113 Resp 29 B/P (MAP) 127/94 Pulse Ox 100 100 O2 Delivery Nasal Cannula Nasal Cannula Nasal Cannula O2 Flow Rate 2.0 2.00 2.0 06/30/17 06/30/17 06/30/17 06/30/17 22:21 22:30 22:30 22:45 Temp 97.6 97.5 Pulse 96 90 88 Resp 12 B/P (MAP) 108/70 109/63 Pulse Ox 100 92 97 99 O2 Delivery Nasal Cannula Nasal Cannula Nasal Cannula Nasal Cannula O2 Flow Rate 2.0 2.00 2.00 2.00 06/30/17 06/30/17 06/30/17 06/30/17 23:00 23:02 23:15 23:20 Pulse 90 92 90 B/P (MAP) 116/58 105/74 Pulse Ox 99 100 O2 Delivery Nasal Cannula Nasal Cannula Nasal Cannula O2 Flow Rate 2.00 2.00 2.00 06/30/17 07/01/17 07/01/17 07/01/17 23:30 00:00 00:00 01:00 Pulse 93 84 91 B/P (MAP) 107/66 108/63 Pulse Ox 97 100 100 O2 Delivery Nasal Cannula Nasal Cannula Nasal Cannula O2 Flow Rate 2.00 2.00 2.00 07/01/17 07/01/17 07/01/17 07/01/17 01:00 02:00 03:00 04:00 Temp 97.6 Pulse 83 82 87 B/P (MAP) 103/60 89/46 98/66 Pulse Ox 100 99 100 100 O2 Delivery Nasal Cannula Nasal Cannula Nasal Cannula Nasal Cannula O2 Flow Rate 2.00 2.00 2.00 2.00 07/01/17 07/01/17 07/01/17 07/01/17 04:00 05:00 06:00 06:21 Temp 98.4 Pulse 86 87 77 83 B/P (MAP) 121/65 112/63 85/35 98/37 Pulse Ox 100 100 98 99 O2 Delivery Nasal Cannula Nasal Cannula Nasal Cannula Nasal Cannula O2 Flow Rate 2.00 2.00 2.00 2.00 07/01/17 07/01/17 07/01/17 07:00 08:00 08:07 Pulse 83 Pulse Ox 97 99 O2 Delivery Nasal Cannula Nasal Cannula O2 Flow Rate 2.00 Capillary Refill : Less Than 3 Seconds General Appearance: WD/WN, no apparent distress, obese HEENT: PERRL/EOMI, normal ENT inspection, pharynx normal Neck: non-tender, full range of motion, supple, normal inspection Respiratory: chest non-tender, lungs clear, normal breath sounds, no respiratory distress, no accessory muscle use Cardiovascular: regular rate, rhythm, no edema, no gallop, no JVD, no murmur Gastrointestinal: normal bowel sounds, non tender, soft, no organomegaly, other (morbidly obese) Back: normal inspection Extremities: normal range of motion, non-tender, normal inspection, no pedal edema, no calf tenderness, normal capillary refill Neurologic/Psychiatric: [place] II-XII nml as tested, no motor/sensory deficits, alert, normal mood/affect, oriented x 3 Skin: normal color, warm/dry Lymphatic: no adenopathy Short Stay Diagnosis Discharge Diagnosis-Short Stay Admission Diagnosis ATYPICAL CHEST PAIN GERD KNOWN CAD CHRONIC SYSTOLIC CONGESTIVE HEART FAILURE TYPE 2 DIABETES MELLITUS SUPRAMORBID OBESITY Final Discharge Diagnosis SEE ABOVE Conclusion Plan ATYPICAL CHEST PAIN GERD At this point, Dr Pierre and I do not believe the current symptoms are related to his cardiac disease. I do think he likely needs increased PPI and have increased the prilosec dose. In addition, he should use ASA with enteric coating. CTA was negative for dissection or pulmonary disease. Weight loss would help significantly. KNOWN CAD CHRONIC SYSTOLIC CONGESTIVE HEART FAILURE No active issues this hospitalization. Needs to continue to follow with Dr Thompson or Dr Pierre (combination man for Dr Thompson). TYPE 2 DIABETES MELLITUS SUPRAMORBID OBESITY Major risk factors for the above disease processes. Needs to continue to modify risk factors as he is able. Clinical Quality Measures AMI/AHF: ASA po Prior to arrival: Yes (81) DVT/VTE Risk/Contraindication: Risk Factor Score Per Nursin RFS Level Per Nursing on Admit: 3=High Copy Copies To 1: KEYANA HANSEN MD Copies To 2: LATOYA THOMPSON MD, JULIE A MD Jul 01, 2017 12:03 pm
[2017-07-01] MEDS ORDERED: IOHEXOL 350 MG/ML 150 ML (OMNIPAQUE 350) VIAL IV ONE (13:30)
[2017-07-01] MEDS ORDERED: CATHETER FLUSH 10 ML SYR IV PRN (13:30)
--- NOTE | 2017-07-01 14:28 | Consultation-Cardiology ---
HPI-Cardiology Cardiology Consultation: Date of Consultation 07/01/17 Date of Admission Attending Physician Candice Mercedes MD Admitting Physician Shannon Winn DO Consulting Physician Donell PIERRE MD HPI: Time Seen by Provider: 12:50 Chief Complaint: chest pain This is a 47 year old gentleman with morbid obesity, nonischemic cardiomyopathy , s/p BiV-ICD implantation. He presents with chest pain radiating to the back. CT angiogram chest not done yesterday due to weight limit of the CT machine. I have spoken to the patient and it seems that the primary pain was back pain with chest involvement and back numbness. There is also pain in the neck and in the right hip with numbness. He denies shortness of breath, palpitations, syncope or near syncope. He received morphine which helped the pain significantly. Review of Systems-Cardiology Review of Systems Constitutional: No As described under HPI, No no symptoms reported, No chills, No fever, No lightheadedness, No malaise, No tiredness, No weight loss, No weight gain, No other Eyes: No As described under HPI, No no symptoms reported, No blindness, No blurred vision, No contact lenses, No drainage, No decreased acuity, No foreign body sensation, No glasses, No inflammation, No pain, No photophobia, No previous injury, No shadows, No tunnel vision, No other, No vision change Ears/Nose/Throat: No As described under HPI, No no symptoms reported, No chronic hearing loss, No epistaxis, No ear discharge, No ear pain, No loose teeth, No mouth pain, No mouth swelling, No nasal drainage, No nose pain, No recent hearing loss, No throat pain, No throat swelling, No ulcerations, No other Respiratory: No no symptoms reported, No As described under HPI, No cough, No orthopnea, No shortness of breath, No SOB with excertion, No SOB at rest, No stridor, No wheezing, No other Cardiovascular: chest pain Gastrointestinal: No no symptoms reported, No As described under HPI, No abdomen distended, No abdominal pain, No blood streaked bowels, No constipation , No diarrhea, No difficulty swallowing, No nausea, No poor appetite, No poor fluid intake, No rectal bleeding, No vomiting, No other, No nausea/vomiting/ diarrhea, No stool coloration changes Genitourinary: No no symptoms reported, No As described under HPI, No burning, No dysuria, No discharge, No frequency, No flank pain, No hematuria, No incontinence, No pain, No urgency, No other, No urine frequency changes, No urine coloration changes Musculoskeletal: back pain, neck pain Skin: No no symptoms reported, No As described under HPI, No change in color, No change in hair/nails, No dryness, No lesions, No lumps, No rash, No other, No skin related problems, No ulcerations, No rash on exposed areas, No ulcerations on exposed areas Psychiatric/Neurological: numbness Hematologic: No no symptoms reported, No As described under HPI, No anemia, No blood clots, No easy bleeding, No easy bruising, No swollen glands, No other, No bleeding abnormalities XTM-Ozzpez-Kyjjvo Hx Patient Social History Alcohol Use: Denies Use Recreational Drug Use: No Smoking Status: Former Smoker Former smoker/When Quit: Nov 28, 2014 Type Used: Cigars, Cigarettes, Smokeless Tobacco 2nd Hand Smoke Exposure: No Recent Foreign Travel: No Recent Infectious Disease Expo: No Hospitalization with Isolation: Denies Physical Abuse Screen: No Sexual Abuse: No Immunizations Up To Date Tetanus Booster (TDap): Less than 5yrs Date of Pneumonia Vaccine: Apr 25, 2012 Past Medical History PMH As described under Assessment. Family Medical History Family History: Cardiovascular disease 19 FATHER 19 MOTHER Diabetes mellitus G8 SISTER FH: heart failure 19 FATHER 19 MOTHER Allergies and Home Medications Allergies Coded Allergies: Penicillins (Verified Allergy, Unknown, 04/18/12) Sulfa (Sulfonamide Antibiotics) (Verified Allergy, Unknown, 02/20/17) liraglutide (Verified Allergy, Unknown, 02/20/17) Home Medications Albuterol Sulfate 2.5 Mg/3 Ml Vial.neb, 2.5 MG NEB QID PRN for SHORTNESS OF BREATH, (Reported) Albuterol Sulfate 1 Puff Puff, 2 PUFF IH QID PRN for SHORTNESS OF BREATH, ( Reported) 1 PUFF = 90 MCG Aspirin 81 Mg Tablet.dr, 81 MG PO DAILY, (Reported) Budesonide/Formoterol Fumarate 10.2 Gm Hfa.aer.ad, 2 PUFF IH BID, (Reported) Carvedilol 3.125 Mg Tablet, 3.125 MG PO BID, (Reported) Fluticasone Propionate 16 Gm [place].susp, 1 SPRAY NS BID PRN for ALLERGIES, ( Reported) Furosemide 40 Mg Tablet, 40 MG PO DAILY, (Reported) Glyburide 5 Mg Tablet, 5 MG PO DAILY, (Reported) Insulin Aspart 100 Unit/1 Ml Susp, 20 UNIT SQ AC, (Reported) Linaclotide 145 Mcg Capsule, 145 MCG PO DAILY, (Reported) HOLD FOR LOOSE STOOLS Magnesium Oxide 400 Mg Tablet, 400 MG PO DAILY, (Reported) Metformin HCl 1,000 Mg Tablet, 1,000 MG PO BID WITH MEALS, (Reported) Omeprazole 20 Mg Capsule.dr, 20 MG PO DAILY, (Reported) Oxybutynin Chloride 10 Mg Tab.er.24, 10 MG PO DAILY, (Reported) Potassium Chloride 10 Meq Capsule.er, 10 MEQ PO DAILY, (Reported) Quetiapine Fumarate 300 Mg Tablet, 300 MG PO HS, (Reported) Sacubitril/Valsartan 1 Each Tablet, 1 TAB PO BID, (Reported) Sertraline HCl 100 Mg Tablet, 100 MG PO DAILY, (Reported) Spironolactone 25 Mg Tablet, 25 MG PO BID, (Reported) Tiotropium [place] 4 Gm Mist.inhal, 2 PUFF IH DAILY, (Reported) Physical Exam-Cardiology Physical Exam Vital Signs/I&O Vital Sign - Last 12Hours 07/01/17 07/01/17 07/01/17 07/01/17 03:00 04:00 04:00 05:00 Temp 98.4 Pulse 87 86 87 B/P (MAP) 98/66 121/65 112/63 Pulse Ox 100 100 100 100 O2 Delivery Nasal Cannula Nasal Cannula Nasal Cannula Nasal Cannula O2 Flow Rate 2.00 2.00 2.00 2.00 07/01/17 07/01/17 07/01/17 07/01/17 06:00 06:21 07:00 08:00 Pulse 77 83 83 B/P (MAP) 85/35 98/37 Pulse Ox 98 99 97 O2 Delivery Nasal Cannula Nasal Cannula Nasal Cannula O2 Flow Rate 2.00 2.00 07/01/17 07/01/17 08:07 13:00 Pulse 99 Pulse Ox 99 O2 Delivery Nasal Cannula O2 Flow Rate 2.00 Intake and Output 07/01/17 00:00 Intake Total 1000 ml Balance 1000 ml Capillary Refill : Less Than 3 Seconds Constitutional: No appears stated age, No AAO x 3, No apparent distress, No PERRL, No well-developed, No well-nourished, No other HEENT: No PERRL, No normal ENT inspection, No TMs normal, No pharynx normal, No scleral icterus (R), No scleral icterus (L), No pale conjunctivae (R), No pale conjunctivae (L), No photophobia, No TM abnormal (R), No TM abnormal (L), No pharyngeal erythema, No tonsillar exudate, No other, No discharge, No EOMI, No hearing is well preserved, No hard of hearing, No oral hygience is good, No ulceration, No xanthelasmas are seen Neck: No non-tender, No full range of motion, No supple, No normal inspection, No carotid bruit, No limited range of motion, No lymphadenopathy (R), No lymphadenopathy (L), No tender lateral, No tender midline, No thyromegaly, No other, No carotid pulses are 2 + bilaterally, No with good upstrokes Respiratory: No accessory muscle use, No respiratory distress, No chest tender , No chest expansion is symmetric, No chest is bilaterally symmetric, No lungs clear to percussion, No lungs clear to auscultation, No crackles, No rhonchi, No rales, No stridor, No wheezing, No pleural rub, No other Cardiovascular: No regular rate-rhythm, No irregularly irregular, No extra beats, No parasternal heave is noted, No JVD, No edema, No bradycardia, No tachycardia, No point of maximal impulse, No cardiac thrills are palpable, No S1 and S2, No gallop/S3, No gallop/S4, No diastolic murmur, No systolic murmur, No friction rub, No click, No other Gastrointestinal: No tender, No soft, No round, No distended, No pulsatile mass , No organomegaly, No guarding, No rebound, No tenderness, No hernia, No mass, No audible bowel sounds, No abnormal bowel sounds, No abdominal bruits, No spleenomegaly, No other Rectal: deferred Extremities: No normal range of motion, No non-tender, No normal inspection, No pedal edema, No calf tenderness, No normal capillary refill, No pelvis stable , No calf tenderness, No inflammation, No pedal edema, No slow capillary refill , No swelling, No other, No abrasion, No clubbing, No cyanosis, No ecchymosis, No laceration, No no lower extremity edema bilateral, No significant edema, No tenderness, No wound Neurologic/Psychiatric: No cell assembly pinner II-XII nml as tested, No no motor/sensory deficits, No alert, No normal mood/affect, No oriented x 3, No abnormal cerebellar tests, No abnormal cell assembly pinner II-XII, No abnormal gait, No aphasia, No EOM palsy, No facial droop, No motor weakness, No sensory deficit, No depressed affect, No disoriented x 3, No other, No grossly intact, No power is 5/5 both on sides Skin: No normal color, No warm/dry, No cyanosis, No cool, No diaphoresis, No damp, No ecchymosis, No jaundice, No mottled, No pallor, No rash, No tattoos/ piercings, No ulcerations, No rash on exposed areas, No ulcerations on exposed areas, No other Data Review Labs Laboratory Tests 06/30/17 20:57: White Blood Count 14.3H, Red Blood Count 4.36, Hemoglobin 13.1L, Hematocrit 38L , Mean Corpuscular Volume 86, Mean Corpuscular Hemoglobin 30, Mean Corpuscular Hemoglobin Concent 35, Red Cell Distribution Width 13.9, Platelet Count 218, Mean Platelet Volume 10.9H, Neutrophils (%) (Auto) 80H, Lymphocytes (%) (Auto) 12, Monocytes (%) (Auto) 6, Eosinophils (%) (Auto) 2, Basophils (%) (Auto) 0, Neutrophils # (Auto) 11.5H, Lymphocytes # (Auto) 1.7, Monocytes # (Auto) 0.9, Eosinophils # (Auto) 0.2, Basophils # (Auto) 0.0, Neutrophils % (Manual) 84, Lymphocytes % (Manual) 9, Monocytes % (Manual) 1, Eosinophils % (Manual) 2, Basophils % (Manual) 1, Band Neutrophils 3, Blood Morphology Comment NORMAL, Prothrombin Time 13.0, INR Comment 1.0, Activated Partial Thromboplast Time 26, Sodium Level 136, Potassium Level 4.1, Chloride Level 103, Carbon Dioxide Level 22, Anion Gap 11, Blood Urea Nitrogen 15, Creatinine 1.01, Estimat Glomerular Filtration Rate > 60, BUN/Creatinine Ratio 15, Glucose Level 216H, Calcium Level 9.1, Magnesium Level 1.4L, Total Bilirubin 0.4, Aspartate Amino Transf ( AST/SGOT) 18, Alanine Aminotransferase (ALT/SGPT) 21, Alkaline Phosphatase 64, Total Creatine Kinase 54, Creatine Kinase MB 1.2, Troponin I < 0.30, B-Type Natriuretic Peptide 41.6, Total Protein 7.2, Albumin 3.9, Amylase Level 61, Lipase 66 06/30/17 23:19: Glucometer 114H 07/01/17 03:45: White Blood Count 10.1, Red Blood Count 3.96L, Hemoglobin 11.9L, Hematocrit 34L , Mean Corpuscular Volume 87, Mean Corpuscular Hemoglobin 30, Mean Corpuscular Hemoglobin Concent 35, Red Cell Distribution Width 13.7, Platelet Count 171, Mean Platelet Volume 10.9H, Neutrophils (%) (Auto) 63, Lymphocytes (%) (Auto) 27 , Monocytes (%) (Auto) 8, Eosinophils (%) (Auto) 2, Basophils (%) (Auto) 0, Neutrophils # (Auto) 6.3, Lymphocytes # (Auto) 2.7, Monocytes # (Auto) 0.8, Eosinophils # (Auto) 0.2, Basophils # (Auto) 0.0, Prothrombin Time 13.9, INR Comment 1.1, Activated Partial Thromboplast Time 39H, Sodium Level 137, Potassium Level 4.2, Chloride Level 104, Carbon Dioxide Level 20L, Anion Gap 13 , Blood Urea Nitrogen 16, Creatinine 0.81, Estimat Glomerular Filtration Rate > 60, BUN/Creatinine Ratio 20, Glucose Level 118H, Calcium Level 8.4L, Total Bilirubin 0.6, Aspartate Amino Transf (AST/SGOT) 20, Alanine Aminotransferase ( ALT/SGPT) 19, Alkaline Phosphatase 55, Troponin I < 0.30, Total Protein 6.1L, Albumin 3.4, Triglycerides Level 162H, Cholesterol Level 156, LDL Cholesterol Direct 101, VLDL Cholesterol 32, HDL Cholesterol 35L ECG Impression ECG Initial ECG Rhythm: Normal Sinus Initial ECG Intervals biv paced rhythm A/P-Cardiology Assessment/Admission Diagnosis Chest pain/Back pain, Non-ischemic Cardiomyopathy, S/P Biv ICD Plan ACS ruled out with serial negative troponin. Cath earlier in the year did not reveal any obstructive CAD. Chest pain is atypical and in my opinion more so it is back pain with chest involvement. It is likely vertebral involvement with nerve impinchment resulting in numbness - neurology referral recommended. I have requested ICD interrogation to rule ICD shock. I have also requested CT chest with contrast to rule out aorta pathology and to rule out PE. If Device interrogation is normal and CT chest is also negative, then I will defer to primary team for neurology/pain evaluation. Thank you for your consultation. Please call me if you have any questions. Maddy Pierre MD, FACP, FACC, FSCAI, FHRS, CCDS Interventional Cardiology Cardiac Electrophysiology Vascular Medicine and Endovascular Interventions Clinical Quality Measures AMI/AHF: ASA po Prior to arrival: Yes (81) DVT/VTE Risk/Contraindication: Risk Factor Score Per Nursin RFS Level Per Nursing on Admit: 3=High Donell PIERRE MD Jul 01, 2017 2:28 pm
--- NOTE | 2017-07-01 14:29 | Diagnostic Imaging Report ---
PROCEDURE: CT angiography of the chest with contrast. TECHNIQUE: Multiple contiguous axial images were obtained through the chest after uneventful bolus administration of intravenous contrast. Reconstructed CTA MIP acquisitions were also performed. INDICATION: Chest pain. 140 mL of Omnipaque 350 was administered intravenously. FINDINGS: The thoracic aorta is normal in caliber. There is no dissection. The pulmonary artery is well opacified in the central arteries and lobar branches. The most segmental branches are also well opacified with no filling defects. The segmental and subsegmental branches in the lower lobes are not well evaluated however. There is an apparent filling defect in a subsegmental branch to the lateral basal aspect of the left lower lobe. There is however motion artifact at this level, and this is not a reliable evaluation of this branch. No proximal or large burden of pulmonary embolism. The heart size is normal. The lungs demonstrate minimal atelectasis in the anterior left lung base and around the left major fissure. No significant consolidation, mass, or suspicious nodule is seen. There is a pacemaker with multiple leads seen. There is a small/ moderate pericardial effusion. There is no pleural effusion. The liver demonstrates diffuse prominent degree of fatty infiltration. The osseous structures appear grossly unremarkable. IMPRESSION: 1. No aortic dissection. 2. There is no central pulmonary embolism. There is a subsegmental branch to the lateral left lower lobe with a filling defect seen. This is however in an area involved with breathing motion artifact, and its evaluation is not reliable. A followup study could be helpful if indicated. 3. Hepatic steatosis. Dictated by: Dictated on workstation # [id number]
[2017-07-01] MEDS ORDERED: OMEP20CA12 PO (15:02)
--- NOTE | 2017-07-01 15:07 | Discharge Instructions ---
Discharge [facility] Discharge Medications New, Converted or Re-Newed RX: Transmitted to Pharmacy Changed Medications: Omeprazole (Omeprazole) 20 Mg Capsule.dr 40 MG PO DAILY, #30 CAP 1 Refill (Changed from: 20 MG; Refills: ) Continued Medications: Albuterol Sulfate (Albuterol Sulfate) 2.5 Mg/3 Ml Vial.neb 2.5 MG NEB QID PRN for SHORTNESS OF BREATH, EA Albuterol Sulfate (Proair Hfa) 1 Puff Puff 2 PUFF IH QID PRN for SHORTNESS OF BREATH, PUFF 1 PUFF = 90 MCG Aspirin (Aspirin EC) 81 Mg Tablet.dr 81 MG PO DAILY, TAB Budesonide/Formoterol Fumarate (Symbicort 160-4.5 Mcg Inhaler) 10.2 Gm Hfa.aer.ad 2 PUFF IH BID, INHALER Carvedilol (Carvedilol) 3.125 Mg Tablet 3.125 MG PO BID, TAB Fluticasone Propionate (Fluticasone Propionate) 16 Gm [place].susp 1 SPRAY NS BID PRN for ALLERGIES, SPRAY Furosemide (Furosemide) 40 Mg Tablet 40 MG PO DAILY, TAB Glyburide (Glyburide) 5 Mg Tablet 5 MG PO DAILY, TAB Insulin Aspart (Novolog) 100 Unit/1 Ml Susp 20 UNIT SQ AC, ML Linaclotide (Linzess) 145 Mcg Capsule 145 MCG PO DAILY, CAP HOLD FOR LOOSE STOOLS Magnesium Oxide (Magnesium) 400 Mg Tablet 400 MG PO DAILY, TAB Metformin HCl (Metformin HCl) 1,000 Mg Tablet 1000 MG PO BID WITH MEALS, TAB Oxybutynin Chloride (Oxybutynin Chloride ER) 10 Mg Tab.er.24 10 MG PO DAILY, TAB Potassium Chloride (Potassium Chloride) 10 Meq Capsule.er 10 MEQ PO DAILY, CAP Quetiapine Fumarate (Quetiapine Fumarate) 300 Mg Tablet 300 MG PO HS, TAB Sacubitril/Valsartan (Entresto 24 mg-26 mg Tablet) 1 Each Tablet 1 TAB PO BID, TAB Sertraline HCl (Sertraline HCl) 100 Mg Tablet 100 MG PO DAILY, TAB Spironolactone (Spironolactone) 25 Mg Tablet 25 MG PO BID, TAB Tiotropium [place] (Spiriva Respimat 2.5MCG/ACTUATION) 4 Gm Mist.inhal 2 PUFF IH DAILY, INH Patient Instructions Goal/Follow Up Appt: 1. FOLLOW UP WITH DR FUNEZ RECOMMENDED. 2. FOLLOW UP WITH DR HANSEN ON JULY 08 AT 1:40. Patient Instructions: 1. PLEASE NOTE THE INCREASE IN PRILOSEC FROM 20MG TO 40MG. IF YOU CONTINUE TO HAVE TROUBLE, YOU MAY NEED A DIFFERENT ACID VASQUEZ. 2. MAKE SURE THAT YOUR ASPIRIN TABLET IS "ENTERIC COATED." THIS MEANS THAT IT IS LESS LIKELY TO IRRITATE YOUR STOMACH. Return to The Hospital For: INCREASING CHEST PAIN, SHORTNESS OF BREATH, PALPITATIONS Activity & Diet Discharge Diet: Eat Small Frequent Meals, ADA Diet, Avoid Fatty Foods, Low Fat/ Low Cholesterol Activity as Tolerated: Yes Copy Copies To 1: KEYANA HANSEN MD, JULIE A MD Jul 01, 2017 3:07 pm
[2017-07-01] MEDS ORDERED: inSUlin ASPART (NovoLOG) 1 UNIT/0.01 ML (CHARGE PER UNIT) SQ SCH (16:00)
[2017-07-01] MEDS ORDERED: metFORMIN 500 MG (GLUCOPHAGE) TAB PO SCH (17:00)
[2017-07-01] MEDS ORDERED: SPIRONOLACTONE 25 MG (ALDACTONE) TAB PO SCH (21:00)
[2017-07-01] MEDS ORDERED: QUEtiapine 200 MG (SEROquel) TAB IMMEDIATE RELEASE PO SCH (21:00)
[2017-07-01] MEDS ORDERED: CARVEDILOL 3.125 MG (COREG) TABLET PO SCH (21:00)
[2017-07-01] MEDS ORDERED: QUEtiapine 100 MG (SEROquel) TAB IMMEDIATE RELEASE PO SCH (21:00)
[2017-07-02] MEDS ORDERED: glyBURIDE 5 MG (MICRONASE) TAB PO SCH (07:00)
[2017-07-02] MEDS ORDERED: PANTOPRAZOLE 20 MG TABLET (PROTONIX) PO SCH (07:00)
[2017-07-02] MEDS ORDERED: ASPIRIN E.C. 81 MG (ECOTRIN) TAB PO SCH (09:00)
[2017-07-02] MEDS ORDERED: SERTRALINE 100 MG (ZOLOFT) TAB PO SCH (09:00)
[2017-07-02] MEDS ORDERED: FUROSEMIDE 40 MG (LASIX) TAB PO SCH (09:00)
== END 2017-07-01 15:04 | disposition home or self-care (01) ==
LOC: EDUNIT# 20:46 → ER 20:48 → UNDOADMOB 22:00 → ICU 22:00 → UNDODISOB 07-01 16:15
PROVIDERS: ADMIT Pediatrics; ATTEND Pediatrics
DX: R07.89 Other chest pain (principal); K21.9 Gastro-esophageal reflux disease without esophagitis; I25.10 Atherosclerotic heart disease of native coronary artery without angina pectoris; I44.7 Left bundle-branch block, unspecified; I50.22 Chronic systolic (congestive) heart failure; E11.9 Type 2 diabetes mellitus without complications; J44.9 Chronic obstructive pulmonary disease, unspecified; E66.01 Morbid (severe) obesity due to excess calories; K76.0 Fatty (change of) liver, not elsewhere classified; Z79.82 Long term (current) use of aspirin; Z79.4 Long term (current) use of insulin; Z79.84 Long term (current) use of oral hypoglycemic drugs; Z79.899 Other long term (current) drug therapy; Z87.891 Personal history of nicotine dependence; Z95.810 Presence of automatic (implantable) cardiac defibrillator
CPT/HCPCS: 36415; 71010; 71275; 80053; 80061; 82150; 82550; 82553; 82962; 83690; 83735; 83880; 84484; 85007; 85025; 85027; 85610; 85730; 93005; 93041; 96361; 96372; 96374

== ENCOUNTER → 2019-07-02 | Outpatient (CLI) | payer MEDICAID ==
[~2019-07-02] MED LIST changes: +AZIT250T12 PO; -AZIT250T5 PO; +BENZ-36 PO; -BENZ100C23 PO; -CODE118S2 PO; +CODE118S4 PO; +MAGN400T39 PO; +METF-399 PO; -METF1000 PO; -OMEP20CA12 PO; +OMEP20CA13 PO; -SPIR25TA3 PO; +SPIR25TA5 PO; +potassium
== END ==
LOC: CARD 08:29
PROVIDERS: ATTEND Internal Medicine Interventional Cardiology
DX: I51.7 Cardiomegaly (principal); I42.9 Cardiomyopathy, unspecified; G47.33 Obstructive sleep apnea (adult) (pediatric); I10 Essential (primary) hypertension; Z95.810 Presence of automatic (implantable) cardiac defibrillator
CPT/HCPCS: 93306

== ENCOUNTER 2019-12-23 09:15 | Outpatient (CLI) | payer MEDICAID ==
[~2019-12-23] VITALS: Ht 167.7 cm; Wt 143.6 kg
[~2019-12-23 09:15] MED LIST changes: +OMEP-280 PO; -OMEP20CA13 PO; -OXYB10TA PO; +OXYB10TA2 PO; -SACU1TAB PO; +SACU1TAB2 PO; -TRAM50TA2 PO; +TRM50T PO
[2019-12-23] MEDS ORDERED: CYCL10TA9 PO (09:48)
[2019-12-23] MEDS ORDERED: OMEP40CA27 PO (09:48)
[2019-12-23] MEDS ORDERED: INSU100V6 SQ (09:48)
== END 2019-12-23 09:51 | disposition home or self-care (01) ==
LOC: PREOP 09:15
PROVIDERS: ATTEND Surgery
DX: Z01.818 Encounter for other preprocedural examination (principal)

== ENCOUNTER → 2020-01-12 | Outpatient (CLI) | payer MEDICAID ==
[~2020-01-12] VITALS: Ht 168 cm; Wt 143.0 kg
[~2020-01-12] MED LIST changes: +CATHETER FLUSH 10 ML SYR IV PRN; +INSU100V6 SQ; +OMEP40CA27 PO; +REGADENOSON 0.4 MG/5 ML SYR (LEXISCAN) IV ONE
--- NOTE | 2020-01-12 18:22 | STRESS TEST ---
DATE OF SERVICE: LEXISCAN MYOVIEW STRESS TEST REPORT REFERRING PHYSICIAN: Shannon Winn DO, [facility]. Baseline heart rate is 108. Baseline blood pressure 148/101. Baseline EKG is sinus rhythm with nonspecific T-wave abnormality. In summary, the patient was injected with 10.95 mCi of technetium-99 Myoview and the resting images were obtained. Then, the patient received 0.4 mg of Lexiscan followed by 28.2 mCi of technetium-99 Myoview, no EKG changes were noted. The SPECT images were reviewed and there is diaphragmatic attenuation affecting the quality of the images with decreased uptake involving the inferior wall with mild reversibility. SSS is 6, SDS 5. TID value 1.06. On the gated images, the left ventricle is prominent with diffuse left ventricular hypokinesia, calculated ejection fraction 37%. CONCLUSION: 1. The patient tolerated Lexiscan well. 2. Diaphragmatic attenuation with reversible ischemia involving the inferior wall. 3. Dilated left ventricle with diffuse left ventricular hypokinesia, calculated ejection fraction 37%. Job ID: [id number] DocumentID: [id number] Dictated Date: 01/12/2020 16:08:48 Superannuation Clerk Date: 01/12/2020 18:22:11 Dictated By: LATOYA MURO MD
== END ==
LOC: CARD 07:19
PROVIDERS: ATTEND Physician Assistant
DX: R07.9 Chest pain, unspecified (principal); I25.10 Atherosclerotic heart disease of native coronary artery without angina pectoris; I10 Essential (primary) hypertension; E78.2 Mixed hyperlipidemia; Z95.810 Presence of automatic (implantable) cardiac defibrillator
CPT/HCPCS: 78452; 93017

== ENCOUNTER 2020-01-19 11:50 | Day surgery (SDC) | payer MEDICAID ==
[~2020-01-19] VITALS: Ht 168.9 cm; Wt 143.8 kg
[2020-01-19] VITALS (8 sets, daily range): BP systolic 107–131; BP diastolic 68–93
[~2020-01-19 11:50] MED LIST changes: -CATHETER FLUSH 10 ML SYR IV PRN; -OMEP-280 PO; +OMEP20CA18 PO; -OXYB10TA2 PO; +OXYB10TA29 PO; +QUET100T33 PO; -QUET100T69 PO; -REGADENOSON 0.4 MG/5 ML SYR (LEXISCAN) IV ONE
[2020-01-19] MEDS ORDERED: NS IV 1000 ML 1,000 ML ONE (12:02)
[2020-01-19] MEDS ORDERED: HEParin (CATH LAB) 2,000 ML IV ONE (12:02)
[2020-01-19] MEDS ORDERED: LIDOCAINE 1% INJ 20 ML 20 ML VIAL ONE (12:02)
[2020-01-19] MEDS ORDERED: NS IV 1000 ML 1,000 ML IV SCH ×2 (12:11→14:22)
--- NOTE | 2020-01-19 12:36 | Diagnostic Imaging Report ---
CLINICAL INDICATION: Patient with CHF, cath. EXAM: Portable chest x-ray upright view. COMPARISONS: Portable chest x-ray dated 06/30/2017. FINDINGS: Lungs/pleura: Stable minimal left lung base atelectasis or scarring. Otherwise, lungs are clear. There is no pneumothorax. There is no pleural effusion. Mediastinum: Unremarkable. Pulmonary vasculature: Unremarkable. Heart: Heart size is within normal limits. Cardiac pacemaker is seen overlying the left chest. Bones/extrathoracic soft tissue: Unremarkable. IMPRESSION: Stable chest x-ray exam with no interval radiographic evidence of acute cardiopulmonary process. Stable mild left lung base atelectasis versus scarring. Dictated by: Dictated on workstation # [id number]
[2020-01-19 12:37] LABS: HEMOGLOBIN 15.4 G/DL (13.3-17.7); MEAN PLATELET VOLUME 10.6 FL (7.4-10.4); RED CELL DISTRIBUTION WIDTH 13.2 % (10.0-14.5); WHITE BLOOD COUNT 8.5 10^3/uL (4.3-11.0)
[2020-01-19] MEDS ORDERED: PAMI30VI8 SQ (12:43)
[2020-01-19 12:49] LABS: PROTHROMBIN TIME PATIENT 13.4 SEC (12.2-14.7)
[2020-01-19 12:52] LABS: BILIRUBIN,URINE NEGATIVE (NEGATIVE); CLARITY,URINE CLEAR; COLOR,URINE YELLOW; GLUCOSE, URINE (UA) 2+ (NEGATIVE); KETONES,URINE NEGATIVE (NEGATIVE); LEUKOCYTE ESTERASE ,URINE NEGATIVE (NEGATIVE); NITRITE,URINE NEGATIVE (NEGATIVE); PROTEIN,URINE NEGATIVE (NEGATIVE)
[2020-01-19 12:58] LABS: BACTERIA,URINE NEGATIVE /HPF; WBC,URINE RARE /HPF
[2020-01-19 12:58] LABS: ALANINE AMINOTRANSFERASE 28 U/L (0-55); ALBUMIN 4.2 GM/DL (3.2-4.5); ALKALINE PHOSPHATASE 72 U/L (40-136); BILIRUBIN,TOTAL 0.4 MG/DL (0.1-1.0); BUN/CREATININE RATIO 13; CALCIUM 8.8 MG/DL (8.5-10.1); CARBON DIOXIDE 18 MMOL/L (21-32); CHLORIDE 108 MMOL/L (98-107); CHOLESTEROL 182 MG/DL (< 200); CREATININE SERUM 0.84 MG/DL (0.60-1.30); GFR ESTIMATED > 60; GLUCOSE 223 MG/DL (70-105); HDL CHOLESTEROL 42 MG/DL (40-60); POTASSIUM 3.8 MMOL/L (3.6-5.0); SODIUM 137 MMOL/L (135-145); TOTAL PROTEIN 7.1 GM/DL (6.4-8.2); TRIGLYCERIDES 165 MG/DL (<150); VLDL CHOLESTEROL 33 MG/DL (5-40)
[2020-01-19] MEDS ORDERED: MIDAZOLAM 5 MG/5 ML (VERSED) VIAL ONE (13:37)
[2020-01-19] MEDS ORDERED: fentaNYL INJECTION 100 MCG/2 ML AMP ONE (13:37)
[2020-01-19] MEDS ORDERED: NITRO DRIP 25000 MCG/D5W 250 ML IV ONE (14:01)
--- NOTE | 2020-01-19 14:22 | Cardiac Procedure Note-CS/ASA ---
Pre-Procedure Note Pre-Op Procedure Note H&P Reviewed The H&P was reviewed, patient examined and no changes noted. Date H&P Reviewed: Jan 19, 2020 Time H&P Reviewed: 13:00 Conscious Sedation Pre-Proced Time 13:00 ASA Score 3 For ASA 3 and 4: Consider anesthesia and medical clearance. Also, for patients with a history of failed moderate sedation consider anesthesia. Airway Lungs Heart ASA score ASA 1: a normal healthy patient ASA 2: a patient with a mild systemic disease (mid diabetes, controlled hypertension, obesity x ASA 3: a patient with a severe systemic disease that limits activity (angina, COPD, prior Myocardial infarction) ASA 4: a patient with an incapacitating disease that is a constant threat to life (CHF, renal failure) ASA 5: a moribund patient not expected to survive 24 hrs. (ruptured aneurysm) ASA 6: a declared brain- patient whose organs are being harvested. For emergent operations, add the letter E after the classification Mallampati Classification Grade 3 Sedation Plan Analgesia, Amnesia, Plan communicated to team members, Discussed options with patient/fam, Discussed risks with patient/fam The patient is an appropriate candidate to undergo the planned procedure, sedation, and anesthesia. The patient immediately re-assessed prior to indication. LATOYA MURO MD Jan 19, 2020 14:21
--- NOTE | 2020-01-19 14:23 | Discharge Inst-Post CATH ---
Discharge Inst-CATH/EP Problems Reviewed?: Yes Post Cardiac Cath/EP D/C Inst Follow Up/Plan Appointment with Dr. Thompson's office in 2-4 weeks <b>CARDIAC CATH/EP PROCEDURE DISCHARGE INSTRUCTIONS</b> ACTIVITY * Go Home directly and rest. * Limit activity of the leg (or wrist if it was used) for 7 days including aerobics, swimming, jogging, bicycling, etc. * Restrict stair-climbing for 7 days if possible, if not, climb up with your non-cath leg, then bring together on the same step. * Avoid lifting, pushing, pulling or excessive movement of the affected extremity for 7 days. * Customary sexual activity may be resumed after 2 days-use caution not to use a position that strains or causes pain to the affected extremity. * No driving for 24 hours. * NO SMOKING. * Avoid straining for bowel movements for 7 days. * Gentle walking on level ground is allowed. * Returning to work will depend on the type of procedure and the results. Your doctor will discuss this with you. CALL YOUR DOCTOR FOR ANY OF THE FOLLOWING: *If bleeding from the puncture site occurs- Apply gentle pressure to site with clean cloth and call your doctor or EMS. * If a knot or lump forms under the skin, increases in size, or causes pain. * If bruising appears to be worsening or moving further down your leg instead of disappearing. * Temperature above 101 F. CARE OF YOUR GROIN INCISION; * Bruising or purple discoloration of the skin near the puncture site is common. * You may shower only, no bathtub bathing for 5 days. Be careful to avoid slipping as your leg may feel stiff. * If a closure device was used on your femoral artery, please see the attached guide regarding care of the device and your leg. * Leave dressing on FOR 24 hours. CARE OF YOUR WRIST INCISION; * Bruising or purple discoloration of the skin near the puncture site is common. * You may shower. * DO NOT submerge wrist. * Leave dressing on FOR 24 hours. LATOYA THOMPSON MD Jan 19, 2020 14:23
--- NOTE | 2020-01-19 14:27 | Cardiac Cath Report ---
Cardiac Cath Report Physician (s)/Director Of Field Sales (s) Physician LATOYA MURO MD Pre-Procedure Diagnosis Pre-Procedure Diagnosis: Coronary artery disease, congestive heart failure Post-Procedure Note Procedure Start Date: Jan 19, 2020 Name of Procedure: Left heart catheterization Left ventriculogram Findings/Procedure Note PROCEDURE NOTE: 49 years old gentleman with severe cardiomyopathy, had an abnormal stress test, scheduled for cardiac catheterization possible PTCA. After explaining the procedure to the patient, all pros and cons were explained, all questions were answered. The patient signed the consent and then he was placed on the cardiac catheterization laboratory. Groin was prepped SL fashion l ocal anesthesia was used. Sheath placed in the right radial artery, Loami catheter advanced to the left ventricular cavity, pressure was measured left ventricular gram was done and pullback LV to aorta was done, intubated the coronary artery and angiogram was done At the end of the procedure the sheath was removed. Vascular band was used FINDINGS: Hemodynamics LV 108/18, end-diastolic pressure of 18 Aorta 117/79 mean of 92 ANATOMY: Left Main is free of obstructive disease Left Anterior Descending has mild disease nonobstructive disease Left Circumflex has mild disease nonobstructive disease Right Coronory Artery has mild disease nonobstructive disease LV Gram was suboptimal, the left ventricle wall was not well-visualized. CONCLUSION: 1. Mild coronary artery disease nonobstructive disease 2. Normal left ventricular size, contracts 80 was not well-visualized, mildly elevated end-diastolic pressure DISCUSSION AND RECOMMENDATION: Medical therapy is recommended no intervention is needed Anesthesia Type: Conscious Sedation Estimated blood loss (mL): 5 ml Contrast Amount: 60 ml Total Radiation Dose: 666 mGy Post-Procedure Diagnosis Post-operative diagnosis: Coronary artery disease Congestive heart failure, chronic compensated left ventricular systolic dysfunction, nonischemic cardiomyopathy Hypertension Hyperlipidemia LATOYA MURO MD Jan 19, 2020 14:27
--- NOTE | 2020-01-19 18:00 | NUR ---
THIS NURSE EDUCATED PT ON DISCHARGE INSTRUCTIONS. PT WAS EDUCATED ON CATH SITE CARE. PT AND STATED UNDERSTANDING. PT WALKED DOWN WITH NURSE TO CAR WITH BELONGINGS. TO TAKE PT HOME.
== END 2020-01-19 18:10 | disposition home or self-care (01) ==
LOC: CATH 11:50 → ICU 15:18 → CATH 18:10
PROVIDERS: ATTEND Internal Medicine Cardiovascular Disease
DX: I25.10 Atherosclerotic heart disease of native coronary artery without angina pectoris (principal); I42.8 Other cardiomyopathies; I50.42 Chronic combined systolic (congestive) and diastolic (congestive) heart failure; I11.0 Hypertensive heart disease with heart failure; I34.1 Nonrheumatic mitral (valve) prolapse; I42.0 Dilated cardiomyopathy; J44.9 Chronic obstructive pulmonary disease, unspecified; G47.33 Obstructive sleep apnea (adult) (pediatric); E78.2 Mixed hyperlipidemia; E66.01 Morbid (severe) obesity due to excess calories; E11.9 Type 2 diabetes mellitus without complications; J45.909 Unspecified asthma, uncomplicated; M19.90 Unspecified osteoarthritis, unspecified site; Z88.0 Allergy status to penicillin; Z88.2 Allergy status to sulfonamides; Z88.8 Allergy status to other drugs, medicaments and biological substances; Z79.82 Long term (current) use of aspirin; Z79.899 Other long term (current) drug therapy; Z98.810 Dental sealant status; Z90.89 Acquired absence of other organs; Z87.891 Personal history of nicotine dependence; Z95.810 Presence of automatic (implantable) cardiac defibrillator; Z68.34 Body mass index [BMI] 34.0-34.9, adult; Z80.0 Family history of malignant neoplasm of digestive organs
CPT/HCPCS: 36415; 71045; 80053; 80061; 81000; 85027; 85610; 85730; 87081; 93458

== ENCOUNTER → 2020-01-27 | Outpatient (CLI) | payer MEDICAID ==
[~2020-01-27] MED LIST changes: +PAMI30VI8 SQ
== END ==
LOC: CARD 12:31
PROVIDERS: ATTEND Physician Assistant
DX: I25.10 Atherosclerotic heart disease of native coronary artery without angina pectoris (principal); I11.9 Hypertensive heart disease without heart failure; E78.2 Mixed hyperlipidemia; Z95.810 Presence of automatic (implantable) cardiac defibrillator
CPT/HCPCS: 93306

== ENCOUNTER → 2020-02-07 | Outpatient (CLI) | payer MEDICAID ==
[~2020-02-07] MED LIST changes: +CATHETER FLUSH 10 ML SYR IV PRN; +HEParin (CENTRAL IV FLUSH) 500 UNIT/5 ML SYR ONE
--- NOTE | 2020-02-10 15:50 | Diagnostic Imaging Report ---
DATE OF SERVICE: 02/07/2020 MUGA SCAN REPORT REFERRING PHYSICIAN: Dr. Shannon Winn. SUMMARY: The patient was injected with 30.3 mCi of technetium-99 tagged RBCs and images were acquired and reviewed in 4 views. Review of the images showed normal left ventricular size with mild hypokinesia. Calculated ejection fraction 48%. CONCLUSION: Calculated ejection fraction on MUGA scan is 48%. Job ID: [id number] DocumentID: [id number] Dictated Date: 02/10/2020 15:16:28 African Studies Professor Date: 02/10/2020 15:49:46 Dictated By: LATOYA MURO MD
== END ==
LOC: CARD 13:15
PROVIDERS: ATTEND Internal Medicine Cardiovascular Disease
DX: I50.9 Heart failure, unspecified (principal)
CPT/HCPCS: 78472

== ENCOUNTER → 2020-05-11 | Outpatient (CLI) | payer MEDICAID ==
[~2020-05-11] MED LIST changes: -CATHETER FLUSH 10 ML SYR IV PRN; -HEParin (CENTRAL IV FLUSH) 500 UNIT/5 ML SYR ONE
== END ==
LOC: CARD 13:40
PROVIDERS: ATTEND Internal Medicine Cardiovascular Disease
DX: J45.909 Unspecified asthma, uncomplicated (principal); E78.2 Mixed hyperlipidemia; I42.9 Cardiomyopathy, unspecified; I51.7 Cardiomegaly; R00.2 Palpitations
CPT/HCPCS: 93306

== ENCOUNTER → 2020-05-23 | Outpatient (CLI) | payer MEDICAID ==
[~2020-05-23] MED LIST changes: +CATHETER FLUSH 10 ML SYR IV PRN; +HEParin (CENTRAL IV FLUSH) 500 UNIT/5 ML SYR ONE
--- NOTE | 2020-05-24 15:09 | Cardiology Stress Test Report ---
Stress Test Report Date of Procedure/Referring: Date of Procedure: May 23, 2020 PCP Latoya Thompson MD Admitting Physician [facility] Indications: Congestive heart failure Summary: Patient was injected with 29.0 mCi of technetium 99 labeled RBCs, images were acquired and reviewed in left anterior light, right anterior oblique, left lateral and anterior view. Review of the images showed normal left ventricular size mild hypokinesia, EF 43 percent. Previous study from January 2020 at EF 48 percent EF: 43 Conclusion: 1. Normal left ventricular size, mild diffuse hypokinesia, EF 43 percent, previous study from January 2020 had EF 48 percent LATOYA THOMPSON MD May 24, 2020 15:09
== END ==
LOC: CARD 12:46
PROVIDERS: ATTEND Internal Medicine Cardiovascular Disease
DX: I50.9 Heart failure, unspecified (principal)
CPT/HCPCS: 78472; A9560

== ENCOUNTER → 2020-09-07 | Outpatient (CLI) | payer MEDICAID ==
[~2020-09-07] MED LIST changes: +ASPI-1238 PO; -ASPI-983 PO; -CATHETER FLUSH 10 ML SYR IV PRN; -HEParin (CENTRAL IV FLUSH) 500 UNIT/5 ML SYR ONE; +HOLD METFORMIN - RECEIVED CONTRAST 20 ML VIAL IV SCH; +IOHEXOL 350 MG/ML 100 ML (OMNIPAQUE 350) VIAL IV ONE; +NS 100 ML (IVPB) BAG IV ONE
[2020-09-07 08:25] LABS: BUN/CREATININE RATIO 15; CREATININE SERUM 0.91 MG/DL (0.60-1.30); GFR ESTIMATED > 60
--- NOTE | 2020-09-07 10:32 | Diagnostic Imaging Report ---
PROCEDURE: CT chest with contrast only. TECHNIQUE: Multiple contiguous axial images were obtained through the chest after administration of intravenous contrast. Auto Exposure Controls were utilized during the CT exam to meet ALARA standards for radiation dose reduction. INDICATION: Asthma, shortness of breath. The previous CTA chest exam of 07/01/2017 failed to show any sign of an aortic dissection. There is no clear evidence for pulmonary embolus either. On this exam the heart is within normal limits, stable in size when compared to the prior exam. Coronary artery calcifications are again noted.. The left-sided pacemaker seen previously is again evident and no different. The aorta is not abnormally dilated and there is no evidence for dissection. There is no defect within the pulmonary arteries to indicate a pulmonary embolus either. The lungs are generally clear. There is mild atelectasis/scar formation involving the lingula. There is no sign of failure, pneumonia or pleural effusion to indicate an acute abnormality however. There is a 2 mm nodule in the right mid lung (image 57 and 156. This is unchanged when compared to the prior study consequently most likely benign. There is no mediastinal or hilar adenopathy. The thyroid gland was not well visualized due to streak artifact. There is increased density in both retroareolar regions. This is most likely due to mild gynecomastia. The sections through the upper abdomen show that the liver is of lower density than usually seen. This does suggest fatty metamorphosis. This finding is unchanged when compared to the prior exam. The bone windows show no sign of a fracture or of a destructive lesion. IMPRESSION: 1. There is no evidence for an acute cardiopulmonary abnormality. In particular, there is no sign of an aortic dissection or of a pulmonary embolus. 2. There is coronary artery disease and there is a left-sided pacemaker in place. 3. The appearance of the liver does suggest fatty metamorphosis. Dictated by: Dictated on workstation # [id number]
== END ==
LOC: RAD 07:56
PROVIDERS: ATTEND Nurse Practitioner Family
DX: J45.909 Unspecified asthma, uncomplicated (principal); I25.10 Atherosclerotic heart disease of native coronary artery without angina pectoris; Z95.0 Presence of cardiac pacemaker
CPT/HCPCS: 36415; 71260; 82565; 84520

== ENCOUNTER → 2020-09-07 | Outpatient (CLI) | payer MEDICAID ==
[~2020-09-07] MED LIST changes: -HOLD METFORMIN - RECEIVED CONTRAST 20 ML VIAL IV SCH; -IOHEXOL 350 MG/ML 100 ML (OMNIPAQUE 350) VIAL IV ONE; -NS 100 ML (IVPB) BAG IV ONE
--- NOTE | 2020-09-07 09:04 | Diagnostic Imaging Report ---
INDICATION: Lump in the anterior lower neck on the right. Right lobe of the thyroid measures 4.4 x 1.7 x 1.8 cm and the left lobe measures 4.8 x 2.4 x 2.5 cm. There is a solid-appearing nodule in the lower pole left lobe of the thyroid measuring 3.1 x 2.1 x 2.4 cm. Right lobe of thyroid is unremarkable and shows homogeneous echotexture. Area of lump corresponds to just inferior to the right lobe of the thyroid. No underlying abnormality is seen. IMPRESSION: 1. Dominant solid nodule left lobe of the thyroid. Fine-needle aspiration could be performed. 2. No abnormality at the area of patient's palpable abnormality. Dictated by: Dictated on workstation # [id number]
== END ==
LOC: RAD 07:55
PROVIDERS: ATTEND Nurse Practitioner Community Health
DX: E04.1 Nontoxic single thyroid nodule (principal)
CPT/HCPCS: 76536

== ENCOUNTER 2020-09-12 23:24 | Emergency (ER) | payer MEDICAID ==
[~2020-09-12] VITALS: Ht 167 cm; Wt 149.0 kg
[2020-09-12] MEDS: NITROGLYCERIN 0.4 MG SL TABS BTL 25'S SL PRN ×2 (23:41→23:54)
[2020-09-12 23:45] LABS: BASOPHILS % (AUTO) 0 % (0-10); EOSINOPHILS # (AUTO) 0.2 10^3/uL (0.0-0.3); EOSINOPHILS % (AUTO) 2 % (0-10); HEMATOCRIT 43 % (40-54); HEMOGLOBIN 15.3 g/dL (13.3-17.7); LYMPHOCYTES # (AUTO) 2.8 10^3/uL (1.0-4.0); LYMPHOCYTES % (AUTO) 24 % (12-44); MEAN CORPUSCULAR HEMOGLOBIN 32 pg (25-34); MEAN CORPUSCULAR HGB CONC 36 g/dL (32-36); MEAN CORPUSCULAR VOLUME 89 fL (80-99); MEAN PLATELET VOLUME 10.8 fL (9.0-12.2); MONOCYTES # (AUTO) 0.9 10^3/uL (0.0-1.0); MONOCYTES % (AUTO) 7 % (0-12); NEUTROPHILS # (AUTO) 7.6 10^3/uL (1.8-7.8); NEUTROPHILS % (AUTO) 66 % (42-75); PLATELET COUNT 206 10^3/uL (130-400); WHITE BLOOD COUNT 11.5 10^3/uL (4.3-11.0)
[2020-09-12] MEDS ORDERED: ASPIRIN 81 MG CHEW (CHILDREN'S ASA) PO ONE (23:45)
--- NOTE | 2020-09-12 23:48 | NUR ---
Pt arrives with cp x 2 days and sob; states the pain is sharp and radiates into his back and left shoulder. Reports he had his pacemaker interrogated "the other day" and one of his leads "wasn't placed right.
[2020-09-12 23:56] LABS: ALBUMIN 4.2 GM/DL (3.2-4.5)
[2020-09-12 23:57] LABS: CHLORIDE 103 MMOL/L (98-107); POTASSIUM 3.9 MMOL/L (3.6-5.0); SODIUM 135 MMOL/L (135-145)
[2020-09-12 23:58] LABS: CALCIUM 8.8 MG/DL (8.5-10.1)
[2020-09-12 23:59] LABS: GLUCOSE 235 MG/DL (70-105); TOTAL PROTEIN 7.4 GM/DL (6.4-8.2)
[2020-09-13] LABS: CARBON DIOXIDE 18 MMOL/L (21-32)
--- NOTE | 2020-09-13 | ED Chest Pain ---
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 States he was wrestling with his daughter when it started. States the pain is 8/10. Nursing Sepsis Screen: No Definite Risk Source: patient, old records Exam Limitations: no limitations History of Present Illness Date Seen by Provider: Sep 12, 2020 Time Seen by Provider: 23:26 Initial Comments This 50-year-old gentleman with nonischemic cardiomyopathy and heart failure presents to the emergency room with complaints of severe left upper chest pain that radiates to his back that started last night and has escalated since then. He is breathing heavily which he states is from the pain. Review of his chart notes cardiac catheterization in December showing mild coronary artery disease. Echocardiogram from January shows an ejection fraction of 25 to 30%. Patient states very deep breaths increase his pain. He otherwise has not noted any alleviating or exacerbating factors for this constant chest pain. He denies cough or fever. 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 Allergies and Home Medications Allergies Coded Allergies: Penicillins (Verified Allergy, Unknown, 04/18/12) Sulfa (Sulfonamide Antibiotics) (Verified Allergy, Unknown, 02/20/17) liraglutide (Verified Allergy, Unknown, 02/20/17) Home Medications Albuterol Sulfate 2.5 Mg/3 Ml Vial.neb, 2.5 MG NEB QID PRN for SHORTNESS OF BREATH, (Reported) Albuterol Sulfate 1 Puff Puff, 2 PUFF IH QID PRN for SHORTNESS OF BREATH, (Reported) 1 PUFF = 90 MCG Aspirin 81 Mg Tablet.dr, 81 MG PO DAILY, (Reported) Budesonide/Formoterol Fumarate 10.2 Gm Hfa.aer.ad, 2 PUFF IH BID, (Reported) Carvedilol 3.125 Mg Tablet, 3.125 MG PO BID, (Reported) Cyclobenzaprine HCl 10 Mg Tablet, 10 MG PO BID PRN for MUSCLE SPASMS, (Reported) Fluticasone Propionate 16 Gm Faber.susp, 1 SPRAY NS BID PRN for ALLERGIES, (Reported) Furosemide 40 Mg Tablet, 40 MG PO DAILY, (Reported) Glyburide 5 Mg Tablet, 5 MG PO DAILY, (Reported) Hydrocodone/Acetaminophen 1 Each Tablet, 1 EACH PO Q4H PRN for PAIN-BREAKTHROUGH Prescribed by: YANET SANTA on 09/13/20 0325 Insulin Glargine,Hum.rec.anlog 100 Unit/1 Ml Vial, 36 UNIT SQ HS, (Reported) Insulin Lispro 100 Unit/1 Ml Cartridge, 36 UNIT SQ PC, (Reported) Linaclotide 145 Mcg Capsule, 145 MCG PO DAILY, (Reported) HOLD FOR LOOSE STOOLS Magnesium Oxide 400 Mg Tablet, 400 MG PO DAILY, (Reported) Metformin HCl 1,000 Mg Tablet, 1,000 MG PO BID WITH MEALS, (Reported) Omeprazole 40 Mg Capsule.dr, 40 MG PO DAILY, (Reported) Oxybutynin Chloride 10 Mg Tab.er.24, 10 MG PO DAILY, (Reported) Potassium Chloride 10 Meq Capsule.er, 10 MEQ PO DAILY, (Reported) Quetiapine Fumarate 300 Mg Tablet, 300 MG PO HS, (Reported) Sacubitril/Valsartan 1 Each Tablet, 1 TAB PO BID, (Reported) Sertraline HCl 100 Mg Tablet, 100 MG PO DAILY, (Reported) Spironolactone 25 Mg Tablet, 25 MG PO DAILY, (Reported) Tiotropium Sargent 4 Gm Mist.inhal, 2 PUFF IH DAILY, (Reported) Patient Home Medication List Home Medication List Reviewed: Yes Review of Systems Review of Systems Constitutional: no symptoms reported EENTM: No Symptoms Reported Respiratory: See HPI Cardiovascular: See HPI Gastrointestinal: No Symptoms Reported Genitourinary: No Symptoms Reported Musculoskeletal: no symptoms reported Skin: no symptoms reported Psychiatric/Neurological: No Symptoms Reported Endocrine: No Symptoms Reported Hematologic/Lymphatic: No Symptoms Reported Past Zxizfjf-Winpsw-Aegvlt Hx Past Med/Social Hx: Reviewed and Corrections made Patient Social History Alcohol Use: Occasionally Uses Number of Drinks Today: AA Alcohol Beverage of Choice: Beer Recreational Drug Use: No Smoking Status: Former Smoker Type Used: Smokeless Tobacco Former Smoker, Quit: May 12, 2015 2nd Hand Smoke Exposure: No Recent Foreign Travel: No Contact w/Someone Who Travel: No Recent Infectious Disease Expo: No Recent Hopitalizations: No Immunizations Up To Date Tetanus Booster (TDap): Less than 5yrs PED Vaccines UTD: No Date of Pneumonia Vaccine: Apr 25, 2012 Seasonal Allergies Seasonal Allergies: Yes (Hayfever) Past Medical History Surgeries: Yes (HEMOTOMA REMOVAL OFF NECK, TESTICULAR SURGERY, R KNEE, PACEMAKER DEFIB) Testicular, Tonsillectomy Respiratory: Yes COPD Currently Using CPAP: No Currently Using BIPAP: No Cardiac: Yes (Systolic dysfunction, EF 25 to 30% January 2020) Cardiomyopathy (Nonischemic), Coronary Artery Disease (Mild, nonobstructive), Congenital Heart Disease, Hypertension, Irregular Heartbeat Neurological: No Headaches /Migraines Reproductive Disorders: No Sexually Transmitted Disease: No HIV/AIDS: No Genitourinary: No Gastrointestinal: Yes Gastroesophageal Reflux, Chronic Constipation, Hemorrhoids Musculoskeletal: Yes Arthritis Endocrine: Yes (MORBID OBESITY; TAKES INSULIN + PILLS) Diabetes, Insulin dep HEENT: Yes (Glasses ) Loss of Vision: Denies Hearing Impairment: Hard of Hearing Cancer: No Psychosocial: Yes Sleep Difficulties, Anxiety, PTSD, Depression Integumentary: No Blood Disorders: No Adverse Reaction/Blood Tranf: No Family Medical History Cardiovascular disease 19 FATHER 19 MOTHER Diabetes mellitus G8 SISTER FH: heart failure 19 FATHER 19 MOTHER Heart Disease Physical Exam Vital Signs Vital Signs - First Documented 09/12/20 09/12/20 09/12/20 23:37 23:55 23:57 Temp 37.0 Pulse 133 Resp 24 B/P (MAP) 142/111 (121) Pulse Ox 97 O2 Delivery Room Air O2 Flow Rate 1.00 Capillary Refill : Less Than 3 Seconds Height, Weight, BMI Height: 5'6.50" Weight: 347lbs. 3.0oz. 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 Norm as Tested Skin: Normal Color, Warm/Dry Progress/Results/Core Measures Results/Orders Lab Results Laboratory Tests Test 09/12/20 23:35 09/13/20 02:00 09/13/20 02:14 Range/Units White Blood Count 11.5 H 4.3-11.0 10^3/uL Red Blood Count 4.85 4.30-5.52 10^6/uL Hemoglobin 15.3 13.3-17.7 g/dL Hematocrit 43 40-54 % Mean Corpuscular Volume 89 80-99 fL Mean Corpuscular Hemoglobin 32 25-34 pg Mean Corpuscular Hemoglobin Concent 36 32-36 g/dL Red Cell Distribution Width 12.5 10.0-14.5 % Platelet Count 206 130-400 10^3/uL Mean Platelet Volume 10.8 9.0-12.2 fL Immature Granulocyte % (Auto) 0 % Neutrophils (%) (Auto) 66 42-75 % Lymphocytes (%) (Auto) 24 12-44 % Monocytes (%) (Auto) 7 0-12 % Eosinophils (%) (Auto) 2 0-10 % Basophils (%) (Auto) 0 0-10 % Neutrophils # (Auto) 7.6 1.8-7.8 10^3/uL Lymphocytes # (Auto) 2.8 1.0-4.0 10^3/uL Monocytes # (Auto) 0.9 0.0-1.0 10^3/uL Eosinophils # (Auto) 0.2 0.0-0.3 10^3/uL Basophils # (Auto) 0.0 0.0-0.1 10^3/uL Immature Granulocyte # (Auto) 0.1 0.0-0.1 10^3/uL Prothrombin Time 13.6 12.2-14.7 SEC INR Comment 1.0 0.8-1.4 Activated Partial Thromboplast Time 29 24-35 SEC D-Dimer 0.60 H 0.00-0.49 UG/ML Sodium Level 135 135-145 MMOL/L Potassium Level 3.9 3.6-5.0 MMOL/L Chloride Level 103 98-107 MMOL/L Carbon Dioxide Level 18 L 21-32 MMOL/L Anion Gap 14 5-14 MMOL/L Blood Urea Nitrogen 16 7-18 MG/DL Creatinine 1.02 0.60-1.30 MG/DL Estimat Glomerular Filtration Rate > 60 BUN/Creatinine Ratio 16 Glucose Level 235 H 70-105 MG/DL Calcium Level 8.8 8.5-10.1 MG/DL Corrected Calcium 8.6 8.5-10.1 MG/DL Magnesium Level 1.8 1.6-2.4 MG/DL Total Bilirubin 0.4 0.1-1.0 MG/DL Aspartate Amino Transf (AST/SGOT) 22 5-34 U/L Alanine Aminotransferase (ALT/SGPT) 32 0-55 U/L Alkaline Phosphatase 78 40-136 U/L Myoglobin 43.5 10.0-92.0 NG/ML Troponin I < 0.028 < 0.028 <0.028 NG/ML C-Reactive Protein High Sensitivity 1.53 H 0.00-0.50 MG/DL B-Type Natriuretic Peptide < 10.0 <100.0 PG/ML Total Protein 7.4 6.4-8.2 GM/DL Albumin 4.2 3.2-4.5 GM/DL TSH Levy Testing 1.82 0.35-4.94 UIU/ML Erythrocyte Sedimentation Rate 32 H 0-30 MM/HR My Orders Orders - YANET MCADAMS MD Cbc With Automated Diff (09/12/20 23:35) Magnesium (09/12/20 23:35) Chest 1 View, Ap/Pa Only (09/12/20 23:35) Ekg Tracing (09/12/20 23:35) Comprehensive Metabolic Panel (09/12/20 23:35) Myoglobin Serum (09/12/20 23:35) Protime With Inr (09/12/20 23:35) Partial Thromboplastin Time (09/12/20 23:35) O2 (09/12/20 23:35) Monitor-Rhythm Ecg Trace Only (09/12/20 23:35) Ed Iv/Invasive Line Start (09/12/20 23:35) Troponin I (09/12/20 23:35) Nitroglycerin 0.4 Mg Btl 25's (Nitrostat (09/12/20 23:45) Aspirin Chewable Tablet (Baby Aspirin Ch (09/12/20 23:45) Hs C Reactive Protein (09/12/20 23:35) BNP (09/12/20 23:54) Fibrin Degradation Products (09/12/20 23:35) Morphine Injection (Morphine Injection (09/13/20 00:00) Ekg Tracing (09/13/20 00:10) Morphine Injection (Morphine Injection (09/13/20 00:06) Ct Angio Chest W (09/13/20 00:51) Thyroid Analyzer (09/13/20 01:05) Lactated Ringers (Lr 1000 Ml Iv Solution (09/13/20 01:07) Morphine Injection (Morphine Injection (09/13/20 01:20) Iohexol Injection (Omnipaque 350 Mg/Ml 1 (09/13/20 01:45) Ns (Ivpb) (Sodium Chloride 0.9% Ivpb Bag (09/13/20 01:45) Erythrocyte Sedimentation Rate (09/13/20 01:57) Ketorolac Injection (Toradol Injection) (09/13/20 02:00) Troponin I (09/13/20 02:00) Hydrocodone/Apap 5/325 Tablet (Lortab 5 (09/13/20 03:30) Medications Given in ED Current Medications Medications Dose Ordered Sig/Juancarlos Route Start Time Stop Time Status Last Admin Dose Admin Acetaminophen/ Hydrocodone Bitart 1 tab ONCE ONCE PO 09/13/20 03:30 09/13/20 03:31 DC 09/13/20 03:36 1 TAB Aspirin 324 mg ONCE ONCE PO 09/12/20 23:45 09/12/20 23:46 DC 09/12/20 23:40 324 MG Iohexol 125 ml ONCE ONCE IV 09/13/20 01:45 09/13/20 01:50 DC 09/13/20 01:41 125 ML Ketorolac Tromethamine 30 mg ONCE ONCE IVP 09/13/20 02:00 09/13/20 02:01 DC 09/13/20 02:27 30 MG Lactated Ringer's 1,000 ml @ 0 mls/hr Q0M ONCE IV 09/13/20 01:07 09/13/20 01:08 DC 09/13/20 01:27 999 MLS/HR Nitroglycerin 0.4 mg UD PRN SL 09/12/20 23:45 09/13/20 03:40 DC 09/12/20 23:54 0.4 MG Sodium Chloride 80 ml ONCE ONCE IV 09/13/20 01:45 09/13/20 01:50 DC 09/13/20 01:41 80 ML Vital Signs/I&O 09/12/20 09/12/20 09/12/20 09/13/20 23:37 23:55 23:57 03:38 Temp 37.0 Pulse 133 133 109 Resp 24 18 B/P (MAP) 142/111 (121) 130/80 138/72 Pulse Ox 97 97 95 96 O2 Delivery Room Air Nasal Cannula Room Air O2 Flow Rate 1.00 Blood Pressure Mean: 121 Progress Progress Note #1: Time: 00:09 Progress Note Patient was seen and examined on arrival. Aspirin and nitroglycerin x2 were administered. Nitroglycerin did not improve his pain. Morphine is being administered. EKGs were discussed with Dr. Strong. Rhythm is possibly sinus tachycardia with atrial sensed ventricular paced rhythm responsible for the tachycardia. This does not represent STEMI. Further evaluation for causes of the tachycardia is underway. Nitroglycerin did not improve his pain. Morphine is being given. Progress Note #2: Progress Note Cardiopulmonary work-up was unremarkable including repeat troponin. CT angiogram was obtained because of elevated D-dimer. Patient did have some improvement in pain after morphine and Toradol. On reexamination he is noted to have tenderness around his pacemaker and into the axilla. He received a liter of IV fluid. Heart rate did improve some. He reports his heart rate has been elevated for about the last month and he is having this followed by Dr. Thompson. On palpation patient had reproducible pain around the pacemaker and in the left axilla. It was still worse with deep breathing. Ultimately, pain was felt to be musculoskeletal in nature. EKG #1: EKG Time: 23:24 Rate: 130 Comment Narrow complex tachycardia that appears regular, possibly atrial sensed ventricular paced sinus tachycardia. No definite ischemia. EKG #2: EKG Time: 23:28 Rate: 129 Comment Narrow complex regular tachycardia, possibly atrial sensed ventricular paced sinus tachycardia. No overt ischemia. Diagnostic Imaging Diagonstic Imaging: Xray Plain Films/CT/US/NM/MRI: chest Comments Chest x-ray viewed by me. Report not yet available. No acute change from prior appreciated by the ER provider. Diagonstic Imaging: CT Plain Films/CT/US/NM/MRI: chest Comments CT chest reviewed by me and [facility] report reviewed. No pulmonary emboli, chest mass, infiltrate, or other acute abnormalities. Departure Impression Primary Impression: Atypical chest pain Additional Impression: Tachycardia Disposition: 01 HOME, SELF-CARE Condition: Improved Departure-Patient Inst. Decision time for Depature: 03:23 Referrals: [facility]/ (PCP) Primary Care Physician GIULIANA MADRIGAL (Family) Primary Care Physician Patient Instructions: Chest Pain That Is Not Caused by the Heart (DC) Add. Discharge Instructions: Follow-up with Dr. Thompson soon as possible to discuss your tachycardia (rapid heart rate) and your chest pain. You may also have him evaluate your pacemaker if you continue to have pain in this area. For primary pain control take ibuprofen up to 600 mg every 6 hours as needed. Add hydrocodone as prescribed for pain not controlled by ibuprofen. Return to the emergency room if you have worsening symptoms despite these measures. All discharge instructions reviewed with patient and/or family. Voiced understanding. Scripts Hydrocodone/Acetaminophen (Hydrocodone-Acetamin 5-325 mg) 1 Each Tablet 1 EACH PO Q4H PRN for PAIN-BREAKTHROUGH, #5 TAB Prov: YANET MCADAMS MD 09/13/20 YANET MCADAMS MD Sep 13, 2020 00:00
[2020-09-13 00:01] LABS: BILIRUBIN,TOTAL 0.4 MG/DL (0.1-1.0)
[2020-09-13 00:02] LABS: ALKALINE PHOSPHATASE 78 U/L (40-136)
[2020-09-13 00:03] LABS: CREATININE SERUM 1.02 MG/DL (0.60-1.30); GFR ESTIMATED > 60
[2020-09-13 00:04] LABS: BUN/CREATININE RATIO 16
[2020-09-13 00:05] LABS: MAGNESIUM 1.8 MG/DL (1.6-2.4)
[2020-09-13 00:06] LABS: ALANINE AMINOTRANSFERASE 32 U/L (0-55); FIBRIN DEGRADATION PRODUCTS 0.6 UG/ML (0.00-0.49); PROTHROMBIN TIME PATIENT 13.6 SEC (12.2-14.7)
[2020-09-13] MEDS ORDERED: morphine INJ 10 MG/ML 1ML (SYR OR VIAL) ONE (00:06)
[2020-09-13] MEDS ORDERED: LACTATED RINGERS 1,000 ML IV ONE (01:07)
[2020-09-13] MEDS ORDERED: morphine INJ 10 MG/ML 1ML (SYR OR VIAL) IVP STA ×2 (01:20)
[2020-09-13] MEDS ORDERED: NS 100 ML (IVPB) BAG IV ONE (01:45)
[2020-09-13] MEDS ORDERED: IOHEXOL 350 MG/ML 150 ML (OMNIPAQUE 350) VIAL IV ONE (01:45)
[2020-09-13] MEDS ORDERED: KETOROLAC 30 MG/ML VIAL IVP ONE (02:00)
[2020-09-13] MEDS ORDERED: ACHD5005 PO (03:25)
[2020-09-13] MEDS ORDERED: HYDROcodone/APAP 5 MG/325 MG (LORTAB) TAB PO ONE (03:30)
[2020-09-13 03:38] VITALS: BP 138/72
--- NOTE | 2020-09-13 03:39 | NUR ---
D/C education provided to patient who verbalized an understanding. Pt assisted to vehicle via w/c.
--- NOTE | 2020-09-13 03:49 | NUR ---
Pt did not receive the hard copy of his rx; called pt and he will pick it up at the registration desk in the morning. Rx is taped on the wall at the front registration computer.
--- NOTE | 2020-09-13 07:07 | Diagnostic Imaging Report ---
INDICATION: Chest pain. Comparison with 07/04/2020. FINDINGS: The lungs are well-aerated. There is some loss of definition along the cardiac apex. The lungs are otherwise well-aerated and clear. Heart is not enlarged. No pulmonary edema. No pneumothorax or pleural effusion. Pacemaker on the left. No bony abnormalities. IMPRESSION: 1. Some loss of definition along the cardiac apex which may represent some infiltrate in the lingula. 2. The pacemaker present without evidence of cardiac abnormalities. 3. Would consider PA and lateral chest or CT scan of the chest for further follow-up. Dictated by: Dictated on workstation # [id number]
--- NOTE | 2020-09-13 07:36 | Diagnostic Imaging Report ---
PROCEDURE: CT angiography of the chest with contrast. TECHNIQUE: Multiple contiguous axial images were obtained through the chest after uneventful bolus administration of intravenous contrast. 3D reconstructed CTA MIP acquisitions were also performed. Auto Exposure Controls were utilized during the CT exam to meet ALARA standards for radiation dose reduction. INDICATION: Chest pain with tachycardia. FINDINGS: There is good opacification aorta and pulmonary arteries. No evidence of aortic aneurysm or dissection. The lungs are well-aerated and clear. No mediastinal or hilar adenopathy of pathologic size. No pleural effusions. There is a small pericardial effusion. IMPRESSION: 1. No evidence of pulmonary emboli. 2. Development of a small pericardial effusion since previous CT scan of 09/07/2020. Clinical correlation for possible pericarditis. This was not discussed on the preliminary report. Dictated by: Dictated on workstation # [id number]
[2020-09-14] MEDS ORDERED: CARV6.252 PO (18:24)
== END 2020-09-13 03:40 | disposition home or self-care (01) ==
LOC: EDUNIT# 23:24 → ER 23:26
DX: R07.89 Other chest pain (principal); R00.0 Tachycardia, unspecified; E66.01 Morbid (severe) obesity due to excess calories; K21.9 Gastro-esophageal reflux disease without esophagitis; F32.9 Major depressive disorder, single episode, unspecified; J44.9 Chronic obstructive pulmonary disease, unspecified; E11.9 Type 2 diabetes mellitus without complications; F41.9 Anxiety disorder, unspecified; Z68.43 Body mass index [BMI] 50.0-59.9, adult; I10 Essential (primary) hypertension; Z82.49 Family history of ischemic heart disease and other diseases of the circulatory system; Z83.3 Family history of diabetes mellitus; Z87.891 Personal history of nicotine dependence; Z79.4 Long term (current) use of insulin; Z95.810 Presence of automatic (implantable) cardiac defibrillator; Z88.0 Allergy status to penicillin; Z88.2 Allergy status to sulfonamides; Z88.8 Allergy status to other drugs, medicaments and biological substances; Z79.82 Long term (current) use of aspirin
CPT/HCPCS: 36415; 71045; 71275; 80053; 83735; 83874; 83880; 84443; 84484; 85025; 85379; 85610; 85652; 85730; 86141; 93005

== ENCOUNTER 2020-09-14 16:01 | Emergency (ER) | payer MEDICAID ==
[~2020-09-14] VITALS: Ht 167 cm; Wt 150.0 kg
[~2020-09-14 16:01] MED LIST changes: +ACHD5005 PO
[2020-09-14] MEDS ORDERED: NITROGLYCERIN 0.4 MG SL TABS BTL 25'S SL ONE (16:15)
[2020-09-14] MEDS ORDERED: ASPIRIN 81 MG CHEW (CHILDREN'S ASA) ONE (16:15)
[2020-09-14] MEDS ORDERED: LACTATED RINGERS 1,000 ML IV ONE (16:16)
--- NOTE | 2020-09-14 16:20 | ED Chest Pain ---
General Stated Complaint: CHEST PAIN Source: patient Exam Limitations: no limitations History of Present Illness Date Seen by Provider: Sep 14, 2020 Time Seen by Provider: 16:08 Initial Comments Patient presents to the ER by a private conveyance with chief complaint of chest pain for the last week. He describes it as a shocking electrical sensation like a TENS unit. He says he is short of breath but does not require oxygen smoke or have a history of lung disease. He denies diabetes but does have hypertension and hyperlipidemia. He is known to Dr. Pierre and Dr. Thompson. Primary care by [facility], [place] Pugh. EF of 40%. Clean catheter earlier in the year. Allergies and Home Medications Allergies Coded Allergies: Penicillins (Verified Allergy, Unknown, 04/18/12) Sulfa (Sulfonamide Antibiotics) (Verified Allergy, Unknown, 02/20/17) liraglutide (Verified Allergy, Unknown, 02/20/17) Home Medications Albuterol Sulfate 2.5 Mg/3 Ml Vial.neb, 2.5 MG NEB QID PRN for SHORTNESS OF BREATH, (Reported) Albuterol Sulfate 1 Puff Puff, 2 PUFF IH QID PRN for SHORTNESS OF BREATH, (Reported) 1 PUFF = 90 MCG Aspirin 81 Mg Tablet.dr, 81 MG PO DAILY, (Reported) Budesonide/Formoterol Fumarate 10.2 Gm Hfa.aer.ad, 2 PUFF IH BID, (Reported) Carvedilol 3.125 Mg Tablet, 3.125 MG PO BID, (Reported) Cyclobenzaprine HCl 10 Mg Tablet, 10 MG PO BID PRN for MUSCLE SPASMS, (Reported) Fluticasone Propionate 16 Gm [place].susp, 1 SPRAY NS BID PRN for ALLERGIES, (Reported) Furosemide 40 Mg Tablet, 40 MG PO DAILY, (Reported) Glyburide 5 Mg Tablet, 5 MG PO DAILY, (Reported) Hydrocodone/Acetaminophen 1 Each Tablet, 1 EACH PO Q4H PRN for PAIN-BREAKTHROUGH Prescribed by: YANET SANTA on 09/13/20 0325 Insulin Glargine,Hum.rec.anlog 100 Unit/1 Ml Vial, 36 UNIT SQ HS, (Reported) Insulin Lispro 100 Unit/1 Ml Cartridge, 36 UNIT SQ PC, (Reported) Linaclotide 145 Mcg Capsule, 145 MCG PO DAILY, (Reported) HOLD FOR LOOSE STOOLS Magnesium Oxide 400 Mg Tablet, 400 MG PO DAILY, (Reported) Metformin HCl 1,000 Mg Tablet, 1,000 MG PO BID WITH MEALS, (Reported) Omeprazole 40 Mg Capsule.dr, 40 MG PO DAILY, (Reported) Oxybutynin Chloride 10 Mg Tab.er.24, 10 MG PO DAILY, (Reported) Potassium Chloride 10 Meq Capsule.er, 10 MEQ PO DAILY, (Reported) Quetiapine Fumarate 300 Mg Tablet, 300 MG PO HS, (Reported) Sacubitril/Valsartan 1 Each Tablet, 1 TAB PO BID, (Reported) Sertraline HCl 100 Mg Tablet, 100 MG PO DAILY, (Reported) Spironolactone 25 Mg Tablet, 25 MG PO DAILY, (Reported) Tiotropium Crawford 4 Gm Mist.inhal, 2 PUFF IH DAILY, (Reported) Patient Home Medication List Home Medication List Reviewed: Yes Review of Systems Review of Systems Constitutional: No chills, No diaphoresis EENTM: No Blurred Vision, No Double Vision Respiratory: Denies Cough; Shortness of Air Cardiovascular: See HPI, Chest Pain; Denies Edema, Denies Syncope Gastrointestinal: Denies Abdominal Pain, Denies Constipated, Denies Diarrhea, Denies Nausea Genitourinary: Denies Burning, Denies Discharge All Other Systems Reviewed Negative Unless Noted: Yes Past Jkxvbvk-Kwxukz-Xjjyqu Hx Patient Social History Alcohol Use: Occasionally Uses Alcohol Beverage of Choice: Beer Recreational Drug Use: No Smoking Status: Never a Smoker Type Used: Smokeless Tobacco Former Smoker, Quit: May 12, 2015 2nd Hand Smoke Exposure: No Recent Foreign Travel: No Contact w/Someone Who Travel: No Recent Hopitalizations: No Immunizations Up To Date Tetanus Booster (TDap): Less than 5yrs PED Vaccines UTD: No Date of Pneumonia Vaccine: Apr 25, 2012 Seasonal Allergies Seasonal Allergies: Yes (Hayfever) Past Medical History Surgeries: Yes (HEMOTOMA REMOVAL OFF NECK, TESTICULAR SURGERY, R KNEE, PACEMAKER DEFIB) Testicular, Tonsillectomy Respiratory: Yes COPD Currently Using CPAP: No Currently Using BIPAP: No Cardiac: Yes (Systolic dysfunction, EF 25 to 30% January 2020) Cardiomyopathy, Coronary Artery Disease, Congenital Heart Disease, Hypertension, Irregular Heartbeat Neurological: No Headaches /Migraines Reproductive Disorders: No Sexually Transmitted Disease: No HIV/AIDS: No Genitourinary: No Gastrointestinal: Yes Gastroesophageal Reflux, Chronic Constipation, Hemorrhoids Musculoskeletal: Yes Arthritis Endocrine: Yes (MORBID OBESITY; TAKES INSULIN + PILLS) Diabetes, Insulin dep HEENT: Yes (Glasses ) Loss of Vision: Denies Hearing Impairment: Hard of Hearing Cancer: No Psychosocial: Yes Sleep Difficulties, Anxiety, PTSD, Depression Integumentary: No Blood Disorders: No Adverse Reaction/Blood Tranf: No Family Medical History Cardiovascular disease 19 FATHER 19 MOTHER Diabetes mellitus G8 SISTER FH: heart failure 19 FATHER 19 MOTHER Heart Disease Physical Exam Vital Signs Vital Signs - First Documented 09/14/20 16:07 Temp 36.7 Pulse 123 Resp 24 B/P (MAP) 135/89 (104) Pulse Ox 97 O2 Delivery Room Air Capillary Refill : Height, Weight, BMI Height: 5'6.50" Weight: 347lbs. 3.0oz. 157.035192gx; 53.00 BMI Method:Stated General Appearance: Moderate Distress, Obese HEENT: PERRL/EOMI, Pharynx Normal, Moist Mucous Membranes Neck: Full Range of Motion, Normal Inspection Respiratory: Lungs Clear, Normal Breath Sounds, Accessory Muscle Use (mild), Respiratory Distress (mild with oxygen saturation 96-100% on room air) Cardiovascular: No Edema, Normal Peripheral Pulses, Tachycardia Gastrointestinal: Normal Bowel Sounds, No Organomegaly Extremity: Normal Capillary Refill, Normal Inspection, No Pedal Edema Neurologic/Psychiatric: Alert, Oriented x3 Skin: Normal Color, Warm/Dry Progress/Results/Core Measures Results/Orders Lab Results Laboratory Tests Test 09/14/20 16:13 Range/Units White Blood Count 9.9 4.3-11.0 10^3/uL Red Blood Count 4.30 4.30-5.52 10^6/uL Hemoglobin 13.6 13.3-17.7 g/dL Hematocrit 38 L 40-54 % Mean Corpuscular Volume 89 80-99 fL Mean Corpuscular Hemoglobin 32 25-34 pg Mean Corpuscular Hemoglobin Concent 35 32-36 g/dL Red Cell Distribution Width 12.4 10.0-14.5 % Platelet Count 181 130-400 10^3/uL Mean Platelet Volume 10.6 9.0-12.2 fL Immature Granulocyte % (Auto) 0 % Neutrophils (%) (Auto) 69 42-75 % Lymphocytes (%) (Auto) 18 12-44 % Monocytes (%) (Auto) 11 0-12 % Eosinophils (%) (Auto) 1 0-10 % Basophils (%) (Auto) 0 0-10 % Neutrophils # (Auto) 6.9 1.8-7.8 10^3/uL Lymphocytes # (Auto) 1.8 1.0-4.0 10^3/uL Monocytes # (Auto) 1.1 H 0.0-1.0 10^3/uL Eosinophils # (Auto) 0.1 0.0-0.3 10^3/uL Basophils # (Auto) 0.0 0.0-0.1 10^3/uL Immature Granulocyte # (Auto) 0.0 0.0-0.1 10^3/uL Prothrombin Time 14.2 12.2-14.7 SEC INR Comment 1.1 0.8-1.4 Activated Partial Thromboplast Time 34 24-35 SEC D-Dimer 0.63 H 0.00-0.49 UG/ML Sodium Level 134 L 135-145 MMOL/L Potassium Level 3.7 3.6-5.0 MMOL/L Chloride Level 103 98-107 MMOL/L Carbon Dioxide Level 21 21-32 MMOL/L Anion Gap 10 5-14 MMOL/L Blood Urea Nitrogen 12 7-18 MG/DL Creatinine 0.84 0.60-1.30 MG/DL Estimat Glomerular Filtration Rate > 60 BUN/Creatinine Ratio 14 Glucose Level 150 H 70-105 MG/DL Calcium Level 8.6 8.5-10.1 MG/DL Corrected Calcium 8.7 8.5-10.1 MG/DL Magnesium Level 1.8 1.6-2.4 MG/DL Total Bilirubin 0.6 0.1-1.0 MG/DL Aspartate Amino Transf (AST/SGOT) 15 5-34 U/L Alanine Aminotransferase (ALT/SGPT) 24 0-55 U/L Alkaline Phosphatase 65 40-136 U/L Myoglobin 47.1 10.0-92.0 NG/ML Troponin I < 0.028 <0.028 NG/ML B-Type Natriuretic Peptide 22.9 <100.0 PG/ML Total Protein 7.0 6.4-8.2 GM/DL Albumin 3.9 3.2-4.5 GM/DL My Orders Orders - JERMAINE CASTLE Continuous Ekg Monitoring (09/14/20 16:04) Ekg Tracing (09/14/20 16:04) Nitroglycerin 0.4 Mg Btl 25's (Nitrostat (09/14/20 16:15) Aspirin Chewable Tablet (Baby Aspirin Ch (09/14/20 16:15) Ed Iv/Invasive Line Start (09/14/20 16:16) Lactated Ringers (Lr 1000 Ml Iv Solution (09/14/20 16:16) Cbc With Automated Diff (09/14/20 16:16) Magnesium (09/14/20 16:16) Chest 1 View, Ap/Pa Only (09/14/20 16:16) Comprehensive Metabolic Panel (09/14/20 16:16) Myoglobin Serum (09/14/20 16:16) Protime With Inr (09/14/20 16:16) Partial Thromboplastin Time (09/14/20 16:16) O2 (09/14/20 16:16) Monitor-Rhythm Ecg Trace Only (09/14/20 16:16) Lipid Panel (09/15/20 06:00) Ed Iv/Invasive Line Start (09/14/20 16:16) BNP (09/14/20 16:16) Troponin I (09/14/20 16:16) Nitroglycerin 0.4 Mg Btl 25's (Nitrostat (09/14/20 16:30) Aspirin Chewable Tablet (Baby Aspirin Ch (09/14/20 16:30) Morphine Injection (Morphine Injection (09/14/20 16:22) Ua Culture If Indicated (09/14/20 16:41) Drug Screen Stat (Urine) (09/14/20 16:41) Fibrin Degradation Products (09/14/20 17:11) Metoprolol Tartrate Injection (Lopressor (09/14/20 17:30) Morphine Injection (Morphine Injection (09/14/20 17:23) Medications Given in ED Current Medications Medications Dose Ordered Sig/Juancarlos Route Start Time Stop Time Status Last Admin Dose Admin Aspirin 324 mg ONCE ONCE PO 09/14/20 16:30 09/14/20 16:31 DC 09/14/20 16:18 324 MG Lactated Ringer's 1,000 ml @ 0 mls/hr Q0M ONCE IV 09/14/20 16:16 09/14/20 16:19 DC 09/14/20 16:22 0 MLS/HR Metoprolol Tartrate 5 mg ONCE ONCE IV 09/14/20 17:30 09/14/20 17:31 DC 09/14/20 17:51 5 MG Nitroglycerin 0.4 mg UD PRN SL 09/14/20 16:30 09/14/20 16:19 0.4 MG Vital Signs/I&O 09/14/20 16:07 Temp 36.7 Pulse 123 Resp 24 B/P (MAP) 135/89 (104) Pulse Ox 97 O2 Delivery Room Air Progress Progress Note #1: Time: 17:11 Progress Note Initial nitroglycerin dropped his pressure down to about 100 systolic. A liter fluids was initiated and 2 mg morphine were given. His tachycardia has improved some down to 108. Good oxygen sats. We are trying to interrogate the implanted device. Morphine did help his pain however it starting to come back to its previous level. He says he feels it is like a shocking sensation like he's being shocked by his device. Inappropriately paced tachycardia? Left a message with Dr. Thompson, cardiology. Progress Note #2: Time: 18:23 Progress Note After a dose of Lopressor his heart rates in the 80s and 90s and he is much workup. He says he is ready to go home. Have him double up on his carvedilol until he sees Dr. Thompson. Initial ECG Impression Date: Sep 14, 2020 Initial ECG Impression Time: 16:07 Initial ECG Rate: 123 Initial ECG Intervals: QT (478) Comment Ventricularly paced rhythm, tachycardia. No clinically relevant ST elevation or depression. Diagnostic Imaging Diagonstic Imaging: Xray Plain Films/CT/US/NM/MRI: chest Comments NAME: [facility] REC#: [id number] PT STATUS: REG ER : 1970 PHYSICIAN: JERMAINE CASTLE MD ADMIT DATE: 09/14/20/ER Signed Date of Exam:09/14/20 CHEST 1 VIEW, AP/PA ONLY INDICATION: Chest pain. COMPARISON: 09/13/2020. FINDINGS: Single frontal radiographic view of the chest was obtained and demonstrates blunting of the lateral left costophrenic angle suggestive of small effusion. There is no large effusion on the right. No pneumothorax is seen on either side. Lungs are otherwise clear. Cardiac silhouette and pulmonary vasculature are within normal limits. Left-sided AICD is noted. Osseous structures show no gross acute abnormalities. IMPRESSION: 1. Possible trace left basilar effusion versus pleural thickening. Otherwise, no acute cardiopulmonary process. Dictated by: Dictated on workstation # [id number] Dict: 09/14/201631 Trans: 09/14/201648 [facility] [id number] Interpreted by: GRISEL CROFT MD Electronically signed by: GRISEL CROFT MD 09/14/201648 Reviewed: Reviewed by Me Consults : Consulting Physician: LATOYA THOMPSON MD Consults Notes Discussed the case with Dr. Thompson and he will come to the ER and visit with the patient. After meeting with the patient he recommends morphine, 5 of Lopressor, IV fluids and follow-up in the clinic. Departure Impression Primary Impression: Tachycardia, paroxysmal Disposition: 01 HOME, SELF-CARE Condition: Improved Departure-Patient Inst. Decision time for Depature: 18:14 [place]: [facility] [place] Primary Care Physician GIULIANA PUGH (Family) Primary Care Physician LATOYA THOMPSON MD Patient Instructions: Tachycardia (DC) Add. Discharge Instructions: Your chest pain was caused by your racing heart. We have given you some medications to reduce your heart rate. You need to continue taking the medications as prescribed to you. Tomorrow call and set up a schedule appointment with Dr. Thompson. Double your dose of carvedilol by taking 2 tablets in the morning and 2 in the evening until you see him in the clinic. If you become lightheaded like you're going to pass out then you need to reduce your dose of carvedilol back to your regular dose. Scripts Carvedilol (Carvedilol) 6.25 Mg Tablet 6.25 MG PO BID for 14 Days, #28 TAB 0 Refills Prov: JERMAINE CASTLE 09/14/20 JERMAINE CASTLE Sep 14, 2020 16:20
[2020-09-14] MEDS ORDERED: morphine INJ 10 MG/ML 1ML (SYR OR VIAL) IVP STA ×2 (16:22→17:23)
[2020-09-14 16:25] LABS: BASOPHILS % (AUTO) 0 % (0-10); EOSINOPHILS # (AUTO) 0.1 10^3/uL (0.0-0.3); EOSINOPHILS % (AUTO) 1 % (0-10); HEMATOCRIT 38 % (40-54); HEMOGLOBIN 13.6 g/dL (13.3-17.7); LYMPHOCYTES # (AUTO) 1.8 10^3/uL (1.0-4.0); LYMPHOCYTES % (AUTO) 18 % (12-44); MEAN CORPUSCULAR HEMOGLOBIN 32 pg (25-34); MEAN CORPUSCULAR HGB CONC 35 g/dL (32-36); MEAN CORPUSCULAR VOLUME 89 fL (80-99); MEAN PLATELET VOLUME 10.6 fL (9.0-12.2); MONOCYTES # (AUTO) 1.1 10^3/uL (0.0-1.0); MONOCYTES % (AUTO) 11 % (0-12); NEUTROPHILS # (AUTO) 6.9 10^3/uL (1.8-7.8); NEUTROPHILS % (AUTO) 69 % (42-75); PLATELET COUNT 181 10^3/uL (130-400); WHITE BLOOD COUNT 9.9 10^3/uL (4.3-11.0)
[2020-09-14] MEDS ORDERED: NITROGLYCERIN 0.4 MG SL TABS BTL 25'S SL PRN (16:30)
[2020-09-14] MEDS ORDERED: ASPIRIN 81 MG CHEW (CHILDREN'S ASA) PO ONE (16:30)
[2020-09-14 16:32] LABS: ALBUMIN 3.9 GM/DL (3.2-4.5); CHLORIDE 103 MMOL/L (98-107); POTASSIUM 3.7 MMOL/L (3.6-5.0); SODIUM 134 MMOL/L (135-145)
[2020-09-14 16:33] LABS: CALCIUM 8.6 MG/DL (8.5-10.1); INR 1.1 (0.8-1.4); PROTHROMBIN TIME PATIENT 14.2 SEC (12.2-14.7)
[2020-09-14 16:34] LABS: GLUCOSE 150 MG/DL (70-105)
[2020-09-14 16:35] LABS: CARBON DIOXIDE 21 MMOL/L (21-32)
--- NOTE | 2020-09-14 16:35 | Diagnostic Imaging Report ---
INDICATION: Chest pain. COMPARISON: 09/13/2020. FINDINGS: Single frontal radiographic view of the chest was obtained and demonstrates blunting of the lateral left costophrenic angle suggestive of small effusion. There is no large effusion on the right. No pneumothorax is seen on either side. Lungs are otherwise clear. Cardiac silhouette and pulmonary vasculature are within normal limits. Left-sided AICD is noted. Osseous structures show no gross acute abnormalities. IMPRESSION: 1. Possible trace left basilar effusion versus pleural thickening. Otherwise, no acute cardiopulmonary process. Dictated by: Dictated on workstation # [id number]
[2020-09-14 16:36] LABS: BILIRUBIN,TOTAL 0.6 MG/DL (0.1-1.0)
[2020-09-14 16:38] LABS: ALKALINE PHOSPHATASE 65 U/L (40-136); CREATININE SERUM 0.84 MG/DL (0.60-1.30); GFR ESTIMATED > 60
[2020-09-14 16:39] LABS: BUN/CREATININE RATIO 14
[2020-09-14 16:41] LABS: ALANINE AMINOTRANSFERASE 24 U/L (0-55); MAGNESIUM 1.8 MG/DL (1.6-2.4)
[2020-09-14] MEDS ORDERED: meTOprolol 5 MG/5 ML (LOPRESSOR) VIAL IV ONE (17:30)
[2020-09-14] MEDS ORDERED: CARV6.252 PO (18:24)
[2020-09-14 18:28] LABS: BILIRUBIN,URINE NEGATIVE (NEGATIVE); CLARITY,URINE SL CLOUDY; COLOR,URINE YELLOW; GLUCOSE, URINE (UA) NEGATIVE (NEGATIVE); KETONES,URINE NEGATIVE (NEGATIVE); LEUKOCYTE ESTERASE ,URINE NEGATIVE (NEGATIVE); NITRITE,URINE NEGATIVE (NEGATIVE); PROTEIN,URINE NEGATIVE (NEGATIVE)
[2020-09-14 18:35] LABS: BACTERIA,URINE NEGATIVE /HPF; SQUAMOUS EPITHELIAL CELL,UR RARE /HPF; WBC,URINE RARE /HPF
[2020-09-14 18:39] LABS: AMPHETAMINE SCREEN, URINE NEGATIVE (NEGATIVE); BARBITURATE SCREEN URINE NEGATIVE (NEGATIVE); BENZODIAZEPINES SCREEN URINE NEGATIVE (NEGATIVE); CANNABINOID SCREEN, URINE NEGATIVE (NEGATIVE); COCAINE SCREEN URINE NEGATIVE (NEGATIVE); METHADONE STAT NEGATIVE (NEGATIVE); METHAMPHETAMINE SCREEN URINE S NEGATIVE (NEGATIVE); OPIATE SCREEN URINE POSITIVE (NEGATIVE); OXYCODONE STAT NEGATIVE (NEGATIVE); PROPOXYPHENE STAT NEGATIVE (NEGATIVE); TRICYCLIC ANTIDEPRESSANTS SCRE POSITIVE (NEGATIVE)
[2020-09-14 19:23] VITALS: BP 105/75
== END 2020-09-14 19:23 | disposition home or self-care (01) ==
LOC: EDUNIT# 16:01 → ER 16:02
DX: I47.9 Paroxysmal tachycardia, unspecified (principal); E66.01 Morbid (severe) obesity due to excess calories; J44.9 Chronic obstructive pulmonary disease, unspecified; K21.9 Gastro-esophageal reflux disease without esophagitis; E11.9 Type 2 diabetes mellitus without complications; I10 Essential (primary) hypertension; Z68.43 Body mass index [BMI] 50.0-59.9, adult; Z82.49 Family history of ischemic heart disease and other diseases of the circulatory system; Z83.3 Family history of diabetes mellitus; Z87.891 Personal history of nicotine dependence; Z88.0 Allergy status to penicillin; Z88.2 Allergy status to sulfonamides; Z88.8 Allergy status to other drugs, medicaments and biological substances; Z79.82 Long term (current) use of aspirin; Z79.4 Long term (current) use of insulin
CPT/HCPCS: 36415; 71045; 80053; 80306; 81000; 83735; 83874; 83880; 84484; 85025; 85379; 85610; 85730; 93005; 93041

== ENCOUNTER → 2020-09-25 | Outpatient (CLI) | payer MEDICAID ==
[~2020-09-25] VITALS: Ht 167.7 cm; Wt 150.0 kg
[~2020-09-25] MED LIST changes: +CARV6.252 PO; +LIDOCAINE 1% INJ 20 ML 20 ML VIAL INJ ONE
--- NOTE | 2020-09-25 10:53 | Diagnostic Imaging Report ---
INDICATION: Left thyroid nodule. Patient presents for ultrasound-guided fine-needle aspiration and biopsy. Patient brought to the procedure and placed on table in the supine position. Ultrasound imaging of the left neck was performed to evaluate appropriate entry site. Left neck was then prepped and draped in usual sterile fashion. A small amount of 1% lidocaine was utilized for local anesthesia. A total of 4 passes were made into the echogenic nodule in left lobe of the thyroid utilizing 25-gauge needles and fine-needle aspiration technique. A single pass was made to the nodule with a Rotex needle and Rotex biopsy was performed. Patient tolerated procedure well and left the department in stable condition. IMPRESSION: Successful ultrasound-guided left thyroid nodule fine-needle aspiration and biopsy. Pathology results are currently pending. Dictated by: Dictated on workstation # [id number]
== END ==
LOC: RAD 09:30
PROVIDERS: ATTEND Surgery
DX: E04.1 Nontoxic single thyroid nodule (principal)
CPT/HCPCS: 76942

== ENCOUNTER 2021-04-17 13:11 | Emergency (ER) | payer MEDICAID ==
[~2021-04-17] VITALS: Ht 167.7 cm; Wt 280.0 kg
[~2021-04-17 13:11] MED LIST changes: -CLIN300C11 PO; +CLIN300C12 PO; +ESCI-2 PO; -ESCI10TA55 PO; +GLBR2.5T PO; +GLBR5T PO; -GLYB2.5T4 PO; -GLYB5TAB6 PO; -LIDOCAINE 1% INJ 20 ML 20 ML VIAL INJ ONE; -LISI10TA2 PO; +LISI10TA25 PO; +QUET300T19 PO; -QUET300T44 PO; +SERT-413 PO; +SERT-414 PO; -SERT100T8 PO; -SERT50TA9 PO
[2021-04-17 13:28] LABS: BASOPHILS % (AUTO) 0 % (0-10); EOSINOPHILS # (AUTO) 0.2 10^3/uL (0.0-0.3); EOSINOPHILS % (AUTO) 2 % (0-10); HEMATOCRIT 44 % (40-54); HEMOGLOBIN 15.8 g/dL (13.3-17.7); LYMPHOCYTES # (AUTO) 2.4 10^3/uL (1.0-4.0); LYMPHOCYTES % (AUTO) 27 % (12-44); MEAN CORPUSCULAR HEMOGLOBIN 31 pg (25-34); MEAN CORPUSCULAR HGB CONC 36 g/dL (32-36); MEAN CORPUSCULAR VOLUME 87 fL (80-99); MEAN PLATELET VOLUME 11.3 fL (9.0-12.2); MONOCYTES # (AUTO) 0.8 10^3/uL (0.0-1.0); MONOCYTES % (AUTO) 8 % (0-12); NEUTROPHILS # (AUTO) 5.8 10^3/uL (1.8-7.8); NEUTROPHILS % (AUTO) 63 % (42-75); PLATELET COUNT 163 10^3/uL (130-400); WHITE BLOOD COUNT 9.2 10^3/uL (4.3-11.0)
--- NOTE | 2021-04-17 13:29 | ED Cardiac General ---
History of Present Illness General Stated Complaint: DEFIB X 3 Source: patient, EMS Exam Limitations: no limitations History of Present Illness Date Seen by Provider: April 17, 2021 Time Seen by Provider: 13:15 Initial Comments Patient is a 50-year-old male who presents to the emergency department today with a chief complaint of his defibrillator going off. Patient has had a defibrillator for about the past [address] Cueva. He also has a pacemaker that is ventricularly pacing. Patient denies any recent illnesses such as fevers, chills, cough congestion. No diarrheal illnesses. No nausea vomiting. No excessive alcohol intake over the last several days. Patient states he was just sitting on his couch when all of a sudden his defibrillator fired. It subsequently fired 2 more times and then once after arriving in the emergency department. Patient complains of pain kind of related to the defibrillator firing but no antecedent chest pain or shortness of breath or diaphoresis. He has a history of cardiomyopathy with previous EF at 5 to 10% now in the 30s per his report. He states he is compliant with his medications. He is also a diabetic. He is not on any thyroid supplementation. All other review of systems reviewed and negative except as stated above. Timing/Duration: 1 hour Severity: severe Activities at Onset: none Prior CP/Workup: cardiac cath, echocardiography Associated Systoms: Chest Pain Allergies and Home Medications Allergies Coded Allergies: Penicillins (Verified Allergy, Unknown, 04/18/12) Sulfa (Sulfonamide Antibiotics) (Verified Allergy, Unknown, 02/20/17) liraglutide (Verified Allergy, Unknown, 02/20/17) Home Medications Albuterol Sulfate 2.5 Mg/3 Ml Vial.neb, 2.5 MG NEB QID PRN for SHORTNESS OF BREATH, (Reported) Albuterol Sulfate 1 Puff Puff, 2 PUFF IH QID PRN for SHORTNESS OF BREATH, (Reported) 1 PUFF = 90 MCG Aspirin 81 Mg Tablet.dr, 81 MG PO DAILY, (Reported) Budesonide/Formoterol Fumarate 10.2 Gm Hfa.aer.ad, 2 PUFF IH BID, (Reported) Carvedilol 3.125 Mg Tablet, 3.125 MG PO BID, (Reported) Carvedilol 6.25 Mg Tablet, 6.25 MG PO BID Prescribed by: JERMAINE CASTLE on 09/14/20 1824 Cyclobenzaprine HCl 10 Mg Tablet, 10 MG PO BID PRN for MUSCLE SPASMS, (Reported) Fluticasone Propionate 16 Gm [place].susp, 1 SPRAY NS BID PRN for ALLERGIES, (Reported) Furosemide 40 Mg Tablet, 40 MG PO DAILY, (Reported) Glyburide 5 Mg Tablet, 5 MG PO DAILY, (Reported) Hydrocodone/Acetaminophen 1 Each Tablet, 1 EACH PO Q4H PRN for PAIN-BREAKTHROUGH Prescribed by: YANET SANTA on 09/13/20 0325 Insulin Glargine,Hum.rec.anlog 100 Unit/1 Ml Vial, 36 UNIT SQ HS, (Reported) Insulin Lispro 100 Unit/1 Ml Cartridge, 36 UNIT SQ PC, (Reported) Linaclotide 145 Mcg Capsule, 145 MCG PO DAILY, (Reported) HOLD FOR LOOSE STOOLS Magnesium Oxide 400 Mg Tablet, 400 MG PO DAILY, (Reported) Metformin HCl 1,000 Mg Tablet, 1,000 MG PO BID WITH MEALS, (Reported) Omeprazole 40 Mg Capsule.dr, 40 MG PO DAILY, (Reported) Oxybutynin Chloride 10 Mg Tab.er.24, 10 MG PO DAILY, (Reported) Potassium Chloride 10 Meq Capsule.er, 10 MEQ PO DAILY, (Reported) Quetiapine Fumarate 300 Mg Tablet, 300 MG PO HS, (Reported) Sacubitril/Valsartan 1 Each Tablet, 1 TAB PO BID, (Reported) Sertraline HCl 100 Mg Tablet, 100 MG PO DAILY, (Reported) Spironolactone 25 Mg Tablet, 25 MG PO DAILY, (Reported) Tiotropium [place] 4 Gm Mist.inhal, 2 PUFF IH DAILY, (Reported) Patient Home Medication List Home Medication List Reviewed: Yes Review of Systems Review of Systems Constitutional: see HPI EENTM: No Symptoms Reported Respiratory: No Symptoms Reported Cardiovascular: No Symptoms Reported Gastrointestinal: No Symptoms Reported Genitourinary: No Symptoms Reported Musculoskeletal: no symptoms reported Skin: no symptoms reported Psychiatric/Neurological: Anxiety All Other Systems Reviewed Negative Unless Noted: Yes Past Wyihvxl-Urttqr-Rkajui Hx Patient Social History Alcohol Beverage of Choice: Beer Type Used: Smokeless Tobacco Former Smoker, Quit: May 12, 2015 2nd Hand Smoke Exposure: No Recent Hopitalizations: No Immunizations Up To Date Tetanus Booster (TDap): Less than 5yrs PED Vaccines UTD: No Date of Pneumonia Vaccine: Apr 25, 2012 Seasonal Allergies Seasonal Allergies: Yes (Hayfever) Past Medical History Surgeries: Yes (HEMOTOMA REMOVAL OFF NECK, TESTICULAR SURGERY, R KNEE, PACEMAKER DEFIB) Testicular, Tonsillectomy Respiratory: Yes COPD Currently Using CPAP: No Currently Using BIPAP: No Cardiac: Yes (Systolic dysfunction, EF 25 to 30% January 2020) Cardiomyopathy, Coronary Artery Disease, Congenital Heart Disease, Hypertension, Irregular Heartbeat Neurological: No Headaches /Migraines Reproductive Disorders: No Sexually Transmitted Disease: No HIV/AIDS: No Genitourinary: No Gastrointestinal: Yes Gastroesophageal Reflux, Chronic Constipation, Hemorrhoids Musculoskeletal: Yes Arthritis Endocrine: Yes (MORBID OBESITY; TAKES INSULIN + PILLS) Diabetes, Insulin dep HEENT: Yes (Glasses ) Loss of Vision: Denies Hearing Impairment: Hard of Hearing Cancer: No Psychosocial: Yes Sleep Difficulties, Anxiety, PTSD, Depression Integumentary: No Blood Disorders: No Adverse Reaction/Blood Tranf: No Family Medical History Cardiovascular disease 19 FATHER 19 MOTHER Diabetes mellitus G8 SISTER FH: heart failure 19 FATHER 19 MOTHER Heart Disease Physical Exam Vital Signs Vital Signs - First Documented 04/17/21 13:13 Temp 36.7 Pulse 128 Resp 18 B/P (MAP) 158/96 (116) Capillary Refill : Height, Weight, BMI Height: 5'6.50" Weight: 347lbs. 3.0oz. 157.726497cg; 53.33 BMI Method:Stated General Appearance: WD/WN, Anxious HEENT: PERRL/EOMI Neck: Normal Inspection Respiratory: Lungs Clear, Normal Breath Sounds, No Accessory Muscle Use, No Respiratory Distress Cardiovascular: Regular Rate, Rhythm, Tachycardia Gastrointestinal: Non Tender, Soft Extremity: Normal Capillary Refill, Normal Inspection, Normal Range of Motion, Non Tender, No Pedal Edema Neurologic/Psychiatric: Alert, Oriented x3, No Motor/Sensory Deficits, Normal Mood/Affect Skin: Normal Color, Warm/Dry Progress/Results/Core Measures Results/Orders Lab Results Laboratory Tests Test 04/17/21 13:20 Range/Units White Blood Count 9.2 4.3-11.0 10^3/uL Red Blood Count 5.07 4.30-5.52 10^6/uL Hemoglobin 15.8 13.3-17.7 g/dL Hematocrit 44 40-54 % Mean Corpuscular Volume 87 80-99 fL Mean Corpuscular Hemoglobin 31 25-34 pg Mean Corpuscular Hemoglobin Concent 36 32-36 g/dL Red Cell Distribution Width 12.2 10.0-14.5 % Platelet Count 163 130-400 10^3/uL Mean Platelet Volume 11.3 9.0-12.2 fL Immature Granulocyte % (Auto) 0 % Neutrophils (%) (Auto) 63 42-75 % Lymphocytes (%) (Auto) 27 12-44 % Monocytes (%) (Auto) 8 0-12 % Eosinophils (%) (Auto) 2 0-10 % Basophils (%) (Auto) 0 0-10 % Neutrophils # (Auto) 5.8 1.8-7.8 10^3/uL Lymphocytes # (Auto) 2.4 1.0-4.0 10^3/uL Monocytes # (Auto) 0.8 0.0-1.0 10^3/uL Eosinophils # (Auto) 0.2 0.0-0.3 10^3/uL Basophils # (Auto) 0.0 0.0-0.1 10^3/uL Immature Granulocyte # (Auto) 0.0 0.0-0.1 10^3/uL Sodium Level 137 135-145 MMOL/L Potassium Level 3.9 3.6-5.0 MMOL/L Chloride Level 102 98-107 MMOL/L Carbon Dioxide Level 23 21-32 MMOL/L Anion Gap 12 5-14 MMOL/L Blood Urea Nitrogen 20 H 7-18 MG/DL Creatinine 1.16 0.60-1.30 MG/DL Estimat Glomerular Filtration Rate > 60 BUN/Creatinine Ratio 17 Glucose Level 294 H 70-105 MG/DL Calcium Level 8.9 8.5-10.1 MG/DL Magnesium Level 1.6 1.6-2.4 MG/DL Troponin I < 0.028 <0.028 NG/ML My Orders Orders - EVAN ALVARADO MD Cbc With Automated Diff (04/17/21 13:21) Basic Metabolic Panel (04/17/21 13:21) Chest 1 View, Ap/Pa Only (04/17/21 13:21) Ekg Tracing (04/17/21 13:21) Troponin I (04/17/21 13:21) Magnesium (04/17/21 13:25) Ekg Tracing (04/17/21 15:20) Metoprolol Tartrate Injection (Lopressor (04/17/21 16:00) Medications Given in ED Current Medications Medications Dose Ordered Sig/Juancarlos Route Start Time Stop Time Status Last Admin Dose Admin Metoprolol Tartrate 5 mg ONCE ONCE IV 04/17/21 16:00 04/17/21 16:01 DC 04/17/21 15:55 5 MG Metoprolol Tartrate 5 mg ONCE ONCE IV 04/17/21 16:15 04/17/21 16:16 DC 04/17/21 16:19 5 MG Vital Signs/I&O 04/17/21 13:13 Temp 36.7 Pulse 128 Resp 18 B/P (MAP) 158/96 (116) Progress Progress Note : Time: 17:31 Progress Note Patient has been resting comfortably throughout his ED stay after the last inappropriate defibrillator shock he has had no real complaints. Patient was given a total of 10 mg of Lopressor as ordered by Dr. Thompson for his persistent tachycardia and some hypertension. The [employer] rep is in the department now interrogating his machine and has determined that the patient has a right ventricular lead malfunction likely a fracture in the lead. This has caused his inappropriate shocks. Dr. Thompson advised me that he does not do lead retrieval or replacement of this particular device. He states that he would best be treated at either [facility] (if they can) or . At this point I did call as the patient has been there for cardiac complaints in the past. They are limited bed capacity but are evaluating his case to see if they can offer him treatment for his lead fracture. 175 [employer] Rep has interrogated the device and will reprogram the device to hopefully not inappropriately shock the patient. He will change to AAI pacing at a rate of 120 to determine if the sinus node will conduct appropriately - then permanently change to AAI rate of 60 with linette detection and therapies programmed off. He will no longer have defibrillation capability. (until he has the device wire for the RV replaced). Initial ECG Impression Date: April 17, 2021 Initial ECG Impression Time: 13:15 Initial ECG Rate: 128 Initial ECG Rhythm: S.Tach Initial ECG Intervals: Normal Initial ECG Impression: Normal EKG : EKG Time: 13:29 Rate: 124 Rhythm: S.Tach Intervals: Normal ECG Comparisson: Unchanged Comment ventricular paced rhythm Diagnostic Imaging Diagonstic Imaging: Xray Plain Films/CT/US/NM/MRI: chest Comments [facility], [place] NAME: [facility] REC#: [id number] PT STATUS: REG ER : 1970 PHYSICIAN: EVAN ALVARADO MD ADMIT DATE: 04/17/21/ER Signed Date of Exam:04/17/21 CHEST 1 VIEW, AP/PA ONLY INDICATION: Defibrillator going off. TIME OF EXAM: 1:23 PM. COMPARISON: 09/14/2020. FINDINGS: The cardiac defibrillator remains in place. The heart size is normal. The lungs are clear. No infiltrate or failure is detected. There is no effusion or pneumothorax. IMPRESSION: No acute cardiopulmonary process is detected. Dictated by: Dictated on workstation # [id number] Dict: 04/17/21 1338 Trans: 04/17/21 1548 [id number] Interpreted by: LITA STOKES MD Electronically signed by: LITA STOKES MD 04/17/21 1548 Departure Impression Primary Impression: Implanted defibrillator electrode lead fracture Qualified Codes: T82.190A - Other mechanical complication of cardiac electrode, initial encounter Additional Impression: Defibrillator discharge Disposition: XFER SHT-TRM HOSP Condition: Stable Transfer Transfer Reason: Exceeds level of care Time Spoke to Accepting Phy: 17:29 Transfer Facility: [facility] Method of Transfer: EMS Departure-Patient Inst. Referrals: [facility] (PCP) Primary Care Physician GIULIANA MADRIGAL (Family) Primary Care Physician EVAN ALVARADO MD April 17, 2021 13:29
--- NOTE | 2021-04-17 13:40 | Diagnostic Imaging Report ---
INDICATION: Defibrillator going off. TIME OF EXAM: 1:23 PM. COMPARISON: 09/14/2020. FINDINGS: The cardiac defibrillator remains in place. The heart size is normal. The lungs are clear. No infiltrate or failure is detected. There is no effusion or pneumothorax. IMPRESSION: No acute cardiopulmonary process is detected. Dictated by: Dictated on workstation # [id number]
[2021-04-17 13:43] LABS: CHLORIDE 102 MMOL/L (98-107); POTASSIUM 3.9 MMOL/L (3.6-5.0); SODIUM 137 MMOL/L (135-145)
[2021-04-17 13:44] LABS: CALCIUM 8.9 MG/DL (8.5-10.1); GLUCOSE 294 MG/DL (70-105)
[2021-04-17 13:46] LABS: CARBON DIOXIDE 23 MMOL/L (21-32)
[2021-04-17 13:48] LABS: CREATININE SERUM 1.16 MG/DL (0.60-1.30); GFR ESTIMATED > 60
[2021-04-17 13:49] LABS: BUN/CREATININE RATIO 17
[2021-04-17] MEDS ORDERED: meTOprolol 5 MG/5 ML (LOPRESSOR) VIAL IV ONE ×2 (16:00→16:15)
--- NOTE | 2021-04-17 16:46 | Consultation-Cardiology ---
HPI-Cardiology Cardiology Consultation Date of Consultation 04/17/21 Date of Admission Time Seen by Provider: 16:42 Indication: Shocks from the defibrillator HPI 50 years old gentleman with extensive cardiac history, was out camping with his family and on return to his home he felt tired and had no energy today then received multiple shocks from his defibrillator a total of 4 shocks very painful. No syncope, did not have any palpitation prior to the shock. Came into the emergency room, on my evaluation he was in sinus tachycardia with ventricular paced rhythm. Responded to 5 mg IV Lopressor. No treatment was delivered during the hospital emergency room stay. Was having left shoulder pain and feeling that something is pulling when he moves his arm. Home Medications & Allergies Allergies: Coded Allergies: Penicillins (Verified Allergy, Unknown, 04/18/12) Sulfa (Sulfonamide Antibiotics) (Verified Allergy, Unknown, 02/20/17) liraglutide (Verified Allergy, Unknown, 02/20/17) Home Medication List Reviewed: Yes IRK-Ylvvdd-Nepqnk Hx Patient Social History Marital Status: Recreational Drug Use: No Smoking Status: Former Smoker Former smoker/When Quit: Nov 28, 2014 Type Used: Smokeless Tobacco 2nd Hand Smoke Exposure: Yes Recent Hopitalizations: No Immunizations Up To Date Tetanus Booster (TDap): Less than 5yrs Date of Pneumonia Vaccine: Apr 25, 2012 Past Medical History Discussed below Family Medical History Significant Family History: Heart Disease Family History: Cardiovascular disease 19 FATHER 19 MOTHER Diabetes mellitus G8 SISTER FH: heart failure 19 FATHER 19 MOTHER Review of Systems-General Review of Systems Constitutional: see HPI EENTM: see HPI, no symptoms reported Respiratory: no symptoms reported, see HPI Cardiovascular: see HPI, chest pain, other (Left arm and shoulder pain) Gastrointestinal: no symptoms reported, see HPI Genitourinary: no symptoms reported, see HPI Musculoskeletal: no symptoms reported Skin: no symptoms reported Psychiatric/Neurological: Anxiety All Other Systems Reviewed Negative Unless Noted: Yes Reviewed Test Results Reviewed Test Results Lab Laboratory Tests Test 04/17/21 13:20 Range/Units White Blood Count 9.2 4.3-11.0 10^3/uL Red Blood Count 5.07 4.30-5.52 10^6/uL Hemoglobin 15.8 13.3-17.7 g/dL Hematocrit 44 40-54 % Mean Corpuscular Volume 87 80-99 fL Mean Corpuscular Hemoglobin 31 25-34 pg Mean Corpuscular Hemoglobin Concent 36 32-36 g/dL Red Cell Distribution Width 12.2 10.0-14.5 % Platelet Count 163 130-400 10^3/uL Mean Platelet Volume 11.3 9.0-12.2 fL Immature Granulocyte % (Auto) 0 % Neutrophils (%) (Auto) 63 42-75 % Lymphocytes (%) (Auto) 27 12-44 % Monocytes (%) (Auto) 8 0-12 % Eosinophils (%) (Auto) 2 0-10 % Basophils (%) (Auto) 0 0-10 % Neutrophils # (Auto) 5.8 1.8-7.8 10^3/uL Lymphocytes # (Auto) 2.4 1.0-4.0 10^3/uL Monocytes # (Auto) 0.8 0.0-1.0 10^3/uL Eosinophils # (Auto) 0.2 0.0-0.3 10^3/uL Basophils # (Auto) 0.0 0.0-0.1 10^3/uL Immature Granulocyte # (Auto) 0.0 0.0-0.1 10^3/uL Sodium Level 137 135-145 MMOL/L Potassium Level 3.9 3.6-5.0 MMOL/L Chloride Level 102 98-107 MMOL/L Carbon Dioxide Level 23 21-32 MMOL/L Anion Gap 12 5-14 MMOL/L Blood Urea Nitrogen 20 H 7-18 MG/DL Creatinine 1.16 0.60-1.30 MG/DL Estimat Glomerular Filtration Rate > 60 BUN/Creatinine Ratio 17 Glucose Level 294 H 70-105 MG/DL Calcium Level 8.9 8.5-10.1 MG/DL Magnesium Level 1.6 1.6-2.4 MG/DL Troponin I < 0.028 <0.028 NG/ML Physical Exam Physical Exam Vital Signs Vital Signs - First Documented 04/17/21 13:13 Temp 36.7 Pulse 128 Resp 18 B/P (MAP) 158/96 (116) Capillary Refill : Less Than 3 Seconds Height, Weight, BMI Height: 5'6.50" Weight: 347lbs. 3.0oz. 157.633917po; 99.00 BMI Method:Stated General Appearance: WD/WN, Anxious HEENT: PERRL/EOMI Neck: Normal Inspection Respiratory: Lungs Clear, Normal Breath Sounds, No Accessory Muscle Use, No Respiratory Distress Cardiovascular: Regular Rate, Rhythm, Tachycardia Gastrointestinal: Non Tender, Soft Extremity: Normal Capillary Refill, Normal Inspection, Normal Range of Motion, Non Tender, No Pedal Edema Neurologic/Psychiatric: Alert, Oriented x3, No Motor/Sensory Deficits, Normal Mood/Affect Skin: Normal Color, Warm/Dry A/P-Cardiology Admission Diagnosis Ventricular fibrillation Coronary artery disease Congestive heart failure, chronic left ventricular systolic dysfunction Chest pain Assessment/Plan Multiple shocks from the defibrillator, probably ventricular tachycardia, Interrogation of the device showed multiple appropriate shocks due to abnormal function of the right ventricular lead, possibly RV lead fracture, patient is having some tension in his left shoulder, I will turn off the treatment option of this device, due to the high noise from the RV lead which could create false sensing rapid ventricular rate, will try to program the device as AAI and evaluate tolerance of response. Arrangement for transfer to a tertiary care center for possible lead extraction Chest pain, nonspecific etiology, complaining of musculoskeletal pain and twinges at ICD implantation site. Still having occasional discomfort and feeling hot at the pacemaker site. Has been complaining of discomfort since February 2021 Coronary artery disease, mild per cardiac catheterization done on January 19, 2020, nonischemic cardiomyopathy. Shortness of breath, multifactorial, congestive heart failure and COPD. Scheduled to see Dr. Seay, maintained on Lasix. Congestive heart failure, chronic left ventricular systolic dysfunction, History of Biotronik Bi-V/ ICD implantation by Dr. Pierre on 05/12/2017. Having chest pain as discussed above. MUGA scan done April 2020 revealed EF 40-45 percent. Maintained on beta gianni and Entresto. Appears that he is having few episodes of ventricular tachycardia, short fibrillation. It was probably noticed for the fracture RV lead. Hypertension, increasing Coreg to 25 mg daily and monitor tolerance tolerance Sinus tachycardia, could be due to underlying COPD, maintained on Coreg 25 mg twice daily, continue to monitor. Small right groin pseudoaneurysm after the heart catheterization in 2016, was evaluated by vascular surgery. No pseudoaneurysm when evaluated by surgeon. Diabetes mellitus, followed and managed by primary care physician Arthritis with arthritic pain. Managed by primary care physician BMI is 54, we discussed weight loss and exercise. LATOYA MURO MD April 17, 2021 16:46
[2021-04-17] MEDS ORDERED: AMIODARONE FOR BOLUS 150 MG in D5W 100 ML IVPB 100 ML IV ONE (17:00)
[2021-04-17 19:00] VITALS: BP 128/84
[2021-04-17] MEDS ORDERED: AMIODARONE 200 MG (CORDARONE) TAB PO SCH (21:00)
[2021-04-17] MEDS ORDERED: SACUBITRIL/VALSARTAN 24/26 MG (ENTRESTO) TABLET PO SCH (21:00)
[2021-04-18] MEDS ORDERED: SPIRONOLACTONE 25 MG (ALDACTONE) TAB PO SCH (09:00)
== END 2021-04-17 19:00 | disposition short-term general hospital (02) ==
LOC: EDUNIT# 13:11 → ER 13:13
DX: T82.190A Other mechanical complication of cardiac electrode, initial encounter (principal); R00.0 Tachycardia, unspecified; I10 Essential (primary) hypertension; E11.9 Type 2 diabetes mellitus without complications; J44.9 Chronic obstructive pulmonary disease, unspecified; Q24.9 Congenital malformation of heart, unspecified; I42.9 Cardiomyopathy, unspecified; I25.10 Atherosclerotic heart disease of native coronary artery without angina pectoris; K21.9 Gastro-esophageal reflux disease without esophagitis; K59.09 Other constipation; F41.9 Anxiety disorder, unspecified; F32.9 Major depressive disorder, single episode, unspecified; F43.10 Post-traumatic stress disorder, unspecified; Z87.891 Personal history of nicotine dependence; Z79.82 Long term (current) use of aspirin; Z79.51 Long term (current) use of inhaled steroids; Z79.4 Long term (current) use of insulin; Z79.899 Other long term (current) drug therapy
CPT/HCPCS: 36415; 71045; 80048; 83735; 84484; 85025; 93005

== ENCOUNTER → 2022-06-20 | Outpatient (CLI) | payer MEDICAID ==
[~2022-06-20] MED LIST changes: +CLIN-144 PO; -CLIN300C12 PO; +CYCL10TA25 PO; -CYCL10TA9 PO; -LEVO500T80 PO; +LEVO500T81 PO; +OMEP20TA56 PO; -OMEP20TA7 PO; -OMEP40CA27 PO; +OMEP40CA6 PO; +POTA-160 PO; -POTA10TA6 PO
== END ==
LOC: CARD 11:17
PROVIDERS: ATTEND Pediatrics
DX: I51.7 Cardiomegaly (principal); I35.1 Nonrheumatic aortic (valve) insufficiency; I50.20 Unspecified systolic (congestive) heart failure
CPT/HCPCS: 93306

== ENCOUNTER → 2022-12-05 | Outpatient (CLI) | payer MEDICAID ==
[~2022-12-05] MED LIST changes: +ALBU8.5H6 IH; +ALBU8.5H6 INH; +CATHETER FLUSH 10 ML SYR IVP PRN; +HEParin (CENTRAL IV FLUSH) 500 UNIT/5 ML SYR ONE; +LEVO-55 PO; -LEVO500T81 PO; -POTA10CA43 PO; +POTA10CA44 PO; -RT-ALBUINH INH
--- NOTE | 2022-12-05 16:10 | Cardiology Stress Test Report ---
Stress Test Report Date of Procedure/Referring: [facility] Admitting Physician Admitting Physician: Attending Physician: Brittany Brewer Indications: CHF Summary: Patient was injected with 28.2 mCi of thallium tagged RBCs, images were acquired in 4 projection and reviewed. Calculated ejection fraction 48% EF: 48 1. MUGA images showing mild diffuse hypokinesia with ejection fraction 48% Copy Copies To 1: [facility]/ LATOYA MURO MD Dec 05, 2022 16:10
== END ==
LOC: CARD 14:00
PROVIDERS: ATTEND Physician Assistant
DX: I42.0 Dilated cardiomyopathy (principal); I50.9 Heart failure, unspecified
CPT/HCPCS: 78472; A9560